=== PATIENT | male | born 1955 | race Caucasian/White ===

== ENCOUNTER 2020-08-17 15:25 | Emergency (ER) | payer MEDICARE, SELFPAY ==
[2020-08-17 15:34] VITALS: BP 149/98; PULSE 96; RESP 22; O2SAT 96; BMI 45.8
--- NOTE | 2020-08-17 15:35 | XR_ITS ---
WS: [id number] LEFT ELBOW: 2 VIEW(S) TECHNIQUE: AP and lateral. HISTORY: pain/fall COMPARISON: None available. Very limited evaluation of the elbow. On the oblique AP images there does appear to be a fracture thr ough the distal lateral epicondyle. Moderate-sized joint effusion. Seen on the lateral projection is a nondisplaced fracture through the radial head. Tiny avulsion fracture from the coronoid process. Joint effusion. XR/XR elbow LT 2V [id number] IMPRESSION: 1. Very limited evaluation of the elbow due to difficulty positioning. 2. Large joint effusion. 3. Avulsion fracture noted through the lateral epicondyle. Additional avulsion fracture from the coronoid process and radial head.
--- NOTE | 2020-08-17 15:42 | W.ED.EXTPRO ---
HPI - Extremity Problem General: Chief complaint: Extremity Injury, Upper Stated complaint: FALL/ ELBOW DEFORMITY Time Seen by Provider: 08/17/20 15:29 History of Present Illness: HPI Narrative: 65-year-old male presents to the emergency room with complaints of a fall. He was in a parking lot stumbled lost his balance. He denies any chest pain dizziness he did not strike his head he did not lose consciousness. He has a deformity of his left elbow and had his right index finger wrapped. Removed what appears to be a almost puncture-like wound with a skin flap prominent. He denies any other injuries. MD Complaint: extremity pain and extremity swelling Onset (ago): minute(s) Pain Consistency: constant Location: left, right (Index finger) and elbow Quality: sharp Radiation: none Relieving factors: nothing Exacerbating factors: range of motion Associated symptoms: Reports no associated symptoms; Deny chest pain, fever(s) or rash Review of Systems Const: Denies: fever(s), chills, body aches, change in appetite, fatigue or malaise ENMT: Denies: throat pain, ear or mastoid pain, nasal discharge or nasal congestion Card: Denies: chest pain, edema, dyspnea on exertion or orthopnea Resp: Denies: dyspnea, productive cough or non-productive cough GI: Denies: abdominal pain, nausea, vomiting, hematemesis, coffee ground emesis, diarrhea, constipation, bloating, hematochezia or melena : Denies: flank pain, dysuria, urinary frequency or urinary urgency Skin/Breast: Denies: rash or pruritus Physical Exam Const: COMMON NORMALS: no acute distress GENERAL APPEARANCE: cooperative and comfortable ORIENTATION/CONSCIOUSNESS: Yes awake, Yes oriented to person, Yes oriented to place and Yes oriented to time HENMT: COMMON NORMALS: normocephalic, atraumatic, hearing grossly normal bilaterally, external ears normal, EAC's normal, TM's normal bilaterally, Normal nasal mucous membranes and turbinates present, moist oral mucous membranes and oropharynx normal HEAD & SCALP: normocephalic and atraumatic NOSE: Normal nasal mucous membranes and turbinates present EXTERNAL EAR: Yes external ears normal EXTERNAL AUDITORY CANAL: EAC's normal TYMPANIC MEMBRANE: TM's normal bilaterally Neck/C-Spine: COMMON NORMALS: no JVD Resp: COMMON NORMALS: normal respiratory effort, No retractions, No use of accessory muscles and clear to auscultation bilaterally AUSCULTATION: clear to auscultation bilaterally Cardio: COMMON NORMALS: no JVD, regular rate, regular rhythm and No murmurs present (Cardio) RATE: regular rate RHYTHM: regular rhythm GI: COMMON NORMALS: Soft to palpation and No hepatosplenomegaly present AUSCULTATION: Yes normoactive bowel sounds PALPATION: Yes Soft to palpation, No Tenderness to palpation present (GI), No Guarding due to palpation present (GI) and Yes No hepatosplenomegaly present Extremity: COMMON NORMALS: normal to inspection, capillary refill normal, no clubbing, cyanosis or edema, no calf tenderness and no pedal edema Neuro: SENSORIUM/ORIENTATION: Yes oriented to person, Yes oriented to place and Yes oriented to time Skin: COMMON NORMALS: no rashes or lesions noted GENERAL SKIN EXAM: no rashes or lesions noted Course Vital Signs: Vital signs: Vital Signs Pulse Rate 96 08/17/20 15:34 Respiratory Rate 22 H 08/17/20 15:34 Blood Pressure 149/98 08/17/20 15:34 Pulse Oximetry 96 08/17/20 15:34 Coding Level of Care Code ED [employer] 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
--- NOTE | 2020-08-17 15:59 | XR_ITS ---
WS: [id number] RIGHT HAND: 3 VIEW(S) TECHNIQUE: PA, oblique and lateral. HISTORY: r index finger injury COMPARISON: None available. Diffuse osteopenia. Hardware in the distal radius. Interphalangeal joint spaces are narrowed. Mild distraction of the second PIP joint joint space and o n the lateral projection phalanx is posteriorly displaced by 4.7 mm. Posterior medial displacement of the middle phalanx. Adjacent soft tissue edema surrounding the proximal second finger. There is a ti ny osseous density at the second PIP joint which could be an avulsion fracture or osteophyte. Additional interphalangeal joint spaces are mildly narrowed from osteoarthritis. XR/XR hand RT min 3V* [id number] IMPRESSION: 1. Acute appearing distraction subluxation injury involving the second PIP portillo nt. Middle phalanx is posterior and medially displaced by up to 4.7 mm with res pect to the proximal phalanx. 2. Avulsion fracture versus osteophyte within the second PIP joint. 3. Osteopenia.
--- NOTE | 2020-08-17 16:24 | CTR_ITS ---
PROCEDURE INFORMATION: Exam: CT Left Upper Extremity Without Contrast, Elbow Exam date and time: 08/17/2020 5:29 PM Age: 65 years old Clinical indication: Injury or trauma; Fracture, traumatic injury; Displaced; Left; Patient HX: L elbow FX from fall TECHNIQUE: Imaging protocol: CT of the Left upper extremity without contrast was performed. Exam focused on the elbow. Radiation optimization: All CT scans at this facility use at least one of these dose optimization techniques: automated exposure control; mA and/or kV adjustment per patient size (includes targeted exams where dose is matched to clinical indication); or iterative reconstruction. COMPARISON: CR XR elbow LT 2V [id number] 08/17/2020 3:40 PM RADIATION DOSE METRICS: Total DLP (mGy-cm): 532.38 FINDINGS: Bones/joints: There is comminuted fracture of the medial condyle of the humerus. The major fracture line is a vertical fracture running from the medial cortex at the junction of the shaft and metaphysis extending downward in the sagittal plane through the articular surface of the trochlea. The lateral aspect of the trochlear surface is fragmented and displaced proximally with fragments displaced into both the coronoid fossa and the olecranon fossa. Capitellum and radial head are intact. Soft tissues: Soft tissue swelling is noted. CT/CT elbow LT wo con* [id number] IMPRESSION: Comminuted intra-articular fracture of the distal left humerus as described. Radiation Dose CTDIVOL = (mGy): DLP = 532.38 (mGy-cm)
--- NOTE | 2020-08-17 16:25 | PC.PHAR ---
PT STATES HIS TAKES CARE OF HIS MEDICATIONS-PTS STATES THE PT TAKES METFORMIN ER 500MG PO DAILY-EXT MED HISTORY SHOWS ER 500MG TAKE 1000MG PO DAILY FILLED ON 07/18/2020 30D/S-PTS STATES THE PT TAKES XANAX 0.25MG AT BEDTIME-EXT MED HISTORY SHOWS FILLED 0.25MG PO TID ON 05/26/2020 30D/S
[2020-08-17] MEDS: lidocaine 1% INJ 20 mL INJECTION (16:56)
[2020-08-17 16:57] LABS: Basophils % 0.4 %; Eosinophils # 0.1 10^3/uL (0.0-0.8); Eosinophils % 0.7 %; Hematocrit 44.5 % (42.0-52.0); Hemoglobin 14.4 g/dL (11.7-16.6); Lymphocytes # 1.6 10^3/uL (0.8-4.8); Lymphocytes % 14.9 %; Mean Corpuscular HGB Conc 32.4 g/dL (30.0-36.0); Mean Corpuscular Hemoglobin 33.7 pg (28.0-34.0); Mean Corpuscular Volume 104.2 fL (80-94); Mean Platelet Volume 8.8 fL (7.4-10.4); Monocytes # 0.8 10^3/uL (0.2-0.9); Monocytes % 7.6 %; Neutrophils # 8.02 10^3/uL (1.8-7.7); Neutrophils % 76.2 %; Nucleated Red Blood Cells % 0 %; Platelet Count 262 10^3/cmm (130-400); Red Blood Count 4.27 10^6/uL (4.1-5.3); Red Cell Distribution Width 12.2 % (12.1-15.1); White Blood Count 10.5 10^3/uL (4.0-10.0)
[2020-08-17 17:11] LABS: INR 1.03 (0.8-1.2)
[2020-08-17 17:12] LABS: Partial Thromboplastin Time 29.1 SECONDS (23.9-36.7)
[2020-08-17 17:17] VITALS: RESP 18; O2SAT 92
[2020-08-17] MEDS: morphine 4 mg/mL SDV 1 mL IM (17:17)
[2020-08-17 17:19] LABS: Alanine Aminotransferase 25 U/L (0-41); Albumin Level 3.7 g/dL (3.5-5.2); Alkaline Phosphatase 132 IU/L (40-130); Anion Gap 13.9 (5-19); Aspartate Amino Transferase 22 U/L (0-40); Blood Urea Nitrogen 6 mg/dL (8-23); Calcium 9.1 mg/dL (8.5-10.5); Carbon Dioxide 28 mmol/L (22-29); Chloride 100 mmol/L (98-107); Globulin 3.8 g/dL (1.3-4.6); Glomerular Filtration Rate 96.7 mL/min (90-130); Glucose 147 mg/dL (65-115); Osmolality Calculated 286 mOsm/kg (285-295); Potassium 3.9 mmol/L (3.5-5.1); Sodium 138 mmol/L (136-145); Total Bilirubin 0.4 mg/dL (0.15-1.2); Total Protein 7.5 g/dL (6.6-8.7)
--- NOTE | 2020-08-17 17:26 | XRR_ITS ---
PROCEDURE INFORMATION: Exam: XR Right Finger(s) Exam date and time: 08/17/2020 5:50 PM Age: 65 years old Clinical indication: Screening exam; Post reduction; Additional info: Index - post reduciton TECHNIQUE: Imaging protocol: XR Right fingers. Views: Minimum 2 views. COMPARISON: CR XR hand RT min 3V* [id number] 08/17/2020 3:55 PM FINDINGS: Bones/joints: Post reduction views show reduction of the previously seen dislocation involving the PIP joint of the right 2nd digit. Small adjacent bony densities could represent subtle avulsion injuries versus chronic osteophytes. XR/XR finger RT min 2V [id number] IMPRESSION: Post reduction views as discussed above.
--- NOTE | 2020-08-17 18:32 | PC.NURSE ---
splint applied to left elbow/arm. Posterior arm splint.
[2020-08-17 18:47] VITALS: BP 117/82; PULSE 106; O2SAT 93
--- NOTE | 2020-08-20 09:51 | DCPLANNER ---
water/wastewater project manager had message to schedule a follow up appointment for patient with ortho. water/wastewater project manager called the ortho clinic, spoke with Sheila, gave clinic patients information. water/wastewater project manager was told that patients information would be printed and reviewed. Clinic will call patient with appointment information.
--- NOTE | 2020-08-21 07:28 | DCPLANNER ---
Patient had a follow up appointment scheduled for 08.20.20 with ortho - patient did attend appointment.
== END 2020-08-17 18:50 | disposition home or self-care (01) ==
PROVIDERS: Emergency Provider Family Medicine; PCP Emergency Medicine
DX: S52.125A Nondisplaced fracture of head of left radius, initial encounter for closed fracture (principal); S42.432A Displaced fracture (avulsion) of lateral epicondyle of left humerus, initial encounter for closed fracture; S62.610A Displaced fracture of proximal phalanx of right index finger, initial encounter for closed fracture; S63.260A Dislocation of metacarpophalangeal joint of right index finger, initial encounter; W01.0XXA Fall on same level from slipping, tripping and stumbling without subsequent striking against object, initial encounter
CPT/HCPCS: 12345; 26700; 29125; 29240; 73070; 73130; 73140; 73200; 80053; 85025; 85610; 85730; 96372; 99282; 99284; 99291; J2270

== ENCOUNTER → 2020-08-20 13:19 | Outpatient (BNVA) | payer MEDICARE, SELFPAY | PROVIDERS: PCP Emergency Medicine; Visit Provider Specialist | DX: S42.402A Unspecified fracture of lower end of left humerus, initial encounter for closed fracture (principal); X58.XXXA Exposure to other specified factors, initial encounter | CPT/HCPCS: 73080; 73140; 97760; L3807 ==

== ENCOUNTER 2020-08-20 14:25 | Outpatient (CLI) | payer MEDICARE, SELFPAY ==
[2020-08-21 16:40] LABS: Coronavirus Test Green County Not Detected
== END 2020-08-20 14:26 | disposition home or self-care (01) ==
LOC: LAB 14:28
PROVIDERS: PCP Emergency Medicine; Visit Provider Family Medicine
DX: Z01.812 Encounter for preprocedural laboratory examination (principal)
CPT/HCPCS: 87635

== ENCOUNTER 2020-08-20 15:08 | Outpatient (CLI) | payer MEDICARE, SELFPAY | END 2020-08-20 15:09 | disposition home or self-care (01) | LOC: SPT 15:09 | PROVIDERS: PCP Emergency Medicine; Visit Provider Specialist | DX: Z46.89 Encounter for fitting and adjustment of other specified devices (principal); S62.610D Displaced fracture of proximal phalanx of right index finger, subsequent encounter for fracture with routine healing; X58.XXXD Exposure to other specified factors, subsequent encounter | CPT/HCPCS: 73080; 73140; 97760; L3807 ==

== ENCOUNTER → 2020-08-21 11:27 | Day surgery (SDC) | payer MEDICARE, SELFPAY ==
[2020-08-20 14:38] VITALS: BMI 44.2
[2020-08-21 12:15] VITALS: BP 122/82; PULSE 96; RESP 16; TEMP 36.6; O2SAT 95
[2020-08-21] MEDS: sodium chloride 0.9% 1,000 ML 30 ML IV (12:41)
[2020-08-21] MEDS: CELEcoxib 200 mg Capsule 400 MG PO (12:42)
[2020-08-21 12:59] LABS: Glucose Point of Care 171 mg/dL (70-110)
[2020-08-21 13:00] LABS: Basophils % 0.4 %; Eosinophils # 0.1 10^3/uL (0.0-0.8); Eosinophils % 1.1 %; Hematocrit 42.4 % (42.0-52.0); Hemoglobin 13.9 g/dL (11.7-16.6); Lymphocytes % 20.9 %; Mean Corpuscular HGB Conc 32.8 g/dL (30.0-36.0); Mean Corpuscular Hemoglobin 33.9 pg (28.0-34.0); Mean Corpuscular Volume 103.4 fL (80-94); Mean Platelet Volume 8.9 fL (7.4-10.4); Neutrophils # 6.44 10^3/uL (1.8-7.7); Neutrophils % 67.4 %; Nucleated Red Blood Cells % 0 %; Platelet Count 273 10^3/cmm (130-400); Red Cell Distribution Width 12.1 % (12.1-15.1); White Blood Count 9.6 10^3/uL (4.0-10.0)
[2020-08-21 13:25] LABS: Alanine Aminotransferase 18 U/L (0-41); Albumin Level 3.8 g/dL (3.5-5.2); Alkaline Phosphatase 128 IU/L (40-130); Blood Urea Nitrogen 7 mg/dL (8-23); Calcium 8.9 mg/dL (8.5-10.5); Carbon Dioxide 29 mmol/L (22-29); Chloride 96 mmol/L (98-107); Globulin 3.8 g/dL (1.3-4.6); Glomerular Filtration Rate 112.8 mL/min (90-130); Glucose 166 mg/dL (65-115); Osmolality Calculated 280 mOsm/kg (285-295); Sodium 134 mmol/L (136-145); Total Bilirubin 0.4 mg/dL (0.15-1.2); Total Protein 7.6 g/dL (6.6-8.7)
[2020-08-21 13:28] LABS: Anion Gap 13.3 (5-19); Aspartate Amino Transferase 21 U/L (0-40); Potassium 4.3 mmol/L (3.5-5.1)
[2020-08-21 13:32] LABS: Add Urine Microscopic? NO
[2020-08-21 13:39] LABS: Bilirubin Urine Neg (Negative); Blood Urine Neg (Negative); Glucose Urine UA 1+ (Normal); Ketones Urine Negative (Negative); Leukocyte Esterase Urine Negative (Negative); Nitrate Urine Negative (Negative); Protein Urine Neg (Negative); Urine Appearance Clear (CLEAR); Urine Color Yellow (Yellow); Urobilinogen Urine 1 mg/dL (Negative)
[2020-08-21] MEDS: midazolam 1 mg/mL INJ 2 mL 2 MG IVP (14:10)
--- NOTE | 2020-08-21 14:41 | P.ANESASSM_ITS ---
Pre-Anesthetic Assessment Pre-Anesthetic Assessment: Height/Weight: Height 1.68 m Weight 124.284 kg Temp Pulse Resp BP Pulse Ox 97.9 F 96 16 122/82 95 08/21/20 12:15 08/21/20 12:15 08/21/20 12:15 08/21/20 12:15 08/21/20 12:15 Preop Diagnosis: Fracture left elbow Proposed Procedure: Operation Date: 08/21/20 13:30 Proposed Procedures p ORIF left humerus fracture with examination of right index finger under anastesia 41506 [id number] S42.409A S62.608A(Left) - Amber Osborne MD Was Beta Chad taken within 24 hours: N/A Last intake: Intake Last Liquid Date 08/20/20 Last Liquid Time 23:00 Last Solid Date 08/20/20 Last Solid Time 23:00 Social: Social History: Tobacco and No alcohol Exam: Pre-Anes Outpt Exam: alert, oriented x 3 and regular rate & rhythm Additional Exam Findings (including area of procedure): BBS decreased Airway: Submandibular: WNL Cervical ROM: WNL MP: 2 Dentition: Chipped Additional comments: Very poor dentition Pulmonary: Pulmonary: COPD and ELLIS CV/HEM: CV/HEM: HTN : : None reported Hepatic: Hepatic: None reported GI: GI: None reported Metabolic: Metabolic: DM and Morbid obesity Musc/skel: Musc/skel: Lower Back Pain Neuropsych: Neuropsych: Anxiety Anesthetic Plan: ASA status: 3 Anesthesia: General Risk of > 500 ml blood loss (7ml/kg in children): No Meds/Allergies Current Medications: Current Medications Generic Name Dose Route Start Last Admin Trade Name Freq PRN Reason Stop Dose Admin Sodium Chloride 1,000 mls @ 30 ml s/hr 08/21/20 12:15 08/21/20 12:41 Sodium Chloride 0.9% IV 08/22/20 12:14 30 mls/hr .Q24H MARIANA Administration Midazolam HCl 2 mg 08/21/20 12:02 08/21/20 14:10 Midazolam 1 Mg/M l Inj 2 Ml IVP 2 mg Q5M PRN Administration Preop Anxiety Data Anesthesia CBC & Chem 7: 08/21/20 12:40 08/21/20 12:40 Other Labs: Laboratory Results - last 48 hr 01/07/3008/21/20 08/21/20 12:37 12:40 12:40 WBC 9.6 RBC 4.10 Hgb 13.9 Hct 42.4 MCV 103.4 H MCH 33.9 MCHC 32.8 RDW 12.1 Plt Count 273 MPV 8.9 Neut % (Auto) 67.4 Lymph % (Auto) 20.9 [place] % (Auto) 10.0 Eos % (Auto) 1.1 Baso % (Auto) 0.4 Neut # (Auto) 6.44 Lymph # (Auto) 2.0 [place] # (Auto) 1.0 H Eos # (Auto) 0.1 Baso # (Auto) 0.0 Nucleated RBC % (auto) 0 Nucleated RBCs # 0.0 Sodium 134 L Potassium 4.3 Chloride 96 L Carbon Dioxide 29 Anion Gap 13.3 BUN 7 L Creatinine 0.7 GFR Calculation 112.8 Glucose 166 H POC Glucose 171 H Calculated Osmolality 280 L Calcium 8.9 Total Bilirubin 0.4 AST 21 ALT 18 Alkaline Phosphatase 128 Total Protein 7.6 Albumin 3.8 Globulin 3.8 Urine Color Urine Appearance Urine pH Ur Specific [place] Urine Protein Urine Glucose (UA) Urine Ketones Urine Blood Urine Nitrate Urine Bilirubin Urine Urobilinogen Ur Leukocyte Esterase 08/21/20 13:07 WBC RBC Hgb Hct MCV MCH MCHC RDW Plt Count MPV Neut % (Auto) Lymph % (Auto) [place] % (Auto) Eos % (Auto) Baso % (Auto) Neut # (Auto) Lymph # (Auto) [place] # (Auto) Eos # (Auto) Baso # (Auto) Nucleated RBC % (auto) Nucleated RBCs # Sodium Potassium Chloride Carbon Dioxide Anion Gap BUN Creatinine GFR Calculation Glucose POC Glucose Calculated Osmolality Calcium Total Bilirubin AST ALT Alkaline Phosphatase Total Protein Albumin Globulin Urine Color Yellow Urine Appearance Clear Urine pH 5.0 Ur Specific [place] 1.020 Urine Protein Neg Urine Glucose (UA) 1+ Urine Ketones Negative Urine Blood Neg Urine Nitrate Negative Urine Bilirubin Neg Urine Urobilinogen 1 H Ur Leukocyte Esterase Negative Cardiac Studies: No Data to Display
--- NOTE | 2020-08-21 15:56 | P.MISC_ITS ---
Miscellaneous Note Purpose of Documentation: Postponement of OR documentation Note: Patient presented for open reduction internal fixation of an intra- articular distal humerus fracture on the left. He was also to undergo exam under anesthesia of the right index finger. Secondary to OR constraints, issues secondary to COVID and available resources, the patient surgery was delayed from today until August 23, at 1300.
--- NOTE | 2020-08-21 16:23 | SUR.PREOP ---
Dr. Osborne in to see patient. Surgery was postponed to . 08/23/20. IV discontinued intact. 2x2 dressing applied with coban.
== END | disposition home or self-care (01) ==
PROVIDERS: PCP Emergency Medicine; Visit Provider Specialist
PROC: (CPT 24515; principal; 2020-08-21 13:30)
DX: S42.402A Unspecified fracture of lower end of left humerus, initial encounter for closed fracture (principal); S62.609A Fracture of unspecified phalanx of unspecified finger, initial encounter for closed fracture; X58.XXXA Exposure to other specified factors, initial encounter; Z53.9 Procedure and treatment not carried out, unspecified reason; J44.9 Chronic obstructive pulmonary disease, unspecified; I10 Essential (primary) hypertension; E11.9 Type 2 diabetes mellitus without complications; E66.01 Morbid (severe) obesity due to excess calories; Z68.41 Body mass index [BMI] 40.0-44.9, adult; F41.9 Anxiety disorder, unspecified
CPT/HCPCS: 36416; 80053; 81003; 82962; 85025; J0131; J2250; J7030

== ENCOUNTER 2020-08-23 11:50 | Day surgery (SDC) | payer MEDICARE, SELFPAY ==
[2020-08-23] VITALS (15 sets, daily range): BP systolic 110–179; BP diastolic 75–94; PULSE 92–122; RESP 12–20; TEMP 36.1–36.2; O2SAT 93–100; BMI 44.2
--- NOTE | 2020-08-23 | XR_ITS ---
WS: [id number] 2 views of the right second finger, C-arm fluoroscopy, 08/23/2020 Clinical Data: EVAL OF 2ND DIGIT Comparison: Right second finger, 08/20/2020. Findings: No fractures or dislocations are seen. The soft tissues are normal. The calcifications at the PIP portillo nt are obscured by overlapping tissue. XR/XR finger RT min 2V [id number] Impression: Negative right second finger.
--- NOTE | 2020-08-23 | SCC_ITS ---
Procedure Done: Open reduction internal fixation left distal humerus fracture, supracondylar and intercondylar with intra-articular extension and comminution. 21.1 seconds of fluoroscopic guidance, for a cumulative dose of 0.83 mGy, was provided to Dr. Osborne by the radiology department. C-arm images of the RIGHT finger were saved for the patient's permanent record. [facility]
[2020-08-23 11:58] LABS: Glucose Point of Care 140 mg/dL (70-110)
--- NOTE | 2020-08-23 11:59 | P.ANESUD_ITS ---
Pre-Anesthetic Update Pre-Anesthetic Assessment: Date of Surgery/Procedure: 08/23/20 Preop Mel gnosis: Fracture left elbow Proposed Procedure: Operation Date: 08/23/20 13:00 Proposed Procedures p ORIF left humerus fracture with examination of right index finger under anatesia 40080 [id number] S42.409A S62.608A(Right) - Amber Osborne MD Any changes to Pre-Anesthetic Assessment?: No Labs Last 48hrs: Laboratory Results - last 48 hr 08/23/20 11:53 POC Glucose 140 H Vitals: Temperature 97.2 F L 08/23/20 11:43 Pulse Rate 92 08/23/20 11:43 Respiratory Rate 18 08/23/20 11:43 Blood Pressure 169/82 08/23/20 11:43 Blood Pressure [place] n 111 08/23/20 11:43 Pulse Oximetry 96 08/23/20 11:43 Exam: Pre-Anes Outpt Exam: alert, oriented x 3 and regular rate & rhythm Additional Exam Findings (including area of procedure): Rhonchi Cardiac Studies: No Data to Display
[2020-08-23] MEDS: CELEcoxib 200 mg Capsule 400 MG PO (12:15)
[2020-08-23] MEDS: vancomycin 1,000 MG in sodium chloride 0.9% 250 ML 250 MG IV (12:35)
--- NOTE | 2020-08-23 13:12 | W.PM.OPSUD ---
Surgery/Procedure H&P Update DATE OF PROCEDURE: August 23, 2020 DATE H&P PERFORMED: 08/20/20 H&P UPDATE INFORMATION: I have reviewed H&P completed within last 30 days, I have examined patient prior to procedure, No changes to prior documentation and H&P is in [facility] [place] on date indicated PREOP DIAGNOSIS: Fracture left elbow intra-articular and supracondylar PLANNED PROCEDURE: Operation Date: 08/23/20 13:00 Proposed Procedures p ORIF left humerus fracture with examination of right index finger under anesthesia [id number] S42.409A S62.608A(Right) - Amber Osborne MD Related Problem List Diagnoses (1) Supracondylar fracture of left humerus: Qualifiers: Encounter type: initial encounter Fracture type: closed Qualified Code(s): S42.412A - Displaced simple supracondylar fracture without intercondylar fracture of left humerus, initial encounter for closed fracture (2) Dislocation of proximal interphalangeal joint of right index finger: Qualifiers: Encounter type: initial encounter Qualified Code(s): S63.280A - Dislocation of proximal interphalangeal joint of right index finger, initial encounter
[2020-08-23] MEDS: sodium chloride 0.9% 1,000 ML 30 ML IV (14:00)
[2020-08-23] MEDS: ceFAZolin 1,000 mg SDV 1000 MG IRRIGATION (14:46)
[2020-08-23] MEDS: vancomycin 1,000 MG SDV 1000 MG XX (17:08)
[2020-08-23] MEDS: fentaNYL 50 mcg/mL INJ 2mL IVP (17:47)
--- NOTE | 2020-08-23 17:50 | XR_ITS ---
WS: [id number] Left elbow, 3 views, 08/23/2020 Clinical Data: Status post ORIF left distal humerus Comparison: Left elbow, 08/20/2020. Findings: There is an internal fixation of the distal left humeral fracture with a medial plate held with multi ple screws. There is a curved plate fixed to the olecranon with multiple orthopedic screws. There is a posterior splint. There are posterior lynn in the subcutaneous tissue. XR/XR elbow LT min 3V* [id number] Impression: Internal fixation of distal left humerus and olecranon of the left ulna.
--- NOTE | 2020-08-23 17:51 | P.PCN_ITS ---
PACU note PACU note: VSS, Good respiratory effort, report to SPECIAL LOAN OFFICER Post-Anesthesia Exam: awake
--- NOTE | 2020-08-23 17:51 | PM.PACU ---
PACU note PACU note: VSS, Good respiratory effort, report to UI ENGINEER Post-Anesthesia Exam: awake
--- NOTE | 2020-08-23 17:55 | PM.OP ---
Operative Report Date of procedure: August 23, 2020 Pre-op Diagnosis: Fracture left elbow intra-articular and supracondylar Pre-op Diagnosis: Right index finger PIP fracture dislocation Post-op diagnosis: same Post-op Findings: Comminution left supracondylar and intercondylar distal humerus fracture, intra-articular. Status post closed reduction PIP joint dislocation. Procedure Done: Open reduction internal fixation left distal humerus fracture, supracondylar and intercondylar with intra-articular extension and comminution. Exam under anesthesia right index finger with attention to PIP joint. Implants: The [place] 6 hole medial distal humeral plate and a 3 hole [place] olecranon plate. FIXOS headless screws 2.5 mm x 2 and 4.0 mm x 1 Specimens removed/disposition: None Pathology: none sent Surgeon: Amber Osborne Anodize Machine Operator: [facility] operating room technicians Anesthesia: General (Intubated, ASA 3) Estimated blood loss (mL): 100 Tourniquet time (min): 120 Tourniquet time: 250 mmHg IV fluids (mL): 1,300 Urine output (mL): 0 Urine output: No Bailey Complications: None Findings: Significant comminution left distal humerus fracture Condition: stable Disposition: PACU (Then home with family) Brief History: 65-year-old gentleman was in his usual state of health when he chased after a wheelchair in a parking lot. He fell suffering the above injuries. He had a dislocation of the PIP joint of his index finger which was reduced in the emergency department. Today, he will have an exam under anesthesia to assure that it is stable. Additionally, he had a comminuted medial condyle comminuted intra-articular, supracondylar distal humerus fracture which is displaced. Today, he comes for definitive care of this. Risks and complications were discussed with him preoperatively. Consents were signed as well. Procedure: Patient was seen in the preoperative holding area and his operative site was marked. Patient was brought to the operating theater and placed on the operating room table. After undergoing adequate general intubated, ASA 3 anesthesia, the patient's left upper extremity was prepped and draped in usual fashion utilizing DuraPrep. The arm was draped free. Fluoroscopy was used throughout the surgical procedure. We did have a tourniquet high on the left upper extremity. Prior to prepping and draping completely, the surgical pause was performed and the patient's right index finger underwent an exam under anesthesia. This was to determine stability and appropriate reduction of the finger. Fluoroscopy was utilized to evaluate this. There was no evidence of subluxation or dislocation with this manipulation. Therefore, jennifer taping was returned to the right index finger. It was taped to the middle finger. Attention was then directed to the plan for open reduction internal fixation of the distal left humerus. A sterile tourniquet was placed on the arm. This was elevated to 250 mmHg and total tourniquet time was 120 minutes. Tourniquet elevation followed exsanguination of the leg. A surgical pause was performed. At the time of the surgical pause we identified the site and side of surgery as well as the patient's identity and availability of equipment. We also confirmed appropriate administration of IV antibiotics. Following the above, an incision was made centering over the patient's distal humeral fracture. The incision was continued from the midportion of the humeral shaft across the olecranon and along the subcutaneous border of the ulna. Palpation of the area was difficult secondary to the patient's size and significant soft tissue in the area. The incision was continued through skin and soft tissue through subcutaneous tissue. Subcutaneous tissues were elevated off the triceps and off the area of the ulna. The ulnar nerve was identified proximally and was traced along the ulnar groove and released from the groove. It was tagged with a Maurisio drain. The ulnar nerve was evaluated and protected throughout the surgical procedure. Attention was directed to it repeatedly during the manipulation of the fracture. An olecranon osteotomy was then performed. This was a chevron style osteotomy. It was partially completed with a saw and the remainder was completed with an osteotome. We were able to elevate the olecranon proximal portion proximally to allow access to the joint. The fracture was noted to be very comminuted. Soft tissues were dissected to allow access to the distal humerus above the level of the fracture. There were multiple comminuted pieces and it did involve the joint surface. Evaluation of the area we were able to place the middle trochlear fracture back in position against the stable lateral capitellum. This was held in place with a FIXOS 2.5 headless screw which was buried. We were then able to further reduce the fracture manipulating it into place. Once again, we used a headless screw but this was a 4.0 headless screw to fix the lateral aspect of the trochlea to the previously constructed lateral stable column. There was one small portion of cartilage that was removed during this process this was replaced in position and again a 2.5 mm headless screw was used to place this in position. Once we the construct of the articular surface in this fashion, we reduced the medial column which extended along the medial aspect of the humerus. This essentially was reduced anatomically and held with a large clamp. We then placed a medial 6-hole olecranon plate along the medial aspect of the humerus and along the epicondyle of the humerus medially. This was attached with a combination of locking and nonlocking screws. Care was taken to protect the ulnar nerve throughout this process. Once the plate was attached with 2 screws, we evaluated position of the plate and length of screws and adjustments were made as appropriate. We used fluoroscopic guidance throughout this process. The elbow was placed through range of motion once the plate was attached. There was no crepitation. The fracture appeared stable. Once the plate was appropriately attached, we irrigated the wound. We then closed the wound with 0 Vicryl in the fascial tissues, 2-0 Monocryl in the subcutaneous tissues, and the skin was closed with skin lynn. Sterile dressing was placed consisting of Xeroform gauze, 4 x 4's, sterile soft roll, a posterior splint and an Rd wrap. The patient is to remain nonweightbearing on his left upper extremity. The procedure was well tolerated without complication. Tourniquet time was 120 minutes at 250 mmHg. The patient will be discharged home to follow-up in my office as scheduled. Associated Problem List Diagnoses (1) Fracture of medial condyle of left elbow: Qualifiers: Encounter type: initial encounter Fracture type: closed Fracture alignment: displaced Qualified Code(s): S42.462A - Displaced fracture of medial condyle of left humerus, initial encounter for closed fracture (2) Supracondylar fracture of left humerus: Qualifiers: Encounter type: initial encounter Fracture type: closed Qualified Code(s): S42.412A - Displaced simple supracondylar fracture without intercondylar fracture of left humerus, initial encounter for closed fracture (3) Dislocation of proximal interphalangeal joint of right index finger: Qualifiers: Encounter type: initial encounter Qualified Code(s): S63.280A - Dislocation of proximal interphalangeal joint of right index finger, initial encounter
--- NOTE | 2020-08-23 18:48 | ANE.PACU2 ---
Inpatient post-anesthesia follow up: Airway intact: Yes Vital signs: Temperature 97.0 F Pulse Rate 112 Respiratory Rate 12 Blood Pressure 156/84 Pulse Oximetry 93 Oxygen Delivery Me thod Nasal Cannula Oxygen Flow Rate 2 Fraction of Inspir ed Oxygen Hydration adequate: Yes Nausea and vomiting: No Pain level: 2 Mental status: Baseline
[2020-08-23] MEDS: oxyCODONE 5 mg IR Tab/Cap PO (19:06)
== END 2020-08-23 19:56 | disposition home or self-care (01) ==
PROVIDERS: PCP Emergency Medicine; Visit Provider Specialist
PROC: (CPT 24515; principal; 2020-08-23 13:00)
PROC: (CPT 24546; 2020-08-23 13:00)
DX: S42.412A Displaced simple supracondylar fracture without intercondylar fracture of left humerus, initial encounter for closed fracture (principal); S63.280A Dislocation of proximal interphalangeal joint of right index finger, initial encounter; S42.462A Displaced fracture of medial condyle of left humerus, initial encounter for closed fracture; W19.XXXA Unspecified fall, initial encounter; Y92.481 Parking lot as the place of occurrence of the external cause
CPT/HCPCS: 24546; 26775; 12345; 36416; 73080; 73140; 76000; 82962; C1713; J0131; J0330; J0690; J2405; J2704; J3010; J3370; J3490; J7030; J7050

== ENCOUNTER → 2020-09-06 14:13 | Outpatient (BNVA) | payer MEDICARE, SELFPAY | PROVIDERS: PCP General Practice; Visit Provider Specialist | DX: S62.640A Nondisplaced fracture of proximal phalanx of right index finger, initial encounter for closed fracture (principal); S42.462A Displaced fracture of medial condyle of left humerus, initial encounter for closed fracture; S42.412A Displaced simple supracondylar fracture without intercondylar fracture of left humerus, initial encounter for closed fracture; X58.XXXA Exposure to other specified factors, initial encounter; Z46.89 Encounter for fitting and adjustment of other specified devices; S42.462D Displaced fracture of medial condyle of left humerus, subsequent encounter for fracture with routine healing; X58.XXXD Exposure to other specified factors, subsequent encounter | CPT/HCPCS: 73080; 73140; 97760; L3761 ==

== ENCOUNTER 2020-09-06 15:38 | Outpatient (CLI) | payer MEDICARE, SELFPAY | END 2020-09-06 15:39 | disposition home or self-care (01) | LOC: SPT 15:39 | PROVIDERS: PCP General Practice; Visit Provider Specialist | DX: Z46.89 Encounter for fitting and adjustment of other specified devices (principal); S42.462D Displaced fracture of medial condyle of left humerus, subsequent encounter for fracture with routine healing; X58.XXXD Exposure to other specified factors, subsequent encounter | CPT/HCPCS: 97760; L3761 ==

== ENCOUNTER → 2020-09-17 10:52 | Outpatient (BNVA) | payer MEDICARE, SELFPAY | PROVIDERS: PCP General Practice; Visit Provider Specialist | DX: S63.280A Dislocation of proximal interphalangeal joint of right index finger, initial encounter (principal); S42.462A Displaced fracture of medial condyle of left humerus, initial encounter for closed fracture; S42.412A Displaced simple supracondylar fracture without intercondylar fracture of left humerus, initial encounter for closed fracture; W01.0XXA Fall on same level from slipping, tripping and stumbling without subsequent striking against object, initial encounter | CPT/HCPCS: 73080; 73140 ==

== ENCOUNTER → 2020-10-10 09:15 | Outpatient (BNVA) | payer MEDICARE, SELFPAY | PROVIDERS: PCP General Practice; Visit Provider Specialist | DX: S42.462A Displaced fracture of medial condyle of left humerus, initial encounter for closed fracture (principal); S42.412A Displaced simple supracondylar fracture without intercondylar fracture of left humerus, initial encounter for closed fracture; S63.280A Dislocation of proximal interphalangeal joint of right index finger, initial encounter; S62.300A Unspecified fracture of second metacarpal bone, right hand, initial encounter for closed fracture | CPT/HCPCS: 73080; 73140 ==

== ENCOUNTER → 2020-11-01 08:35 | Outpatient (BNVA) | payer MEDICARE, SELFPAY | PROVIDERS: PCP General Practice; Visit Provider Specialist | DX: Z98.890 Other specified postprocedural states (principal); S62.350 Nondisplaced fracture of shaft of second metacarpal bone, right hand; W01.0XXD Fall on same level from slipping, tripping and stumbling without subsequent striking against object, subsequent encounter; S63.280D Dislocation of proximal interphalangeal joint of right index finger, subsequent encounter; S42.412D Displaced simple supracondylar fracture without intercondylar fracture of left humerus, subsequent encounter for fracture with routine healing | CPT/HCPCS: 73080; 73140 ==

== ENCOUNTER 2022-01-01 14:12 | Inpatient (IN) | payer MEDICARE, SELFPAY ==
[2022-01-01] VITALS (23 sets, daily range): BP systolic 103–189; BP diastolic 56–87; PULSE 76–103; RESP 16–22; TEMP 36.6–36.9; O2SAT 95–100; BMI 37.9
[2022-01-01 14:53] LABS: ABG PCO2 89.9 mmHg (35-45); ABG PH Result 7.21 (7.35-7.45); Arterial Blood Gas Hematocrit 47.2 % (42-52); Base Excess ABG 4.3 mmol/L (-2.0-2.0); Blood Gas Allen Test Pos; Blood Gas Operator Identificat CAK; Blood Gas Sample Site Radial, right; Blood Gas Sample Type Arterial; Carboxyhemoglobin 1.2 %THgb (0.4-20.1); HCO3 ABG 35.9 mmol/L (22-26); HGB O2 Sat 96.6 % (95-100); Ionized Calcium Level - ABG 1.2 mmol/L (1.1-1.4); Methemoglobin 1.1 % (0.4-1.5); Oxygen Device NC; Oxygen Saturation ABG 98.9; Potassium Level - ABG 4.2 mmol/L (3.5-5.0); Total Hemoglobin 15.4 g/dL (14-18)
--- NOTE | 2022-01-01 14:54 | XR_ITS ---
WS: [id number] Exam: XR chest 1V portable [id number] Date/Time of Exam: 01/01/2022 2:59 PM Reason For Exam: shortness of breath Comparison 07/11/2018. Focal pulmonary density seen near the left costophrenic angle may represent a mass or consolidated pn eum[place] and/or atelectasis. Remaining lung [place] are clear. No pneumothorax. Heart size is normal fo r technique. An ET tube is in place ending at about the level of T3 in satisfactory position. The kory gs are adequately ventilated. An enteric tube is looped in the body the stomach but the tip is not vi sible. Bony structures are intact. Mediastinal contour is normal for technique. XR/XR chest 1V portable [id number] IMPRESSION: 1. Focal masslike pulmonary density at the left costophrenic angle which may re present consolidated pneumonia or pulmonary mass. 2. ET tube in satisfactory position. Enteric tube looped in the stomach.
[2022-01-01 14:57] LABS: Glucose Point of Care 196 mg/dL (70-110)
[2022-01-01] MEDS: succinylcholine 20 mg/mL SDV 10mL 100 MG IV (15:07)
[2022-01-01 15:13] LABS: Basophils % 0.2 %; Eosinophils % 0.1 %; Hemoglobin 15.2 g/dL (11.7-16.6); Lymphocytes % 10.2 %; Monocytes % 9.6 %; Neutrophils # 7.92 10^3/uL (1.8-7.7); Neutrophils % 78.5 %; Nucleated Red Blood Cells % 0 %; Platelet Count 224 10^3/cmm (130-400); Red Blood Count 4.22 10^6/uL (4.1-5.3); Red Cell Distribution Width 12.9 % (12.1-15.1); White Blood Count 10.1 10^3/uL (4.0-10.0)
--- NOTE | 2022-01-01 15:20 | ECG_ITS ---
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 Measurements Intervals [place] Rate: 108 P: 73 UT: 194 QRS: -79 QRSD: 96 T: 73 QT: 354 QTc: 475 Interpretive Statements SINUS TACHYCARDIA LEFT AXIS DEVIATION [QRS AXIS < -30] POSSIBLE ANTERIOR MYOCARDIAL INFARCTION , OF INDETERMINATE AGE [30 ms Q WAVE IN V3/V4, OR R < 0.2 mV IN V4] Compared to ECG 07/11/2018 16:59:53 Myocardial infarct finding now present Sinus rhythm no longer present Electronically Signed On 01-01-2022 21:22:54 CDT by Skylar Arvizu M.D. [email or web address]
[2022-01-01] MEDS: ipratropium-albuterol 3 mL Neb INHALATION ×2 (15:36→20:34)
[2022-01-01 15:38] LABS: Lactic Sepsis W/Reflex 1.7 mmol/L (0.5-2.2)
[2022-01-01 15:41] LABS: Acetaminophen 5.7 ug/mL (10-30); Alanine Aminotransferase 21 U/L (0-41); Albumin Level 4.2 g/dL (3.5-5.2); Alkaline Phosphatase 108 IU/L (40-130); Anion Gap 13.8 (5-19); Aspartate Amino Transferase 17 U/L (0-40); Blood Urea Nitrogen 7 mg/dL (8-23); C Reactive Protein 17.4 mg/L (0.0-4.9); Calcium 9.2 mg/dL (8.5-10.5); Carbon Dioxide 34 mmol/L (22-29); Chloride 94 mmol/L (98-107); Globulin 3.3 g/dL (1.3-4.6); Glomerular Filtration Rate 112.5 mL/min (90-130); Glucose 189 mg/dL (65-115); Magnesium 1.8 mg/dL (1.7-2.3); NT Pro B Type Natriuretic Pept 164 pg/mL (0-125); Osmolality Calculated 287 mOsm/kg (285-295); Potassium 4.8 mmol/L (3.5-5.1); Sodium 137 mmol/L (136-145); Total Bilirubin 0.2 mg/dL (0.15-1.2); Total Protein 7.5 g/dL (6.6-8.7)
[2022-01-01 15:42] LABS: Alcohol Level < 10 mg/dL (0-10); Salicylate < 0.3 mg/dL (3-10)
[2022-01-01] MEDS: fentaNYL 50 mcg/mL INJ 2mL IVP ×4 (15:44→17:48)
--- NOTE | 2022-01-01 15:57 | ED_ITS ---
HPI - Altered Mental Status General: Chief Complaint: Altered Mental Status Stated Complaint: respiratory distress Time Seen by Provider: 01/01/22 14:33 History of Present Illness: Patient is brought in by EMS with shortness of breath and mental status change. Per family the patient has been dealing with shortness of breath and a productive cough for the past couple of days. States that today he is not acting himself. Upon arrival here the patient is very somnolent and appears confused on exam. He is also requiring supplemental oxygen to maintain his oxygen saturations above 90%. He has a productive cough for yellowish sputum. A stat blood gas was obtained which showed a PCO2 of 89.9. Given the mental status change I do not think the patient is a good candidate for BiPAP. At this time after talking to the family the decision was made to intubate. Review of Systems General: Reports: Other (Review of systems is limited due to patient's mental status) Const: Denies: fever(s) or body aches Eyes: Denies: change in vision or blurry vision ENMT: Denies: throat pain or odynophagia Card: Denies: chest pain or palpitations Resp: Denies: dyspnea or productive cough GI: Denies: abdominal pain, nausea or vomiting : Denies: flank pain or dysuria Musc: Denies: neck pain or back pain Skin/Breast: Denies: rash or pruritus Neuro: Reports: numbness in extremities and weakness in extremities; Denies: headache(s) Psych: Denies: anxiety or change in appetite Endo: Denies: polyuria or excessive sweating Physical Exam Const: OTHER: Patient is confused, and ill-appearing HENMT: COMMON NORMALS: normocephalic and atraumatic HEAD & SCALP: normocephalic and atraumatic Eye: COMMON NORMALS: Equal, round and reactive pupils present and EOMs intact bilaterally PUPIL: Yes Equal, round and reactive pupils present Neck/C-Spine: COMMON NORMALS: full ROM and supple Resp: COMMON NORMALS: normal respiratory effort, No retractions and No use of accessory muscles Cardio: COMMON NORMALS: regular rhythm RHYTHM: regular rhythm OTHER: Tachycardia GI: COMMON NORMALS: Normal to inspection, nondistended, normoactive bowel sounds present, Soft to palpation and non-tender PALPATION: Yes Soft to palpation Back/Pelvis: COMMON NORMALS: thoracic and lumbar spine normal to inspection an d no thoracic nor lumbar tenderness Extremity: OTHER: Chronic venous stasis changes of bilateral lower extremities Psych: COMMON NORMALS: mental status grossly normal and cooperative Skin: COMMON NORMALS: no rashes or lesions noted and no wounds GENERAL SKIN EXAM: no rashes or lesions noted Course Vital Signs: Vital signs: Vital Signs Temperature 97.9 F 01/01/22 14:19 Pulse Rate 93 01/01/22 16:26 Respiratory Rate 18 01/01/22 16:31 Blood Pressure 104/66 01/01/22 16:26 Pulse Oximetry 97 01/01/22 16:26 MDM - Altered Mental Status Medical Decision Making Patient is brought in by EMS with shortness of breath and mental status change. Per family the patient has been dealing with shortness of breath and a productive cough for the past couple of days. States that today he is not acting himself. Upon arrival here the patient is very somnolent and appears confused on exam. He is also requiring supplemental oxygen to maintain his oxygen saturations above 90%. He has a productive cough for yellowish sputum. A stat blood gas was obtained which showed a PCO2 of 89.9. Given the mental status change I do not think the patient is a good candidate for BiPAP. At this time after talking to the family the decision was made to intubate. Will intubate the patient, check labs, x-ray, and reassess. On reassessment I discussed the case with the hospitalist. We will start the patient on antibiotics for pneumonia. Will admit to the ICU for further work-up and treatment. Lab Data : 01/01/22 14:55 01/01/22 14:55 Radiology Impressions Chest X-Ray 01/01/22 14:54 IMPRESSION: 1. Focal masslike pulmonary density at the left costophrenic angle which may represent consolidated pneumonia or pulmonary mass. 2. ET tube in satisfactory position. Enteric tube looped in the stomach. Laboratory Results WBC 10.1 10^3/uL (4.0-10.0) H 01/01/22 14:55 RBC 4.22 10^6/uL (4.1-5.3) 01/01/22 14:55 Hgb 15.2 g/dL (11.7-16.6) 01/01/22 14:55 Hct 46.0 % (42.0-52.0) 01/01/22 14:55 MCV 109.0 fl (80-94) H 01/01/22 14:55 MCH 36.0 pg (28.0-34.0) H 01/01/22 14:55 MCHC 33.0 g/dL (30.0-36.0) 01/01/22 14:55 RDW 12.9 % (12.1-15.1) 01/01/22 14:55 Plt Count 224 10^3/cmm (130-400) 01/01/22 14:55 MPV 9.0 fL (7.4-10.4) 01/01/22 14:55 Neut % (Auto) 78.5 % 01/01/22 14:55 Lymph % (Auto) 10.2 % 01/01/22 14:55 [place] % (Auto) 9.6 % 01/01/22 14:55 Eos % (Auto) 0.1 % 01/01/22 14:55 Baso % (Auto) 0.2 % 01/01/22 14:55 Neut # (Auto) 7.92 10^3/uL (1.8-7.7) H 01/01/22 14:55 Lymph # (Auto) 1.0 10^3/uL (0.8-4.8) 01/01/22 14:55 [place] # (Auto) 1.0 10^3/uL (0.2-0.9) H 01/01/22 14:55 Eos # (Auto) 0.0 10^3/uL (0.0-0.8) 01/01/22 14:55 Baso # (Auto) 0.0 10^3/uL (0.0-0.1) 01/01/22 14:55 Nucleated RBC % (auto) 0 % 01/01/22 14: Nucleated RBCs # 0.0 /100WBC 01/01/22 14:55 Specimen Type Arterial 01/01/22 16:02 Sample Site Radial, left 01/01/22 16:02 ABG pH 7.15 (7.35-7.45) L* 01/01/22 16:02 ABG pCO2 102.0 mmHg (35-45) H* 01/01/22 16:02 ABG pO2 200.0 mmHg (80.0-100.0) H 01/01/22 16:02 ABG HCO3 35.0 mmol/L (22-26) H 01/01/22 16:02 ABG O2 Saturation 99.3 01/01/22 16:02 ABG Base Excess 2.1 mmol/L (-2.0-2.0) H 01/01/22 16:02 Dileep Test Pos 01/01/22 16:02 A-a O2 Gradient 31.8 mmHg (5-10) H 01/01/22 16:02 Hematocrit 46.9 % (42-52) 01/01/22 16:02 Hgb O2 Saturation 97.0 % (95-100) 01/01/22 16:02 Carboxyhemoglobin 1.0 %THgb (0.4-20.1) 01/01/22 16:02 Methemoglobin 1.2 % (0.4-1.5) 01/01/22 16:02 Total Hemoglobin 15.3 g/dL (14-18) 01/01/22 16:02 Sodium 138.0 mmol/L (131-143) 01/01/22 16:02 Potassium 4.8 mmol/L (3.5-5.0) 01/01/22 16:02 Glucose 196.0 mg/dL (70-115) H 01/01/22 16:02 Ionized Calcium 1.2 mmol/L (1.1-1.4) 01/01/22 16:02 O2 Delivery Device Vent 01/01/22 16:02 O2 Liters/Min 5.0 % 01/01/22 14:42 FiO2 80.0 % 01/01/22 16:02 Tidal Volume 0.40 01/01/22 16:02 PEEP 8.0 cmH20 01/01/22 16:02 Occupational Therapy Asst ID Cak 01/01/22 16:02 Sodium 137 mmol/L (136-145) 01/01/22 14:55 Potassium 4.8 mmol/L (3.5-5.1) 01/01/22 14:55 Chloride 94 mmol/L (98-107) L 01/01/22 14:55 Carbon Dioxide 34 mmol/L (22-29) H 01/01/22 14:55 Anion Gap 13.8 (5-19) 01/01/22 14:55 BUN 7 mg/dL (8-23) L 01/01/22 14:55 Creatinine 0.7 mg/dL (0.7-1.2) 01/01/22 14:55 GFR Calculation 112.5 mL/min (90-130) 01/01/22 14:55 Glucose 189 mg/dL (65-115) H 01/01/22 14:55 POC Glucose 196 mg/dL (70-110) H 01/01/22 14:45 Calculated Osmolality 287 mOsm/kg (285-295) 01/01/22 14:55 Lactic Acid 1.7 mmol/L (0.5-2.2) 01/01/22 15:18 Calcium 9.2 mg/dL (8.5-10.5) 01/01/22 14:55 Magnesium 1.8 mg/dL (1.7-2.3) 01/01/22 14:55 Total Bilirubin 0.2 mg/dL (0.15-1.2) 01/01/22 14:55 AST 17 U/L (0-40) 01/01/22 14:55 ALT 21 U/L (0-41) 01/01/22 14:55 Alkaline Phosphatase 108 IU/L (40-130) 01/01/22 14:55 C-Reactive Protein 17.4 mg/L (0.0-4.9) H 01/01/22 14:55 NT-Pro-B Natriuret Pep 164 pg/mL (0-125) H 01/01/22 14:55 Total Protein 7.5 g/dL (6.6-8.7) 01/01/22 14:55 Albumin 4.2 g/dL (3.5-5.2) 01/01/22 14:55 Globulin 3.3 g/dL (1.3-4.6) 01/01/22 14:55 Salicylates < 0.3 mg/dL (3-10) L 01/01/22 14:55 Acetaminophen 5.7 ug/mL (10-30) L 01/01/22 14:55 Ethyl Alcohol < 10 mg/dL (0-10) 01/01/22 14:55 Critical Care Time Critical Care Time: Critical Care Time: Yes Total Critical Care Time: 75 Attestation: This case had a high probability of a clinically significant, sudden, or life threatening deterioration of this patient's condition which required my full and direct attention, intervention and personal management. Discharge Plan Discharge Patient Disposition: Admitted As Inpatient Clinical Impression: Respiratory failure Condition: Stable Coding Level of Care Code ED Tool/Die Maker for [place] Exam Comprehensive
[2022-01-01 16:14] LABS: ABG PH Result 7.15 (7.35-7.45); Alveolar-Arterial Oxygen Gradi 31.8 mmHg (5-10); Arterial Blood Gas Hematocrit 46.9 % (42-52); Base Excess ABG 2.1 mmol/L (-2.0-2.0); Blood Gas Allen Test Pos; Blood Gas Operator Identificat CAK; Blood Gas Sample Site Radial, left; Blood Gas Sample Type Arterial; Ionized Calcium Level - ABG 1.2 mmol/L (1.1-1.4); Methemoglobin 1.2 % (0.4-1.5); Oxygen Device VENT; Oxygen Saturation ABG 99.3; Potassium Level - ABG 4.8 mmol/L (3.5-5.0); Total Hemoglobin 15.3 g/dL (14-18)
[2022-01-01] MEDS: cefTRIAXone 1,000 MG in sodium chloride 0.9% (plus) 50 ML 100 MG IV (16:22)
[2022-01-01] MEDS: azithromycin 500 MG in sodium chloride 0.9% 250 ML 250 MG IV (16:24)
--- NOTE | 2022-01-01 17:27 | PM.HP ---
Providers/Chief Complaint Primary Care Provider: Harsha Ritchie MD Chief Complaint: respiratory distress History of Present Illness Jb Borges is a 66 year old male with past medical history of hypertension diabetes COPD,OHS, was brought in with chief complaint of shortness of breath as well as altered mental status. Since the patient has been intubated, history has been obtained from ER chart review. Per family members patient was complaining of worsening shortness of breath as well as productive cough going on for the past couple of days, today according to the family members he was not acting himself, he was extremely somnolent and confused. When he arrived in the ER he was worked up for above-mentioned complaint. Pertinent imaging studies: X-ray chest: Focal mass like pulmonary density at the left costophrenic angle which may represent consolidated pneumonia or pulmonary mass. ABG: pH:7.21, PCO2: 89 , PO2: 146 , FIO2:80% Pertinent labs: WBC 10.1, H&H:15/46 , PLT : 224 , serum sodium 137 serum potassium 4.8, BUN and serum creatinine 7 and 0.7,RBS:189 , COVID PCR negative. Review of Systems General: Reports: ROS unobtainable due to endotracheal tube Medications/Allergies Home Medications Medication Instructions Recorded Confirmed Last Taken Type acetaminophen 500 mg tablet 1,000 mg PO DAILY PRN 08/17/20 01/01/22 Unknown History (Tylenol Extra Strength) alprazolam 0.25 mg tablet 0.25 mg PO BEDTIME 08/17/20 01/01/22 12/31/21 History atorvastatin 40 mg tablet 40 mg PO DAILY@08/17/20 01/01/22 12/31/21 History lisinopril 5 mg tablet 5 mg PO DAILY@08/17/20 01/01/22 12/31/21 History metformin 500 mg tablet,extended See Rx Instructions .ROUTE .COMPLEX 08/17/20 01/01/22 12/31/21 History release 24 hr paroxetine HCl 20 mg tablet 20 mg PO BEDTIME 08/17/20 01/01/22 12/31/21 History hydrocodone 5 mg-acetaminophen 325 1 tab PO Q6H PRN 10 Days #40 tab 09/06/20 01/01/22 Unknown Rx mg tablet glipizide 5 mg tablet, extended 5 mg PO DAILY 01/01/22 01/01/22 12/31/21 History release 24 hr Allergies Allergy/AdvReac Type Severity Reaction Status Date / Time No Known Allergies Allergy Verified 01/01/22 15:22 Vitals/I&O/Wt Last Vital Signs Temp 97.9 F 01/01/22 14:19 Pulse 93 01/01/22 16:26 Resp 18 01/01/22 16:31 BP 104/66 01/01/22 16:26 Pulse Ox 97 01/01/22 16:26 Weight last 48 hrs Weight 106.594 kg Physical Exam Narrative: Intubated ,sedated on mechanical ventilation HENMT: COMMON NORMALS: normocephalic and atraumatic HEAD & SCALP: normocephalic and atraumatic Chest: CHEST: Yes Symmetrical chest wall rise Resp: EFFORT & INSPECTION: Yes symmetric chest movement AUSCULTATION: clear to auscultation bilaterally OTHER: Diminished air entry B/L, B/L Expiratory wheezing Cardio: COMMON NORMALS: regular rate, regular rhythm, S1 normal heart sound present, S2 normal heart sound present, No gallops present (Cardio), No murmurs present (Cardio), No rub (Cardio) and Peripheral pulses 2+ throughout RATE: regular rate RHYTHM: regular rhythm HEART SOUNDS: S1 normal heart sound present and S2 normal heart sound present PERIPHERAL PULSES: Peripheral pulses 2+ throughout GI: COMMON NORMALS: Normal to inspection, nondistended, normoactive bowel sounds present, Soft to palpation, non-tender, No hepatosplenomegaly present and no masses AUSCULTATION: Yes normoactive bowel sounds PALPATION: Yes Soft to palpation and Yes No hepatosplenomegaly present RECTAL EXAM: Yes deferred Urinary Catheter Management: Bailey: Cath Placed During This Visit: yes Urinary Catheter Date of Insertion: 01/01/22 Urinary Catheter Time of Insertion: 15:25 Data : 01/01/22 14:55 01/01/22 14:55 Micro: Microbiology 01/01/22 15:18 Blood Culture - Preliminary Blood SPECIMEN COLLECTED 01/01/22 14:55 Blood Culture - Preliminary Blood SPECIMEN COLLECTED A&P Assessment and plan (1) Respiratory failure with hypoxia and hypercapnia: Status: Acute (2) Diabetes: Status: Acute (3) Hypertension: Status: Acute (4) COPD (chronic obstructive pulmonary disease): Status: Acute (5) Obesity hypoventilation syndrome: Status: Acute (6) Altered mental status: Status: Acute Plan 66 year old male with past medical history of hypertension diabetes COPD,OHS, was brought in with chief complaint of shortness of breath as well as altered mental status. Assessment: Respiratory failure with hypoxia and hypercapnia likely secondary to COPD exacerbation secondary to pneumonia , obesity hypoventilation syndrome. X-ray chest: Focal mass like pulmonary density at the left costophrenic angle which may represent consolidated pneumonia or pulmonary mass. CT chest without contrast: For better evaluation of reported possible mass like pulmonary density. Monitor ABG Follow blood culture MRSA PCR COVID PCR negative Sputum gram stain and culture DuoNebs every 6H Solu-Medrol 60 IV every 8 Continue Zosyn for now. Continue mechanical ventilation for now.VC/AC: Tidal volume 450,R/R:20 , PIP:32 , PEEP of 8, FiO2 60%. Altered mental status secondary to hypercapnia: Plan as above Diabetes: LDDI Monitor fingerstick glucose HTN : Currently normotensive monitor blood pressure for now #CODE STATUS: Full code #DVT prophylaxis: On Lovenox Attestations Medical Necessity Statement*: Patient is to be in hospital for management of respiratory failure. Anticipated length of stay greater than 2 midnights. Time Spent in Patient Care: Greater than 35 minutes (>than 50% of time spent in counselling and/or direct pt care on unit). Critical Care Time: The high probability of a clinically significant, sudden or life threatening deterioration of the patient's [] system(s) required my full and direct attention, intervention and personal management. The critical care time is as shown. This time is in addition to time spent performing any reported procedures but includes the following: [x] Data and vital sign review and interpretation [x] Patient assessment, examination and intervention [x] Documentation [x] Medication orders and management Critical Care Time (min): 45 Coding Level of Care Code Acute Ending Machine Operator for g Fwd Diagnoses Respiratory failure with hypoxia and hypercapnia J96.91; J96.92 Diabetes E11.9 Hypertension I10 COPD (chronic obstructive pulmonary disease) J44.9 Obesity hypoventilation syndrome E66.2 Altered mental status R41.82
[2022-01-01 17:35] LABS: ABG PH Result 7.17 (7.35-7.45); Alveolar-Arterial Oxygen Gradi 20.7 mmHg (5-10); Arterial Blood Gas Hematocrit 46.3 % (42-52); Base Excess ABG 0.4 mmol/L (-2.0-2.0); Blood Gas Allen Test Pos; Blood Gas Operator Identificat CAK; Blood Gas Sample Site Radial, left; Blood Gas Sample Type Arterial; Blood Gas Tidal Volume 0.45; Carboxyhemoglobin 0.9 %THgb (0.4-20.1); HCO3 ABG 32.2 mmol/L (22-26); HGB O2 Sat 97.8 % (95-100); Ionized Calcium Level - ABG 1.2 mmol/L (1.1-1.4); Methemoglobin 1.1 % (0.4-1.5); Oxygen Device VENT; Oxygen Saturation ABG 99.9; Potassium Level - ABG 4.3 mmol/L (3.5-5.0); Total Hemoglobin 15.1 g/dL (14-18)
[2022-01-01 17:36] LABS: ABG PCO2 89.4 mmHg (35-45)
[2022-01-01] MEDS: midazolam 1 mg/mL INJ 2 mL 4 MG IVP (17:36)
[2022-01-01 17:50] LABS: Adenovirus Not Detected (NOT DETECT); Chlamydia Pneumoniae Not Detected (NOT DETECT); Coronavirus 229E,HKU1,NL63,OC4 Not Detected (NOT DETECT); Human Metapneumovirus Not Detected (NOT DETECT); Human Rhinovirus/Enterovirus Not Detected (NOT DETECT); Influenza A Not Detected (NOT DETECT); Influenza A H1 Not Detected (NOT DETECT); Influenza A H1-2009 Not Detected (NOT DETECT); Influenza A H3 Not Detected (NOT DETECT); Influenza B Not Detected (NOT DETECT); Mycoplasma Pneumoniae Not Detected (NOT DETECT); Parainfluenza Virus Type 1 Not Detected (NOT DETECT); Parainfluenza Virus Type 2 Not Detected (NOT DETECT); Parainfluenza Virus Type 3 Not Detected (NOT DETECT); Parainfluenza Virus Type 4 Not Detected (NOT DETECT); Respiratory Syncytial Virus A Not Detected (NOT DETECT); Respiratory Syncytial Virus B Not Detected (NOT DETECT); SARS-COV-2 Not Detected (NOT DETECT)
[2022-01-01] MEDS: midazolam 1 mg/mL INJ 2 mL 2 MG IVP (17:52)
--- NOTE | 2022-01-01 18:10 | XRR_ITS ---
PROCEDURE INFORMATION: Exam: XR Chest Exam date and time: 01/01/2022 6:23 PM Age: 66 years old Clinical indication: Shortness of breath; Additional info: Pneumonia TECHNIQUE: Imaging protocol: XR of the chest. Views: 1 view. COMPARISON: CR XR chest 1V portable [id number] 01/01/2022 3:30 PM FINDINGS: Tubes, catheters and devices: Stable positioning of endotracheal and enteric tubes. Lungs: Left basilar consolidation. Pleural spaces: No evident pleural effusion. No pneumothorax. Heart/Mediastinum: Unremarkable. No cardiomegaly. Bones/joints: Unremarkable. XR/XR chest 1V portable [id number] IMPRESSION: Similar appearance of left basilar consolidation.
--- NOTE | 2022-01-01 19:53 | PC.NURSE ---
1904 report received 1920 pt to icu
[2022-01-01] MEDS: enoxaparin 40 mg/0.4 mL Syringe SUBCUT (20:44)
[2022-01-01] MEDS: piperacillin-tazobactam 3.375 GM in sodium chloride 0.9% (plus) 50 ML IV (20:45)
[2022-01-01] MEDS: PARoxetine 20 mg Tablet PO (20:45)
[2022-01-01 20:49] LABS: Add Urine Microscopic? YES; Bilirubin Urine Neg (Negative); Blood Urine 2+ (Negative); Glucose Urine UA 1+ (Normal); Ketones Urine Negative (Negative); Leukocyte Esterase Urine 2+ (Negative); Nitrate Urine Positive (Negative); Protein Urine 2+ (Negative); Urine Appearance Cloudy (CLEAR); Urine Color Dark Yellow (Yellow); Urobilinogen Urine Norm (Negative); pH Urine 6.5 (5-7)
[2022-01-01 20:54] LABS: Mucus Urine 2+ /hpf
[2022-01-01 20:55] LABS: Add Urine Culture? Yes; Bacteria Urine 1+ /hpf; RBC Urine 50-80 /hpf (0-2); WBC Urine 40-55 /hpf (0-5)
[2022-01-01] MEDS: insulin lispro 100 unit/1 mL SUBCUT (21:04)
[2022-01-01 21:36] LABS: Amphetamines Screen Urine Negative (Negative); Barbiturates Screen Urine Negative (Negative); Benzodiazepines Screen Urine Positive (Negative); Cocaine Screen Urine Negative (Negative); Opiate Screen Urine Positive (Negative); PCP Screen Urine Negative (Negative); THC Screen Urine Negative (Negative)
[2022-01-02] VITALS (37 sets, daily range): BP systolic 97–137; BP diastolic 51–87; PULSE 72–125; RESP 16–23; TEMP 36.7–37; O2SAT 90–100
[2022-01-02] MEDS: propofol 1,000 MG/100 ML INJ 12.79 MG IV (03:23)
[2022-01-02] MEDS: ipratropium-albuterol 3 mL Neb INHALATION ×5 (04:23→19:58)
[2022-01-02] MEDS: piperacillin-tazobactam 3.375 GM in sodium chloride 0.9% (plus) 50 ML IV ×3 (04:40→20:27)
[2022-01-02 05:16] LABS: ABG PCO2 57.6 mmHg (35-45); ABG PH Result 7.35 (7.35-7.45); Arterial Blood Gas Hematocrit 50.2 % (42-52); Blood Gas Allen Test Pos; Blood Gas Sample Type Arterial; Carboxyhemoglobin 0.7 %THgb (0.4-20.1); HCO3 ABG 31.6 mmol/L (22-26); HGB O2 Sat 96.3 % (95-100); Ionized Calcium Level - ABG 1.2 mmol/L (1.1-1.4); Methemoglobin 0.9 % (0.4-1.5); Oxygen Saturation ABG 97.9; PO2 ABG 94.3 mmHg (80.0-100.0); Potassium Level - ABG 4.3 mmol/L (3.5-5.0); Total Hemoglobin 16.4 g/dL (14-18)
[2022-01-02 05:24] LABS: Alveolar-Arterial Oxygen Gradi 15.3 mmHg (5-10); Blood Gas Operator Identificat JB; Blood Gas Sample Site Brachial, right; Blood Gas Tidal Volume 0.45; Oxygen Device VENT
[2022-01-02 08:02] LABS: Glucose Point of Care 377 mg/dL (70-110)
[2022-01-02] MEDS: insulin lispro 100 unit/1 mL SUBCUT ×4 (08:05→20:23)
--- NOTE | 2022-01-02 09:20 | PC.NURSE ---
PT remains sedated and on vent. Thick, singh secretions are noted. Dr. Ro gave verbal order to extubate.
[2022-01-02] MEDS: propofol 1,000 MG/100 ML INJ 15.99 MG IV (09:48)
[2022-01-02 10:18] LABS: Basophils % 0.1 %; Hematocrit 42.3 % (42.0-52.0); Hemoglobin 13.7 g/dL (11.7-16.6); Lymphocytes # 1.1 10^3/uL (0.8-4.8); Lymphocytes % 8.8 %; Mean Corpuscular HGB Conc 32.4 g/dL (30.0-36.0); Mean Corpuscular Hemoglobin 35.7 pg (28.0-34.0); Mean Corpuscular Volume 110.2 fl (80-94); Monocytes # 0.5 10^3/uL (0.2-0.9); Neutrophils # 11.08 10^3/uL (1.8-7.7); Neutrophils % 86.7 %; Nucleated Red Blood Cells % 0 %; Platelet Count 217 10^3/cmm (130-400); Red Blood Count 3.84 10^6/uL (4.1-5.3); White Blood Count 12.8 10^3/uL (4.0-10.0)
[2022-01-02 10:34] LABS: INR 1.04 (0.8-1.2)
[2022-01-02 10:35] LABS: Partial Thromboplastin Time 27.6 SECONDS (23.9-36.7)
--- NOTE | 2022-01-02 10:45 | PM.PN ---
Subjective Subjective: Patient was seen and examined this morning, a.m. ABG: pH 7.35, PCO2:57, PO2 94.3, Current ventilator settings are: VC-AC: Tv: 450 cc , r/r :20 , PIP; 28 , Ti: 0.85 , PEEP:8 ,FIO2: 30%. Patient has remained afebrile overnight. No other acute events. Medications: Medication Review Details: Generic Name Dose Route Start Last Admin Trade Name Freq PRN Reason Stop Dose Admin Albuterol/Ipratrop ium 3 ml 01/01/22 21:00 01/02/22 08:02 Ipratropium-Albu terol 3 Ml Neb INHALATION 3 ml Q6H.RESPIRATORY S CH Administration Enoxaparin Sodium 40 mg 01/01/22 18:45 01/01/22 20:44 Enoxaparin 40 Mg /0.4 Ml Syringe SUBCUT 40 mg Q24H MARIANA Administration Fentanyl 50 mcg 01/01/22 15:39 01/01/22 17:48 Fentanyl 50 Mcg/ Ml Inj 2ml IVP 50 mcg Q5MIN PRN Administration SEDATION Piperacillin Sod/T azobactam 50 mls @ 12.5 mls /hr 01/01/22 18:00 01/02/22 04:40 Sod 3.375 gm/ So dium Chloride IV 12.5 mls/hr Q8H MARIANA Administration Protocol Propofol 1,000 mg in 100 m ls @ 0 mls/hr 01/01/22 18:15 01/02/22 09:48 Diprivan IV 25 mcg/kg/min .Q0M MARIANA 15.99 mls/hr Administration Protocol Per Protocol Insulin Human Lisp ro 0 unit 01/01/22 18:00 01/02/22 08:05 Insulin Lispro 1 00 Unit/1 Ml SUBCUT 12 unit WM&BEDTIME MARIANA Administration Protocol Methylprednisolone Sodium Succinate 60 mg 01/01/22 18:00 01/02/22 09:48 Methylprednisolo ne Sod Succ 125 Mg /2 Ml Inj IVP 60 mg Q8H MARIANA Administration Midazolam HCl 4 mg 01/01/22 16:07 01/01/22 17:36 Midazolam 1 Mg/M l Inj 2 Ml IVP 4 mg Q5MIN PRN Administration SEDATION Midazolam HCl 2 mg 01/01/22 16:30 01/01/22 17:52 Midazolam 1 Mg/M l Inj 2 Ml IVP 2 mg Q5MIN PRN Administration SEDATION Paroxetine HCl 20 mg 01/01/22 21:00 01/01/22 20:45 Paroxetine 20 Mg Tablet PO 20 mg BEDTIME MARIANA Administration Vitals/I&O/Wt Last Vital Signs Temp 98.6 F 01/02/22 04:00 Pulse 100 01/02/22 09:00 Resp 23 H 01/02/22 09:30 BP 136/76 01/02/22 09:00 Pulse Ox 92 01/02/22 09:30 01/01/22 01/02/22 01/02/22 22:59 06:59 14:59 Intake Total 360 / 360 64.282 / 424.282 99.747 / 99.747 Output Total 250 / 250 Balance 360 / 360 -185.718 / 174.282 99.747 / 99.747 Weight last 48 hrs Weight 126.734 kg Weight 106.594 kg Physical Exam Narrative: Intubated ,sedated on mechanical ventilation HENMT: COMMON NORMALS: normocephalic and atraumatic HEAD & SCALP: normocephalic and atraumatic Chest: CHEST: Yes Symmetrical chest wall rise Resp: COMMON NORMALS: clear to auscultation bilaterally EFFORT & INSPECTION: Yes symmetric chest movement AUSCULTATION: clear to auscultation bilaterally OTHER: Diminished air entry B/L, B/L Expiratory wheezing Cardio: COMMON NORMALS: regular rate, regular rhythm, S1 normal heart sound present, S2 normal heart sound present, No gallops present (Cardio), No murmurs present (Cardio), No rub (Cardio) and Peripheral pulses 2+ throughout RATE: regular rate RHYTHM: regular rhythm HEART SOUNDS: S1 normal heart sound present and S2 normal heart sound present PERIPHERAL PULSES: Peripheral pulses 2+ throughout GI: COMMON NORMALS: Normal to inspection, nondistended, normoactive bowel sounds present, Soft to palpation, non-tender, No hepatosplenomegaly present and no masses AUSCULTATION: Yes normoactive bowel sounds PALPATION: Yes Soft to palpation and Yes No hepatosplenomegaly present RECTAL EXAM: Yes deferred Urinary Catheter Management: Bailey: Cath Placed During This Visit: yes Reason for Continuing Indwelling Catheter: Accurate Measurement of Urinary Output in Critically Ill Patients Urinary Catheter Date of Insertion: 01/01/22 Urinary Catheter Time of Insertion: 15:25 Data : 01/02/22 09:30 01/01/22 14:55 Micro: Microbiology 01/01/22 15:18 Blood Culture - Preliminary Blood SPECIMEN COLLECTED 01/01/22 14:55 Blood Culture - Preliminary Blood SPECIMEN COLLECTED A&P Assessment and plan (1) Respiratory failure with hypoxia and hypercapnia: Status: Acute (2) Diabetes: Status: Acute (3) Hypertension: Status: Acute (4) COPD (chronic obstructive pulmonary disease): Status: Acute (5) Obesity hypoventilation syndrome: Status: Acute (6) Altered mental status: Status: Acute Plan 66 year old male with past medical history of hypertension diabetes COPD,OHS, was brought in with chief complaint of shortness of breath as well as altered mental status. Assessment: Respiratory failure with hypoxia and hypercapnia likely secondary to COPD exacerbation secondary to pneumonia , obesity hypoventilation syndrome. X-ray chest: Focal mass like pulmonary density at the left costophrenic angle which may represent consolidated pneumonia or pulmonary mass. CT chest without contrast: For better evaluation of reported possible mass like pulmonary density. Monitor ABG Follow blood culture MRSA PCR COVID PCR negative Sputum gram stain and culture DuoNebs every 6H Solu-Medrol 60 IV every 8 Continue Zosyn for now. Continue mechanical ventilation for now.VC/AC: Tidal volume 450,R/R:20 , PIP:32 , PEEP of 8, FiO2 60%. Altered mental status secondary to hypercapnia: Plan as above Diabetes: LDDI Monitor fingerstick glucose HTN : Currently normotensive monitor blood pressure for now #CODE STATUS: Full code #DVT prophylaxis: On Lovenox Attestations Medical Necessity Statement*: Patient is to be in hospital for management of respiratory failure. Time Spent in Patient Care: Greater than 35 minutes (>than 50% of time spent in counselling and/or direct pt care on unit). Critical Care Time: The high probability of a clinically significant, sudden or life threatening deterioration of the patient's [] system(s) required my full and direct attention, intervention and personal management. The critical care time is as shown. This time is in addition to time spent performing any reported procedures but includes the following: [x] Data and vital sign review and interpretation [x] Patient assessment, examination and intervention [x] Documentation [x] Medication orders and management Critical Care Time (min): 40 Coding Level of Care Code Acute Automotive Finance Manager for g Fwd Diagnoses Respiratory failure with hypoxia and hypercapnia J96.91; J96.92 Diabetes E11.9 Hypertension I10 COPD (chronic obstructive pulmonary disease) J44.9 Obesity hypoventilation syndrome E66.2 Altered mental status R41.82
[2022-01-02 10:48] LABS: NT Pro B Type Natriuretic Pept 170 pg/mL (0-125); Procalcitonin 0.14 ng/mL (0-0.5)
[2022-01-02 10:59] LABS: Anion Gap 18.2 (5-19); Blood Urea Nitrogen 17 mg/dL (8-23); Carbon Dioxide 28 mmol/L (22-29); Chloride 93 mmol/L (98-107); Glomerular Filtration Rate 60.4 mL/min (90-130); Glucose 203 mg/dL (65-115); Osmolality Calculated 287 mOsm/kg (285-295); Potassium 4.2 mmol/L (3.5-5.1); Sodium 135 mmol/L (136-145)
[2022-01-02 11:36] LABS: Glucose Point of Care 202 mg/dL (70-110)
--- NOTE | 2022-01-02 12:36 | PC.NURSE ---
All sedation has been turned off. Pt is able to follow commands.
[2022-01-02] MEDS: dexmedeTOMIDine 0.9 % NaCL 400 MCG/100 ML PREMIX IV (12:41)
--- NOTE | 2022-01-02 14:15 | PC.NURSE ---
Pt was extubated at 1400 to 2L NC. Tolerated well
[2022-01-02] MEDS: acetylcysteine 200 mg/mL SDV 4 mL INHALATION ×2 (15:08→19:57)
[2022-01-02 17:27] LABS: Glucose Point of Care 154 mg/dL (70-110)
[2022-01-02] MEDS: nicotine 14 mg Patch 1 PATCH TRANSDERMA (17:39)
[2022-01-02] MEDS: azithromycin 500 MG in sodium chloride 0.9% 250 ML 250 MG IV (17:40)
[2022-01-02] MEDS: enoxaparin 40 mg/0.4 mL Syringe SUBCUT (17:40)
--- NOTE | 2022-01-02 17:56 | PC.NURSE ---
125 Ml of fentanyl was wated with angela CARTER but was unable to waste in OCT due to bag never being scanned.
[2022-01-02 20:15] LABS: Glucose Point of Care 178 mg/dL (70-110)
[2022-01-02] MEDS: PARoxetine 20 mg Tablet PO (20:22)
[2022-01-02] MEDS: guaiFENesin 600 mg Tablet 1200 MG PO (20:22)
[2022-01-03] VITALS (31 sets, daily range): BP systolic 118–166; BP diastolic 62–97; PULSE 74–115; RESP 14–30; TEMP 36.8; O2SAT 93–100
[2022-01-03] MEDS: ipratropium-albuterol 3 mL Neb INHALATION ×6 (00:13→19:55)
[2022-01-03] MEDS: acetylcysteine 200 mg/mL SDV 4 mL INHALATION ×6 (00:13→19:55)
[2022-01-03 02:32] LABS: Basophils % 0.1 %; Eosinophils % 0.1 %; Hematocrit 41.9 % (42.0-52.0); Hemoglobin 13.8 g/dL (11.7-16.6); Lymphocytes % 5.8 %; Mean Corpuscular HGB Conc 32.9 g/dL (30.0-36.0); Mean Corpuscular Hemoglobin 36.1 pg (28.0-34.0); Mean Corpuscular Volume 109.7 fl (80-94); Mean Platelet Volume 8.8 fL (7.4-10.4); Monocytes # 0.8 10^3/uL (0.2-0.9); Monocytes % 4.8 %; Neutrophils # 15.15 10^3/uL (1.8-7.7); Neutrophils % 88.7 %; Nucleated Red Blood Cells % 0 %; Platelet Count 186 10^3/cmm (130-400); Red Blood Count 3.82 10^6/uL (4.1-5.3); Red Cell Distribution Width 13.1 % (12.1-15.1); White Blood Count 17.1 10^3/uL (4.0-10.0)
[2022-01-03 02:50] LABS: Blood Urea Nitrogen 19 mg/dL (8-23); Calcium 8.6 mg/dL (8.5-10.5); Carbon Dioxide 31 mmol/L (22-29); Chloride 95 mmol/L (98-107); Glomerular Filtration Rate 96.4 mL/min (90-130); Glucose 190 mg/dL (65-115); Osmolality Calculated 287 mOsm/kg (285-295); Sodium 135 mmol/L (136-145)
[2022-01-03 02:52] LABS: Anion Gap 13.8 (5-19); Potassium 4.8 mmol/L (3.5-5.1)
[2022-01-03] MEDS: piperacillin-tazobactam 3.375 GM in sodium chloride 0.9% (plus) 50 ML IV ×3 (04:22→21:47)
--- NOTE | 2022-01-03 07:39 | CT_ITS ---
WS: [id number] CT CHEST WITH INTRAVENOUS CONTRAST HISTORY: Focal masslike pulmonary density at the left C/P Angle TECHNIQUE: Contiguous 5 mm axial imaging performed on the thorax. Coronal and sagittal reformats are submitted. All CT scans at [facility] use at least one of these dose optimization techniques: automated exposure control; mA and/or kV adjustment per patient size (includes targeted exams where dose is matched to clinical indication); or iterative reconstruction. CONTRAST: Omnipaque 300; 50 mL IV. DLP: 1048.43 mGy.cm COMPARISON: Chest radiograph 01/01/2022. Lungs and central airway: Very small amount of pleural thickening and subsegmental atelectasis at the LEFT lung base. The opacification noted on the recent chest radiograph is a benign pericardial fat p ad. Pleura: Normal. No pleural effusion. Heart and pericardium: Very minimal pericardial thickening. Normal size heart. Mediastinum and makenzie: No mediastinum or hilar adenopathy. Vessels: Normal size aortic and pulmonary artery. No coronary artery calcifications. Chest wall and lower neck: No soft tissue masses. Upper abdomen: Negative. Osseous structures: No destructive process. CT/CT chest w con* [id number] IMPRESSION: 1. No pulmonary mass. 2. Opacification at the LEFT costophrenic angle is a normal, benign pericardia l fat pad. 3. No pneumonia.
[2022-01-03] MEDS: guaiFENesin 600 mg Tablet 1200 MG PO ×2 (08:31→21:46)
[2022-01-03] MEDS: nicotine 14 mg Patch 1 PATCH TRANSDERMA (08:31)
[2022-01-03] MEDS: insulin lispro 100 unit/1 mL SUBCUT ×4 (08:31→22:08)
[2022-01-03 09:37] LABS: Glucose Point of Care 173 mg/dL (70-110)
--- NOTE | 2022-01-03 10:05 | PC.CHAP ---
Pastoral Care Encounter/Spiritual Assessment Type of Contact [] Declined grab hooker visit [] Patient/Family/Request visit [] Outpatient visit [] Follow-up visit [] Physician referral [] Code/Alert [x] Routine visit [] Staff referral [] Actively dying [] Patient sleeping [] Family support [] [] Out of room [] Palliative care [] [] Receiving care in room [] Pre-surgical visit [] Trauma [] Long length of stay [x] ICU visit [] Other: Relational/Emotional Strength [] Patient feels connected with others/family/visitors/staff [] Distress [] Loneliness/isolation [] Abandonment Spirituality of Patient [] Person of Ana María [] Attends Alevism of their Ana María [] Believes in Prayer [] Reads Bible or Evangelical materials [] There are Spiritual issues to be addressed Cooler Worker Interventions [x] Prayer [x] Active listening [x] Non-anxious presence [x] Spiritual/emotional support [] Crisis/trauma care [] Spiritual counseling [] Bereavement support [] Provided bereavement packet [] Provided Bible/devotional materials [] Provided toy/stuffed animal, coloring book to patient or family member [] Provided Communion [] Anointing/[place] [] Salvation [x] Completed spiritual assessment [] Other: Impact on Illness or Injury [] Angry [] Fearful [] Anxious [] Often cries [] Exhaustion [] Unable to work [] Unable to attend hoahaoism [] Unable to walk/stand [] Unable to read [] Unable to drive [] Unable to eat/drink [] Unable to sleep [] Unable to be with family [] Patient intubated [] Other: Summary patient setting in chair... believes in God and Lenny,,, not so much prayer... BUT we prayed Time spent with patient 5 min
--- NOTE | 2022-01-03 10:27 | PM.PN ---
Subjective Subjective: Patient was seen and examined this morning, status post extubation, currently doing well on 3 Ls supplemental oxygen. Medications: Medication Review Details: Generic Name Dose Route Start Last Admin Trade Name Freq PRN Reason Stop Dose Admin Albuterol/Ipratrop ium 3 ml 01/01/22 21:00 01/02/22 08:02 Ipratropium-Albu terol 3 Ml Neb INHALATION 3 ml Q6H.RESPIRATORY S CH Administration Enoxaparin Sodium 40 mg 01/01/22 18:45 01/01/22 20:44 Enoxaparin 40 Mg /0.4 Ml Syringe SUBCUT 40 mg Q24H MARIANA Administration Fentanyl 50 mcg 01/01/22 15:39 01/01/22 17:48 Fentanyl 50 Mcg/ Ml Inj 2ml IVP 50 mcg Q5MIN PRN Administration SEDATION Piperacillin Sod/T azobactam 50 mls @ 12.5 mls /hr 01/01/22 18:00 01/02/22 04:40 Sod 3.375 gm/ So dium Chloride IV 12.5 mls/hr Q8H MARIANA Administration Protocol Propofol 1,000 mg in 100 m ls @ 0 mls/hr 01/01/22 18:15 01/02/22 09:48 Diprivan IV 25 mcg/kg/min .Q0M MARIANA 15.99 mls/hr Administration Protocol Per Protocol Insulin Human Lisp ro 0 unit 01/01/22 18:00 01/02/22 08:05 Insulin Lispro 1 00 Unit/1 Ml SUBCUT 12 unit WM&BEDTIME MARIANA Administration Protocol Methylprednisolone Sodium Succinate 60 mg 01/01/22 18:00 01/02/22 09:48 Methylprednisolo ne Sod Succ 125 Mg /2 Ml Inj IVP 60 mg Q8H MARIANA Administration Midazolam HCl 4 mg 01/01/22 16:07 01/01/22 17:36 Midazolam 1 Mg/M l Inj 2 Ml IVP 4 mg Q5MIN PRN Administration SEDATION Midazolam HCl 2 mg 01/01/22 16:30 01/01/22 17:52 Midazolam 1 Mg/M l Inj 2 Ml IVP 2 mg Q5MIN PRN Administration SEDATION Paroxetine HCl 20 mg 01/01/22 21:00 01/01/22 20:45 Paroxetine 20 Mg Tablet PO 20 mg BEDTIME MARIANA Administration Vitals/I&O/Wt Last Vital Signs Temp 98.2 F 01/03/22 04:00 Pulse 100 01/03/22 08:00 Resp 20 H 01/03/22 08:00 BP 142/73 01/03/22 04:00 Pulse Ox 96 01/03/22 08:00 01/02/22 01/03/22 01/03/22 22:59 06:59 14:59 Intake Total 429.768 / 642.676 50 / 692.676 Output Total 800 / 800 500 / 1300 Balance -370.232 / -157.324 -450 / -607.324 Weight last 48 hrs Weight 127.5 kg Weight 126.734 kg Weight 106.594 kg Physical Exam HENMT: COMMON NORMALS: normocephalic and atraumatic HEAD & SCALP: normocephalic and atraumatic Chest: CHEST: Yes Symmetrical chest wall rise Resp: COMMON NORMALS: clear to auscultation bilaterally EFFORT & INSPECTION: Yes symmetric chest movement AUSCULTATION: clear to auscultation bilaterally OTHER: Diminished air entry B/L, B/L Expiratory wheezing Cardio: COMMON NORMALS: regular rate, regular rhythm, S1 normal heart sound present, S2 normal heart sound present, No gallops present (Cardio), No murmurs present (Cardio), No rub (Cardio) and Peripheral pulses 2+ throughout RATE: regular rate RHYTHM: regular rhythm HEART SOUNDS: S1 normal heart sound present and S2 normal heart sound present PERIPHERAL PULSES: Peripheral pulses 2+ throughout GI: COMMON NORMALS: Normal to inspection, nondistended, normoactive bowel sounds present, Soft to palpation, non-tender, No hepatosplenomegaly present and no masses AUSCULTATION: Yes normoactive bowel sounds PALPATION: Yes Soft to palpation and Yes No hepatosplenomegaly present RECTAL EXAM: Yes deferred Urinary Catheter Management: Bailey: Cath Placed During This Visit: yes Reason for Continuing Indwelling Catheter: Accurate Measurement of Urinary Output in Critically Ill Patients Urinary Catheter Date of Insertion: 01/01/22 Urinary Catheter Time of Insertion: 15:25 Data : 01/03/22 02:18 01/03/22 02:18 Micro: Microbiology 01/01/22 20:30 Urine Culture - Final Urine,Clean Catch 01/01/22 21:10 MRSA Culture - Final Nose 01/01/22 15:18 Blood Culture - Preliminary Blood NEGATIVE TO DATE 01/01/22 14:55 Blood Culture - Preliminary Blood NEGATIVE TO DATE 01/01/22 15:17 Gram Stain - Final Sputum - Endotracheal Tube Aspirate Sputum Culture - Preliminary A&P Assessment and plan (1) Respiratory failure with hypoxia and hypercapnia: Status: Acute (2) Diabetes: Status: Acute (3) Hypertension: Status: Acute (4) COPD (chronic obstructive pulmonary disease): Status: Acute (5) Obesity hypoventilation syndrome: Status: Acute (6) Altered mental status: Status: Acute Plan 66 year old male with past medical history of hypertension diabetes COPD,OHS, was brought in with chief complaint of shortness of breath as well as altered mental status. Assessment: Respiratory failure with hypoxia and hypercapnia likely secondary to COPD exacerbation secondary to pneumonia , obesity hypoventilation syndrome. X-ray chest: Focal mass like pulmonary density at the left costophrenic angle which may represent consolidated pneumonia or pulmonary mass. CT chest with contrast: Monitor ABG Blood culture: NTD MRSA PCR: Negative COVID PCR negative Sputum gram stain and culture: Moderate tiny gram-negative rods DuoNebs every 6H Solu-Medrol 60 IV every 8 Continue Zosyn and azithromycin for now. Initially on mechanical ventilation VC/AC: Tidal volume 450,R/R:20 , PIP:32 , PEEP of 8, FiO2 60%. S/p extubation: Currently doing well on minimal supplemental oxygen. Altered mental status secondary to hypercapnia:: Resolved Plan as above Diabetes: LDDI Monitor fingerstick glucose HTN : Currently normotensive monitor blood pressure for now #CODE STATUS: Full code #DVT prophylaxis: On Lovenox Attestations Medical Necessity Statement*: Patient is to be hospital for management of pneumonia. Time Spent in Patient Care: Greater than 35 minutes (>than 50% of time spent in counselling and/or direct pt care on unit). Coding Level of Care Code Acute Software Development Intern for g Fwd Diagnoses Respiratory failure with hypoxia and hypercapnia J96.91; J96.92 Diabetes E11.9 Hypertension I10 COPD (chronic obstructive pulmonary disease) J44.9 Obesity hypoventilation syndrome E66.2 Altered mental status R41.82
[2022-01-03] MEDS: iodixanol 320 mg/mL 100mL Btl IV (10:45)
[2022-01-03] MEDS: LORazepam 2 mg/mL INJ 1 mL 1 MG IVP (11:29)
[2022-01-03 11:34] LABS: Glucose Point of Care 341 mg/dL (70-110)
[2022-01-03 16:52] LABS: Glucose Point of Care 272 mg/dL (70-110)
[2022-01-03] MEDS: azithromycin 500 MG in sodium chloride 0.9% 250 ML 250 MG IV (18:23)
[2022-01-03] MEDS: enoxaparin 40 mg/0.4 mL Syringe SUBCUT (18:24)
[2022-01-03] MEDS: PARoxetine 20 mg Tablet PO (21:47)
[2022-01-03 21:59] LABS: Glucose Point of Care 191 mg/dL (70-110)
[2022-01-04] VITALS (12 sets, daily range): BP systolic 130–158; BP diastolic 73–88; PULSE 81–120; RESP 15–27; TEMP 36.6; O2SAT 87–99
[2022-01-04] MEDS: ipratropium-albuterol 3 mL Neb INHALATION (00:51)
[2022-01-04] MEDS: acetylcysteine 200 mg/mL SDV 4 mL INHALATION (00:52)
[2022-01-04 03:37] LABS: Basophils % 0.1 %; Lymphocytes # 1.1 10^3/uL (0.8-4.8); Mean Corpuscular HGB Conc 32.6 g/dL (30.0-36.0); Mean Corpuscular Hemoglobin 35.7 pg (28.0-34.0); Mean Corpuscular Volume 109.7 fl (80-94); Mean Platelet Volume 8.8 fL (7.4-10.4); Monocytes # 1.2 10^3/uL (0.2-0.9); Monocytes % 7.9 %; Neutrophils # 12.82 10^3/uL (1.8-7.7); Neutrophils % 84.2 %; Nucleated Red Blood Cells % 0 %; Platelet Count 219 10^3/cmm (130-400); Red Blood Count 3.92 10^6/uL (4.1-5.3); Red Cell Distribution Width 13.2 % (12.1-15.1); White Blood Count 15.2 10^3/uL (4.0-10.0)
[2022-01-04 03:57] LABS: Blood Urea Nitrogen 25 mg/dL (8-23); Calcium 8.9 mg/dL (8.5-10.5); Carbon Dioxide 36 mmol/L (22-29); Chloride 96 mmol/L (98-107); Glomerular Filtration Rate 96.4 mL/min (90-130); Glucose 197 mg/dL (65-115); Osmolality Calculated 290 mOsm/kg (285-295); Sodium 135 mmol/L (136-145)
[2022-01-04 04:00] LABS: Anion Gap 7.7 (5-19); Potassium 4.7 mmol/L (3.5-5.1)
[2022-01-04] MEDS: piperacillin-tazobactam 3.375 GM in sodium chloride 0.9% (plus) 50 ML IV (06:00)
[2022-01-04 06:52] LABS: Glucose Point of Care 202 mg/dL (70-110)
[2022-01-04] MEDS: guaiFENesin 600 mg Tablet 1200 MG PO (08:05)
[2022-01-04] MEDS: nicotine 14 mg Patch 1 PATCH TRANSDERMA (08:05)
[2022-01-04] MEDS: insulin lispro 100 unit/1 mL SUBCUT (08:06)
--- NOTE | 2022-01-04 09:30 | PM.DCS ---
Discharge Providers Date of Admission: 01/01/22 17:17 Date of Discharge: January 04, 2022 Attending Provider at Admission: Curtis Ro MD Attending Provider at Discharge: Curtis Ro MD Primary Care Provider: Harsha Ritchie MD Diagnoses at Discharge Discharge Diagnosis (1) Respiratory failure with hypoxia and hypercapnia: Status: Acute (2) Diabetes: Status: Acute (3) Hypertension: Status: Acute (4) COPD (chronic obstructive pulmonary disease): Status: Acute (5) Obesity hypoventilation syndrome: Status: Acute (6) Altered mental status: Status: Acute Reason for Visit Reason for Visit: respiratory distress Hospital Course Hospital Course Jb Borges is a 66 year old male with past medical history of hypertension diabetes COPD,OHS, was brought in with chief complaint of shortness of breath as well as altered mental status. Since the patient has been intubated, history has been obtained from ER chart review. Per family members patient was complaining of worsening shortness of breath as well as productive cough going on for the past couple of days, today according to the family members he was not acting himself, he was extremely somnolent and confused. When he arrived in the ER he was worked up for above-mentioned complaint. Pertinent imaging studies: X-ray chest:?Focal mass like pulmonary density at the left costophrenic angle which may represent consolidated pneumonia or pulmonary mass. ABG: pH:7.21, PCO2: 89 , PO2: 146 , FIO2:80% Pertinent labs: WBC 10.1, H&H:15/46 , PLT : 224 , serum sodium 137 serum potassium 4.8, BUN and serum creatinine 7 and 0.7,RBS:189 , COVID PCR negative. Hospital course: Patient was admitted for the management of : Respiratory failure with hypoxia and hypercapnia?likely secondary to COPD exacerbation secondary to pneumonia , obesity hypoventilation syndrome. Patient was kept on mechanical ventilation overnight: Along with broad-spectrum antibiotics steroids DuoNebs, ABG was monitored. Given significant improvement in his respiratory status as well as ABG, patient was extubated next morning, post extubation patient did well on 3 L supplemental oxygen through nasal cannula, he was continued on IV antibiotics, nebs steroids, incentive spirometer. Repeat CT chest with contrast was done as: As the admission x-ray chest was commenting on possible focal masslike pulm density at the left CP angle.CT chest with contrast showed no pulmonary mass. Blood culture was negative , MRSA PCR was negative, urine culture was negative Sputum gram stain and culture: Haemophilus influenza.Patient overall responded well to above medical management at the time of discharge he had qualified for 3 L home oxygen. Patient was also complaining of neuropathic pain in bilateral lower extremity, he has been discharged on gabapentin. Patient was also discharged on Advair inhaler along with albuterol inhaler, he has been continued on antibiotics on discharge, along with prednisone. Patient has been asked to follow-up with the primary care physician in 1 week. Patient is being discharged in stable condition to home. Physical Exam HENMT: COMMON NORMALS: normocephalic and atraumatic HEAD & SCALP: normocephalic and atraumatic Chest: CHEST: Yes Symmetrical chest wall rise Resp: COMMON NORMALS: clear to auscultation bilaterally EFFORT & INSPECTION: Yes symmetric chest movement AUSCULTATION: clear to auscultation bilaterally OTHER: Diminished air entry B/L Cardio: COMMON NORMALS: regular rate, regular rhythm, S1 normal heart sound present, S2 normal heart sound present, No gallops present (Cardio), No murmurs present (Cardio), No rub (Cardio) and Peripheral pulses 2+ throughout RATE: regular rate RHYTHM: regular rhythm HEART SOUNDS: S1 normal heart sound present and S2 normal heart sound present PERIPHERAL PULSES: Peripheral pulses 2+ throughout GI: COMMON NORMALS: Normal to inspection, nondistended, normoactive bowel sounds present, Soft to palpation, non-tender, No hepatosplenomegaly present and no masses AUSCULTATION: Yes normoactive bowel sounds PALPATION: Yes Soft to palpation and Yes No hepatosplenomegaly present RECTAL EXAM: Yes deferred Urinary Catheter Management: Bailey: Cath Placed During This Visit: yes Reason for Continuing Indwelling Catheter: Accurate Measurement of Urinary Output in Critically Ill Patients Urinary Catheter Date of Insertion: 01/01/22 Urinary Catheter Time of Insertion: 15:25 Discharge Data Studies Completed and Pending Completed Studies During Hospitalization Category Date Time Status CT chest w con* [id number] Routine Cat Scan 01/03/22 07:39 Completed XR chest 1V portable [id number] Routine Exams 01/01/22 18:10 Completed XR chest 1V portable [id number] Urgent Exams 01/01/22 14:54 Completed Pending at discharge Category Date Time Status Blood Culture Stat Lab 01/01/22 15:18 Results Radiology Impressions Chest X-Ray 01/01/22 18:10 IMPRESSION: Similar appearance of left basilar consolidation. Chest CT 01/03/22 07:39 IMPRESSION: 1. No pulmonary mass. 2. Opacification at the LEFT costophrenic angle is a normal, benign pericardial fat pad. 3. No pneumonia. Laboratory Results WBC 15.2 10^3/uL (4.0-10.0) H 01/04/22 02:55 RBC 3.92 10^6/uL (4.1-5.3) L 01/04/22 02:55 Hgb 14.0 g/dL (11.7-16.6) 01/04/22 02:55 Hct 43.0 % (42.0-52.0) 01/04/22 02:55 MCV 109.7 fl (80-94) H 01/04/22 02:55 MCH 35.7 pg (28.0-34.0) H 01/04/22 02:55 MCHC 32.6 g/dL (30.0-36.0) 01/04/22 02:55 RDW 13.2 % (12.1-15.1) 01/04/22 02:55 Plt Count 219 10^3/cmm (130-400) 01/04/22 02:55 MPV 8.8 fL (7.4-10.4) 01/04/22 02:55 Neut % (Auto) 84.2 % 01/04/22 02:55 Lymph % (Auto) 7.0 % 01/04/22 02:55 [place] % (Auto) 7.9 % 01/04/22 02:55 Eos % (Auto) 0.0 % 01/04/22 02:55 Baso % (Auto) 0.1 % 01/04/22 02:55 Neut # (Auto) 12.82 10^3/uL (1.8-7.7) H 01/04/22 02:55 Lymph # (Auto) 1.1 10^3/uL (0.8-4.8) 01/04/22 02:55 [place] # (Auto) 1.2 10^3/uL (0.2-0.9) H 01/04/22 02:55 Eos # (Auto) 0.0 10^3/uL (0.0-0.8) 01/04/22 02:55 Baso # (Auto) 0.0 10^3/uL (0.0-0.1) 01/04/22 02:55 Nucleated RBC % (auto) 0 % 01/04/22 02:55 Nucleated RBCs # 0.0 /100WBC 01/04/22 02:55 PT 13.90 SECONDS (12.1-14.9) 01/02/22 09:30 INR 1.04 (0.8-1.2) 01/02/22 09:30 APTT 27.6 SECONDS (23.9-36.7) 01/02/22 09:30 Specimen Type Arterial 01/02/22 05:03 Sample Site Brachial, right 01/02/22 05:03 ABG pH 7.35 (7.35-7.45) 01/02/22 05:03 ABG pCO2 57.6 mmHg (35-45) H 01/02/22 05:03 ABG pO2 94.3 mmHg (80.0-100.0) 01/02/22 05:03 ABG HCO3 31.6 mmol/L (22-26) H 01/02/22 05:03 ABG O2 Saturation 97.9 01/02/22 05:03 ABG Base Excess 4.0 mmol/L (-2.0-2.0) H 01/02/22 05:03 Dileep Test Pos 01/02/22 05:03 A-a O2 Gradient 15.3 mmHg (5-10) H 01/02/22 05:03 Hematocrit 50.2 % (42-52) 01/02/22 05:03 Hgb O2 Saturation 96.3 % (95-100) 01/02/22 05:03 Carboxyhemoglobin 0.7 %THgb (0.4-20.1) 01/02/22 05:03 Methemoglobin 0.9 % (0.4-1.5) 01/02/22 05:03 Total Hemoglobin 16.4 g/dL (14-18) 01/02/22 05:03 Sodium 136.0 mmol/L (131-143) 01/02/22 05:03 Potassium 4.3 mmol/L (3.5-5.0) 01/02/22 05:03 Glucose 213.0 mg/dL (70-115) H 01/02/22 05:03 Ionized Calcium 1.2 mmol/L (1.1-1.4) 01/02/22 05:03 O2 Delivery Device Vent 01/02/22 05:03 O2 Liters/Min 5.0 % 01/01/22 14:42 FiO2 40.0 % 01/02/22 05:03 Tidal Volume 0.45 01/02/22 05:03 PEEP 8.0 cmH20 01/02/22 05:03 Structural Fitter ID Jeffery 01/02/22 05:03 Sodium 135 mmol/L (136-145) L 01/04/22 02:55 Potassium 4.7 mmol/L (3.5-5.1) 01/04/22 02:55 Chloride 96 mmol/L (98-107) L 01/04/22 02:55 Carbon Dioxide 36 mmol/L (22-29) H 01/04/22 02:55 Anion Gap 7.7 (5-19) 01/04/22 02:55 BUN 25 mg/dL (8-23) H 01/04/22 02:55 Creatinine 0.8 mg/dL (0.7-1.2) 01/04/22 02:55 GFR Calculation 96.4 mL/min (90-130) 01/04/22 02:55 Glucose 197 mg/dL (65-115) H 01/04/22 02:55 POC Glucose 202 mg/dL (70-110) H 01/04/22 06:48 Calculated Osmolality 290 mOsm/kg (285-295) 01/04/22 02:55 Lactic Acid 1.7 mmol/L (0.5-2.2) 01/01/22 15:18 Calcium 8.9 mg/dL (8.5-10.5) 01/04/22 02:55 Magnesium 1.8 mg/dL (1.7-2.3) 01/01/22 14:55 Total Bilirubin 0.2 mg/dL (0.15-1.2) 01/01/22 14:55 AST 17 U/L (0-40) 01/01/22 14:55 ALT 21 U/L (0-41) 01/01/22 14:55 Alkaline Phosphatase 108 IU/L (40-130) 01/01/22 14:55 C-Reactive Protein 17.4 mg/L (0.0-4.9) H 01/01/22 14:55 NT-Pro-B Natriuret Pep 170 pg/mL (0-125) H 01/02/22 09:30 Total Protein 7.5 g/dL (6.6-8.7) 01/01/22 14:55 Albumin 4.2 g/dL (3.5-5.2) 01/01/22 14:55 Globulin 3.3 g/dL (1.3-4.6) 01/01/22 14:55 Procalcitonin 0.14 ng/mL (0-0.5) 01/02/22 09:30 Urine Color Dark yellow (Yellow) 01/01/22 20: Urine Appearance Cloudy (CLEAR) 01/01/22 20: Urine pH 6.5 (5-7) 01/01/22 20:30 Ur Specific [place] 1.030 (1.005-1.030) 01/01/22 20: Urine Protein 2+ (Negative) H 01/01/22 20: Urine Glucose (UA) 1+ (Normal) H 01/01/22 20: Urine Ketones Negative (Negative) 01/01/22 20: Urine Blood 2+ (Negative) H 01/01/22 20: Urine Nitrate Positive (Negative) H 01/01/22 20:30 Urine Bilirubin Neg (Negative) 01/01/22 20: Urine Urobilinogen Norm mg/dL (Negative) 01/01/22 20: Ur Leukocyte Esterase 2+ (Negative) H 01/01/22 20:30 Urine RBC 50-80 /hpf (0-2) H 01/01/22 20:30 Urine WBC 40-55 /hpf (0-5) H 01/01/22 20:30 Ur Squamous Epith Cells 5-10 /hpf (0-5) H 01/01/22 20: Amorphous Sediment Not Reportable 01/01/22 20: Urine Bacteria 1+ /hpf (NONE) H 01/01/22 20:30 Fine Granular Casts 5-10 /lpf H 01/01/22 20:30 Urine Mucus 2+ /hpf 01/01/22 20:30 Salicylates < 0.3 mg/dL (3-10) L 01/01/22 14:55 Urine Opiates Screen Positive ng/mL (Negative) H 01/01/22 20:30 Acetaminophen 5.7 ug/mL (10-30) L 01/01/22 14:55 Ur Barbiturates Screen Negative ng/mL (Negative) 01/01/22 20:30 Ur Phencyclidine Scrn Negative ng/mL (Negative) 01/01/22 20:30 Ur Amphetamines Screen Negative ng/mL (Negative) 01/01/22 20:30 U Benzodiazepines Scrn Positive ng/mL (Negative) H 01/01/22 20:30 Urine Cocaine Screen Negative ng/mL (Negative) 01/01/22 20:30 U Marijuana (THC) Screen Negative ng/mL (Negative) 01/01/22 20:30 Ethyl Alcohol < 10 mg/dL (0-10) 01/01/22 14:55 Coronavirus 229E (PCR) Not detected (NOT DETECT) 01/01/22 16:00 SARS-CoV-2 (PCR) Not detected (NOT DETECT) 01/01/22 16:00 Vitals Last Vital Signs Temp 97.8 F 01/04/22 07:00 Pulse 89 01/04/22 08:00 Resp 21 H 01/04/22 08:00 BP 150/88 01/04/22 08:00 Pulse Ox 87 L 01/04/22 08:38 Discharge Plan Discharge Patient Disposition: Home Condition: Stable Prescriptions: New ProAir HFA 90 mcg/actuation HFA aerosol inhaler 1 inh inhalation Q6H PRN (Reason: shortness of breath or wheezing) Qty: 8.5 3RF Advair Diskus 250-50 mcg/dose blister with device 1 inh inhalation BID Qty: 60 3RF Mucinex 600 mg Tablet Extended Release 12hr 1,200 mg PO BID@0900,2100 7 Days Qty: 14 0RF prednisone 20 mg tablet 40 mg PO DAILY 7 Days Qty: 28 0RF levofloxacin 750 mg tablet 750 mg PO DAILY 7 Days Qty: 7 0RF gabapentin 100 mg capsule 100 mg PO BID Qty: 60 0RF Continued hydrocodone-acetaminophen 5-325 mg tablet 1 tab PO Q6H PRN (Reason: pain) 10 Days Qty: 40 0RF atorvastatin 40 mg tablet 40 mg PO DAILY@07 0RF acetaminophen [Tylenol Extra Strength] 500 mg Tablet 1,000 mg PO DAILY PRN (Reason: Pain) 0RF alprazolam 0.25 mg tablet 0.25 mg PO BEDTIME 0RF paroxetine HCl 20 mg tablet 20 mg PO BEDTIME 0RF lisinopril 5 mg tablet 5 mg PO DAILY@07 0RF metformin 500 mg tablet extended release 24 hr See Rx Instructions .ROUTE .COMPLEX 0RF Rx Instructions: 1000 mg orally in the morning / 500 mg orally in the evening glipizide 5 mg tablet extended release 24 hr 5 mg PO DAILY 0RF Discharge Orders: Discharge Order (Routine); Ordered 01/04/22 Ordered By: Curtis Ro Other Ambulatory Orders: DME: Oxygen (Order) Location: None Selected Ordered By: Curtis Ro Referrals: [facility] [place] [Outside] Harsha Ritchie MD [Primary Care Provider] - 1 week Discharge Diet: Diabetic Discharge Activity: Resume usual activity Patient Instructions: Decongestant/Expectorant (By mouth), Albuterol (By breathing) (ProAir, AccuNeb, Proventil, Proventil..., Prednisone (By mouth), Gabapentin (By mouth), Levofloxacin (By mouth), Fluticasone/Salmeterol (By breathing) (Advair Diskus 100/50, Advair..., COPD (Chronic Obstructive Pulmonary Disease) (DC), Opioid Safety Discharge Attestations Time Spent in Discharge Care*: less than 30 min Status at Discharge: Cognitive status at discharge: cognitively intact, Behavioral status at discharge: cooperative, Functional status at discharge: independent ambulation, Overall status at discharge: patient is progressing back to baseline Quality Metrics Clinical Quality Measures [ No reported AMI, CVA or VTE this stay] Coding Level of Care Code Acute Chg FW DC note Exam Detailed Diagnoses Respiratory failure with hypoxia and hypercapnia J96.91; J96.92 Diabetes E11.9 Hypertension I10 COPD (chronic obstructive pulmonary disease) J44.9 Obesity hypoventilation syndrome E66.2 Altered mental status R41.82
--- NOTE | 2022-01-04 09:44 | PC.SOCIAL ---
Pg 2 IMM Explained to pt Pg 2 IMM. No questions voiced. Provided pt a copy. Initialed, dated, & timed a copy & placed in chart.
== END 2022-01-04 10:53 | disposition home or self-care (01) | DRG 208 ==
LOC: ER 17:04 → ICU 17:57
PROVIDERS: Admitting Provider Internal Medicine; Emergency Provider Emergency Medicine; PCP General Practice; Visit Provider Internal Medicine
DX: J96.02 Acute respiratory failure with hypercapnia (principal); J18.9 Pneumonia, unspecified organism; J44.0 Chronic obstructive pulmonary disease with (acute) lower respiratory infection; J44.1 Chronic obstructive pulmonary disease with (acute) exacerbation; E66.2 Morbid (severe) obesity with alveolar hypoventilation; J96.01 Acute respiratory failure with hypoxia; I10 Essential (primary) hypertension; E11.9 Type 2 diabetes mellitus without complications; Z79.891 Long term (current) use of opiate analgesic; Z79.84 Long term (current) use of oral hypoglycemic drugs
CPT/HCPCS: 31500; 36415; 36416; 36600; 51702; 71045; 71260; 80048; 80051; 80053; 80306; 80307; 81001; 82330; 82805; 82962; 83605; 83735; 83880; 84145; 85025; 85610; 85730; 86140; 87040; 87070; 87086; 87205; 87635; 87641; 93005; 94002; 94003; 94640; 94799; 96365; 96367; 96372; 96375; 99291; 99292; J0330; J0456; J0696; J1650; J1815; J2060; J2250; J2543; J2704; J2930; J3010; J3490; J7050; J7608; Q9967

== ENCOUNTER 2022-01-06 23:35 | Emergency (ER) | payer MEDICARE, SELFPAY ==
--- NOTE | 2022-01-06 23:46 | ED_ITS ---
HPI - General Adult General: Chief complaint: Neuro Symptoms/Deficit Stated complaint: Face numb/new meds Time Seen by Provider: 01/06/22 23:43 History of Present Illness: 66-year-old male patient comes in today with complaints of facial numbness. Patient reports numbness to the whole face. Patient appears well. NIH stroke scale 1 due to some chronic weakness in the left lower extremity. Patient was started on some gabapentin 2 days ago for some diabetic neuropathy. Patient was recently released from the hospital due to respiratory failure but reports doing better today. Patient is also on Levaquin and prednisone for pneumonia. Patient is alert and oriented and responding appropriate questions. Associated symptoms: Deny chest pain or dyspnea Review of Systems General: Reports: 10 or more systems reviewed and unremarkable except in HPI and below Card: Denies: chest pain Resp: Denies: dyspnea Neuro: Reports: sensory changes [facility] ED PFSH: Medical History (Updated 01/07/22 @ 00:44 by ARELIS Abdul) Altered mental status COPD (chronic obstructive pulmonary disease) Diabetes Hypertension Obesity hypoventilation syndrome Respiratory failure Respiratory failure with hypoxia and hypercapnia Physical Exam Const: COMMON NORMALS: alert HENMT: COMMON NORMALS: normocephalic, atraumatic and Normal external nose present HEAD & SCALP: normocephalic and atraumatic NOSE: Normal external nose present MOUTH: Normal oral and palatal mucosa present Neck/C-Spine: COMMON NORMALS: full ROM Resp: COMMON NORMALS: normal respiratory effort Cardio: COMMON NORMALS: regular rate RATE: regular rate Extremity: NARRATIVE EXTREMITY EXAM: Bilateral lower chronic edema, may be secondary to lymphedema Neuro: SENSORIUM/ORIENTATION: Yes alert Skin: NARRATIVE SKIN EXAM: Chronic changes to the skin of the lower extremities due to edema and PVD Course Vital Signs: Vital signs: Vital Signs Temperature 97.7 F 01/06/22 23:49 Pulse Rate 81 01/06/22 23:49 Respiratory Rate 20 H 01/06/22 23:49 Blood Pressure 183/65 01/06/22 23:49 Pulse Oximetry 99 01/06/22 23:49 [facility] - General Adult Medical Decision Making 66-year-old male patient comes in today with complaints of bilateral facial numbness. Patient denies any headache, chest pain, or weakness to the extremities that is not usual. On exam patient moves all extremities well except his left lower leg. Patient reports that he has weakness in his leg due to his diabetes neuropathy and swelling in bilateral lower extremities. He reports that this has been chronic with this leg. Patient does have some significant swelling to bilateral lower extremities suggestive of lymphedema versus peripheral edema due to PVD. Vital signs are normal except for some mild elevation of blood pressure with a systolic of 180. Also oxygen is 99% on 3 L per nasal cannula. Patient does use oxygen routinely. Differential diagnosis includes intracranial bleeding, CVA, adverse drug effect, and electrolyte balance. CBC showed a sodium 135, potassium of 4.2, and calcium of 9.1. CT of the head did note an posterior arachnoid cyst but no signs of acute abnormalities. Reviewed exam with patient no signs of CVA is noted at this time. I believe the numbness may be secondary to the gabapentin he was started on or may be due to the stress from his recent hospitalization and the arachnoid cyst. Recommended that patient follow-up with primary care to discuss further treatment and recommendations for evaluation of the arachnoid cyst. Reassured patient most often these are benign and there is no treatment needed. Patient reported understanding of care plan and need for follow-up or return to the ER. Lab Data : 01/06/22 23:[address] 01/06/22 23:59 IMPRESSION: There are no acute intracranial findings. Laboratory Results Sodium 135 mmol/L (136-145) L 01/06/22 23:57 Potassium 4.2 mmol/L (3.5-5.1) 01/06/22 23:57 Chloride 96 mmol/L (98-107) L 01/06/22 23:57 Carbon Dioxide 33 mmol/L (22-29) H 01/06/22 23:57 Anion Gap 10.2 (5-19) 01/06/22 23:57 BUN 18 mg/dL (8-23) 01/06/22 23:57 Creatinine 0.8 mg/dL (0.7-1.2) 01/06/22 23:57 GFR Calculation 96.4 mL/min (90-130) 01/06/22 23:57 Glucose 116 mg/dL (65-115) H 01/06/22 23:57 Calculated Osmolality 283 mOsm/kg (285-295) L 01/06/22 23:57 Calcium 9.1 mg/dL (8.5-10.5) 01/06/22 23:57 Total Bilirubin 0.4 mg/dL (0.15-1.2) 01/06/22 23:57 AST 20 U/L (0-40) 01/06/22 23:57 ALT 30 U/L (0-41) 01/06/22 23:57 Alkaline Phosphatase 88 IU/L (40-130) 01/06/22 23:57 Total Protein 6.9 g/dL (6.6-8.7) 01/06/22 23:57 Albumin 4.0 g/dL (3.5-5.2) 01/06/22 23:57 Globulin 2.9 g/dL (1.3-4.6) 01/06/22 23:57 Discharge Plan Discharge Patient Disposition: Home Clinical Impression: Numbness of face, Arachnoid cyst Adverse drug effect Qualifiers: Encounter type: initial encounter Qualified Code(s): T50.905A - Adverse effect of unspecified drugs, medicaments and biological substances, initial encounter Condition: Stable Prescriptions: No Action hydrocodone-acetaminophen 5-325 mg tablet 1 tab PO Q6H PRN (Reason: pain) 10 Days Qty: 40 0RF atorvastatin 40 mg tablet 40 mg PO DAILY@07 0RF acetaminophen [Tylenol Extra Strength] 500 mg Tablet 1,000 mg PO DAILY PRN (Reason: Pain) 0RF alprazolam 0.25 mg tablet 0.25 mg PO BEDTIME 0RF paroxetine HCl 20 mg tablet 20 mg PO BEDTIME 0RF lisinopril 5 mg tablet 5 mg PO DAILY@07 0RF metformin 500 mg tablet extended release 24 hr See Rx Instructions .ROUTE .COMPLEX 0RF Rx Instructions: 1000 mg orally in the morning / 500 mg orally in the evening glipizide 5 mg tablet extended release 24 hr 5 mg PO DAILY 0RF ProAir HFA 90 mcg/actuation HFA aerosol inhaler 1 inh inhalation Q6H PRN (Reason: shortness of breath or wheezing) Qty: 8.5 3RF Advair Diskus 250-50 mcg/dose blister with device 1 inh inhalation BID Qty: 60 3RF Mucinex 600 mg Tablet Extended Release 12hr 1,200 mg PO BID@0900,2100 7 Days Qty: 14 0RF prednisone 20 mg tablet 40 mg PO DAILY 7 Days Qty: 28 0RF levofloxacin 750 mg tablet 750 mg PO DAILY 7 Days Qty: 7 0RF gabapentin 100 mg capsule 100 mg PO BID Qty: 60 0RF Discharge Orders: Discharge ED (Routine); Ordered 01/07/22 Ordered By: Steve Tracy Referrals: Harsha Ritchie MD [Primary Care Provider] - Discharge Diet: Usual diet Discharge Activity: Increase activity as tolerated Patient Instructions: Adverse Drug Reaction (ED) Activity Restrictions/Additional Instructions: Continue routine care with antibiotics and steroid. Drink plenty of water with medication. Hold the gabapentin for your diabetic neuropathy until follow-up with primary care. Healthy diet and activity. Return to ER for new concerns. Coding Level of Care Code ED Advanced Manufacturing Engineer for [employer] Fwd Exam Detailed
[2022-01-06 23:49] VITALS: BP 183/65; PULSE 81; RESP 20; TEMP 36.5; O2SAT 99; BMI 45.1
--- NOTE | 2022-01-06 23:59 | CTR_ITS ---
PROCEDURE INFORMATION: Exam: CT Head Without Contrast Exam date and time: 01/07/2022 12:24 AM Age: 66 years old Clinical indication: Numbness / parasthesia; Bilateral; Additional info: Facial numbness TECHNIQUE: Imaging protocol: Computed tomography of the head without contrast. Radiation optimization: All CT scans at this facility use at least one of these dose optimization techniques: automated exposure control; mA and/or kV adjustment per patient size (includes targeted exams where dose is matched to clinical indication); or iterative reconstruction. COMPARISON: No relevant prior studies available. RADIATION DOSE METRICS: Total DLP (mGy-cm): 922.51 FINDINGS: Brain: There is mild diffuse cerebral atrophy. Patchy areas of hypoattenuation are seen in the deep white matter of the cerebral hemispheres bilaterally compatible with mild deep white matter microvascular disease. Is CSF mass seen in the posterior cranial fossa on the left likely representing a small arachnoid cyst. This causes mild mass effect on the adjacent left cerebellar hemisphere. Cerebral ventricles: No ventriculomegaly. Paranasal sinuses: Visualized sinuses are unremarkable. No fluid levels. Mastoid air cells: Visualized mastoid air cells are well aerated. Bones/joints: Unremarkable. No acute fracture. Soft tissues: Unremarkable. CT/CT head wo con* [id number] IMPRESSION: There are no acute intracranial findings.
[2022-01-07 00:26] LABS: Alanine Aminotransferase 30 U/L (0-41); Alkaline Phosphatase 88 IU/L (40-130); Blood Urea Nitrogen 18 mg/dL (8-23); Calcium 9.1 mg/dL (8.5-10.5); Carbon Dioxide 33 mmol/L (22-29); Chloride 96 mmol/L (98-107); Creatinine Clr Calc Pharmacy 112.8996; Globulin 2.9 g/dL (1.3-4.6); Glomerular Filtration Rate 96.4 mL/min (90-130); Glucose 116 mg/dL (65-115); Osmolality Calculated 283 mOsm/kg (285-295); Sodium 135 mmol/L (136-145); Total Bilirubin 0.4 mg/dL (0.15-1.2); Total Protein 6.9 g/dL (6.6-8.7)
[2022-01-07 00:28] LABS: Anion Gap 10.2 (5-19); Aspartate Amino Transferase 20 U/L (0-40); Potassium 4.2 mmol/L (3.5-5.1)
== END 2022-01-07 01:01 | disposition home or self-care (01) ==
PROVIDERS: Emergency Provider Nurse Practitioner Family; PCP General Practice
DX: R20.0 Anesthesia of skin (principal); T42.6X5A Adverse effect of other antiepileptic and sedative-hypnotic drugs, initial encounter; G93.0 Cerebral cysts; E11.40 Type 2 diabetes mellitus with diabetic neuropathy, unspecified; I73.9 Peripheral vascular disease, unspecified; I10 Essential (primary) hypertension; E66.2 Morbid (severe) obesity with alveolar hypoventilation; Z68.42 Body mass index [BMI] 45.0-49.9, adult; Z79.84 Long term (current) use of oral hypoglycemic drugs
CPT/HCPCS: 70450; 80053; 85025; 99283

== ENCOUNTER 2023-07-30 08:07 | Inpatient (IN) | payer MEDICARE, SELFPAY ==
[2023-07-30] VITALS (67 sets, daily range): BP systolic 115–184; BP diastolic 63–138; PULSE 67–220; RESP 10–35; TEMP 36.7; O2SAT 80–100; BMI 46.3
--- NOTE | 2023-07-30 08:07 | XRR_ITS ---
PROCEDURE INFORMATION: Exam: XR Chest Exam date and time: 07/30/2023 8:30 AM Age: 68 years old Clinical indication: Cough and dyspnea; Additional info: Dyspnea/cough TECHNIQUE: Imaging protocol: Radiologic exam of the chest. Views: 1 view. COMPARISON: CT chest w con* [id number] 01/03/2022 10:42 AM FINDINGS: Lungs: Unremarkable. No consolidation. Pleural spaces: Unremarkable. No pleural effusion. No pneumothorax. Heart/Mediastinum: Unremarkable. No cardiomegaly. Bones/joints: Unremarkable. XR/XR chest 1V portable [id number] IMPRESSION: No acute findings.
--- NOTE | 2023-07-30 08:08 | ECG_ITS ---
[facility] Test Date: 2023-07-30 Pat Name: Jb Borges Department: Room: Gender: Male Gospel Singer: : 1955 Requested By: Jay Briones Order Number: [id number] Flower MD: Sue Banerjee M.D. Measurements Intervals [place] Rate: 82 P: 121 MD: 191 QRS: -37 QRSD: 91 T: 71 QT: 337 QTc: 395 Interpretive Statements ECTOPIC ATRIAL RHYTHM LEFT AXIS DEVIATION [QRS AXIS < -30] LOW QRS VOLTAGE IN PRECORDIAL LEADS [QRS DEFLECTION < 1.0 mV IN CHEST LEADS] Compared to ECG 01/01/2022 15:21:54 Ectopic atrial rhythm now present Low QRS voltage now present Sinus tachycardia no longer present Myocardial infarct finding no longer present Heavy baseline artifact; need to repeat Electronically Signed On 07-31-2023 19:15:59 FIELD MARKETER by Sue Banerjee M.D. [id number]
--- NOTE | 2023-07-30 08:16 | ED_ITS ---
HPI - SOB/Dyspnea 2 General: Chief Complaint: Shortness of Breath/Dyspnea Stated Complaint: respiratory distress x 3 days Source: patient Mode of arrival: ambulatory History of Present Illness: HPI Narrative: 68-year-old male presents emergency room via EMS with complaints of severe shortness of breath and chest discomfort. He states been progressively worsening over the last 3 days. He is normally on oxygen at 3 L had increased it he is having a obvious expiratory wheezing is also having a moderately productive cough. Patient does still smoke 1 pack/day MD elicited complaint: shortness of breath and cough Pertinent past history: COPD Onset (ago): day(s) (3) Severity: mild Exacerbating factors: nothing Relieving factors: nothing Known history of: COPD Associated symptoms: Reports chest congestion and chest pain; Deny abdominal pain, cough, diaphoresis, dizziness, extremity pain, fever(s), hemoptysis, lightheadedness, myalgias, nausea, orthopnea, palpitations, paresthesias, polydipsia, polyuria, rash, sense of impending doom, syncope or vomiting Related Data: Home oxygen amount: 3 liters Review of Systems 2 Const: Reports: fatigue; Denies: fever(s), chills or diaphoresis Card: Reports: chest pain; Denies: palpitations, lightheadedness, syncope or orthopnea Resp: Reports: dyspnea, productive cough, wheezing and chest congestion; Denies: hemoptysis GI: Denies: abdominal pain, nausea or vomiting : Denies: dysuria, urinary frequency or urinary urgency Musc: Denies: neck pain, back pain or extremity pain Skin/Breast: Denies: rash Neuro: Denies: dizziness Endo: Denies: polyuria or polydipsia PFSH ED 2 PFSH: Medical History (Updated 07/30/23 @ 14:19 by Jay Chavez DO) Diabetic neuropathy Depression with anxiety Hyperlipidemia Altered mental status Obesity hypoventilation syndrome COPD (chronic obstructive pulmonary disease) Hypertension Diabetes Respiratory failure with hypoxia and hypercapnia Respiratory failure Surgical History (Updated 07/30/23 @ 10:58 by Raimundo Schmidt MD) History of back surgery History of surgery on arm Family History Other Cancer Social History (Updated 07/30/23 @ 10:59 by Raimundo Schmidt MD) Smoking and tobacco/nicotine status: current every day tobacco/nicotine user Alcohol intake: never Physical Exam 2 Const: GENERAL APPEARANCE: cooperative and comfortable O RIENTATION/CONSCIOUSNESS: Yes awake, Yes oriented to person, Yes oriented to place and Yes oriented to time HENMT: COMMON NORMALS: normocephalic, atraumatic and hearing grossly normal bilaterally HEAD & SCALP: normocephalic and atraumatic Resp: EFFORT & INSPECTION: Yes tachypneic, Yes respiratory distress, Yes pursed lip breathing and Yes labored AUSCULTATION: rhonchi, wheezes and diminished lung sounds Cardio: COMMON NORMALS: regular rate, regular rhythm and No murmurs present (Cardio) RATE: regular rate RHYTHM: regular rhythm GI: COMMON NORMALS: Soft to palpation and No hepatosplenomegaly present A USCULTATION: Yes normoactive bowel sounds PALPATION: Yes Soft to palpation, No Tenderness to palpation present (GI), No Guarding due to palpation present (GI) and Yes No hepatosplenomegaly present Extremity: COMMON NORMALS: normal to inspection, capillary refill normal, no clubbing, cyanosis or edema, no calf tenderness and no pedal edema Neuro: SENSORIUM/ORIENTATION: Yes oriented to person, Yes oriented to place and Yes oriented to time Skin: COMMON NORMALS: no rashes or lesions noted GENERAL SKIN EXAM: no rashes or lesions noted Course 2 Vital Signs: Vital signs: Vital Signs Temperature 98.0 F 07/30/23 08:13 Pulse Rate 75 07/30/23 13:17 Respiratory Rate 19 H 07/30/23 13:16 Blood Pressure 145/63 07/30/23 12:15 Pulse Oximetry 98 07/30/23 13:17 Oxygen Delivery Me thod BiPAP 07/30/23 13:16 Oxygen Flow Rate 3 07/30/23 08:34 Fraction of Inspir ed Oxygen 40 07/30/23 13:17 MDM - SOB/Dyspnea Medical Decision Making Acute hypercapnic respiratory failure. Patient is not tolerating BiPAP initially. 1 hour repeat shows only minimal improvement will admit to the ICU. Patient was adamant about not being intubated. Discussed with hospitalist orders written Differential Diagnosis Likely acute exacerbation of chronic obstructive airways disease and community acquired pneumonia Medical Records I reviewed the patient's medical records. Lab Data I reviewed the patient's lab results. 07/30/23 08:25 07/30/23 08:25 Labs/Radiology: Radiology Impressions Chest X-Ray 07/30/23 08:07 IMPRESSION: No acute findings. Laboratory Results WBC 7.90 10^3/uL (3.29-11.43) 07/30/23 08:25 RBC 3.32 10^6/uL (3.85-5.65) L 07/30/23 08:25 Hgb 12.10 g/dL (11.27-16.99) 07/30/23 08:25 Hct 38.4 % (37-53) 07/30/23 08:25 MCV 115.7 fl (82-101) H 07/30/23 08:25 MCH 36.4 pg (27-33) H 07/30/23 08:25 MCHC 31.5 g/dL (30-55) 07/30/23 08:25 RDW 11.8 % (12.1-15.1) L 07/30/23 08:25 Plt Count 200 10^3/cmm (157-399) 07/30/23 08:25 MPV 8.8 fL (7.4-10.4) 07/30/23 08:25 Neut % (Auto) 72.1 % 07/30/23 08:25 Lymph % (Auto) 15.6 % 07/30/23 08:25 Frederick % (Auto) 10.5 % 07/30/23 08:25 Eos % (Auto) 0.8 % 07/30/23 08:25 Baso % (Auto) 0.4 % 07/30/23 08:25 Neut # (Auto) 5.70 10^3/uL (1.8-7.7) 07/30/23 08:25 Lymph # (Auto) 1.2 10^3/uL (0.8-4.8) 07/30/23 08:25 Frederick # (Auto) 0.8 10^3/uL (0.2-0.9) 07/30/23 08:25 Eos # (Auto) 0.1 10^3/uL (0.0-0.8) 07/30/23 08:25 Baso # (Auto) 0.0 10^3/uL (0.0-0.1) 07/30/23 08:25 Nucleated RBC % (auto) 0 % 07/30/23 08:25 Nucleated RBCs # 0.0 /100WBC 07/30/23 08:25 Specimen Type Arterial 07/30/23 08:33 Sample Site Radial, right 07/30/23 08:33 ABG pH 7.25 (7.35-7.45) L 07/30/23 08:33 ABG pCO2 95.7 mmHg (35-45) H* 07/30/23 08:33 ABG pO2 137.0 mmHg (80.0-100.0) H 07/30/23 08:33 ABG PO2/FiO2 Ratio 0 07/30/23 08:33 ABG HCO3 41.9 mmol/L (22-26) H 07/30/23 08:33 ABG O2 Saturation 98.9 07/30/23 08:33 ABG Base Excess 10.8 mmol/L (-2.0-2.0) H 07/30/23 08:33 Dileep Test Pos 07/30/23 08:33 A-a O2 Gradient Not Reportable 07/30/23 08:33 Hematocrit 39.8 % (42-52) L 07/30/23 08:33 Hgb O2 Saturation 96.9 % (95-100) 07/30/23 08:33 Carboxyhemoglobin 1.5 %THgb (0.4-20.1) 07/30/23 08:33 Methemoglobin 0.6 % (0.4-1.5) 07/30/23 08:33 Total Hemoglobin 13.0 g/dL (14-18) L 07/30/23 08:33 Sodium 144.0 mmol/L (131-143) H 07/30/23 08:33 Potassium 4.1 mmol/L (3.5-5.0) 07/30/23 08:33 Glucose 122.0 mg/dL (70-115) H 07/30/23 08:33 Ionized Calcium 1.2 mmol/L (1.1-1.4) 07/30/23 08:33 O2 Delivery Device Nc 07/30/23 08:33 O2 Liters/Min 3.0 % 07/30/23 08:33 FiO2 32.0 % 07/30/23 08:33 Nurse Practitioner Physicians Assistant ID [place] 07/30/23 08:33 Sodium 144 mmol/L (136-145) 07/30/23 08:25 Potassium 4.2 mmol/L (3.5-5.1) 07/30/23 08:25 Chloride 100 mmol/L (98-107) 07/30/23 08:25 Carbon Dioxide 39 mmol/L (22-29) H 07/30/23 08:25 Anion Gap 9.2 (5-19) 07/30/23 08:25 BUN 7 mg/dL (8-23) L 07/30/23 08:25 Creatinine 0.6 mg/dL (0.7-1.2) L 07/30/23 08:25 GFR Calculation 133.6 mL/min (90-130) H 07/30/23 08:25 Glucose 120 mg/dL (65-115) H 07/30/23 08:25 Calculated Osmolality 297 mOsm/kg (285-295) H 07/30/23 08:25 Calcium 8.6 mg/dL (8.5-10.5) 07/30/23 08:25 Total Bilirubin 0.3 mg/dL (0.15-1.2) 07/30/23 08:25 AST 9 U/L (0-40) 07/30/23 08:25 ALT 8 U/L (0-41) 07/30/23 08:25 Alkaline Phosphatase 92 U/L (40-130) 07/30/23 08:25 Troponin T Baseline < 6 ng/L (0-15) 07/30/23 08:25 NT-Pro-B Natriuret Pep 52 pg/mL (0-125) 07/30/23 08:25 Total Protein 6.2 g/dL (6.6-8.7) L 07/30/23 08:25 Albumin 3.8 g/dL (3.5-5.2) 07/30/23 08:25 Globulin 2.4 g/dL (1.3-4.6) 07/30/23 08:25 Vitamin B12 174 pg/mL (232-1245) L 07/30/23 08:25 Folate 5.5 ng/mL (4.5-32.2) 07/30/23 08:25 TSH 0.59 uIU/mL (0.27-4.20) 07/30/23 08:25 All radiology interpretation(s) finalized by discharge Discharge Plan Discharge Patient Disposition: Admitted As Inpatient Admit Provider: Raimundo Schmidt Clinical Impression: Acute respiratory failure with hypoxia and hypercarbia, Obesity hypoventilation syndrome, Diabetes Condition: Stable Coding Level of Care Code ED Accounting Assistant for [place]
[2023-07-30] MEDS: ipratropium-albuterol 3 mL Neb INHALATION ×5 (08:33→20:24)
[2023-07-30 08:38] LABS: Basophils % 0.4 %; Eosinophils # 0.1 10^3/uL (0.0-0.8); Eosinophils % 0.8 %; Hematocrit 38.4 % (37-53); Lymphocytes # 1.2 10^3/uL (0.8-4.8); Lymphocytes % 15.6 %; Mean Corpuscular HGB Conc 31.5 g/dL (30-55); Mean Corpuscular Hemoglobin 36.4 pg (27-33); Mean Corpuscular Volume 115.7 fl (82-101); Mean Platelet Volume 8.8 fL (7.4-10.4); Monocytes # 0.8 10^3/uL (0.2-0.9); Monocytes % 10.5 %; Neutrophils % 72.1 %; Nucleated Red Blood Cells % 0 %; Platelet Count 200 10^3/cmm (157-399); Red Blood Count 3.32 10^6/uL (3.85-5.65); Red Cell Distribution Width 11.8 % (12.1-15.1)
[2023-07-30 08:46] LABS: ABG PCO2 95.7 mmHg (35-45); ABG PH Result 7.25 (7.35-7.45); Arterial Blood Gas Hematocrit 39.8 % (42-52); Base Excess ABG 10.8 mmol/L (-2.0-2.0); Blood Gas Allen Test Pos; Blood Gas Operator Identificat MONRO; Blood Gas Sample Site Radial, right; Blood Gas Sample Type Arterial; Carboxyhemoglobin 1.5 %THgb (0.4-20.1); HCO3 ABG 41.9 mmol/L (22-26); HGB O2 Sat 96.9 % (95-100); Ionized Calcium Level - ABG 1.2 mmol/L (1.1-1.4); Methemoglobin 0.6 % (0.4-1.5); Oxygen Device NC; Oxygen Saturation ABG 98.9; PO2 FiO2 Ratio Arterial Blood 0; Potassium Level - ABG 4.1 mmol/L (3.5-5.0)
[2023-07-30 08:55] LABS: Alanine Aminotransferase 8 U/L (0-41); Albumin Level 3.8 g/dL (3.5-5.2); Alkaline Phosphatase 92 U/L (40-130); Anion Gap 9.2 (5-19); Aspartate Amino Transferase 9 U/L (0-40); Blood Urea Nitrogen 7 mg/dL (8-23); Calcium 8.6 mg/dL (8.5-10.5); Carbon Dioxide 39 mmol/L (22-29); Chloride 100 mmol/L (98-107); Globulin 2.4 g/dL (1.3-4.6); Glomerular Filtration Rate 133.6 mL/min (90-130); Glucose 120 mg/dL (65-115); Osmolality Calculated 297 mOsm/kg (285-295); Potassium 4.2 mmol/L (3.5-5.1); Sodium 144 mmol/L (136-145); Total Bilirubin 0.3 mg/dL (0.15-1.2); Total Protein 6.2 g/dL (6.6-8.7)
[2023-07-30 08:57] LABS: Troponin(5th) Baseline < 6 ng/L (0-15)
[2023-07-30 10:02] LABS: Influenza A by IFA Negative (Negative); Influenza B by IFA Negative (Negative)
[2023-07-30 10:18] LABS: Thyroid Stimulating Hormone 0.59 uIU/mL (0.27-4.20)
[2023-07-30 10:21] LABS: ABG PH Result 7.28 (7.35-7.45); Alveolar-Arterial Oxygen Gradi 13.9 mmHg (5-10); Arterial Blood Gas Hematocrit 37.6 % (42-52); Base Excess ABG 11.2 mmol/L (-2.0-2.0); Blood Gas Allen Test Pos; Blood Gas Operator Identificat MONRO; Blood Gas Sample Site Radial, right; Blood Gas Sample Type Arterial; Blood Gas Tidal Volume 0.45; Carboxyhemoglobin 1.5 %THgb (0.4-20.1); HCO3 ABG 41.4 mmol/L (22-26); HGB O2 Sat 93.6 % (95-100); Ionized Calcium Level - ABG 1.2 mmol/L (1.1-1.4); Methemoglobin 0.6 % (0.4-1.5); Oxygen Device BIPAP; Oxygen Saturation ABG 95.7; PO2 FiO2 Ratio Arterial Blood 0; Potassium Level - ABG 4.2 mmol/L (3.5-5.0); Total Hemoglobin 12.3 g/dL (14-18)
[2023-07-30 10:23] LABS: ABG PCO2 87.9 mmHg (35-45)
[2023-07-30] MEDS: dexamethasone 10 mg/mL INJ IM (10:32)
--- NOTE | 2023-07-30 10:39 | ECG_ITS ---
[facility] Test Date: 2023-07-30 Pat Name: Jb Borges Department: Room: ICU02 Gender: Male Environmental Health Physician: : 1955 Requested By: Jay Briones Order Number: [id number] Flower MD: Sue Banerjee M.D. Measurements Intervals [place] Rate: 73 P: 84 [place]: 168 QRS: -46 QRSD: 85 T: 74 QT: 396 QTc: 437 Interpretive Statements SINUS RHYTHM LEFT AXIS DEVIATION [QRS AXIS < -30] LOW QRS VOLTAGE IN PRECORDIAL LEADS [QRS DEFLECTION < 1.0 mV IN CHEST LEADS] Compared to ECG 07/30/2023 08:15:04 Ectopic atrial rhythm no longer present Electronically Signed On 07-31-2023 19:31:03 WIND TECHNICIAN by Sue Banerjee M.D. [id number]
--- NOTE | 2023-07-30 10:56 | P.HP_ITS ---
Providers/Chief Complaint 2 Admitting Physician: Raimundo Schmidt MD Primary Care Provider: Harsha Ritchie MD Chief Complaint: respiratory distress x 3 days History of Present Illness Jb Borges is a 68 year old male that has been short of breath for last 3 to 4 days a week. He has been coughing up colored sputum. He has not had any hemoptysis. There has been no fevers. He is being treated for sleep apnea, and it sounds like he may have been resistant to using a mask in the past. He continues to smoke. He has not had any vomiting, or diarrhea. He has not been on any antibiotics lately. History is difficult from the patient as he is on BiPAP, and somewhat sleepy. His serves as an adjunct for history. Review of Systems 2 General: Reports: 10 or more systems reviewed and unremarkable except in HPI and below Card: Denies: chest pain Resp: Reports: dyspnea GI: Denies: abdominal pain Medications/Allergies Home Medications Medication Instructions Recorded Confirmed Last Taken Type acetaminophen 500 mg tablet 1,000 mg PO DAILY PRN Pain 08/17/20 07/30/23 Unknown History (Tylenol Extra Strength) atorvastatin 40 mg tablet 40 mg PO DAILY@08/17/20 07/30/23 07/29/23 History lisinopril 5 mg tablet 5 mg PO DAILY@08/17/20 07/30/23 07/29/23 History metformin 500 mg tablet,extended See Rx Instructions .Route .COMPLEX 08/17/20 07/30/23 07/29/23 History release 24 hr glipizide 5 mg tablet, extended 5 mg PO DAILY 01/01/22 07/30/23 07/29/23 History release 24 hr albuterol sulfate 90 mcg/actuation 1 inh inhalation Q6H PRN shortness 01/04/22 07/30/23 Unknown Rx aerosol inhaler (ProAir HFA) of breath or wheezing #8.5 grams ergocalciferol (vitamin D2) 1,250 1 unit PO Q7D 07/30/23 07/30/23 07/28/23 History mcg (50,000 unit) capsule gabapentin 300 mg capsule 300 mg PO TID PRN Muscle Pain 07/30/23 07/30/23 07/29/23 History lorazepam 0.5 mg tablet 0.25 - 0.5 mg PO QPM 07/30/23 07/30/23 07/29/23 History paroxetine HCl 30 mg tablet 30 mg PO QAM 07/30/23 07/30/23 07/29/23 History Allergies Allergy/AdvReac Type Severity Reaction Status Date / Time No Known Allergies Allergy Verified 01/01/22 15:22 PFSH Acute 2 PFSH: Medical History (Updated 07/30/23 @ 11:09 by Raimundo Schmidt MD) Diabetic neuropathy Depression with anxiety Hyperlipidemia Altered mental status Obesity hypoventilation syndrome COPD (chronic obstructive pulmonary disease) Hypertension Diabetes Respiratory failure with hypoxia and hypercapnia Respiratory failure Surgical History (Updated 07/30/23 @ 10:58 by Raimundo Schmidt MD) History of back surgery History of surgery on arm Family History Other Cancer Social History (Updated 07/30/23 @ 10:59 by Raimundo Schmidt MD) Smoking and tobacco/nicotine status: current every day tobacco/nicotine user Alcohol intake: never Vitals/I&O/Wt Last Vital Signs Temp 98.0 F 07/30/23 08:13 Pulse 68 07/30/23 10:05 Resp 18 07/30/23 10:05 BP 130/70 07/30/23 09:55 Pulse Ox 96 07/30/23 10:05 O2 Del Method BiPAP 07/30/23 10:05 O2 Flow Rate 3 07/30/23 08:34 FiO2 36 07/30/23 10:05 Weight last 48 hrs Weight 130.181 kg Physical Exam 2 Narrative: General exam is a white male, on AVAPS, who can open his eyes and answer a few limited questions HEENT: Atraumatic and normocephalic. Oropharynx clear. Neck is supple no lymphadenopathy thyromegaly Cardiovascular regular rate and rhythm, no murmur Lungs diminished breath sounds bilaterally but no wheezes or crackles Abdomen is soft, obese. No obvious tenderness. exam was deferred Extremities show significant lymphedema, 3+ edema. Skin lymphedema changes in the ankles Neuro no focal deficits Data 07/30/23 08:25 07/30/23 08:25 Other Labs: Chest x-ray by my read no infiltrate EKG left axis deviation, nonspecific ST-T wave changes, sinus rhythm MCV elevated at 115 Repeat ABG demonstrates pH 7.28, pCO2 88, pO2 78 on AVAPS. This is slightly improved LFTs normal TSH which I ordered is normal B12 and folate which I ordered are pending Calcium and albumin are normal Urinalysis pending COVID PCR pending, influenza negative Troponin less than 6 BMP ordered A&P Assessment and plan (1) Acute respiratory failure with hypoxia and hypercarbia: Patient presents with acute hypercarbic and hypoxemic respiratory failure. This appears secondary to COPD exacerbation Continue AVAPS Oxygen wean as tolerated See notations below (2) COPD with acute exacerbation: Dexamethasone given in the emergency department Continue Solu-Medrol 60 mg IV every 12 hours Doxycycline 100 mg twice daily DuoNeb every 4 hours Budesonide twice daily (3) Acute diastolic heart failure: Concern for acute diastolic heart failure Lasix 40 mg IV every 12 hours Acetazolamide 250 mg daily, secondary to significant CO2 retention BMP daily, along with CBC (4) Obesity hypoventilation syndrome: Would possibly be a candidate for Trilogy Will discuss with patient when he is able (5) Diabetes: Consistent carb diet Sliding scale insulin (6) Lymphedema: Significant lymphedema lower extremities. Check venous duplex Plan Macrocytosis. Check B12, folate, TSH. Denies alcohol use. Liver test normal. Multiple other medical problems as outlined in past medical history Full code currently SCDs and anticoagulation for DVT prophylaxis Attestations 2 Medical Necessity Statement*: Will need greater than 2 midnight stay for treatment of acute respiratory failure, OPD exacerbation, requiring AVAPS Diagnoses Acute respiratory failure with hypoxia and hypercarbia J96.01; J96.02 COPD with acute exacerbation J44.1 Acute diastolic heart failure I50.31 Obesity hypoventilation syndrome E66.2 Diabetes E11.9 Lymphedema I89.0 Time Spent (min) 48
[2023-07-30 11:21] LABS: Adenovirus Not Detected (NOT DETECT); Chlamydia Pneumoniae Not Detected (NOT DETECT); Coronavirus 229E,HKU1,NL63,OC4 Not Detected (NOT DETECT); Human Metapneumovirus Not Detected (NOT DETECT); Human Rhinovirus/Enterovirus Not Detected (NOT DETECT); Influenza A Not Detected (NOT DETECT); Influenza A H1 Not Detected (NOT DETECT); Influenza A H1-2009 Not Detected (NOT DETECT); Influenza A H3 Not Detected (NOT DETECT); Influenza B Not Detected (NOT DETECT); Mycoplasma Pneumoniae Not Detected (NOT DETECT); Parainfluenza Virus Type 1 Not Detected (NOT DETECT); Parainfluenza Virus Type 2 Not Detected (NOT DETECT); Parainfluenza Virus Type 3 Not Detected (NOT DETECT); Parainfluenza Virus Type 4 Not Detected (NOT DETECT); Respiratory Syncytial Virus A Not Detected (NOT DETECT); Respiratory Syncytial Virus B Not Detected (NOT DETECT); SARS-COV-2 Not Detected (NOT DETECT)
[2023-07-30 11:24] LABS: NT Pro B Type Natriuretic Pept 52 pg/mL (0-125)
[2023-07-30 11:27] LABS: Troponin 5 2HR 6.69 ng/L (0-15); Troponin 5 2HR Delta 0.69001 ABS# (0-10)
--- NOTE | 2023-07-30 11:42 | USCV_ITS ---
Jb Borges Age: 68 Gender: M : 1955 Exam Date: 07/30/2023 12:42 Ordering Phys: Raimundo Schmidt MD Technologist: Dawson Maciel Exam Location: [facility] [place]_ Indication: bilat edema PROCEDURES: The venous duplex Doppler examination of both lower extremities was performed in the standard fashion. The following venous structures were evaluated: common femoral vein, profunda vein, proximal portion of the greater saphenous vein, superficial femoral vein, and the popliteal vein. In addition, the posterior tibial and peroneal trunk were evaluated. FINDINGS: Normal 2-D Doppler and augmentation and compressibility throughout the lower extremity venous structures. Additional imaging through the proximal calf veins also reveals no thrombus. Limited evaluation of the greater saphenous vein is patent with no thrombus. CONCLUSIONS No evidence of right lower extremity DVT. No evidence of left lower extremity DVT. Duane Thompson MD (Electronically Signed) Final Date: 30 July 2023 13:40 S
[2023-07-30] MEDS: acetaZOLAMIDE 250 mg Tablet PO (11:56)
[2023-07-30] MEDS: FUROsemide 10 mg/mL SDV 4mL 40 MG IVP (11:56)
[2023-07-30] MEDS: piperacillin-tazobactam 3.375 GM in sodium chloride 0.9% (plus) 50 ML IV (11:56)
[2023-07-30 12:50] LABS: Glucose Point of Care 111 mg/dL (70-110)
[2023-07-30 13:32] LABS: Vitamin B12 174 pg/mL (232-1245)
[2023-07-30 13:33] LABS: Folate Level 5.5 ng/mL (4.5-32.2)
[2023-07-30 16:49] LABS: Glucose Point of Care 228 mg/dL (70-110)
[2023-07-30] MEDS: methylPREDNISolone sod succ 125 mg/2 mL INJ 60 MG IVP (17:09)
[2023-07-30] MEDS: doxycycline 100 mg Tablet PO (17:09)
[2023-07-30] MEDS: insulin lispro 100 unit/1 mL SUBCUT ×2 (17:10→20:34)
[2023-07-30] MEDS: budesonide 0.5 mg/2 mL Neb INHALATION (20:24)
[2023-07-30 20:32] LABS: Glucose Point of Care 230 mg/dL (70-110)
--- NOTE | 2023-07-30 23:40 | PC.NURSE ---
patient refused lasix at this time states no i dont take that stuff its killing me when i have to pee then get back to my chair and have to pee again i wont take it at home i wont take it here patient educated on his current condition and how the lasix will help patient continues to refuse administration
[2023-07-31] VITALS (11 sets, daily range): BP systolic 120–151; BP diastolic 58–69; PULSE 80–95; RESP 17–24; TEMP 36.5–36.9; O2SAT 91–97
[2023-07-31 05:09] LABS: Basophils % 0.1 %; Hematocrit 39.7 % (37-53); Mean Corpuscular HGB Conc 31.7 g/dL (30-55); Mean Corpuscular Hemoglobin 36.1 pg (27-33); Mean Corpuscular Volume 113.8 fl (82-101); Mean Platelet Volume 9.2 fL (7.4-10.4); Monocytes # 0.6 10^3/uL (0.2-0.9); Monocytes % 5.1 %; Neutrophils # 10.53 10^3/uL (1.8-7.7); Neutrophils % 86.5 %; Nucleated Red Blood Cells % 0 %; Platelet Count 238 10^3/cmm (157-399); Red Blood Count 3.49 10^6/uL (3.85-5.65); Red Cell Distribution Width 11.6 % (12.1-15.1); White Blood Count 12.17 10^3/uL (3.29-11.43)
[2023-07-31 05:30] LABS: Alanine Aminotransferase 8 U/L (0-41); Albumin Level 3.9 g/dL (3.5-5.2); Alkaline Phosphatase 95 U/L (40-130); Anion Gap 9.6 (5-19); Aspartate Amino Transferase 9 U/L (0-40); Blood Urea Nitrogen 15 mg/dL (8-23); Calcium 9.5 mg/dL (8.5-10.5); Carbon Dioxide 39 mmol/L (22-29); Chloride 97 mmol/L (98-107); Globulin 3.2 g/dL (1.3-4.6); Glomerular Filtration Rate 95.8 mL/min (90-130); Glucose 167 mg/dL (65-115); Magnesium 1.9 mg/dL (1.7-2.3); Osmolality Calculated 297 mOsm/kg (285-295); Potassium 4.6 mmol/L (3.5-5.1); Sodium 141 mmol/L (136-145); Total Bilirubin 0.2 mg/dL (0.15-1.2); Total Protein 7.1 g/dL (6.6-8.7)
[2023-07-31] MEDS: methylPREDNISolone sod succ 125 mg/2 mL INJ 60 MG IVP (06:24)
[2023-07-31] MEDS: lisinopril 5 mg Tablet PO (06:25)
[2023-07-31] MEDS: PARoxetine 20 mg Tablet 30 MG PO (06:25)
[2023-07-31] MEDS: atorvastatin 40 mg Tablet PO (06:25)
[2023-07-31 07:40] LABS: Glucose Point of Care 149 mg/dL (70-110)
[2023-07-31] MEDS: insulin lispro 100 unit/1 mL SUBCUT ×4 (08:38→21:37)
[2023-07-31] MEDS: pantoprazole DR 40 mg Tablet PO (08:39)
[2023-07-31] MEDS: doxycycline 100 mg Tablet PO ×2 (08:40→17:51)
[2023-07-31] MEDS: predniSONE 20 mg Tablet 40 MG PO (08:40)
[2023-07-31] MEDS: cyanocobalamin 1,000 mcg/mL SDV 1000 MCG IM (08:41)
--- NOTE | 2023-07-31 09:00 | PC.NURSE ---
Pt refused AcetaZolamide this am. He stated the problem with water pills is he is up and down too much. Dr Schmidt notified
--- NOTE | 2023-07-31 09:07 | PC.NURSE ---
Called [facility] to given report. In the middle of Heart to heart at this time. Will not take report now, Nurse will call after Heart to heart done about 0939.
--- NOTE | 2023-07-31 09:57 | P.PN_ITS ---
Documented by User: lluvia Alejandre 07/31/23 10:09 Subjective 2 Subjective: Patient was evaluated this morning while lying in bed on 3L/NC. Patient reports since admission yesterday afternoon, patient feels better. States his work of breathing and shortness of breath/wheezes are better. Did state that he utilized BiPAP last night though nursing states that he refused. Nursing also states that patient refused Lasix. Denies any complaints at this time but states that he would like a nicotine patch. Medications: Reviewed: Yes Vitals/I&O/Wt Last Vital Signs Temp 98.2 F 07/31/23 08:30 Pulse 84 07/31/23 08:30 Resp 24 H 07/31/23 08:30 BP 151/64 07/31/23 08:30 Pulse Ox 92 07/31/23 08:30 O2 Del Method Nasal Cannula 07/31/23 08:30 O2 Flow Rate 3 07/31/23 08:30 FiO2 40 07/30/23 13:17 07/30/23 07/31/23 07/31/23 22:59 06:59 14:59 Intake Total 250 / 350 50 / 400 125 / 125 Output Total 600 / 600 725 / 1325 Balance -350 / -250 -675 / -925 125 / 125 Weight last 48 hrs Weight 123.462 kg Weight 130.181 kg Weight 130.181 kg Physical Exam 2 Narrative: General exam is a white male, 3L/NC, alert, able to answer questions appropriately with full sentences. No distress at this time. HEENT: Atraumatic and normocephalic. Oropharynx clear. Neck is supple no lymphadenopathy thyromegaly Cardiovascular regular rate and rhythm, no murmur Lungs diminished breath sounds bilaterally but no wheezes or crackles Abdomen is soft, obese. No obvious tenderness. exam was deferred Extremities show significant lymphedema, 3+ edema. Skin lymphedema changes in the ankles Neuro no focal deficits, alert and oriented x 4 Data 07/31/23 04:31 07/31/23 04:31 Other Labs: WBC 12.17, RBC 3.49, MCV 113.8, carbon dioxide 39, Micro: Microbiology 07/30/23 09:33 Gram Stain - Final Sputum - Expectorated Sputum US Vascular: Radiologist's impression: No evidence of right lower extremity DVT. No evidence of left lower extremity DVT. A&P Assessment and plan (1) Acute respiratory failure with hypoxia and hypercarbia: Appears to be secondary to COPD exacerbation. Patient reports that he did wear BiPAP machine last night although nursing states that he did not and refused. Oxygen wean as tolerated, patient currently on 3L/NC As per #2 (2) COPD with acute exacerbation: Will transition patient from IV Solu-Medrol to prednisone today. Continue DuoNeb every 4 hours Budesonide twice daily. (3) Acute diastolic heart failure: Concern for acute diastolic heart failure Lasix 40 mg IV every 12 hours Acetazolamide 250 mg daily, secondary to significant CO2 retention BMP daily, along with CBC (4) Obesity hypoventilation syndrome: Would possibly be a candidate for Trilogy Will discuss with patient when he is able (5) Diabetes: Consistent carb diet Sliding scale insulin Accu-Cheks ACHS (6) Lymphedema: Significant lymphedema lower extremities. Venous duplex bilateral lower extremity was performed and revealed no DVT to right and left lower extremity (7) Macrocytosis: B12 revealed level of 174. We will administer IM cyanocobalamin today. TSH and folate within normal limits. Plan Plan as stated above. Patient is stable for transfer out of the ICU to [facility] [place]. Home medications resumed today as patient has improved. continue BiPAP at at bedtime and oxygen therapy protocol to wean. Transition patient from IV steroid to prednisone daily. Nicotine patch. Smoking cessation discussed. DVT prophylaxis: SCDs CODE STATUS: Full code PPI prophylaxis: Pantoprazole Coding Level of Care Code 43415 Diagnoses Acute respiratory failure with hypoxia and hypercarbia J96.01; J96.02 COPD with acute exacerbation J44.1 Acute diastolic heart failure I50.31 Obesity hypoventilation syndrome E66.2 Diabetes E11.9 Lymphedema I89.0 Macrocytosis D75.89 Time Spent (min) 25 Documented by User: Raimundo Schmidt MD 07/31/23 11:52 Data 07/31/23 04:31 07/31/23 04:31 A&P Assessment and plan (1) Acute respiratory failure with hypoxia and hypercarbia: (2) COPD with acute exacerbation: Will transition patient from IV Solu-Medrol to prednisone today. Continue DuoNeb every 4 hours Budesonide twice daily. Continue doxycycline p.o. (3) Acute diastolic heart failure: Concern for acute diastolic heart failure Lasix 40 mg IV every 12 hours. He has been refusing intermittently Acetazolamide 250 mg daily, secondary to significant CO2 retention. He has been refusing intermittently BMP daily, along with CBC (4) Obesity hypoventilation syndrome: Would possibly be a candidate for Trilogy it does not appear at this time that he is compliant enough to warrant this He will need pulmonary referral at follow-up, hopefully they can make some headway and to allow a more effective treatment for his medical problems. (5) Diabetes: (6) Lymphedema: Significant lymphedema lower extremities. Venous duplex bilateral lower extremity was performed and revealed no DVT to right and left lower extremity outpatient therapy consultation for lymphedema wraps. Hopefully he will be compliant with this. (7) Macrocytosis: B12 revealed level of 174. We will administer IM cyanocobalamin daily in hospital starting today TSH and folate within normal limits. Plan Plan as stated above. Patient is stable for transfer out of the ICU to [facility] [place]. Home medications resumed today as patient has improved. continue BiPAP at at bedtime and oxygen therapy protocol to wean. Transition patient from IV steroid to prednisone daily. Nicotine patch. Smoking cessation discussed. Possible discharge tomorrow if continues to improve. At risk for repeated hospitalizations secondary to noncompliance. DVT prophylaxis: SCDs CODE STATUS: Full code PPI prophylaxis: Pantoprazole Attestations 2 Medical Necessity Statement*: Needs continued hospitalization, for frequent nebs, diuresis secondary to acute respiratory failure and acute diastolic heart failure. Diagnoses Acute respiratory failure with hypoxia and hypercarbia J96.01; J96.02 COPD with acute exacerbation J44.1 Acute diastolic heart failure I50.31 Obesity hypoventilation syndrome E66.2 Diabetes E11.9 Lymphedema I89.0 Macrocytosis D75.89 Time Spent (min) 25
--- NOTE | 2023-07-31 10:29 | PC.NURSE ---
Report called to [facility]. Report given to RAUL Awad. No questions.
--- NOTE | 2023-07-31 10:35 | PC.NURSE ---
Pt transferred to [facility] [place] room 269 with all of is belongings.
[2023-07-31 11:58] LABS: Glucose Point of Care 176 mg/dL (70-110)
--- NOTE | 2023-07-31 12:15 | PC.SOCIAL ---
IMM Update pg 2 of IMM updated and reviewed w/ patient. Copy provided and Copy dated, initialed and placed in chart.
[2023-07-31] MEDS: FUROsemide 10 mg/mL SDV 4mL 40 MG IVP (12:39)
[2023-07-31] MEDS: nicotine 21 mg Patch 1 PATCH TRANSDERMA (12:39)
[2023-07-31] MEDS: ipratropium-albuterol 3 mL Neb INHALATION ×2 (14:31→20:24)
[2023-07-31 16:44] LABS: Glucose Point of Care 177 mg/dL (70-110)
[2023-07-31] MEDS: budesonide 0.5 mg/2 mL Neb INHALATION (20:24)
[2023-07-31 21:05] LABS: Glucose Point of Care 222 mg/dL (70-110)
[2023-07-31] MEDS: zolpidem 5 mg Tablet PO (23:15)
[2023-08-01] VITALS (7 sets, daily range): BP systolic 119–166; BP diastolic 66–78; PULSE 73–89; RESP 17–18; TEMP 36.7–36.9; O2SAT 90–100
[2023-08-01 05:45] LABS: Basophils % 0.1 %; Eosinophils % 0.1 %; Hematocrit 38.6 % (37-53); Mean Corpuscular HGB Conc 32.6 g/dL (30-55); Mean Corpuscular Hemoglobin 36.8 pg (27-33); Mean Corpuscular Volume 112.9 fl (82-101); Mean Platelet Volume 8.8 fL (7.4-10.4); Monocytes # 1.3 10^3/uL (0.2-0.9); Monocytes % 9.7 %; Neutrophils # 10.08 10^3/uL (1.8-7.7); Neutrophils % 74.7 %; Nucleated Red Blood Cells % 0 %; Platelet Count 241 10^3/cmm (157-399); Red Blood Count 3.42 10^6/uL (3.85-5.65); Red Cell Distribution Width 11.9 % (12.1-15.1); White Blood Count 13.49 10^3/uL (3.29-11.43)
[2023-08-01 05:57] LABS: Anion Gap 10.7 (5-19); Blood Urea Nitrogen 21 mg/dL (8-23); Calcium 8.9 mg/dL (8.5-10.5); Carbon Dioxide 36 mmol/L (22-29); Chloride 96 mmol/L (98-107); Glomerular Filtration Rate 74.1 mL/min (90-130); Glucose 119 mg/dL (65-115); Osmolality Calculated 292 mOsm/kg (285-295); Potassium 3.7 mmol/L (3.5-5.1); Sodium 139 mmol/L (136-145)
[2023-08-01 06:38] LABS: Glucose Point of Care 102 mg/dL (70-110)
[2023-08-01] MEDS: PARoxetine 20 mg Tablet 30 MG PO (06:49)
[2023-08-01] MEDS: lisinopril 5 mg Tablet PO (06:49)
[2023-08-01] MEDS: atorvastatin 40 mg Tablet PO (06:50)
[2023-08-01] MEDS: budesonide 0.5 mg/2 mL Neb INHALATION (08:03)
[2023-08-01] MEDS: ipratropium-albuterol 3 mL Neb INHALATION ×2 (08:03→13:13)
[2023-08-01] MEDS: pantoprazole DR 40 mg Tablet PO (09:20)
[2023-08-01] MEDS: cyanocobalamin 1,000 mcg/mL SDV 1000 MCG IM (09:21)
[2023-08-01] MEDS: acetaZOLAMIDE 250 mg Tablet PO (09:21)
[2023-08-01] MEDS: doxycycline 100 mg Tablet PO (09:21)
[2023-08-01] MEDS: predniSONE 20 mg Tablet 40 MG PO (09:21)
[2023-08-01] MEDS: nicotine 21 mg Patch 1 PATCH TRANSDERMA (09:21)
[2023-08-01 11:15] LABS: Glucose Point of Care 139 mg/dL (70-110)
--- NOTE | 2023-08-01 13:24 | P.DS_ITS ---
Discharge Providers Date of Admission: 07/30/23 09:21 Date of Discharge: August 01, 2023 Attending Provider at Admission: Raimundo Schmidt MD Attending Provider at Discharge: Nathan Swartz Primary Care Provider: Harsha Ritchie MD Diagnoses at Discharge Discharge Diagnosis (1) Acute respiratory failure with hypoxia and hypercarbia: Status: Acute (2) COPD with acute exacerbation: Status: Acute (3) Acute diastolic heart failure: Status: Acute (4) Obesity hypoventilation syndrome: Status: Acute (5) Diabetes: Status: Acute (6) Lymphedema: Status: Acute (7) Macrocytosis: Status: Acute Reason for Visit Reason for Visit: respiratory distress x 3 days Hospital Course Hospital Course Pleasant 68-year-old gentleman with history of COPD, obesity hypoventilation syndrome, diabetes, hyperlipidemia, other medical problems presented with shortness of breath over the preceding 3 to 4 days, coughing up purulent sputum, on presentation lethargic. Found to be in respiratory failure with hypoxia and hypercapnia, COPD exacerbation acute diastolic congestive heart failure with underlying obesity hypoventilation syndrome. Started on BiPAP support, treated with steroid, doxycycline, IV diuretics, oxygen and BiPAP support. Respiratory function improved. Mental status improved. Weaned off oxygen down to room air. Would benefit from BiPAP, discussed with him at risk of CO2 retention. He is willing to follow-up for a sleep study. Please discussed with him options for weight loss. Please encourage smoking cessation. He is discharging with course of antibiotic and prednisone for COPD exacerbation. Please follow-up for recovery. Lasix are changed to as needed. Most of his edema is secondary to lymphedema in lower extremities for which he is referred for follow-up with physical therapy for compression wraps. Please follow-up with him regarding incidentally noted B12 deficiency. Physical Exam Const: COMMON NORMALS: patient oriented x3 and alert GENERAL APPEARANCE: cooperative NUTRITIONAL APPEARANCE: obese ORIENTATION/CONSCIOUSNESS: Yes awake HENMT: COMMON NORMALS: oropharynx normal Neck/C-Spine: COMMON NORMALS: no JVD Resp: COMMON NORMALS: normal respiratory effort AUSCULTATION: rhonchi (few) Cardio: COMMON NORMALS: no JVD, regular rhythm, S1 normal heart sound present, S2 normal heart sound present and No murmurs present (Cardio) RHYTHM: regular rhythm HEART SOUNDS: S1 normal heart sound present and S2 normal heart sound present GI: COMMON NORMALS: Normal to inspection, nondistended, normoactive bowel sounds present, Soft to palpation and non-tender PALPATION: Yes Soft to pal pation Extremity: COMMON NORMALS: no joint enlargement GENERAL: Yes edema (lymphedema) Neuro: COMMON NORMALS: patient oriented x3 and moves all extremities SENSORIUM/ORIENTATION: Yes alert Skin: OTHER: Chronic stasis changes bilateral lower extremities Discharge Data Studies Completed and Pending Completed Studies During Hospitalization Category Date Time Status XR chest 1V portable [id number] Stat Exams 07/30/23 08:07 [place] [id number] Routine Ultrasound 07/30/23 11:42 Completed Pending at discharge Category Date Time Status Blood Cultures ([facility]) Routine Lab 07/30/23 12:09 Received Sputum Culture and Gram Stain Stat Lab 07/30/23 09:33 Results Radiology Impressions Chest X-Ray 07/30/23 08:07 IMPRESSION: No acute findings. Laboratory Results WBC 13.49 10^3/uL (3.29-11.43) H 08/01/23 05:23 RBC 3.42 10^6/uL (3.85-5.65) L 08/01/23 05:23 Hgb 12.60 g/dL (11.27-16.99) 08/01/23 05:23 Hct 38.6 % (37-53) 08/01/23 05:23 MCV 112.9 fl (82-101) H 08/01/23 05:23 MCH 36.8 pg (27-33) H 08/01/23 05:23 MCHC 32.6 g/dL (30-55) 08/01/23 05:23 RDW 11.9 % (12.1-15.1) L 08/01/23 05:23 Plt Count 241 10^3/cmm (157-399) 08/01/23 05:23 MPV 8.8 fL (7.4-10.4) 08/01/23 05:23 Neut % (Auto) 74.7 % 08/01/23 05:23 Lymph % (Auto) 15.0 % 08/01/23 05:23 [place] % (Auto) 9.7 % 08/01/23 05:23 Eos % (Auto) 0.1 % 08/01/23 05:23 Baso % (Auto) 0.1 % 08/01/23 05: Neut # (Auto) 10.08 10^3/uL (1.8-7.7) H 08/01/23 05:23 Lymph # (Auto) 2.0 10^3/uL (0.8-4.8) 08/01/23 05:23 [place] # (Auto) 1.3 10^3/uL (0.2-0.9) H 08/01/23 05:23 Eos # (Auto) 0.0 10^3/uL (0.0-0.8) 08/01/23 05: Baso # (Auto) 0.0 10^3/uL (0.0-0.1) 08/01/23 05: Nucleated RBC % (auto) 0 % 08/01/23 05: Nucleated RBCs # 0.0 /100WBC 08/01/23 05:23 Specimen Type Arterial 07/30/23 10:08 Sample Site Radial, right 07/30/23 10:08 ABG pH 7.28 (7.35-7.45) L 07/30/23 10:08 ABG pCO2 87.9 mmHg (35-45) H* 07/30/23 10:08 ABG pO2 78.0 mmHg (80.0-100.0) L 07/30/23 10:08 ABG PO2/FiO2 Ratio 0 07/30/23 10:08 ABG HCO3 41.4 mmol/L (22-26) H 07/30/23 10:08 ABG O2 Saturation 95.7 07/30/23 10:08 ABG Base Excess 11.2 mmol/L (-2.0-2.0) H 07/30/23 10:08 Dileep Test Pos 07/30/23 10:08 A-a O2 Gradient 13.9 mmHg (5-10) H 07/30/23 10:08 Hematocrit 37.6 % (42-52) L 07/30/23 10:08 Hgb O2 Saturation 93.6 % (95-100) L 07/30/23 10:08 Carboxyhemoglobin 1.5 %THgb (0.4-20.1) 07/30/23 10:08 Methemoglobin 0.6 % (0.4-1.5) 07/30/23 10:08 Total Hemoglobin 12.3 g/dL (14-18) L 07/30/23 10:08 Sodium 142.0 mmol/L (131-143) 07/30/23 10:08 Potassium 4.2 mmol/L (3.5-5.0) 07/30/23 10:08 Glucose 122.0 mg/dL (70-115) H 07/30/23 10:08 Ionized Calcium 1.2 mmol/L (1.1-1.4) 07/30/23 10:08 O2 Delivery Device Bipap 07/30/23 10:08 O2 Liters/Min 3.0 % 07/30/23 08:33 FiO2 40.0 % 07/30/23 10:08 Tidal Volume 0.45 07/30/23 10:08 PEEP 8.0 cmH20 07/30/23 10:08 [employer] [place] 07/30/23 10:08 Sodium 139 mmol/L (136-145) 08/01/23 05:23 Potassium 3.7 mmol/L (3.5-5.1) 08/01/23 05:23 Chloride 96 mmol/L (98-107) L 08/01/23 05:23 Carbon Dioxide 36 mmol/L (22-29) H 08/01/23 05:23 Anion Gap 10.7 (5-19) 08/01/23 05:23 BUN 21 mg/dL (8-23) 08/01/23 05:23 Creatinine 1.0 mg/dL (0.7-1.2) 08/01/23 05:23 GFR Calculation 74.1 mL/min (90-130) L 08/01/23 05:23 Glucose 119 mg/dL (65-115) H 08/01/23 05:23 POC Glucose 139 mg/dL (70-110) H 08/01/23 11:06 Calculated Osmolality 292 mOsm/kg (285-295) 08/01/23 05:23 Calcium 8.9 mg/dL (8.5-10.5) 08/01/23 05:23 Magnesium 1.9 mg/dL (1.7-2.3) 07/31/23 04:31 Total Bilirubin 0.2 mg/dL (0.15-1.2) 07/31/23 04:31 AST 9 U/L (0-40) 07/31/23 04:31 ALT 8 U/L (0-41) 07/31/23 04:31 Alkaline Phosphatase 95 U/L (40-130) 07/31/23 04:31 Troponin T Baseline < 6 ng/L (0-15) 07/30/23 08:25 Troponin T 120 Minute 6.69 ng/L (0-15) 07/30/23 10:27 Delta Troponin T 0.20058 ABS# (0-10) 07/30/23 10:27 NT-Pro-B Natriuret Pep 52 pg/mL (0-125) 07/30/23 08:25 Total Protein 7.1 g/dL (6.6-8.7) 07/31/23 04:31 Albumin 3.9 g/dL (3.5-5.2) 07/31/23 04:31 Globulin 3.2 g/dL (1.3-4.6) 07/31/23 04:31 Vitamin B12 174 pg/mL (232-1245) L 07/30/23 08:25 Folate 5.5 ng/mL (4.5-32.2) 07/30/23 08:25 TSH 0.59 uIU/mL (0.27-4.20) 07/30/23 08:25 Coronavirus 229E (PCR) Not detected (NOT DETECT) 07/30/23 09:30 Influenza Type A Ag Negative (Negative) 07/30/23 09:30 Influenza Type B Ag Negative (Negative) 07/30/23 09:30 SARS-CoV-2 (PCR) Not detected (NOT DETECT) 07/30/23 09:30 Vitals Last Vital Signs Temp 98.2 F 08/01/23 08:00 Pulse 89 08/01/23 13:15 Resp 17 08/01/23 13:15 BP 145/78 08/01/23 08:00 Pulse Ox 98 08/01/23 13:15 O2 Del Method Nasal Cannula 08/01/23 13:15 O2 Flow Rate 3 08/01/23 13:15 FiO2 40 07/30/23 13:17 Discharge Plan Discharge Patient Disposition: Home Condition: Stable Prescriptions: New doxycycline monohydrate 100 mg Tablet 100 mg PO BID Qty: 10 0RF prednisone 20 mg Tablet 40 mg PO DAILY 3 Days Qty: 6 0RF furosemide [Lasix] 40 mg tablet 40 mg PO DAILY PRN (Reason: Dyspnea, shortness of breath while lying down) Qty: 20 0RF Rx Instructions: For dyspnea with lying down, rapid water weight gain more than 3 lbs in 2 days. nicotine 21 mg/24 hr Patch 24 Hour 1 patch transdermal DAILY Qty: 90 3RF Continued atorvastatin 40 mg tablet 40 mg PO DAILY@07 acetaminophen [Tylenol Extra Strength] 500 mg Tablet 1,000 mg PO DAILY PRN (Reason: Pain) lisinopril 5 mg tablet 5 mg PO DAILY@07 metformin 500 mg tablet extended release 24 hr See Rx Instructions .ROUTE .COMPLEX Rx Instructions: 1000 mg orally in the morning / 500 mg orally in the evening glipizide 5 mg tablet extended release 24 hr 5 mg PO DAILY albuterol sulfate [ProAir HFA] 90 mcg/actuation HFA aerosol inhaler 1 inh inhalation Q6H PRN (Reason: shortness of breath or wheezing) Qty: 8.5 3RF lorazepam 0.5 mg tablet 0.25 - 0.5 mg PO QPM paroxetine HCl 30 mg tablet 30 mg PO QAM gabapentin 300 mg capsule 300 mg PO TID PRN (Reason: Muscle Pain) ergocalciferol (vitamin D2) 1,250 mcg (50,000 unit) capsule 1 unit PO Q7D Rx Instructions: on Discharge Orders: Discharge Order (Routine); Ordered 08/01/23 Ordered By: Nathan Swartz Other Ambulatory Orders: Physical Therapy Eval and Treat Outpatient (Order) Timeframe: 3 Days Facility: [facility] - Location: Physical Therapy [place] Ordered By: Raimundo Schmidt Sleep Study/Titration (Routine) Timeframe: 1 Week Facility: [facility] - Location: [facility] Ordered By: Nathan Swartz Referrals: Harsha Ritchie MD [Primary Care Provider] - 4-7 days (Please call Thursday to schedule your hospital follow up appointmen.) Discharge Diet: Diabetic Patient Instructions: Furosemide (By mouth), Doxycycline (By mouth), Prednisone (By mouth), Nicotine (Absorbed through the skin), Heart Failure (GEN), How to Stop Smoking (GEN), Cigarette Smoking and Your Health (GEN), COPD (Chronic Obstructive Pulmonary Disease) (GEN), Lymphedema (GEN), Vitamin B12 Deficiency (GEN), CHF Stoplight Activity Restrictions/Additional Instructions: Follow-up with your primary care provider for reassessment after COPD exacerbation. Follow-up with sleep study to further assess for sleep apnea, titrate BiPAP. Follow-up with your primary doctor for suspected obesity hypoventilation syndrome. You are at risk of retaining carbon dioxide if these conditions are not addressed. Follow-up with your primary doctor for weight loss options. In case of worsening shortness of breath lying on your back, rapid weight gain of water weight of more than 3 pounds in 2 days, take diuretic (furosemide). Avoid fluid overload. He had mild diastolic congestive heart failure exacerbation which is now compensated. Your lower extremity edema has not for the most part due to the congestive heart failure. Follow-up regarding lymphedema with your primary provider, follow-up with physical therapy for compression wraps. Follow-up with your primary doctor for B12 deficiency treatment and microcytosis. Please stop smoking, continue smoking will lead to further deterioration of your lung function, heart disease, including heart attack, stroke, multiple cancers, and other conditions Discharge Attestations Time Spent in Discharge Care*: greater than 30 min Status at Discharge: Cognitive status at discharge: cognitively intact , Behavioral status at discharge: cooperative , Quality Metrics Clinical Quality Measures [ No reported AMI, CVA or VTE this stay] Coding Level of Care Code 27986 Total time (in minutes) for Discharge: 50 Diagnoses Acute respiratory failure with hypoxia and hypercarbia J96.01; J96.02 COPD with acute exacerbation J44.1 Acute diastolic heart failure I50.31 Obesity hypoventilation syndrome E66.2 Diabetes E11.9 Lymphedema I89.0 Macrocytosis D75.89
== END 2023-08-01 14:05 | disposition home or self-care (01) | DRG 189 ==
LOC: ER 08:19 → ICU 09:39 → MEDSURG 07-31 11:20
PROVIDERS: Admitting Provider Internal Medicine; Emergency Provider Family Medicine; PCP General Practice; Visit Provider Internal Medicine
DX: J96.02 Acute respiratory failure with hypercapnia (principal); I50.31 Acute diastolic (congestive) heart failure; J44.1 Chronic obstructive pulmonary disease with (acute) exacerbation; E66.2 Morbid (severe) obesity with alveolar hypoventilation; Z68.41 Body mass index [BMI] 40.0-44.9, adult; J96.01 Acute respiratory failure with hypoxia; F17.210 Nicotine dependence, cigarettes, uncomplicated; Z99.81 Dependence on supplemental oxygen; E11.40 Type 2 diabetes mellitus with diabetic neuropathy, unspecified; Z79.84 Long term (current) use of oral hypoglycemic drugs; F41.8 Other specified anxiety disorders; I89.0 Lymphedema, not elsewhere classified; E78.5 Hyperlipidemia, unspecified; D75.89 Other specified diseases of blood and blood-forming organs; E53.8 Deficiency of other specified B group vitamins; I11.0 Hypertensive heart disease with heart failure
CPT/HCPCS: 36415; 36416; 36600; 71045; 80048; 80051; 80053; 82330; 82607; 82746; 82805; 82962; 83735; 83880; 84443; 84484; 85025; 87040; 87070; 87077; 87205; 87635; 87804; 93005; 93970; 94640; 94660; 96372; 99291; J1100; J1815; J1940; J2543; J2930; J3420; J7512; J7626

== ENCOUNTER 2024-03-24 16:18 | Inpatient (IN) | payer MEDICARE, SELFPAY ==
[2024-03-24] VITALS (49 sets, daily range): BP systolic 90–195; BP diastolic 49–121; PULSE 56–109; RESP 14–27; TEMP 36.7–37.2; O2SAT 92–100; BMI 45.1
--- NOTE | 2024-03-24 16:25 | ECG_ITS ---
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 Measurements Intervals [place] Rate: 92 P: 75 MA: 197 QRS: -31 QRSD: 91 T: 73 QT: 334 QTc: 415 Interpretive Statements SINUS RHYTHM LEFT AXIS DEVIATION [QRS AXIS < -30] Compared to ECG 07/30/2023 10:39:21 No significant changes Electronically Signed On 03-24-2024 16:53:21 CDT by Ludin Hernandez M.D. [email or web address]
[2024-03-24] MEDS: naloxone 0.4 mg/ml SDV IVP (16:36)
[2024-03-24 16:38] LABS: ABG PH Result 7.16 (7.35-7.45); Base Excess ABG 6.7 mmol/L (-2.0-2.0); Blood Gas Allen Test Pos; Blood Gas Operator Identificat WALCI; Blood Gas Sample Site Radial, left; Blood Gas Sample Type Arterial; Carboxyhemoglobin 1.3 %THgb (0.4-20.1); HCO3 ABG 39.3 mmol/L (22-26); HGB O2 Sat 96.3 % (95-100); Ionized Calcium Level - ABG 1.3 mmol/L (1.1-1.4); Methemoglobin 1.4 % (0.4-1.5); Oxygen Device NC; Potassium Level - ABG 4.3 mmol/L (3.5-5.0); Total Hemoglobin 13.1 g/dL (14-18)
[2024-03-24] MEDS: etomidate 2 mg/mL INJ SDV 10 mL 40 MG IVP (16:48)
[2024-03-24] MEDS: rocuronium 10 mg/mL INJ 5mL IVP (16:49)
[2024-03-24] MEDS: lactated ringers 1,000 ML 999 ML IV (17:00)
--- NOTE | 2024-03-24 17:03 | XR_ITS ---
WS: [id number] Examination: XR chest 1V portable [id number] Reason for Exam: INTUBATION Date: March 24, 2024 Comparison: July 30, 2023 Findings: An ET tube is identified in good position. The NG tube tube is seen with the tip below the diaphragm. The heart is mildly prominent in size. The mediastinum is not widened Diffusely the lung markings are increased particularly in the bases. Bilateral pleural effusions are present. XR/XR chest 1V portable [id number] Impression: The ET tube is well-positioned. Diffusely the lung markings are prominent more so in the bases with pleural eff usion.
[2024-03-24] MEDS: propofol 1,000 MG/100 ML INJ 3.81 MG IV (17:04)
--- NOTE | 2024-03-24 17:05 | ED_ITS ---
HPI - Altered Mental Status 2 General: Chief Complaint: Altered Mental Status Stated Complaint: sob/unresponsive Time Seen by Provider: 03/24/24 16:24 Source: EMS Mode of arrival: EMS Limitations: altered mental status History of Present Illness: This patient was transported from his home by EMS. History is obtained from EMS due to the patient's altered mental status. EMS reports that they were called by family to come to the residence because of shortness of breath. They state that upon arrival to the residence they found the patient sitting on his porch waiting for their arrival. They states they assessed him and found his CO2 to be elevated but not hypoxic however they began DuoNeb as well as oxygen therapy and transported him. They state that en route he became less responsive and they state that during this period of less responsiveness his end-tidal CO2 was noted to be 50. No concomitant history of trauma, no history of drug use or overdose or suicidality. Does have a history of COPD. MD complaint: decreased responsiveness Related Data Home Medications Medication Instructions Recorded Confirmed acetaminophen 500 mg tablet 1,000 mg PO DAILY PRN Pain 08/17/20 07/30/23 (Tylenol Extra Strength) atorvastatin 40 mg tablet 40 mg PO DAILY@08/17/20 07/30/23 lisinopril 5 mg tablet 5 mg PO DAILY@08/17/20 07/30/23 metformin 500 mg tablet,extended See Rx Instructions .Route .COMPLEX 08/17/20 07/30/23 release 24 hr glipizide 5 mg tablet, extended 5 mg PO DAILY 01/01/22 07/30/23 release 24 hr ergocalciferol (vitamin D2) 1,250 1 unit PO Q7D 07/30/23 07/30/23 mcg (50,000 unit) capsule gabapentin 300 mg capsule 300 mg PO TID PRN Muscle Pain 07/30/23 07/30/23 lorazepam 0.5 mg tablet 0.25 - 0.5 mg PO QPM 07/30/23 07/30/23 paroxetine HCl 30 mg tablet 30 mg PO QAM 07/30/23 07/30/23 Previous Rx's Medication Instructions Recorded albuterol sulfate 90 mcg/actuation 1 inh inhalation Q6H PRN shortness 01/04/22 aerosol inhaler (ProAir HFA) of breath or wheezing #8.5 grams doxycycline monohydrate 100 mg 100 mg PO BID #10 tabs 08/01/23 tablet furosemide 40 mg tablet (Lasix) 40 mg PO DAILY PRN Dyspnea, 08/01/23 shortness of breath while lying down #20 tabs nicotine 21 mg/24 hr daily 1 patch transdermal DAILY #90 ea 08/01/23 transdermal patch Allergies Allergy/AdvReac Type Severity Reaction Status Date / Time No Known Allergies Allergy Verified 01/01/22 15:22 Review of Systems 2 General: Reports: ROS unobtainable due to medical condition and ROS unobtainable due to mental status PFSH ED 2 PFSH: Medical History Diabetic neuropathy Depression with anxiety Hyperlipidemia Altered mental status Obesity hypoventilation syndrome COPD (chronic obstructive pulmonary disease) Hypertension Diabetes Respiratory failure with hypoxia and hypercapnia Respiratory failure Surgical History History of back surgery History of surgery on arm Family History Other Cancer Social History Smoking and tobacco/nicotine status: current every day tobacco/nicotine user Alcohol intake: never Physical Exam 2 Narrative: Upon arrival to the emergency department I met the EMS at the examination room. Took report from EMS. Noticed the patient was nonresponsive to stimuli. His heart rate was in the 100-1 10 range and his oximetry was noted to be approximately 95% on 4 L nasal cannula. Patient is not verbally responsive to questions. Const: NUTRITIONAL APPEARANCE: obese ORIENTATION/CONSCIOUSNESS: Yes patient obtunded HENMT: COMMON NORMALS: atraumatic, Normal nasal mucous membranes and turbinates present, moist oral mucous membranes and oropharynx normal HEAD & SCALP: atraumatic FACE & SINUS: normal facial exam NOSE: Normal nasal mucous membranes and turbinates present Eye: COMMON NORMALS: Equal, round and reactive pupils present PUPIL: Yes Equal, round and reactive pupils present Neck/C-Spine: COMMON NORMALS: no lymphadenopathy and no JVD Chest: COMMONS NORMALS: normal inspection of the chest Resp: EFFORT & INSPECTION: Yes abnormal respiratory pattern, Yes tachypneic and Yes labored AUSCULTATION: crackles, rhonchi, wheezes and diminished lung sounds Cardio: COMMON NORMALS: no JVD, regular rhythm and No murmurs present (Cardio) RATE: tachycardic RHYTHM: regular rhythm GI: COMMON NORMALS: Soft to palpation INSPECTION: Yes central obesity P ALPATION: Yes Soft to palpation Back/Pelvis: COMMON NORMALS: thoracic and lumbar spine normal to inspection Extremity: NARRATIVE EXTREMITY EXAM: Bilateral lower extremity pedal edema. No deformity. Neuro: YULY COMA SCALE: document GCS findings Yuly coma scale eye opening: To pressure Weiner coma scale verbal response: Sounds Yuly coma scale motor response: Normal flexion Weiner coma scale total score: 8 Skin: COMMON NORMALS: no jaundice and no petechiae Procedures ABG Interpretation ABG Interpretation 1: Interpretation: respiratory acidosis Intubation Time out performed: Yes sedative: Etomidate Mg Given: 40 paralytic: Rocuronium Mg Given: 130 Laryngoscope: fiber optic video scope Assist Device Used: fiber optic device ET Tube Size: 8 ET Tube Uncuffed: No Tube Secured Depth (cm): 21 Tube Secured Location: lips Tube Placement Confirmation: visualized tube passing through cords, equal breath sounds bilaterally, no breath sounds over epigastrium and confirmation by capnometry Patient Tolerated Procedure: well Intubation Complications: none Additional Comments: Chest x-ray reviewed revealed the ET tube to be below the marcus. NG tube was noted to be in the stomach. No evidence of pneumothorax. Course 2 Reevaluation(s): Reevaluation #1: The patient was noted to be somnolent with a markedly elevated CO2 and unable to protect airway and was very labored respirations therefore RSI was performed as noted in the procedure note. The patient was placed on mechanical ventilation and therapy continued. Bedside ultrasound visualized hyperdynamic heart with any without any evidence of effusion or gross wall motion abnormalities postintubation Time: 17:13 Reevaluation #2: Patient's family is now present I spent some time reviewing and discussing his course over the last few days. reports that he is had some nasal congestion and coughing and feeling more short of air over the past couple of days. She is not aware of him having fevers. She states that he was talking to her and feeling okay but short of air prior to EMSs arrival. He is still a tobacco user and she also relates that he was intubated in similar fashion approximately 2 years ago. I informed that he likely has a super postinfection open his COPD which may have tipped him over the edge but his x-ray is not revealing for any evidence of infiltrate. His workup is ongoing and he will be admitted to the intensive care unit once additional data is collected. Time: 18:14 Consultations: Consultation #1: Discussed with Dr. Saucedo who agreed to put the patient in the intensive care unit for further care Time: 20:19 Vital Signs: Vital signs: Vital Signs Temperature 98.1 F 03/24/24 16:20 Pulse Rate 81 03/24/24 19:55 Respiratory Rate 16 03/24/24 19:55 Blood Pressure 114/66 03/24/24 19:55 Pulse Oximetry 95 03/24/24 19:55 Oxygen Delivery Me thod Mechanical Ventil ation 03/24/24 19:55 Oxygen Flow Rate 4 03/24/24 16:20 Fraction of Inspir ed Oxygen 100 03/24/24 18:13 MDM - Altered Mental Status Medical Decision Making This patient presented as per the HPI. History of COPD with worsening subjective symptoms over the last 48 hours. Initially was alert for EMS at start of transport by the end of transport arrived at the emergency department somnolent with decreased responsiveness. Vigorous resuscitation was being ensued to include arterial blood gases with interpretation showing hypercarbic respiratory failure followed by RSI, further workup to evaluate for potential sources of infection possible central nervous system related issues, electrolyte perturbations etc. The patient received loading dose of antibiotics given his presentation. The patient showed clinical and respiratory improvement on mechanical ventilation with decreasing CO2 numbers. Patient is being admitted to the intensive care unit for additional respiratory care, mechanical ventilation and other indicated care. Medical Records I reviewed the patient's medical records. Prior episode of respiratory failure that required mechanical ventilation in 2021 Lab Data I reviewed the patient's lab results. 03/24/24 18:37 03/24/24 18:41 Radiology Impressions Chest X-Ray 03/24/24 17:03 Impression: The ET tube is well-positioned. Diffusely the lung markings are prominent more so in the bases with pleural effusion. Head CT 03/24/24 17:51 IMPRESSION: No acute intracranial findings. Laboratory Results WBC Cancelled 03/24/24 18:41 Corrected WBC Cancelled 03/24/24 18:41 RBC Cancelled 03/24/24 18:41 Hgb Cancelled 03/24/24 18:41 Hct Cancelled 03/24/24 18:41 MCV Cancelled 03/24/24 18:41 MCH Cancelled 03/24/24 18:41 MCHC Cancelled 03/24/24 18:41 RDW Cancelled 03/24/24 18:41 Plt Count Cancelled 03/24/24 18:41 MPV Cancelled 03/24/24 18:41 Gran % Cancelled 03/24/24 18:41 Neut % (Auto) Cancelled 03/24/24 18:41 Lymph % (Auto) Cancelled 03/24/24 18:41 [place] % (Auto) Cancelled 03/24/24 18:41 Eos % (Auto) Cancelled 03/24/24 18:41 Baso % (Auto) Cancelled 03/24/24 18:41 Neut # (Auto) Cancelled 03/24/24 18:41 Lymph # (Auto) Cancelled 03/24/24 18:41 [place] # (Auto) Cancelled 03/24/24 18:41 Eos # (Auto) Cancelled 03/24/24 18:41 Baso # (Auto) Cancelled 03/24/24 18:41 Absolute Gran (auto) Cancelled 03/24/24 18:41 Nucleated RBC % (auto) Cancelled 03/24/24 18:41 Nucleated RBCs # Cancelled 03/24/24 18:41 Specimen Type Arterial 03/24/24 17:58 Sample Site Radial, left 03/24/24 17:58 ABG pH 7.35 (7.35-7.45) 03/24/24 17:58 ABG pCO2 66.7 mmHg (35-45) H* 03/24/24 17:58 ABG pO2 431.0 mmHg (80.0-100.0) H 03/24/24 17:58 ABG PO2/FiO2 Ratio 431 03/24/24 17:58 ABG HCO3 36.4 mmol/L (22-26) H 03/24/24 17:58 ABG O2 Saturation > 100.0 03/24/24 17:58 ABG Base Excess 8.4 mmol/L (-2.0-2.0) H 03/24/24 17:58 Dileep Test Pos 03/24/24 17:58 A-a O2 Gradient 24.9 mmHg (5-10) H 03/24/24 17:58 Hematocrit 38.8 % (42-52) L 03/24/24 17:58 Hgb O2 Saturation 98.0 % (95-100) 03/24/24 17:58 Carboxyhemoglobin 0.8 %THgb (0.4-20.1) 03/24/24 17:58 Methemoglobin 1.3 % (0.4-1.5) 03/24/24 17:58 Total Hemoglobin 12.7 g/dL (14-18) L 03/24/24 17:58 Sodium 140.0 mmol/L (131-143) 03/24/24 17:58 Potassium 4.3 mmol/L (3.5-5.0) 03/24/24 17:58 Glucose 179.0 mg/dL (70-115) H 03/24/24 17:58 Ionized Calcium 1.2 mmol/L (1.1-1.4) 03/24/24 17:58 O2 Delivery Device Vent 03/24/24 17:58 O2 Liters/Min 4.0 % 03/24/24 16:27 FiO2 100.0 % 03/24/24 17:58 Tidal Volume 0.50 03/24/24 17:58 PEEP 5.0 cmH20 03/24/24 17:58 Money Laundering Investigator ID [email or web address] 03/24/24 17:58 Sodium 137 mmol/L (136-145) 03/24/24 18:41 Potassium 4.8 mmol/L (3.5-5.1) 03/24/24 18:41 Chloride 97 mmol/L (98-107) L 03/24/24 18:41 Carbon Dioxide 27 mmol/L (22-29) 03/24/24 18:41 Anion Gap 17.8 (5-19) 03/24/24 18:41 BUN 8 mg/dL (8-23) 03/24/24 18:41 Creatinine 0.7 mg/dL (0.7-1.2) 03/24/24 18:41 GFR Calculation 111.5 mL/min (90-130) 03/24/24 18:41 Glucose 176 mg/dL (65-115) H 03/24/24 18:41 Calculated Osmolality 287 mOsm/kg (285-295) 03/24/24 18:41 Lactic Acid 2.0 mmol/L (0.5-2.2) 03/24/24 18:41 Calcium 8.9 mg/dL (8.5-10.5) 03/24/24 18:41 Total Bilirubin 0.5 mg/dL (0.15-1.2) 03/24/24 18:41 AST 11 U/L (0-40) 03/24/24 18:41 ALT 9 U/L (0-41) 03/24/24 18:41 Alkaline Phosphatase 87 U/L (40-130) 03/24/24 18:41 Troponin T Baseline < 6 ng/L (0-15) 03/24/24 18:41 NT-Pro-B Natriuret Pep 81 pg/mL (0-125) 03/24/24 18:41 Total Protein 6.7 g/dL (6.6-8.7) 03/24/24 18:41 Albumin 3.0 g/dL (3.5-5.2) L 03/24/24 18:41 Globulin 3.7 g/dL (1.3-4.6) 03/24/24 18:41 Influenza Type A Ag negative (Negative) 03/24/24 19:40 Influenza Type B Ag negative (Negative) 03/24/24 19:40 SARS-CoV-2 Ag (Rapid) negative (Negative) 03/24/24 19:40 All radiology interpretation(s) finalized by discharge Critical Care Time 2 Critical Care Time: Critical Care Time: Yes Total Critical Care Time: 35 Attestation: Critical care included obtaining additional history from family, monitoring respiratory status and vent settings, interpreting and acting upon other clinical data including laboratories, imaging etc. Also included talking to consultants. 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
[2024-03-24] MEDS: ipratropium-albuterol 3 mL Neb INHALATION ×2 (17:18→22:41)
[2024-03-24] MEDS: fentaNYL 1,000 MCG/100 ML BAG 5 MCG IV (17:39)
--- NOTE | 2024-03-24 17:51 | CTR_ITS ---
PROCEDURE INFORMATION: Exam: CT Head Without Contrast Exam date and time: 03/24/2024 7:28 PM Age: 69 years old Clinical indication: Altered mental status/memory loss; Patient HX: Intubated; Additional info: AMS TECHNIQUE: Imaging protocol: Computed tomography of the head without contrast. Radiation optimization: All CT scans at this facility use at least one of these dose optimization techniques: automated exposure control; mA and/or kV adjustment per patient size (includes targeted exams where dose is matched to clinical indication); or iterative reconstruction. COMPARISON: CT head wo con* [id number] 01/07/2022 12:24 AM RADIATION DOSE METRICS: Total DLP (mGy-cm): 1136 FINDINGS: Brain: No acute intracranial hemorrhage or territorial infarction. No mass effect or midline shift. Mild microangiopathy. Unchanged size of a small CSF attenuating lesion within the left posterior fossa likely representing a small arachnoid cyst. Cerebral ventricles: No ventriculomegaly. Paranasal sinuses: Mucosal thickening of the paranasal sinuses. Mastoid air cells: Visualized mastoid air cells are well aerated. Bones: Unremarkable. No acute fracture. Soft tissues: Unremarkable. CT/CT head wo con* [id number] IMPRESSION: No acute intracranial findings.
[2024-03-24 18:09] LABS: ABG PCO2 66.7 mmHg (35-45); ABG PH Result 7.35 (7.35-7.45); Alveolar-Arterial Oxygen Gradi 24.9 mmHg (5-10); Arterial Blood Gas Hematocrit 38.8 % (42-52); Base Excess ABG 8.4 mmol/L (-2.0-2.0); Blood Gas Allen Test Pos; Blood Gas Operator Identificat WAPCI; Blood Gas Sample Site Radial, left; Blood Gas Sample Type Arterial; Carboxyhemoglobin 0.8 %THgb (0.4-20.1); HCO3 ABG 36.4 mmol/L (22-26); Ionized Calcium Level - ABG 1.2 mmol/L (1.1-1.4); Methemoglobin 1.3 % (0.4-1.5); Oxygen Device VENT; Oxygen Saturation ABG > 100.0; PO2 FiO2 Ratio Arterial Blood 431; Potassium Level - ABG 4.3 mmol/L (3.5-5.0); Total Hemoglobin 12.7 g/dL (14-18)
--- NOTE | 2024-03-24 19:13 | ECG_ITS ---
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 Measurements Intervals [place] Rate: 86 P: 75 [place]: 182 QRS: -47 QRSD: 97 T: 56 QT: 366 QTc: 439 Interpretive Statements SINUS RHYTHM LEFT AXIS DEVIATION [QRS AXIS < -30] LOW QRS VOLTAGE IN PRECORDIAL LEADS [QRS DEFLECTION < 1.0 mV IN CHEST LEADS] POSSIBLE ANTERIOR MYOCARDIAL INFARCTION , OF INDETERMINATE AGE [30 ms Q WAVE IN V3/V4, OR R < 0.2 mV IN V4] Compared to ECG 03/24/2024 16:25:51 Low QRS voltage now present Myocardial infarct finding now present Electronically Signed On 03-25-2024 7:53:08 CDT by Ludin Hernandez M.D. [id number]
[2024-03-24 19:18] LABS: Troponin(5th) Baseline < 6 ng/L (0-15)
[2024-03-24] MEDS: methylPREDNISolone sod succ 125 mg/2 mL INJ IV (19:44)
[2024-03-24] MEDS: vancomycin 1,500 MG/300 ML PIGGYBACK 200 MG IV (19:44)
[2024-03-24] MEDS: piperacillin-tazobactam 3.375 GM in sodium chloride 0.9% (plus) 50 ML IV (19:45)
[2024-03-24 19:50] LABS: Basophils % 0.3 %; Eosinophils % 0.3 %; Hematocrit 40.2 % (37-53); Lymphocytes # 1.3 10^3/uL (0.8-4.8); Lymphocytes % 11.4 %; Mean Corpuscular HGB Conc 31.8 g/dL (30-55); Mean Corpuscular Hemoglobin 35.1 pg (27-33); Mean Corpuscular Volume 110.1 fl (82-101); Mean Platelet Volume 9.2 fL (7.4-10.4); Monocytes # 1.3 10^3/uL (0.2-0.9); Monocytes % 11.4 %; Neutrophils # 8.63 10^3/uL (1.8-7.7); Neutrophils % 76.2 %; Nucleated Red Blood Cells % 0 %; Platelet Count 211 10^3/cmm (157-399); Red Blood Count 3.65 10^6/uL (3.85-5.65); Red Cell Distribution Width 12.5 % (12.1-15.1); White Blood Count 11.31 10^3/uL (3.29-11.43)
[2024-03-24 19:53] LABS: Influenza A by IFA negative (Negative); Influenza B by IFA negative (Negative); SARS Covid-2 Antigen negative (Negative)
[2024-03-24 20:03] LABS: Alanine Aminotransferase 9 U/L (0-41); Alkaline Phosphatase 87 U/L (40-130); Blood Urea Nitrogen 8 mg/dL (8-23); Calcium 8.9 mg/dL (8.5-10.5); Carbon Dioxide 27 mmol/L (22-29); Chloride 97 mmol/L (98-107); Creatinine Clr Calc Pharmacy 108.2599; Globulin 3.7 g/dL (1.3-4.6); Glomerular Filtration Rate 111.5 mL/min (90-130); Glucose 176 mg/dL (65-115); NT Pro B Type Natriuretic Pept 81 pg/mL (0-125); Osmolality Calculated 287 mOsm/kg (285-295); Sodium 137 mmol/L (136-145); Total Bilirubin 0.5 mg/dL (0.15-1.2); Total Protein 6.7 g/dL (6.6-8.7)
[2024-03-24 20:10] LABS: Anion Gap 17.8 (5-19); Potassium 4.8 mmol/L (3.5-5.1)
[2024-03-24 20:11] LABS: Aspartate Amino Transferase 11 U/L (0-40)
--- NOTE | 2024-03-24 20:16 | P.HP_ITS ---
Providers/Chief Complaint 2 Primary Care Provider: Harsha Ritchie MD Chief Complaint: sob/unresponsive History of Present Illness Jb Borges is a 69 year old male with a past medical history significant for COPD, obesity hypoventilation syndrome, hyperlipidemia, type 2 diabetes mellitus who presents with respiratory failure. Upon assessment, patient is intubated and sedated which limits history from the patient. Collateral information was obtained from family who is bedside. Family reports patient was in his usual state of health until a couple of days ago when he developed nasal congestion and URI-like symptoms. He developed worsening shortness of breath for which EMS was called today. When EMS arrived, patient was sitting on his patio waiting for them. He was reportedly alert and oriented at that time. He walked to the ambulance. And route which is approximately 1 hour away from the hospital, patient reportedly became altered and lethargic. Upon presentation the emergency department blood gas was obtained revealing hypercarbic respiratory failure producing his CO2 narcosis. Patient was intubated. Family reports at baseline he wears an Inogen. He does have a history of prior intubation for which family states that he was extubated within 24 hours previously. Review of Systems 2 Narrative: Attempted to obtain a complete review of systems, but unable to due to patient being intubated and sedated. Medications/Allergies Home Medications Medication Instructions Recorded Confirmed Last Taken Type acetaminophen 500 mg tablet 1,000 mg PO DAILY PRN Pain 08/17/20 07/30/23 Unknown History (Tylenol Extra Strength) atorvastatin 40 mg tablet 40 mg PO DAILY@08/17/20 07/30/23 07/29/23 History lisinopril 5 mg tablet 5 mg PO DAILY@08/17/20 07/30/23 07/29/23 History metformin 500 mg tablet,extended See Rx Instructions .Route .COMPLEX 08/17/20 07/30/23 07/29/23 History release 24 hr glipizide 5 mg tablet, extended 5 mg PO DAILY 01/01/22 07/30/23 07/29/23 History release 24 hr albuterol sulfate 90 mcg/actuation 1 inh inhalation Q6H PRN shortness 01/04/22 07/30/23 Unknown Rx aerosol inhaler (ProAir HFA) of breath or wheezing #8.5 grams ergocalciferol (vitamin D2) 1,250 1 unit PO Q7D 07/30/23 07/30/23 07/28/23 History mcg (50,000 unit) capsule gabapentin 300 mg capsule 300 mg PO TID PRN Muscle Pain 07/30/23 07/30/23 07/29/23 History lorazepam 0.5 mg tablet 0.25 - 0.5 mg PO QPM 07/30/23 07/30/23 07/29/23 History paroxetine HCl 30 mg tablet 30 mg PO QAM 07/30/23 07/30/23 07/29/23 History doxycycline monohydrate 100 mg 100 mg PO BID #10 tabs 08/01/23 Unknown Rx tablet furosemide 40 mg tablet (Lasix) 40 mg PO DAILY PRN Dyspnea, 08/01/23 Unknown Rx shortness of breath while lying down #20 tabs nicotine 21 mg/24 hr daily 1 patch transdermal DAILY #90 ea 08/01/23 Unknown Rx transdermal patch Allergies Allergy/AdvReac Type Severity Reaction Status Date / Time No Known Allergies Allergy Verified 01/01/22 15:22 PFSH Acute 2 PFSH: Medical History (Updated 03/24/24 @ 20:47 by Harsha Saucedo MD) Acute hypercapnic respiratory failure Macrocytosis Acute diastolic heart failure Fracture of second metacarpal bone of right hand Fracture of medial condyle of left elbow Supracondylar fracture of left humerus Dislocation of proximal interphalangeal joint of right index finger Diabetic neuropathy Depression with anxiety Hyperlipidemia Altered mental status Obesity hypoventilation syndrome COPD (chronic obstructive pulmonary disease) Hypertension Diabetes Respiratory failure with hypoxia and hypercapnia Respiratory failure Surgical History History of back surgery History of surgery on arm Family History Other Cancer Social History Smoking and tobacco/nicotine status: current every day tobacco/nicotine user Alcohol intake: never Vitals/I&O/Wt Last Vital Signs Temp 98.1 F 03/24/24 16:20 Pulse 81 03/24/24 19:55 Resp 16 03/24/24 19:55 BP 114/66 03/24/24 19:55 Pulse Ox 95 03/24/24 19:55 O2 Del Method Mechanical Ventilation 03/24/24 19:55 O2 Flow Rate 4 03/24/24 16:20 FiO2 100 03/24/24 18:13 03/24/24 03/24/24 03/24/24 06:59 14:59 22:59 Intake Total 1029.097 / 1029.097 Balance 1029.097 / 1029.097 Weight last 48 hrs Weight 127.006 kg Physical Exam 2 Narrative: General: Patient is intubated and sedated. Head: Normocephalic. Atraumatic. EOM intact. Neck: No JVD. Cardiovascular: RRR. No gallops. No murmurs. Blood pressure soft but still within normal range. Bilateral lymphedema in lower extremities. Lungs: Moderate air movement. Very faint end expiratory wheezing. Intubated on mechanical ventilation. No crackles. Skin: No jaundice. No rashes. Chronic lymphedema changes in lower extremities. Abdomen: Normal bowel sounds, abdomen soft and nontender. Genito Urinary: Genital exam not performed since complaints not related. Rectal: Rectal exam not performed since no symptoms indicated blood loss. Extremities: No cyanosis or clubbing. Musculoskeletal: No erythematous joints. Neurological: No myoclonus. Sedated. Urinary Catheter Management: Bailey: Cath Placed During This Visit: yes Reason for Continuing Indwelling Catheter: Accurate Measurement of Urinary Output in Critically Ill Patients Urinary Catheter Date of Insertion: 03/24/24 Data 03/24/24 18:37 03/24/24 18:41 A&P Assessment and plan (1) Acute respiratory failure with hypoxia and hypercarbia: Acute on chronic respiratory failure with hypoxia and hypercapnia secondary to COPD exacerbation Patient intubated by ED provider on 03/24 Serial ABGs Vent management Treat underlying COPD Fentanyl for analgesia Propofol for sedation Repeat chest x-ray in a.m. Sedation holiday in a.m. (2) COPD with acute exacerbation: Acute COPD exacerbation Start IV Solu-Medrol Serial breathing treatments Chest x-ray negative for infiltrate, status post vancomycin and Zosyn in ED Obtain procalcitonin (3) Diabetes: Hold oral medications Sliding-scale insulin correction (4) Lymphedema: Chronic lymphedema (5) Hyperlipidemia: Continue home statin Plan DVT prophylaxis: Lovenox CODE STATUS: Full code Attestations 2 Medical Necessity Statement*: Patient presents with CO2 narcosis, found to have severe hypercapnia requiring intubation mechanical ventilation with expected hospitalization to cross 2 midnights for treatment of severe lung disease, respiratory failure, and COPD exacerbation with IV steroids, breathing treatments, mechanical ventilation, and supportive care. Critical Care Time: The high probability of a clinically significant, sudden or life threatening deterioration of the patient's pulmonary system(s) required my full and direct attention, intervention and personal management. The critical care time is as shown. This time is in addition to time spent performing any reported procedures but includes the following: [x] Data and vital sign review and interpretation [x] Patient assessment, examination and intervention [x] Documentation [x] Medication orders and management Critical Care Time (min): 45 Coding Level of Care Code Acute Code for Chg Fwd Diagnoses Acute respiratory failure with hypoxia and hypercarbia J96.01; J96.02 COPD with acute exacerbation J44.1 Diabetes E11.9 Lymphedema I89.0 Hyperlipidemia E78.5
[2024-03-24 21:26] LABS: Troponin 5 2HR Delta 0.00001 ABS# (0-10)
[2024-03-24 22:51] LABS: Glucose Point of Care 146 mg/dL (70-110)
[2024-03-24] MEDS: enoxaparin 40 mg/0.4 mL Syringe SUBCUT (22:54)
[2024-03-24] MEDS: methylPREDNISolone sod succ 40 mg/mL INJ IVP (22:54)
[2024-03-24] MEDS: insulin lispro 100 unit/1 mL SUBCUT (22:54)
[2024-03-24] MEDS: propofol 1,000 MG/100 ML INJ 19.05 MG IV (22:55)
[2024-03-24 23:01] LABS: Procalcitonin 0.15 ng/mL (0-0.5)
--- NOTE | 2024-03-24 23:03 | ECG_ITS ---
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 Measurements Intervals [place] Rate: 58 P: 72 IN: 188 QRS: -11 QRSD: 94 T: 41 QT: 408 QTc: 403 Interpretive Statements SINUS BRADYCARDIA Compared to ECG 03/24/2024 19:13:09 Sinus rhythm no longer present Left-axis deviation no longer present Myocardial infarct finding no longer present Electronically Signed On 03-25-2024 7:53:01 CDT by Ludin Hernandez M.D. [id number]
[2024-03-25] VITALS (75 sets, daily range): BP systolic 97–138; BP diastolic 45–61; PULSE 56–119; RESP 14–23; TEMP 37.1; O2SAT 78–99
[2024-03-25] MEDS: fentaNYL 1,000 MCG/100 ML BAG 12.5 MCG IV ×3 (01:33→13:51)
[2024-03-25 01:47] LABS: Troponin 5 6HR Delta 0.00001 ng/L (0-12)
[2024-03-25] MEDS: ipratropium-albuterol 3 mL Neb INHALATION ×5 (02:55→19:47)
[2024-03-25 03:10] LABS: ABG PH Result 7.43 (7.35-7.45); Alveolar-Arterial Oxygen Gradi 17.9 mmHg (5-10); Arterial Blood Gas Hematocrit 35.5 % (42-52); Base Excess ABG 9.6 mmol/L (-2.0-2.0); Blood Gas Allen Test Pos; Blood Gas Operator Identificat BD; Blood Gas Sample Site Brachial, right; Blood Gas Sample Type Arterial; HCO3 ABG 35.6 mmol/L (22-26); HGB O2 Sat 97.9 % (95-100); Ionized Calcium Level - ABG 1.2 mmol/L (1.1-1.4); Methemoglobin < 0.0 % (0.4-1.5); Oxygen Saturation ABG 97.7; PO2 ABG 81.4 mmHg (80.0-100.0); PO2 FiO2 Ratio Arterial Blood 203; Total Hemoglobin 11.6 g/dL (14-18)
--- NOTE | 2024-03-25 04:00 | XRR_ITS ---
PROCEDURE INFORMATION: Exam: XR Chest Exam date and time: 03/25/2024 5:27 AM Age: 69 years old Clinical indication: Cough; Additional info: Respiratory failure TECHNIQUE: Imaging protocol: Radiologic exam of the chest. Views: 1 view. COMPARISON: CR XR chest 1V portable [id number] 03/24/2024 4:57 PM FINDINGS: Tubes, catheters and devices: Patient is intubated, endotracheal tube projects 4.6 cm from the marcus. Enteric tube traverses midline, catheter tip and side port not within field of view. Lungs: Again demonstrated is left lower lobe infiltration with increasing opacification of the retrocardiac region with possible triangular morphology. Mild improvement in aeration of the right lower lobe with residual patchy/nodular infiltrates. Pleural spaces: Blunting of the left costophrenic angle. Blunting of the right costophrenic angle. Heart/Mediastinum: Unremarkable. No cardiomegaly. Bones/joints: Diffuse degenerative change of the visualized osseous structures. XR/XR chest 1V portable [id number] IMPRESSION: 1. Medical devices as above. 2. Interval opacification of the retrocardiac region and left lower lobe suggesting possible underlying complete or near-complete atelectasis of the left lower lobe. Superimposed infection is not excluded. 3. Redemonstrated left pleural effusion. 4. Mild interval improvement in aeration of the right lower lung field with residual airspace infiltration and right pleural effusion.
[2024-03-25] MEDS: propofol 1,000 MG/100 ML INJ 19.05 MG IV ×3 (04:24→18:46)
[2024-03-25] MEDS: methylPREDNISolone sod succ 40 mg/mL INJ IVP ×4 (04:24→22:26)
[2024-03-25] MEDS: insulin lispro 100 unit/1 mL SUBCUT ×4 (04:24→22:25)
[2024-03-25 05:05] LABS: Glucose Point of Care 233 mg/dL (70-110)
[2024-03-25 05:15] LABS: Hematocrit 36.6 % (37-53); Lymphocytes # 0.6 10^3/uL (0.8-4.8); Lymphocytes % 6.5 %; Mean Corpuscular Hemoglobin 34.3 pg (27-33); Mean Corpuscular Volume 107.3 fl (82-101); Mean Platelet Volume 9.1 fL (7.4-10.4); Monocytes # 0.4 10^3/uL (0.2-0.9); Monocytes % 4.1 %; Neutrophils # 8.17 10^3/uL (1.8-7.7); Neutrophils % 89.1 %; Nucleated Red Blood Cells % 0 %; Platelet Count 224 10^3/cmm (157-399); Red Blood Count 3.41 10^6/uL (3.85-5.65); Red Cell Distribution Width 12.5 % (12.1-15.1); White Blood Count 9.18 10^3/uL (3.29-11.43)
[2024-03-25 05:39] LABS: Alanine Aminotransferase 8 U/L (0-41); Albumin Level 3.1 g/dL (3.5-5.2); Alkaline Phosphatase 77 U/L (40-130); Anion Gap 17.1 (5-19); Aspartate Amino Transferase 8 U/L (0-40); Blood Urea Nitrogen 11 mg/dL (8-23); Calcium 8.7 mg/dL (8.5-10.5); Carbon Dioxide 30 mmol/L (22-29); Chloride 96 mmol/L (98-107); Creatinine Clr Calc Pharmacy 94.7022; Globulin 3.2 g/dL (1.3-4.6); Glomerular Filtration Rate 83.4 mL/min (90-130); Glucose 233 mg/dL (65-115); Magnesium 1.7 mg/dL (1.7-2.3); Osmolality Calculated 295 mOsm/kg (285-295); Phosphorus 1.8 mg/dL (2.5-4.5); Potassium 4.1 mmol/L (3.5-5.1); Sodium 139 mmol/L (136-145); Total Bilirubin 0.3 mg/dL (0.15-1.2); Total Protein 6.3 g/dL (6.6-8.7)
[2024-03-25 07:18] LABS: Glucose Point of Care 220 mg/dL (70-110)
[2024-03-25 08:34] LABS: C Reactive Protein 114.1 mg/L (0.0-4.9)
[2024-03-25] MEDS: cefTRIAXone 1,000 mg SDV 1000 MG IVP (08:43)
[2024-03-25] MEDS: azithromycin 500 MG in sodium chloride 0.9% 250 ML 250 MG IV (08:43)
[2024-03-25] MEDS: FUROsemide 10 mg/mL SDV 4mL 40 MG IVP (08:44)
[2024-03-25 08:52] LABS: Oxygen Device VENT
[2024-03-25] MEDS: propofol 1,000 MG/100 ML INJ 15.24 MG IV ×2 (09:51→23:33)
--- NOTE | 2024-03-25 11:00 | P.PN_ITS ---
Subjective 2 Subjective: Patient was seen this morning, currently intubated, sedated, mechanical ventilation, currently normotensive, afebrile, 40% FiO2, Vitals/I&O/Wt Last Vital Signs Temp 98.7 F 03/25/24 07:30 Pulse 63 03/25/24 10:00 Resp 14 03/25/24 09:32 BP 109/56 03/25/24 10:00 Pulse Ox 97 03/25/24 10:00 O2 Del Method Mechanical Ventilation 03/25/24 07:47 O2 Flow Rate 4 03/24/24 16:20 FiO2 35 03/25/24 09:32 03/24/24 03/25/24 03/25/24 22:59 06:59 14:59 Intake Total 1374.280 / 1374.280 185.933 / 1560.213 172.185 / 172.185 Output Total 100 / 100 150 / 250 Balance 1274.280 / 1274.280 35.933 / 1310.213 172.185 / 172.185 Weight last 48 hrs Weight 123.559 kg Weight 123.468 kg Weight 127.006 kg Physical Exam 2 Const: COMMON NORMALS: no acute distress OTHER: Intubated, sedated on mechanical ventilation Resp: COMMON NORMALS: normal respiratory effort, No retractions, No use of accessory muscles and clear to auscultation bilaterally AUSCULTATION: clear to auscultation bilaterally Cardio: COMMON NORMALS: regular rate, regular rhythm, S1 normal heart sound present and S2 normal heart sound present RATE: regular rate RHYTHM: r egular rhythm HEART SOUNDS: S1 normal heart sound present and S2 normal heart sound present GI: COMMON NORMALS: Normal to inspection, nondistended, normoactive bowel sounds present and non-tender OTHER: Morbidly obese abdomen Extremity: NARRATIVE EXTREMITY EXAM: 3+ pitting edema bilateral extremities, overall skin changes, scaling of skin bilateral shins Skin: NARRATIVE SKIN EXAM: Anasarca Urinary Catheter Management: Bailey: Cath Placed During This Visit: yes Reason for Continuing Indwelling Catheter: Accurate Measurement of Urinary Output in Critically Ill Patients Urinary Catheter Date of Insertion: 03/24/24 Data 03/25/24 04:59 03/25/24 04:59 Micro: Microbiology 03/24/24 19:40 Gram Stain - Final Sputum - Endotracheal Tube Aspirate A&P Assessment and plan (1) Acute respiratory failure with hypoxia and hypercarbia: (2) COPD with acute exacerbation: (3) Diabetes: (4) Lymphedema: Chronic lymphedema (5) Hyperlipidemia: Continue home statin (6) CHF exacerbation: (7) Pneumonia: Plan Acute hypoxic respiratory failure ? Multifactorial ? Secondary to COPD exacerbation ? Obesity hypoventilation syndrome ? CHF exacerbation ? Pneumonia ? Plan ? Continue DuoNeb ? Continue budesonide ? Blood cultures ? Sputum cultures ? Respiratory viral panel ? Continue Solu-Medrol 40 mg IV push every 8 hours ? Continue Rocephin ? Continue azithromycin ? Lasix 40 mg IV push ? Monitor urine output ? Monitor creatinine monitor potassium ? Currently intubated, sedated on mechanical ventilation ? Minimize tidal volume, FiO2 ? Daily spontaneous breathing trials ? Fentanyl for sedation ? Propofol for sedation ? Type 2 diabetes mellitus, low-dose sliding scale -Full code -Lovenox for DVT prophylaxis Attestations 2 Medical Necessity Statement*: Patient requires hospitalization, inpatient, greater than 2 midnights, for acute hypoxic respiratory failure secondary to COPD exacerbation pneumonia, CHF, obesity hypoventilation syndrome Coding Level of Care Code Critical Care >/= 30 minutes Critical care time (in minutes): 45 The high probability of a clinically significant, sudden or life threatening deterioration, as referenced in this documentation, required my full and direct attention, intervention and personal management. The critical care time shown is in addition to time spent performing any reported separately billable procedures and includes the following: [x] Data and vital sign review and interpretation [x ] Patient assessment, examination and intervention [x] Medication orders and management [x] Patient/Family updates as able [x] Care Coordination and Documentation. Diagnoses Acute respiratory failure with hypoxia and hypercarbia J96.01; J96.02 COPD with acute exacerbation J44.1 Diabetes E11.9 Lymphedema I89.0 Hyperlipidemia E78.5 CHF exacerbation I50.9 Pneumonia J18.9
--- NOTE | 2024-03-25 12:02 | PC.PHAR ---
PT IS INTUBATED. VERIFIED MED LIST WITH [email or web address] VIEW WITH LAST FILL DATES, DOSAGE CHANGES, AND DAYS SUPPLY.
--- NOTE | 2024-03-25 12:14 | PC.SOCIAL ---
IMM UPATED IMM dated and initialed and placed in chart and copy given to patient
[2024-03-25 12:25] LABS: Adenovirus Not Detected (NOT DETECT); Chlamydia Pneumoniae Not Detected (NOT DETECT); Coronavirus 229E,HKU1,NL63,OC4 Not Detected (NOT DETECT); Human Metapneumovirus Not Detected (NOT DETECT); Human Rhinovirus/Enterovirus Not Detected (NOT DETECT); Influenza A Not Detected (NOT DETECT); Influenza A H1 Not Detected (NOT DETECT); Influenza A H1-2009 Not Detected (NOT DETECT); Influenza A H3 Not Detected (NOT DETECT); Influenza B Not Detected (NOT DETECT); Mycoplasma Pneumoniae Not Detected (NOT DETECT); Parainfluenza Virus Type 1 Not Detected (NOT DETECT); Parainfluenza Virus Type 2 Not Detected (NOT DETECT); Parainfluenza Virus Type 3 Not Detected (NOT DETECT); Parainfluenza Virus Type 4 Not Detected (NOT DETECT); Respiratory Syncytial Virus A Not Detected (NOT DETECT); Respiratory Syncytial Virus B Not Detected (NOT DETECT); SARS-COV-2 Not Detected (NOT DETECT)
--- NOTE | 2024-03-25 13:25 | XR_ITS ---
WS: [id number] Examination: XR chest 1V portable [id number] Reason for Exam: post PICC insertion Date: March 25, 2024 Comparison: March 25, 2024, 5:29 a.m. Findings: In the interval a left PICC has been placed. The tip lies in the distal superior vena cava. ET tube is in good position above the marcus. An NG tube is seen the tip below the diaphragm There is cardiomegaly. The central markings appear prominent Both hemidiaphragms are obscured with basilar opacities thought to be at least in part pleural effusi on. Associated compressive atelectasis may also be present XR/XR chest 1V portable [id number] Impression: The right PICC is well-positioned. The ET tube is in good position Findings suggest pulmonary venous hypertension with bilateral basilar opacities which may at least be in part pleural effusion.
--- NOTE | 2024-03-25 14:36 | PICC.NOTE ---
Triple lumen PICC placed to right brachial vein. Referred to vascular access nurse for PICC placement due to poor access. Risks and benefits discussed and informed consent obtained from patient spouse via phone. Right arm assessed with right brachial vein measuring 3.6 mm, straight, and apparent best choice for placement. Using sterile technique and MST, right brachial vein accessed x 1 stick. Mid-arm circumference measured 10 cm from right AC 45 cm. Trimmed cath 47 cm with 0 cm external length noted. CXR shows tip in distal SVC, in good position for use per radiologist. Line secured with stat-lock. Insertion site covered with Biopatch and TSM. Report given to bedside nurseEsha.
[2024-03-25 15:56] LABS: Glucose Point of Care 204 mg/dL (70-110)
[2024-03-25] MEDS: budesonide 0.5 mg/2 mL Neb INHALATION (19:47)
[2024-03-25] MEDS: LORazepam 2 mg/mL INJ 1 mL IVP (20:06)
[2024-03-25] MEDS: fentaNYL 2,500 MCG/250 ML BAG 12.5 MCG IV (20:23)
[2024-03-25 20:34] LABS: Glucose Point of Care 217 mg/dL (70-110)
--- NOTE | 2024-03-25 20:48 | PC.NURSE ---
Seizure: At 2001 patient began having tonic-clonic movements and clenching down on the et tube. This nurse called for help and Nina CARTER came to bedside. Dr. Saucedo notified and ordered 2mg IVP ativan once. Ativan administered at 2005 and seizure movements slowed down and then stopped at 2006. During seizure patient's eyes deviated upward without stigmas. Patients vital signs afterward was bp 150/57, hr 118, rr 14, temp 98.7 and o2 was in the 80's so o2 was temporarily turned up to 100% and patient came back up to 98%. Blood sugar 217. Patient's was updated of this event.
[2024-03-25 22:22] LABS: Glucose Point of Care 260 mg/dL (70-110)
[2024-03-25] MEDS: enoxaparin 40 mg/0.4 mL Syringe SUBCUT (22:25)
[2024-03-26] VITALS (75 sets, daily range): BP systolic 109–189; BP diastolic 48–114; PULSE 64–105; RESP 12–21; TEMP 36.8–37.9; O2SAT 90–99
[2024-03-26] MEDS: ipratropium-albuterol 3 mL Neb INHALATION ×7 (00:18→23:35)
[2024-03-26 04:00] LABS: Basophils % 0.1 %; Hematocrit 32.6 % (37-53); Lymphocytes # 0.7 10^3/uL (0.8-4.8); Lymphocytes % 4.2 %; Mean Corpuscular HGB Conc 32.8 g/dL (30-55); Mean Corpuscular Volume 106.5 fl (82-101); Mean Platelet Volume 9.2 fL (7.4-10.4); Monocytes # 1.1 10^3/uL (0.2-0.9); Neutrophils # 14.21 10^3/uL (1.8-7.7); Neutrophils % 87.8 %; Nucleated Red Blood Cells % 0 %; Platelet Count 226 10^3/cmm (157-399); Red Blood Count 3.06 10^6/uL (3.85-5.65); Red Cell Distribution Width 12.7 % (12.1-15.1); White Blood Count 16.19 10^3/uL (3.29-11.43)
[2024-03-26 04:25] LABS: Glucose Point of Care 221 mg/dL (70-110)
[2024-03-26 04:26] LABS: ABG PH Result 7.44 (7.35-7.45); Arterial Blood Gas Hematocrit 35.4 % (42-52); Base Excess ABG 12.3 mmol/L (-2.0-2.0); Blood Gas Allen Test Pos; Blood Gas Operator Identificat ED; Blood Gas Sample Site Radial, right; Blood Gas Sample Type Arterial; HCO3 ABG 38.5 mmol/L (22-26); Oxygen Device VENT; PO2 ABG 71.4 mmHg (80.0-100.0); PO2 FiO2 Ratio Arterial Blood 204
[2024-03-26 04:26] LABS: NT Pro B Type Natriuretic Pept 570 pg/mL (0-125); Procalcitonin 0.16 ng/mL (0-0.5)
[2024-03-26] MEDS: methylPREDNISolone sod succ 40 mg/mL INJ IVP ×4 (04:32→22:28)
[2024-03-26] MEDS: insulin lispro 100 unit/1 mL SUBCUT ×4 (04:32→22:28)
[2024-03-26 04:36] LABS: Blood Urea Nitrogen 16 mg/dL (8-23); Calcium 8.2 mg/dL (8.5-10.5); Carbon Dioxide 31 mmol/L (22-29); Chloride 96 mmol/L (98-107); Creatinine Clr Calc Pharmacy 106.5842; Glomerular Filtration Rate 95.6 mL/min (90-130); Glucose 197 mg/dL (65-115); Osmolality Calculated 297 mOsm/kg (285-295); Sodium 140 mmol/L (136-145)
[2024-03-26 04:37] LABS: C Reactive Protein 75.6 mg/L (0.0-4.9); Magnesium 1.8 mg/dL (1.7-2.3)
[2024-03-26] MEDS: propofol 1,000 MG/100 ML INJ 19.05 MG IV ×3 (06:02→23:20)
--- NOTE | 2024-03-26 07:00 | XRR_ITS ---
PROCEDURE INFORMATION: Exam: XR Chest Exam date and time: 03/26/2024 7:11 AM Age: 69 years old Clinical indication: Shortness of breath; Patient HX: Limited HX due to PT condition; On ventillator; Additional info: SOB TECHNIQUE: Imaging protocol: Radiologic exam of the chest. Views: 1 view. COMPARISON: CR XR chest 1V portable [id number] 03/25/2024 2:08 PM FINDINGS: Tubes, catheters and devices: Endotracheal tube is present with its tip 5 cm above the marcus. PICC line is seen on the right with its tip overlying the SVC. Nasogastric tube is present with its tip below the level of the film. Lungs: There may be minimal central vascular congestion. No focal consolidation is appreciated. Pleural spaces: There are small pleural effusions. Heart/Mediastinum: The heart is slightly enlarged. Bones/joints: Unremarkable. XR/XR chest 1V portable [id number] IMPRESSION: 1. Cardiomegaly with minimal central vascular congestion and small pleural effusions.
[2024-03-26] MEDS: azithromycin 500 MG in sodium chloride 0.9% 250 ML 250 MG IV (07:24)
[2024-03-26] MEDS: cefTRIAXone 1,000 mg SDV 1000 MG IVP (07:25)
[2024-03-26] MEDS: water for injection-sterile 10 ML 1000 ML (07:27)
[2024-03-26] MEDS: budesonide 0.5 mg/2 mL Neb INHALATION ×2 (07:37→19:38)
[2024-03-26] MEDS: FUROsemide 10 mg/mL SDV 4mL 40 MG IVP (08:26)
[2024-03-26] MEDS: lidocaine 1% 5 ML in potassium chloride premix 100 ML 52.5 ML IV (08:26)
[2024-03-26] MEDS: metOLazone 5 MG Tablet PO (08:27)
--- NOTE | 2024-03-26 09:51 | P.PN_ITS ---
Subjective 2 Subjective: Patient was seen this morning, on minimal sedation he does open his eyes, he is on propofol and fentanyl for sedation, 35% FiO2, normotensive, good urine output, has copious secretions from endotracheal tube Vitals/I&O/Wt Last Vital Signs Temp 99.1 F 03/26/24 08:00 Pulse 88 03/26/24 09:00 Resp 14 03/26/24 09:01 BP 133/62 03/26/24 09:00 Pulse Ox 93 03/26/24 09:01 O2 Del Method Mechanical Ventilation 03/26/24 07:35 O2 Flow Rate 4 03/24/24 16:20 FiO2 35 03/26/24 09:01 03/25/24 03/26/24 03/26/24 22:59 06:59 14:59 Intake Total 544.614 / 778.882 118.288 / 897.170 290 / 290 Output Total 650 / 650 475 / 1125 Balance -105.386 / 128.882 -356.712 / -227.830 290 / 290 Weight last 48 hrs Weight 122.47 kg Weight 123.559 kg Weight 123.468 kg Weight 127.006 kg Physical Exam 2 Const: COMMON NORMALS: no acute distress Eye: OTHER: Post equal round reactive to light Resp: COMMON NORMALS: normal respiratory effort, No retractions and No use of accessory muscles AUSCULTATION: crackles and wheezes Cardio: COMMON NORMALS: regular rate, regular rhythm, S1 normal heart sound present and S2 normal heart sound present RATE: regular rate RHYTHM: r egular rhythm HEART SOUNDS: S1 normal heart sound present and S2 normal heart sound present GI: COMMON NORMALS: Normal to inspection, nondistended, normoactive bowel sounds present and non-tender OTHER: Obese abdomen, anasarca Extremity: NARRATIVE EXTREMITY EXAM: 2+ pitting edema, lymphedema, Urinary Catheter Management: Bailey: Cath Placed During This Visit: yes Reason for Continuing Indwelling Catheter: Accurate Measurement of Urinary Output in Critically Ill Patients Urinary Catheter Date of Insertion: 03/24/24 Data 03/26/24 03:27 03/26/24 03:27 Micro: Microbiology 03/24/24 19:40 Gram Stain - Final Sputum - Endotracheal Tube Aspirate A&P Assessment and plan (1) Acute respiratory failure with hypoxia and hypercarbia: (2) COPD with acute exacerbation: (3) Diabetes: (4) Lymphedema: Chronic lymphedema (5) Hyperlipidemia: Continue home statin (6) CHF exacerbation: (7) Pneumonia: Plan Acute hypoxic respiratory failure ? Multifactorial ? Secondary to COPD exacerbation ? Obesity hypoventilation syndrome ? CHF exacerbation ? Pneumonia ? Plan ? Continue DuoNeb ? Continue budesonide ? Blood cultures ? Sputum cultures ? Respiratory viral panel within normal limits ? Continue Solu-Medrol 40 mg IV push every 8 hours ? Continue Rocephin ? Continue azithromycin ? Lasix 40 mg IV push, with metolazone ? Monitor urine output ? Monitor creatinine monitor potassium ? Currently intubated, sedated on mechanical ventilation ? Minimize tidal volume, FiO2 ? Daily spontaneous breathing trials ? Fentanyl for sedation ? Propofol for sedation ? Type 2 diabetes mellitus, low-dose sliding scale -Full code -Lovenox for DVT prophylaxis ? PICC line placed Protonix for GI prophylaxis Plan for today continue IV antibiotics, spontaneous breathing trial, wean off sedation, continue steroids continue diuresis, with Lasix therapy, monitor for fevers monitor hemodynamics Attestations 2 Medical Necessity Statement*: Patient requires hospitalization for acute hypoxic respiratory failure secondary COPD, pneumonia, CHF, fluid overload, Coding Level of Care Code Critical Care >/= 30 minutes Critical care time (in minutes): 45 The high probability of a clinically significant, sudden or life threatening deterioration, as referenced in this documentation, required my full and direct attention, intervention and personal management. The critical care time shown is in addition to time spent performing any reported separately billable procedures and includes the following: [x] Data and vital sign review and interpretation [x ] Patient assessment, examination and intervention [x] Medication orders and management [x] Patient/Family updates as able [x] Care Coordination and Documentation. Diagnoses Acute respiratory failure with hypoxia and hypercarbia J96.01; J96.02 COPD with acute exacerbation J44.1 Diabetes E11.9 Lymphedema I89.0 Hyperlipidemia E78.5 CHF exacerbation I50.9 Pneumonia J18.9
[2024-03-26 10:19] LABS: Glucose Point of Care 239 mg/dL (70-110)
[2024-03-26] MEDS: pantoprazole 40 mg SDV IVP ×2 (10:24→22:28)
--- NOTE | 2024-03-26 11:47 | PC.NURSE ---
sedation slowly decreased when more awake becomes restlless with some agitation, noted very exaggerated cough on vent involing movement of arms and legs sx large amts of secretions
[2024-03-26] MEDS: dexmedeTOMIDine 0.9 % NaCL 400 MCG/100 ML PREMIX 6.12 MCG IV (12:30)
--- NOTE | 2024-03-26 12:54 | PC.NURSE ---
sedation down pt awake very restless and banging rails. precedex added and placed on cpap for about 15 min . pco2 elevated had 1500cc urine out doctor aware to repeat lasix and increase sedation
[2024-03-26] MEDS: fentaNYL 2,500 MCG/250 ML BAG IV (15:21)
[2024-03-26 16:29] LABS: Glucose Point of Care 230 mg/dL (70-110)
[2024-03-26] MEDS: propofol 1,000 MG/100 ML INJ 7.62 MG IV (18:22)
[2024-03-26] MEDS: hyDRALAzine 20 mg/mL INJ 1 mL 10 MG IVP (20:16)
[2024-03-26] MEDS: dexmedeTOMIDine 0.9 % NaCL 400 MCG/100 ML PREMIX 12.25 MCG IV (21:26)
[2024-03-26 22:22] LABS: Glucose Point of Care 219 mg/dL (70-110)
[2024-03-26] MEDS: enoxaparin 40 mg/0.4 mL Syringe SUBCUT (22:28)
[2024-03-27] VITALS (63 sets, daily range): BP systolic 132–210; BP diastolic 64–152; PULSE 53–93; RESP 13–27; TEMP 36.1–37.1; O2SAT 88–98
[2024-03-27 04:04] LABS: Basophils % 0.2 %; Hematocrit 37.3 % (37-53); Lymphocytes # 0.8 10^3/uL (0.8-4.8); Lymphocytes % 5.7 %; Mean Corpuscular Hemoglobin 34.6 pg (27-33); Mean Corpuscular Volume 104.8 fl (82-101); Mean Platelet Volume 8.9 fL (7.4-10.4); Monocytes # 0.6 10^3/uL (0.2-0.9); Monocytes % 4.3 %; Neutrophils # 11.96 10^3/uL (1.8-7.7); Neutrophils % 88.1 %; Nucleated Red Blood Cells % 0 %; Platelet Count 260 10^3/cmm (157-399); Red Blood Count 3.56 10^6/uL (3.85-5.65); Red Cell Distribution Width 12.6 % (12.1-15.1); White Blood Count 13.58 10^3/uL (3.29-11.43)
[2024-03-27] MEDS: dexmedeTOMIDine 0.9 % NaCL 400 MCG/100 ML PREMIX 12.25 MCG IV (04:17)
[2024-03-27] MEDS: ipratropium-albuterol 3 mL Neb INHALATION ×6 (04:20→23:10)
[2024-03-27 04:32] LABS: ABG PCO2 54.8 mmHg (35-45); ABG PH Result 7.48 (7.35-7.45); Arterial Blood Gas Hematocrit 39.1 % (42-52); Base Excess ABG 14.7 mmol/L (-2.0-2.0); Blood Gas Allen Test Pos; Blood Gas Sample Site Brachial, left; Blood Gas Sample Type Arterial; HCO3 ABG 40.6 mmol/L (22-26); Oxygen Device VENT; PO2 ABG 75.3 mmHg (80.0-100.0); PO2 FiO2 Ratio Arterial Blood 215
[2024-03-27 04:36] LABS: Glucose Point of Care 237 mg/dL (70-110)
[2024-03-27] MEDS: insulin lispro 100 unit/1 mL SUBCUT ×4 (04:41→21:44)
[2024-03-27] MEDS: methylPREDNISolone sod succ 40 mg/mL INJ IVP ×4 (04:41→22:54)
[2024-03-27 04:42] LABS: NT Pro B Type Natriuretic Pept 1729 pg/mL (0-125)
[2024-03-27 04:52] LABS: Blood Urea Nitrogen 23 mg/dL (8-23); C Reactive Protein 42.8 mg/L (0.0-4.9); Calcium 8.7 mg/dL (8.5-10.5); Carbon Dioxide 36 mmol/L (22-29); Chloride 90 mmol/L (98-107); Glomerular Filtration Rate 83.4 mL/min (90-130); Glucose 223 mg/dL (65-115); Magnesium 1.9 mg/dL (1.7-2.3); Osmolality Calculated 293 mOsm/kg (285-295); Sodium 136 mmol/L (136-145)
[2024-03-27] MEDS: FUROsemide 10 mg/mL SDV 4mL 40 MG IVP (05:31)
[2024-03-27] MEDS: propofol 1,000 MG/100 ML INJ 15.24 MG IV (05:47)
[2024-03-27] MEDS: cefTRIAXone 1,000 mg SDV 1000 MG IVP (07:36)
[2024-03-27] MEDS: water for injection-sterile 10 ML 1000 ML ×2 (07:37→07:38)
[2024-03-27] MEDS: azithromycin 500 MG in sodium chloride 0.9% 250 ML 250 MG IV (07:38)
--- NOTE | 2024-03-27 07:55 | PC.NURSE ---
weaning sedation and increased precedex at this time . when pt awakens starts hitting bed rails and becomes very agitated and restless
[2024-03-27] MEDS: budesonide 0.5 mg/2 mL Neb INHALATION ×2 (08:00→19:36)
[2024-03-27] MEDS: pantoprazole 40 mg SDV IVP ×2 (09:28→21:44)
[2024-03-27 09:29] LABS: Glucose Point of Care 236 mg/dL (70-110)
[2024-03-27] MEDS: dexmedeTOMIDine 0.9 % NaCL 400 MCG/100 ML PREMIX 21.43 MCG IV ×2 (09:47→14:29)
[2024-03-27] MEDS: LORazepam 2 mg/mL INJ 1 mL 1 MG IVP ×3 (09:48→23:58)
--- NOTE | 2024-03-27 10:33 | P.PN_ITS ---
Subjective 2 Subjective: Patient was seen this morning, family members at bedside, he had a low-grade temperature overnight, normotensive, is on minimal sedation, 35% on the vent, currently on spontaneous breathing trial, he is alert to person, he can follow commands able to squeeze my fingers bilaterally able to move his feet, able to nod for yes or no questions does easily become agitated, will thrashes head from [id number], thrashes arms, is redirectable, but easily becomes agitated, had a detailed discussion with patient's at bedside, patient I am told will not tolerate BiPAP, he has a history of claustrophobia I was upfront and honest with family that he has a high risk of morbidity and mortality if he comes off the ventilator without using BiPAP appropriately, high risk of reintubation, high risk of complications, and morbidity mortality associated. He has acute on chronic hypercarbic respiratory failure, he will need BiPAP after being extubated and will need BiPAP in the long-term so he is going to have to get to know how to use a BiPAP, to be compliant with it, as he has a high risk of complications without it. We discussed spontaneous breathing trial trying to extubate him today, the big issue is his agitation, and his compliance of BiPAP after being extubated. Which will carry significant morbidity and or mortality. Shared decision making, he voiced understanding, all questions answered, agreed to proceed. Patient was also able to nod his head during my discussion to voice that he understands this. Vitals/I&O/Wt Last Vital Signs Temp 97 F L 03/27/24 08:00 Pulse 78 03/27/24 08:20 Resp 27 H 03/27/24 09:14 BP 154/73 03/27/24 08:00 Pulse Ox 91 03/27/24 09:14 O2 Del Method Mechanical Ventilation 03/27/24 08:00 O2 Flow Rate 4 03/24/24 16:20 FiO2 35 03/27/24 09:14 03/26/24 03/27/24 03/27/24 22:59 06:59 14:59 Intake Total 226.289 / 916.852 470.283 / 1387.135 384.883 / 384.883 Output Total 1450 / 3050 Balance 226.289 / -683.148 -979.717 / -1662.865 384.883 / 384.883 Weight last 48 hrs Weight 121.155 kg Weight 122.47 kg Physical Exam 2 Const: COMMON NORMALS: no acute distress ORIENTATION/CONSCIOUSNESS: Yes awake, Yes oriented to person and Yes oriented to place OTHER: Intubated, on minimal sedation, can follow commands Resp: COMMON NORMALS: normal respiratory effort, No retractions, No use of accessory muscles and clear to auscultation bilaterally AUSCULTATION: clear to auscultation bilaterally Cardio: COMMON NORMALS: regular rate, regular rhythm, S1 normal heart sound present and S2 normal heart sound present RATE: regular rate RHYTHM: r egular rhythm HEART SOUNDS: S1 normal heart sound present and S2 normal heart sound present GI: COMMON NORMALS: Normal to inspection, nondistended, normoactive bowel sounds present and non-tender Extremity: NARRATIVE EXTREMITY EXAM: 1+ edema Neuro: SENSORIUM/ORIENTATION: Yes oriented to person and Yes oriented to place Psych: COMMON NORMALS: mental status grossly normal Urinary Catheter Management: Bailey: Cath Placed During This Visit: yes Reason for Continuing Indwelling Catheter: Accurate Measurement of Urinary Output in Critically Ill Patients Urinary Catheter Date of Insertion: 03/24/24 Data 03/27/24 03:20 03/27/24 03:20 Micro: Microbiology 03/24/24 19:40 Gram Stain - Final Sputum - Endotracheal Tube Aspirate Sputum Culture - Preliminary A&P Assessment and plan (1) Acute respiratory failure with hypoxia and hypercarbia: (2) COPD with acute exacerbation: (3) Diabetes: (4) Lymphedema: Chronic lymphedema (5) Hyperlipidemia: Continue home statin (6) CHF exacerbation: (7) Pneumonia: Plan Acute hypoxic respiratory failure ? Multifactorial ? Secondary to COPD exacerbation ? Obesity hypoventilation syndrome ? CHF exacerbation ? Pneumonia ? Plan ? Continue DuoNeb ? Continue budesonide ? Blood cultures ? Sputum cultures ? Respiratory viral panel within normal limits ? Continue Solu-Medrol 40 mg IV push every 8 hours ? Continue Rocephin ? Continue azithromycin ? Lasix 40 mg IV push, this morning ? Monitor urine output ? Monitor creatinine monitor potassium ? Currently intubated, sedated on mechanical ventilation ? Minimize tidal volume, FiO2 ? Daily spontaneous breathing trials ? Fentanyl for sedation ? Propofol for sedation -Concern for seizure 03/26/2024, I have not witnessed any seizures, no seizure episodes since then, will continue to monitor ? Type 2 diabetes mellitus, low-dose sliding scale -Full code -Lovenox for DVT prophylaxis ? PICC line placed Protonix for GI prophylaxis Plan for today continue IV antibiotics, spontaneous breathing trial, wean off sedation, continue steroids continue diuresis, with Lasix therapy, monitor for fevers monitor hemodynamics, plan on extubation today with extubation onto BiPAP, will try to continue Precedex for agitation, Attestations 2 Medical Necessity Statement*: Patient requires hospitalization for acute hypoxic respiratory failure second to hypercarbia, pneumonia, CHF Coding Level of Care Code Critical Care >/= 30 minutes Critical care time (in minutes): 45 The high probability of a clinically significant, sudden or life threatening deterioration, as referenced in this documentation, required my full and direct attention, intervention and personal management. The critical care time shown is in addition to time spent performing any reported separately billable procedures and includes the following: [x] Data and vital sign review and interpretation [x ] Patient assessment, examination and intervention [x] Medication orders and management [x] Patient/Family updates as able [x] Care Coordination and Documentation. Diagnoses Acute respiratory failure with hypoxia and hypercarbia J96.01; J96.02 COPD with acute exacerbation J44.1 Diabetes E11.9 Lymphedema I89.0 Hyperlipidemia E78.5 CHF exacerbation I50.9 Pneumonia J18.9
--- NOTE | 2024-03-27 12:55 | PC.NURSE ---
doctor here extubated to bipap at this time periods of agitation and restless family at bedside
[2024-03-27] MEDS: haloperidol inj 5 mg/mL INJ 1 mL 1 MG IM (15:30)
--- NOTE | 2024-03-27 15:34 | PC.NURSE ---
very agitated and angry pulled bipap off and apart , yelling and hitting bed rails demanding to get out of here . refusing to wear bipap and explained my need to be reintubated refuses becoming combative placed call
--- NOTE | 2024-03-27 16:09 | PC.NURSE ---
very agitated and restless , using foul language and lashing out , family at bedside at this time doctor called and repeat ativan iv now
[2024-03-27 17:21] LABS: Glucose Point of Care 214 mg/dL (70-110)
[2024-03-27] MEDS: OLANZapine 10 mg VIAL 5 MG IM ×2 (18:41→18:56)
[2024-03-27] MEDS: dexmedeTOMIDine 0.9 % NaCL 400 MCG/100 ML PREMIX 15.31 MCG IV (19:31)
--- NOTE | 2024-03-27 20:31 | PC.NURSE ---
1950- Dr. Saucedo consulted for HTN. Dr. Saucedo ordered Hydralazine 10mg IVP, Q6H to maintain SBP >180.
[2024-03-27] MEDS: hyDRALAzine 20 mg/mL INJ 1 mL 10 MG IVP (21:44)
[2024-03-27 21:45] LABS: Glucose Point of Care 255 mg/dL (70-110)
[2024-03-27] MEDS: enoxaparin 40 mg/0.4 mL Syringe SUBCUT (22:54)
--- NOTE | 2024-03-27 23:00 | PC.NURSE ---
Addendum entered by Laurence Fuentes RN 03/27/24 23:02: Witnessed waste of Fentanyl and Propofol. Original Note: wasted 22.45 mL of fentanyl drip and 67.107 mL of propofol drip. Witnessed by RAUL Dang.
[2024-03-28] VITALS (62 sets, daily range): BP systolic 102–204; BP diastolic 54–98; PULSE 57–121; RESP 11–32; TEMP 35.7–36.5; O2SAT 88–98; BMI 42.8
[2024-03-28] MEDS: dexmedeTOMIDine 0.9 % NaCL 400 MCG/100 ML PREMIX 21.43 MCG IV (01:36)
[2024-03-28] MEDS: OLANZapine 10 mg VIAL 5 MG IM (02:24)
[2024-03-28] MEDS: ipratropium-albuterol 3 mL Neb INHALATION ×6 (03:44→23:12)
[2024-03-28] MEDS: hyDRALAzine 20 mg/mL INJ 1 mL 10 MG IVP (03:50)
[2024-03-28 04:26] LABS: Basophils % 0.2 %; Hematocrit 40.8 % (37-53); Lymphocytes # 0.7 10^3/uL (0.8-4.8); Lymphocytes % 6.3 %; Mean Corpuscular HGB Conc 33.3 g/dL (30-55); Mean Corpuscular Hemoglobin 33.9 pg (27-33); Mean Corpuscular Volume 101.7 fl (82-101); Mean Platelet Volume 8.9 fL (7.4-10.4); Monocytes # 0.5 10^3/uL (0.2-0.9); Monocytes % 4.7 %; Neutrophils # 9.38 10^3/uL (1.8-7.7); Neutrophils % 85.8 %; Nucleated Red Blood Cells % 0 %; Platelet Count 249 10^3/cmm (157-399); Red Blood Count 4.01 10^6/uL (3.85-5.65); Red Cell Distribution Width 12.2 % (12.1-15.1); White Blood Count 10.93 10^3/uL (3.29-11.43)
[2024-03-28] MEDS: methylPREDNISolone sod succ 40 mg/mL INJ IVP (04:41)
[2024-03-28 04:47] LABS: Glucose Point of Care 185 mg/dL (70-110)
[2024-03-28 04:56] LABS: NT Pro B Type Natriuretic Pept 2320 pg/mL (0-125); Procalcitonin 0.12 ng/mL (0-0.5)
[2024-03-28 05:07] LABS: Blood Urea Nitrogen 25 mg/dL (8-23); Calcium 8.7 mg/dL (8.5-10.5); Carbon Dioxide 32 mmol/L (22-29); Chloride 88 mmol/L (98-107); Creatinine Clr Calc Pharmacy 105.4156; Glomerular Filtration Rate 133.2 mL/min (90-130); Glucose 210 mg/dL (65-115); Osmolality Calculated 293 mOsm/kg (285-295); Sodium 136 mmol/L (136-145)
[2024-03-28] MEDS: insulin lispro 100 unit/1 mL SUBCUT ×2 (05:08→11:55)
[2024-03-28 05:09] LABS: Anion Gap 19.7 (5-19); Potassium 3.7 mmol/L (3.5-5.1)
[2024-03-28 05:21] LABS: C Reactive Protein 16.8 mg/L (0.0-4.9); Magnesium 1.9 mg/dL (1.7-2.3)
[2024-03-28] MEDS: LORazepam 2 mg/mL INJ 1 mL 1 MG IVP ×2 (06:02→18:56)
[2024-03-28] MEDS: dexmedeTOMIDine 0.9 % NaCL 400 MCG/100 ML PREMIX IV (07:00)
[2024-03-28] MEDS: cefTRIAXone 1,000 mg SDV 1000 MG IVP (07:44)
[2024-03-28] MEDS: azithromycin 500 MG in sodium chloride 0.9% 250 ML 250 MG IV (07:46)
[2024-03-28] MEDS: budesonide 0.5 mg/2 mL Neb INHALATION ×2 (08:07→19:54)
[2024-03-28] MEDS: pantoprazole 40 mg SDV IVP ×2 (09:05→21:50)
[2024-03-28] MEDS: FUROsemide 10 mg/mL SDV 4mL 40 MG IVP (09:05)
[2024-03-28] MEDS: lidocaine 1% 5 ML in potassium chloride premix 100 ML 52.5 ML IV (09:06)
[2024-03-28 10:21] LABS: ABG PH Result 7.47 (7.35-7.45); Arterial Blood Gas Hematocrit 45.1 % (42-52); Base Excess ABG 16.3 mmol/L (-2.0-2.0); Blood Gas Allen Test Pos; Blood Gas Operator Identificat CAK; Blood Gas Sample Site Radial, left; Blood Gas Sample Type Arterial; HCO3 ABG 43.3 mmol/L (22-26); Oxygen Device BIPAP; PO2 ABG 78.2 mmHg (80.0-100.0); PO2 FiO2 Ratio Arterial Blood 223
--- NOTE | 2024-03-28 10:49 | PC.SOCIAL ---
IMM Updated Updated IMM. Provided pt a copy. Initialed, dated, & timed copy in chart.
--- NOTE | 2024-03-28 14:31 | P.PN_ITS ---
Subjective 2 Subjective: Yesterday afternoon patient had episodes of agitation, he was swinging at nursing staff, required doses of Haldol, Zyprexa, Ativan, Precedex, ? Patient was placed on BiPAP throughout the night Patient was examined this morning, currently on BiPAP, he does awaken, but easily falls back asleep, remains on Precedex, discussed with nursing staff to wean him off Precedex ? Patient was reexamined, currently on 3 L with family members are at bedside, he easily becomes agitated, he tells me he wants to get up out of bed and walk, but cannot lift both legs off the bed, he becomes very easily agitated, is trying to to lift himself up, but does not have the strength ? I had a discussion with Jb and his family, that he cannot be hitting nursing staff, he apologizes, -But at times easily becomes agitated, t wero to get up out of bed, but cannot move his legs, he does have good upper extremity strength, as he grabs onto both side rails and tries to lift himself up, but falls back into bed, heart rates up to the 140s he becomes tachypneic, he rips off his oxygen, becomes easily agitated, tells me he wants to get up out of bed -Requires frequent reorientation -With the help of nursing staff, we laid him back in bed, he was yelling and screaming at us, we were able to pull him up into bed, and then lift up his bed so he could sit up, he is now much more comfortable heart rates down into the low 100s, tachycardic, tachypneic has gotten better, we were able to put his oxygen back up, he is alert to person, to place and not to time -I had a detailed discussion with Jb that he cannot be swinging at nursing staff, and hitting nursing staff -I had a detailed discussion with him th at if he were not to be compliant with the BiPAP, that is at bedside he has a high risk of morbidity and mortality, high risk of -I discussed with him that he was quite upset to being on the ventilator had episodes of agitation agitation, I discussed with him that if his respiratory status worsens does he want to be intubated -He tells me that he does not like the v entilator, but if it was a choice between dying and being put on the ventilator, he still wants to be intubated, he does not want to -Discussed with him and his family at be ide, I am going to put him on low-dose Zyprexa twice daily for agitation, continues to be on Precedex for agitation -He tells me he wants to get up out of b ed, we discussed with him that currently he remains bedbound, requires 2 person assist to lift him up in bed, he is significantly deconditioned, -The cost morbidity and mortality associ ate with his condition, he voiced understanding, all questions answered Vitals/I&O/Wt Last Vital Signs Temp 96.3 F L 03/28/24 08:00 Pulse 67 03/28/24 13:00 Resp 18 03/28/24 13:00 BP 135/68 03/28/24 13:00 Pulse Ox 95 03/28/24 13:00 O2 Del Method Nasal Cannula 03/28/24 13:00 O2 Flow Rate 3 03/28/24 13:00 FiO2 35 03/28/24 12:30 03/27/24 03/28/24 03/28/24 22:59 06:59 14:59 Intake Total 100 / 584.883 125.716 / 710.599 360.595 / 360.595 Output Total 2900 / 2900 1200 / 4100 1999 / 1999 Balance -2800 / -2315.117 -1074.284 / -3389.401 -1639.405 / -1639.405 Weight last 48 hrs Weight 120.519 kg Weight 121.155 kg Physical Exam 2 Const: COMMON NORMALS: no acute distress and patient oriented x3 Resp: COMMON NORMALS: normal respiratory effort, No retractions, No use of accessory muscles and clear to auscultation bilaterally AUSCULTATION: clear to auscultation bilaterally Cardio: COMMON NORMALS: regular rate, regular rhythm, S1 normal heart sound present and S2 normal heart sound present RATE: regular rate RHYTHM: r egular rhythm HEART SOUNDS: S1 normal heart sound present and S2 normal heart sound present GI: COMMON NORMALS: Normal to inspection, nondistended, normoactive bowel sounds present and non-tender Extremity: COMMON NORMALS: no pedal edema Neuro: COMMON NORMALS: patient oriented x3 Psych: COMMON NORMALS: mental status grossly normal Urinary Catheter Management: Bailey: Cath Placed During This Visit: yes Reason for Continuing Indwelling Catheter: Accurate Measurement of Urinary Output in Critically Ill Patients Urinary Catheter Date of Insertion: 03/24/24 Data 03/28/24 03:47 03/28/24 03:47 Micro: Microbiology 03/24/24 19:40 Gram Stain - Final Sputum - Endotracheal Tube Aspirate Sputum Culture - Final Haemophilus Influenzae A&P Assessment and plan (1) Acute respiratory failure with hypoxia and hypercarbia: (2) COPD with acute exacerbation: (3) Diabetes: (4) Lymphedema: Chronic lymphedema (5) Hyperlipidemia: Continue home statin (6) CHF exacerbation: (7) Pneumonia: Plan Acute hypoxic respiratory failure ? Multifactorial ? Secondary to COPD exacerbation ? Obesity hypoventilation syndrome ? CHF exacerbation ? Pneumonia ? S/p extubation 03/27/2024 ? Currently on 3 L ? Sputum cultures positive for haemophilus influenza ? Plan ? Continue DuoNeb ? Continue budesonide ? Blood cultures ? Sputum cultures ? Respiratory viral panel within normal limits ? Continue Solu-Medrol 40 mg IV push every 8 hours ? Continue Rocephin ? Continue azithromycin ? Lasix 40 mg IV push, this morning ? Monitor urine output ? Monitor creatinine monitor potassium ? Nasal cannula during the day, BiPAP as needed during the day for shortness of breath BiPAP scheduled during the night ? Minimize tidal volume, FiO2 ? Daily spontaneous breathing trials ? Will place him on scheduled Zyprexa 5 mg twice daily for agitation ? Precedex as needed for agitation -Concern for seizure 03/26/2024, I have not witnessed any seizures, no seizure episodes since then, will continue to monitor ? Type 2 diabetes mellitus, low-dose sliding scale -Full code -Lovenox for DVT prophylaxis ? PICC line placed Protonix for GI prophylaxis Plan for today 1 dose IV Lasix this morning, electrolyte replacement, IV antibiotics IV steroids, Zyprexa scheduled for agitation, BiPAP scheduled during the night as needed during the day, monitor agitation spoke to patient spoke to patient's family's with nursing staff at bedside Attestations 2 Medical Necessity Statement*: acute hypoxic respiratory failure, secondary pneumonia, haemophilus influenza, fluid overload Diagnoses Acute respiratory failure with hypoxia and hypercarbia J96.01; J96.02 COPD with acute exacerbation J44.1 Diabetes E11.9 Lymphedema I89.0 Hyperlipidemia E78.5 CHF exacerbation I50.9 Pneumonia J18.9
[2024-03-28] MEDS: OLANZapine 5 mg ODT PO (15:13)
[2024-03-28] MEDS: nicotine 21 mg Patch 1 PATCH TRANSDERMA (16:28)
[2024-03-28] MEDS: dexmedeTOMIDine 0.9 % NaCL 400 MCG/100 ML PREMIX 9.19 MCG IV (19:44)
--- NOTE | 2024-03-28 23:10 | PC.NURSE ---
Patient's (Alejandra Borges) called around 2300 and said she would not be visiting tomorrow, 03/29, so she can rest, he can rest, and do somethings. She requested to be called after doctor rounds' and major updates. [phone]
[2024-03-29] VITALS (57 sets, daily range): BP systolic 98–158; BP diastolic 53–96; PULSE 66–113; RESP 12–32; TEMP 35.7–36.4; O2SAT 64–98; BMI 42.0
[2024-03-29] MEDS: enoxaparin 40 mg/0.4 mL Syringe SUBCUT ×2 (00:35→22:40)
[2024-03-29] MEDS: OLANZapine 5 mg ODT PO ×2 (02:59→14:04)
[2024-03-29] MEDS: ipratropium-albuterol 3 mL Neb INHALATION ×5 (03:37→20:25)
[2024-03-29 04:05] LABS: Basophils % 0.2 %; Eosinophils % 0.2 %; Hematocrit 39.8 % (37-53); Lymphocytes # 2.3 10^3/uL (0.8-4.8); Lymphocytes % 17.5 %; Mean Corpuscular HGB Conc 32.9 g/dL (30-55); Mean Corpuscular Hemoglobin 34.4 pg (27-33); Mean Corpuscular Volume 104.5 fl (82-101); Mean Platelet Volume 8.7 fL (7.4-10.4); Monocytes % 7.4 %; Neutrophils # 9.37 10^3/uL (1.8-7.7); Neutrophils % 72.9 %; Nucleated Red Blood Cells % 0.2 %; Platelet Count 247 10^3/cmm (157-399); Red Blood Count 3.81 10^6/uL (3.85-5.65); Red Cell Distribution Width 13.1 % (12.1-15.1); White Blood Count 12.84 10^3/uL (3.29-11.43)
[2024-03-29] MEDS: insulin lispro 100 unit/1 mL SUBCUT ×4 (04:17→21:47)
[2024-03-29 04:33] LABS: Blood Urea Nitrogen 27 mg/dL (8-23); Calcium 8.7 mg/dL (8.5-10.5); Carbon Dioxide 37 mmol/L (22-29); Chloride 89 mmol/L (98-107); Creatinine Clr Calc Pharmacy 105.1065; Glomerular Filtration Rate 95.6 mL/min (90-130); Glucose 166 mg/dL (65-115); NT Pro B Type Natriuretic Pept 1166 pg/mL (0-125); Osmolality Calculated 295 mOsm/kg (285-295); Sodium 138 mmol/L (136-145)
[2024-03-29 04:35] LABS: Anion Gap 15.3 (5-19); Potassium 3.3 mmol/L (3.5-5.1)
[2024-03-29] MEDS: budesonide 0.5 mg/2 mL Neb INHALATION ×2 (07:36→20:25)
[2024-03-29] MEDS: cefTRIAXone 1,000 mg SDV 1000 MG IVP (07:49)
[2024-03-29] MEDS: lidocaine 1% 5 ML in potassium chloride premix 100 ML 26.25 ML IV (08:02)
[2024-03-29] MEDS: FUROsemide 10 mg/mL SDV 4mL 40 MG IVP (08:11)
[2024-03-29] MEDS: azithromycin 250 mg Tablet PO (08:31)
[2024-03-29] MEDS: predniSONE 20 mg Tablet 40 MG PO (08:32)
[2024-03-29] MEDS: nicotine 21 mg Patch 1 PATCH TRANSDERMA (08:32)
--- NOTE | 2024-03-29 09:38 | PC.NURSE ---
0830 Taken off bipap for breakfast and po meds. Placed on 4l n/c. 0900 Tolerating fair, I encourage patient to take in deep breaths and blow out mouth fairly often to keep O2 Sat in 90's, Patient likes to argue saying he is.. Son at bedside trying to encourage patient to stay at the hospital.
[2024-03-29] MEDS: pantoprazole 40 mg SDV IVP ×2 (10:22→21:08)
[2024-03-29] MEDS: dexmedeTOMIDine 0.9 % NaCL 400 MCG/100 ML PREMIX 6.12 MCG IV (11:30)
--- NOTE | 2024-03-29 11:53 | P.PN_ITS ---
Subjective 2 Subjective: Patient was seen this morning, he is much more calm, he used the BiPAP throughout the night, he is in the sounds of that he is feeling better, he really wants to try to get up out of bed, afebrile overnight, normotensive, we discussed diuresing him, left speech therapy work with him, PT OT, potentially get up to the side of the bed Vitals/I&O/Wt Last Vital Signs Temp 97.5 F L 03/29/24 08:00 Pulse 91 03/29/24 11:15 Resp 22 H 03/29/24 11:15 BP 133/65 03/29/24 10:30 Pulse Ox 94 03/29/24 11:15 O2 Del Method Nasal Cannula 03/29/24 11:15 O2 Flow Rate 3.5 03/29/24 11:15 FiO2 35 03/29/24 07:38 03/28/24 03/29/24 03/29/24 22:59 06:59 14:59 Intake Total 23.575 / 384.170 8.262 / 392.432 185.178 / 185.178 Output Total 950 / 2950 300 / 3250 Balance -926.425 / -2565.830 -291.738 / -2857.568 185.178 / 185.178 Weight last 48 hrs Weight 118 kg Weight 120.519 kg Physical Exam 2 Const: COMMON NORMALS: no acute distress and patient oriented x3 Resp: COMMON NORMALS: normal respiratory effort, No retractions and No use of accessory muscles AUSCULTATION: crackles Cardio: COMMON NORMALS: regular rate, regular rhythm, S1 normal heart sound present and S2 normal heart sound present RATE: regular rate RHYTHM: r egular rhythm HEART SOUNDS: S1 normal heart sound present and S2 normal heart sound present GI: COMMON NORMALS: Normal to inspection, nondistended, normoactive bowel sounds present and non-tender Extremity: NARRATIVE EXTREMITY EXAM: 1+ pitting edema Neuro: COMMON NORMALS: patient oriented x3 Psych: COMMON NORMALS: mental status grossly normal Urinary Catheter Management: Bailey: Cath Placed During This Visit: yes Reason for Continuing Indwelling Catheter: Accurate Measurement of Urinary Output in Critically Ill Patients Urinary Catheter Date of Insertion: 03/24/24 Data 03/29/24 03:31 03/29/24 03:31 Micro: Microbiology 03/24/24 19:40 Gram Stain - Final Sputum - Endotracheal Tube Aspirate Sputum Culture - Final Haemophilus Influenzae A&P Assessment and plan (1) Acute respiratory failure with hypoxia and hypercarbia: (2) COPD with acute exacerbation: (3) Diabetes: (4) Lymphedema: Chronic lymphedema (5) Hyperlipidemia: Continue home statin (6) CHF exacerbation: (7) Pneumonia: (8) Haemophilus influenzae pneumonia: Plan Acute hypoxic respiratory failure ? Multifactorial ? Secondary to COPD exacerbation ? Obesity hypoventilation syndrome ? CHF exacerbation ? Pneumonia, haemophilus influenza pneumonia ? S/p extubation 03/27/2024 ? Currently on 3 L ? Sputum cultures positive for haemophilus influenza ? Plan ? Continue DuoNeb ? Continue budesonide ? Blood cultures ? Sputum cultures ? Respiratory viral panel within normal limits ? Prednisone 40 mg daily ? Continue Rocephin ? Continue azithromycin ? Lasix 40 mg IV push, this morning, with potassium replacement ? Monitor urine output ? Monitor creatinine monitor potassium ? Nasal cannula during the day, BiPAP as needed during the day for shortness of breath BiPAP scheduled during the night ? Minimize tidal volume, FiO2 ? Daily spontaneous breathing trials ? Will place him on scheduled Zyprexa 5 mg twice daily for agitation ? Precedex as needed for agitation -Concern for seizure 03/26/2024, I have not witnessed any seizures, no seizure episodes since then, will continue to monitor ? Type 2 diabetes mellitus, low-dose sliding scale -Full code -Lovenox for DVT prophylaxis ? PICC line placed Protonix for GI prophylaxis Plan for today PT OT, speech therapy eval, 1 dose IV Lasix continue IV antibiotics, BiPAP as needed during the day Precedex for agitation Attestations 2 Medical Necessity Statement*: Patient requires hospitalization for acute hypoxic respiratory failure secondary to Haemophilus influenzae pneumonia, CHF Diagnoses Acute respiratory failure with hypoxia and hypercarbia J96.01; J96.02 COPD with acute exacerbation J44.1 Diabetes E11.9 Lymphedema I89.0 Hyperlipidemia E78.5 CHF exacerbation I50.9 Pneumonia J18.9 Haemophilus influenzae pneumonia J14
[2024-03-29 18:23] LABS: Glucose Point of Care 173 mg/dL (70-110)
[2024-03-29 21:08] LABS: Glucose Point of Care 170 mg/dL (70-110)
[2024-03-30] VITALS (58 sets, daily range): BP systolic 105–173; BP diastolic 53–102; PULSE 92–124; RESP 16–34; TEMP 36.2–37.7; O2SAT 87–96; BMI 41.1
[2024-03-30] MEDS: ipratropium-albuterol 3 mL Neb INHALATION ×7 (00:44→23:55)
[2024-03-30] MEDS: OLANZapine 5 mg ODT PO ×2 (02:38→14:31)
[2024-03-30 04:12] LABS: Glucose Point of Care 110 mg/dL (70-110)
[2024-03-30 04:23] LABS: Basophils % 0.1 %; Eosinophils % 0.3 %; Hematocrit 41.1 % (37-53); Lymphocytes % 14.4 %; Mean Corpuscular HGB Conc 33.1 g/dL (30-55); Mean Corpuscular Hemoglobin 34.2 pg (27-33); Mean Corpuscular Volume 103.3 fl (82-101); Mean Platelet Volume 8.6 fL (7.4-10.4); Monocytes % 7.4 %; Neutrophils # 10.42 10^3/uL (1.8-7.7); Neutrophils % 76.3 %; Nucleated Red Blood Cells % 0 %; Platelet Count 245 10^3/cmm (157-399); Red Blood Count 3.98 10^6/uL (3.85-5.65); Red Cell Distribution Width 12.8 % (12.1-15.1); White Blood Count 13.67 10^3/uL (3.29-11.43)
[2024-03-30 04:50] LABS: Anion Gap 15.2 (5-19); Blood Urea Nitrogen 23 mg/dL (8-23); Calcium 8.9 mg/dL (8.5-10.5); Carbon Dioxide 36 mmol/L (22-29); Chloride 91 mmol/L (98-107); Creatinine Clr Calc Pharmacy 103.8819; Glomerular Filtration Rate 95.6 mL/min (90-130); Glucose 140 mg/dL (65-115); NT Pro B Type Natriuretic Pept 385 pg/mL (0-125); Osmolality Calculated 294 mOsm/kg (285-295); Potassium 3.2 mmol/L (3.5-5.1); Sodium 139 mmol/L (136-145)
[2024-03-30] MEDS: cefTRIAXone 1,000 mg SDV 1000 MG IVP (07:36)
[2024-03-30] MEDS: budesonide 0.5 mg/2 mL Neb INHALATION ×2 (08:19→20:22)
[2024-03-30] MEDS: FUROsemide 10 mg/mL SDV 4mL 40 MG IVP (08:43)
[2024-03-30] MEDS: azithromycin 250 mg Tablet PO (08:43)
[2024-03-30] MEDS: nicotine 21 mg Patch 1 PATCH TRANSDERMA (08:43)
[2024-03-30] MEDS: acetaminophen 325 mg Tablet 650 MG PO ×2 (08:43→14:30)
[2024-03-30] MEDS: predniSONE 20 mg Tablet 40 MG PO (08:43)
[2024-03-30] MEDS: lidocaine 1% 5 ML in potassium chloride premix 100 ML 26.25 ML IV (08:44)
--- NOTE | 2024-03-30 08:52 | PC.SOCIAL ---
IMM Updated Updated pt on IMM. No questions voiced. Provided pt a copy. Initialed, dated, & timed copy in chart.
[2024-03-30] MEDS: insulin lispro 100 unit/1 mL SUBCUT ×3 (10:18→22:08)
[2024-03-30] MEDS: pantoprazole 40 mg SDV IVP ×2 (10:18→22:08)
[2024-03-30 10:26] LABS: Glucose Point of Care 192 mg/dL (70-110)
[2024-03-30] MEDS: gabapentin 300 mg Capsule 600 MG PO ×2 (14:31→20:19)
--- NOTE | 2024-03-30 15:04 | P.PN_ITS ---
Subjective 2 Subjective: Patient was seen this morning, sitting up in a chair, gait belt around the abdomen, he tells me that he wants to go home, however he cannot stand up, he tells me that his family will assist in his care, we discussed his hypercarbic respiratory failure, morbidity and mortality associated with noncompliance with BiPAP, he tells me that he will use a BiPAP, we talked about further diuresing him today, helping with the fluid overload, having PT OT work with him, and give him another day, after extensive discussion with him he is agreeable to staying here in the hospital for another day, but I was honest with him that he is significantly deconditioned, he requires two-person assist, for getting up from a seated position, I would recommend nursing home facility or rehab however he declines, discussed morbidity and mortality associate with further deconditioning, he voiced understanding, all questions answered, however would like to be discharged home Vitals/I&O/Wt Last Vital Signs Temp 97.6 F 03/30/24 08:30 Pulse 116 H 03/30/24 14:00 Resp 30 H 03/30/24 14:00 BP 140/75 03/30/24 14:00 Pulse Ox 92 03/30/24 14:00 O2 Del Method Nasal Cannula 03/30/24 14:00 O2 Flow Rate 3 03/30/24 14:00 FiO2 35 03/30/24 13:10 03/30/24 03/30/24 03/30/24 06:59 14:59 22:59 Intake Total 507.285 / 507.285 Output Total 225 / 2325 1000 / 1000 Balance -225 / -1850.052 -492.715 / -492.715 Weight last 48 hrs Weight 115.711 kg Weight 118 kg Physical Exam 2 Const: COMMON NORMALS: no acute distress and patient oriented x3 Resp: COMMON NORMALS: normal respiratory effort, No retractions, No use of accessory muscles and clear to auscultation bilaterally AUSCULTATION: clear to auscultation bilaterally Cardio: COMMON NORMALS: regular rate, regular rhythm, S1 normal heart sound present and S2 normal heart sound present RATE: regular rate RHYTHM: r egular rhythm HEART SOUNDS: S1 normal heart sound present and S2 normal heart sound present GI: COMMON NORMALS: Normal to inspection, nondistended, normoactive bowel sounds present and non-tender Extremity: NARRATIVE EXTREMITY EXAM: 1+ pitting edema, lymphedema Neuro: COMMON NORMALS: patient oriented x3 Psych: COMMON NORMALS: mental status grossly normal Urinary Catheter Management: Bailey: Cath Placed During This Visit: yes Reason for Continuing Indwelling Catheter: Accurate Measurement of Urinary Output in Critically Ill Patients Urinary Catheter Date of Insertion: 03/24/24 Data 03/30/24 04:06 03/30/24 04:06 A&P Assessment and plan (1) Acute respiratory failure with hypoxia and hypercarbia: (2) COPD with acute exacerbation: (3) Diabetes: (4) Lymphedema: Chronic lymphedema (5) Hyperlipidemia: Continue home statin (6) CHF exacerbation: (7) Pneumonia: (8) Haemophilus influenzae pneumonia: Plan Acute hypoxic respiratory failure ? Multifactorial ? Secondary to COPD exacerbation ? Obesity hypoventilation syndrome ? CHF exacerbation ? Pneumonia, haemophilus influenza pneumonia ? S/p extubation 03/27/2024 ? Currently on 3 L ? Sputum cultures positive for haemophilus influenza ? Plan ? Continue DuoNeb ? Continue budesonide ? Blood cultures ? Sputum cultures ? Respiratory viral panel within normal limits ? Prednisone 40 mg daily ? Continue Rocephin ? Continue azithromycin ? Lasix 40 mg IV push, this morning, with potassium replacement ? Monitor urine output ? Monitor creatinine monitor potassium ? Nasal cannula during the day, BiPAP as needed during the day for shortness of breath BiPAP scheduled during the night ? Minimize tidal volume, FiO2 ? Daily spontaneous breathing trials ? Will place him on scheduled Zyprexa 5 mg twice daily for agitation ? Precedex as needed for agitation -Concern for seizure 03/26/2024, I have not witnessed any seizures, no seizure episodes since then, will continue to monitor ? Type 2 diabetes mellitus, low-dose sliding scale -Full code -Lovenox for DVT prophylaxis ? PICC line placed Protonix for GI prophylaxis Plan for today PT OT, speech therapy eval, 1 dose IV Lasix continue IV antibiotics, BiPAP as needed during the day Precedex for agitation Attestations 2 Medical Necessity Statement*: Patient requires hospitalization for acute hypoxic respiratory failure secondary COPD, CHF, pneumonia Diagnoses Acute respiratory failure with hypoxia and hypercarbia J96.01; J96.02 COPD with acute exacerbation J44.1 Diabetes E11.9 Lymphedema I89.0 Hyperlipidemia E78.5 CHF exacerbation I50.9 Pneumonia J18.9 Haemophilus influenzae pneumonia J14
[2024-03-30 16:19] LABS: Glucose Point of Care 227 mg/dL (70-110)
[2024-03-30 22:06] LABS: Glucose Point of Care 200 mg/dL (70-110)
[2024-03-30] MEDS: enoxaparin 40 mg/0.4 mL Syringe SUBCUT (22:08)
[2024-03-31] VITALS (39 sets, daily range): BP systolic 105–171; BP diastolic 65–95; PULSE 89–116; RESP 16–34; TEMP 36.5–37.6; O2SAT 86–98; BMI 41.1
[2024-03-31] MEDS: OLANZapine 5 mg ODT PO ×2 (01:50→21:55)
[2024-03-31 03:52] LABS: Glucose Point of Care 125 mg/dL (70-110)
[2024-03-31 04:02] LABS: Basophils % 0.2 %; Eosinophils % 0.2 %; Lymphocytes # 2.1 10^3/uL (0.8-4.8); Lymphocytes % 12.6 %; Mean Corpuscular HGB Conc 32.5 g/dL (30-55); Mean Corpuscular Hemoglobin 34.5 pg (27-33); Mean Corpuscular Volume 106.1 fl (82-101); Mean Platelet Volume 8.8 fL (7.4-10.4); Monocytes # 1.2 10^3/uL (0.2-0.9); Monocytes % 7.2 %; Neutrophils # 12.86 10^3/uL (1.8-7.7); Nucleated Red Blood Cells % 0 %; Platelet Count 235 10^3/cmm (157-399); Red Blood Count 3.77 10^6/uL (3.85-5.65); White Blood Count 16.49 10^3/uL (3.29-11.43)
[2024-03-31] MEDS: ipratropium-albuterol 3 mL Neb INHALATION ×6 (04:05→23:19)
[2024-03-31 04:36] LABS: Anion Gap 15.4 (5-19); Blood Urea Nitrogen 26 mg/dL (8-23); Calcium 8.8 mg/dL (8.5-10.5); Carbon Dioxide 34 mmol/L (22-29); Chloride 92 mmol/L (98-107); Creatinine Clr Calc Pharmacy 82.2154; Glomerular Filtration Rate 73.9 mL/min (90-130); Glucose 137 mg/dL (65-115); NT Pro B Type Natriuretic Pept 527 pg/mL (0-125); Osmolality Calculated 293 mOsm/kg (285-295); Potassium 3.4 mmol/L (3.5-5.1); Sodium 138 mmol/L (136-145)
[2024-03-31] MEDS: cefTRIAXone 1,000 mg SDV 1000 MG IVP (08:05)
[2024-03-31] MEDS: azithromycin 250 mg Tablet PO (08:09)
[2024-03-31] MEDS: gabapentin 300 mg Capsule 600 MG PO ×3 (08:10→21:55)
[2024-03-31] MEDS: predniSONE 20 mg Tablet 40 MG PO (08:10)
[2024-03-31] MEDS: nicotine 21 mg Patch 1 PATCH TRANSDERMA (08:11)
[2024-03-31] MEDS: budesonide 0.5 mg/2 mL Neb INHALATION ×2 (08:32→19:49)
--- NOTE | 2024-03-31 11:29 | P.PN_ITS ---
Subjective 2 Subjective: Patient was seen this morning, he is alert oriented x 3, following all commands, tells me that his breathing has significantly improved, no fevers, no chills, does have a cough, he tells me that he is enthusiastic about going to residential facility for rehab, he did use a BiPAP throughout the night Vitals/I&O/Wt Last Vital Signs Temp 99.4 F 03/31/24 04:00 Pulse 105 H 03/31/24 08:32 Resp 22 H 03/31/24 08:32 BP 158/71 03/31/24 06:30 Pulse Ox 96 03/31/24 08:32 O2 Del Method Nasal Cannula 03/31/24 08:32 O2 Flow Rate 3.5 03/31/24 08:32 FiO2 35 03/31/24 04:05 03/30/24 03/31/24 03/31/24 22:59 06:59 14:59 Intake Total 345 / 852.285 Output Total 200 / 1200 Balance 145 / -347.715 Weight last 48 hrs Weight 115.711 kg Weight 115.711 kg Physical Exam 2 Const: COMMON NORMALS: no acute distress and patient oriented x3 Resp: COMMON NORMALS: normal respiratory effort, No retractions, No use of accessory muscles and clear to auscultation bilaterally AUSCULTATION: clear to auscultation bilaterally Cardio: COMMON NORMALS: regular rate, regular rhythm, S1 normal heart sound present and S2 normal heart sound present RATE: regular rate RHYTHM: r egular rhythm HEART SOUNDS: S1 normal heart sound present and S2 normal heart sound present GI: COMMON NORMALS: Normal to inspection, nondistended, normoactive bowel sounds present and non-tender Extremity: NARRATIVE EXTREMITY EXAM: 1+ pitting edema Neuro: COMMON NORMALS: patient oriented x3 Psych: COMMON NORMALS: mental status grossly normal Urinary Catheter Management: Bailey: Cath Placed During This Visit: yes, but has since been removed by the nurse Reason for Continuing Indwelling Catheter: Decision to DC Catheter Urinary Catheter Date of Insertion: 03/24/24 Date Urinary Catheter Removed: 03/30/24 Time Urinary Catheter Discontinued: 15:30 Data 03/31/24 03:35 03/31/24 03:35 A&P Assessment and plan (1) Acute respiratory failure with hypoxia and hypercarbia: (2) COPD with acute exacerbation: (3) Diabetes: (4) Lymphedema: Chronic lymphedema (5) Hyperlipidemia: Continue home statin (6) CHF exacerbation: (7) Pneumonia: (8) Haemophilus influenzae pneumonia: Plan Acute hypoxic respiratory failure ? Multifactorial ? Secondary to COPD exacerbation ? Obesity hypoventilation syndrome ? CHF exacerbation ? Pneumonia, haemophilus influenza pneumonia ? S/p extubation 03/27/2024 ? Currently on 3 L ? Sputum cultures positive for haemophilus influenza ? Plan ? Continue DuoNeb ? Continue budesonide ? Blood cultures ? Sputum cultures ? Respiratory viral panel within normal limits ? Prednisone 40 mg daily ? Continue Rocephin ? Continue azithromycin ? Lasix 40 mg IV push, this morning, with potassium replacement ? Monitor urine output ? Monitor creatinine monitor potassium ? Nasal cannula during the day, BiPAP as needed during the day for shortness of breath BiPAP scheduled during the night ? Minimize tidal volume, FiO2 ? Daily spontaneous breathing trials ? Will place him on scheduled Zyprexa 5 mg twice daily for agitation ? Precedex as needed for agitation -Concern for seizure 03/26/2024, I have not witnessed any seizures, no seizure episodes since then, will continue to monitor ? Type 2 diabetes mellitus, low-dose sliding scale -Full code -Lovenox for DVT prophylaxis ? PICC line placed Protonix for GI prophylaxis Plan for today Plan for today moved to medical floors, continue 1 dose of IV Lasix, PT OT, speech therapy eval, advance diet as tolerated continue BiPAP. During the day for shortness of breath, scheduled during the night, white blood cell count 16.49, will monitor Attestations 2 Medical Necessity Statement*: Patient requires hospitalization for acute hypoxic respiratory failure secondary COPD, pneumonia Diagnoses Acute respiratory failure with hypoxia and hypercarbia J96.01; J96.02 COPD with acute exacerbation J44.1 Diabetes E11.9 Lymphedema I89.0 Hyperlipidemia E78.5 CHF exacerbation I50.9 Pneumonia J18.9 Haemophilus influenzae pneumonia J14
[2024-03-31] MEDS: FUROsemide 10 mg/mL SDV 4mL 40 MG IVP (12:05)
[2024-03-31] MEDS: pantoprazole 40 mg SDV IVP ×2 (12:05→21:55)
[2024-03-31] MEDS: insulin lispro 100 unit/1 mL SUBCUT ×3 (12:10→21:55)
[2024-03-31 12:19] LABS: Glucose Point of Care 276 mg/dL (70-110)
[2024-03-31] MEDS: potassium chloride ER 20 mEq Tablet 40 MEQ PO (12:29)
--- NOTE | 2024-03-31 13:14 | PC.NURSE ---
Patient has been unable to urinate this morning has tried multiple times. NUrse bladder scanned and it shows 600mL retained. NUrse alerted Dr leigh and received order for Bailey catheter. Catheter placed. 550mL drained.
--- NOTE | 2024-03-31 14:18 | PC.NURSE ---
pt arrived on ms floor to rm 267 at approx 1415
--- NOTE | 2024-03-31 14:28 | PC.NURSE ---
Transferred patient to room 267. REport given to bhupinder CARTER. Belongings sent with patient include cell phone, set up and charger, tablet, and hat.
[2024-03-31] MEDS: polyethylene glycol 3350 Pkt 17 gm PO (15:08)
[2024-03-31 15:24] LABS: Glucose Point of Care 344 mg/dL (70-110)
[2024-03-31 21:26] LABS: Glucose Point of Care 225 mg/dL (70-110)
[2024-03-31] MEDS: enoxaparin 40 mg/0.4 mL Syringe SUBCUT (22:13)
[2024-04-01] VITALS (20 sets, daily range): BP systolic 118–147; BP diastolic 70–79; PULSE 78–109; RESP 15–18; TEMP 36.6–37; O2SAT 90–97
[2024-04-01] MEDS: ipratropium-albuterol 3 mL Neb INHALATION ×5 (03:19→19:58)
[2024-04-01 04:10] LABS: Glucose Point of Care 115 mg/dL (70-110)
[2024-04-01 05:24] LABS: Basophils % 0.1 %; Eosinophils # 0.1 10^3/uL (0.0-0.8); Eosinophils % 0.9 %; Hematocrit 38.6 % (37-53); Lymphocytes # 2.3 10^3/uL (0.8-4.8); Lymphocytes % 14.5 %; Mean Corpuscular HGB Conc 32.4 g/dL (30-55); Mean Corpuscular Hemoglobin 34.2 pg (27-33); Mean Corpuscular Volume 105.5 fl (82-101); Mean Platelet Volume 8.7 fL (7.4-10.4); Monocytes # 1.4 10^3/uL (0.2-0.9); Monocytes % 8.5 %; Neutrophils # 11.95 10^3/uL (1.8-7.7); Neutrophils % 74.7 %; Nucleated Red Blood Cells % 0 %; Platelet Count 222 10^3/cmm (157-399); Red Blood Count 3.66 10^6/uL (3.85-5.65); Red Cell Distribution Width 13.1 % (12.1-15.1); White Blood Count 15.97 10^3/uL (3.29-11.43)
[2024-04-01 05:49] LABS: Anion Gap 15.8 (5-19); Blood Urea Nitrogen 22 mg/dL (8-23); Calcium 8.7 mg/dL (8.5-10.5); Carbon Dioxide 34 mmol/L (22-29); Chloride 96 mmol/L (98-107); Creatinine Clr Calc Pharmacy 81.5255; Glomerular Filtration Rate 73.9 mL/min (90-130); Glucose 131 mg/dL (65-115); NT Pro B Type Natriuretic Pept 260 pg/mL (0-125); Osmolality Calculated 299 mOsm/kg (285-295); Potassium 3.8 mmol/L (3.5-5.1); Sodium 142 mmol/L (136-145)
[2024-04-01] MEDS: budesonide 0.5 mg/2 mL Neb INHALATION ×2 (07:59→19:58)
[2024-04-01] MEDS: FUROsemide 40 mg Tablet PO (08:51)
[2024-04-01] MEDS: cefTRIAXone 1,000 mg SDV 1000 MG IVP (08:51)
[2024-04-01] MEDS: gabapentin 300 mg Capsule 600 MG PO ×3 (08:52→20:41)
[2024-04-01] MEDS: azithromycin 250 mg Tablet PO (08:52)
[2024-04-01] MEDS: predniSONE 20 mg Tablet 40 MG PO (08:52)
[2024-04-01] MEDS: PARoxetine 20 mg Tablet 40 MG PO (08:52)
[2024-04-01] MEDS: nicotine 21 mg Patch 1 PATCH TRANSDERMA (08:52)
[2024-04-01] MEDS: potassium chloride ER 20 mEq Tablet PO (08:52)
--- NOTE | 2024-04-01 08:57 | ECG_ITS ---
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 Measurements Intervals [place] Rate: 102 P: 57 VA: 165 QRS: -50 QRSD: 85 T: 93 QT: 290 QTc: 378 Interpretive Statements SINUS TACHYCARDIA PATTERN CONSISTENT WITH PULMONARY DISEASE LEFT ANTERIOR FASCICULAR BLOCK [QRS AXIS <= -45, QR IN I, RS IN II] NONSPECIFIC ST & T-WAVE ABNORMALITY Compared to ECG 03/24/2024 22:34:28 Left anterior fascicular block now present T-wave abnormality now present Sinus bradycardia no longer present Electronically Signed On 04-01-2024 11:28:32 CDT by Ludin Hernandez M.D. [email or web address]
--- NOTE | 2024-04-01 10:13 | PC.SOCIAL ---
IMM Update pg 2 of IMM updated and reviewed w/ patient. Copy provided and copy dated, initialed and placed in chart.
[2024-04-01 10:19] LABS: Glucose Point of Care 204 mg/dL (70-110)
[2024-04-01] MEDS: pantoprazole 40 mg SDV IVP ×2 (11:13→22:56)
[2024-04-01] MEDS: insulin lispro 100 unit/1 mL SUBCUT ×3 (11:13→23:03)
[2024-04-01] MEDS: docusate sodium 100 mg Capsule PO (13:13)
[2024-04-01] MEDS: polyethylene glycol 3350 Pkt 17 gm PO (13:13)
--- NOTE | 2024-04-01 16:00 | P.PN_ITS ---
Subjective 2 Subjective: Patient was seen this morning, sitting up in a chair, he tells that he is breathing significantly better, denies any fevers, no chills, no cough we discussed his poor sleep, he wants to try a sleep aid, we discussed risks and benefits of a sleep aid associated with his hypercarbic respiratory failure, he is adamant that he needs to get some sleep, I advised him that I am going to start him on low-dose Ambien only if he were to be compliant with the BiPAP. We discussed that if he is not compliant with a get BiPAP, the Ambien can increase the risk of hypercarbic respiratory failure, and morbidity mortality associated. After discussing risk and benefits, shared decision making, he was responding to markers answered, agreed to proceed with Ambien only if he is compliant with BiPAP throughout the night. Will continue to monitor him as inpatient, continue diuresis today, BiPAP as needed during the day, BiPAP scheduled on the night continue antibiotics, he will voices understanding, he also tells me that he has not had a bowel movement, will start him on Colace and MiraLAX Vitals/I&O/Wt Last Vital Signs Temp 97.9 F 04/01/24 11:06 Pulse 96 04/01/24 11:34 Resp 18 04/01/24 11:22 BP 147/75 04/01/24 11:06 Pulse Ox 90 04/01/24 11:22 O2 Del Method Nasal Cannula 04/01/24 11:22 O2 Flow Rate 3 04/01/24 11:22 FiO2 35 03/31/24 04:05 04/01/24 04/01/24 04/01/24 06:59 14:59 22:59 Intake Total 680 / 680 Output Total 550 / 1950 Balance -550 / -1430 680 / 680 Weight last 48 hrs Weight 113.937 kg Weight 115.711 kg Physical Exam 2 Const: COMMON NORMALS: no acute distress and patient oriented x3 Resp: COMMON NORMALS: normal respiratory effort, No retractions, No use of accessory muscles and clear to auscultation bilaterally AUSCULTATION: clear to auscultation bilaterally Cardio: COMMON NORMALS: regular rate, regular rhythm, S1 normal heart sound present and S2 normal heart sound present RATE: regular rate RHYTHM: r egular rhythm HEART SOUNDS: S1 normal heart sound present and S2 normal heart sound present GI: COMMON NORMALS: Normal to inspection, nondistended, normoactive bowel sounds present and non-tender Extremity: COMMON NORMALS: no pedal edema Neuro: COMMON NORMALS: patient oriented x3 Psych: COMMON NORMALS: mental status grossly normal Urinary Catheter Management: Bailey: Cath Placed During This Visit: yes, but has since been removed by the nurse Reason for Continuing Indwelling Catheter: Other Urinary Catheter Date of Insertion: 03/31/24 Urinary Catheter Time of Insertion: 12:00 Date Urinary Catheter Removed: 03/30/24 Time Urinary Catheter Discontinued: 15:30 Data 04/01/24 05:15 04/01/24 05:15 A&P Assessment and plan (1) Acute respiratory failure with hypoxia and hypercarbia: (2) COPD with acute exacerbation: (3) Diabetes: (4) Lymphedema: Chronic lymphedema (5) Hyperlipidemia: Continue home statin (6) CHF exacerbation: (7) Pneumonia: (8) Haemophilus influenzae pneumonia: Plan Acute hypoxic respiratory failure ? Multifactorial ? Secondary to COPD exacerbation ? Obesity hypoventilation syndrome ? CHF exacerbation ? Pneumonia, haemophilus influenza pneumonia ? S/p extubation 03/27/2024 ? Currently on 3 L ? Sputum cultures positive for haemophilus influenza ? Plan ? Continue DuoNeb ? Continue budesonide ? Blood cultures ? Sputum cultures ? Respiratory viral panel within normal limits ? Prednisone 40 mg daily ? Continue Rocephin ? Continue azithromycin ? Lasix 40 mg IV push, this morning, with potassium replacement ? Monitor urine output ? Monitor creatinine monitor potassium ? Nasal cannula during the day, BiPAP as needed during the day for shortness of breath BiPAP scheduled during the night ? Minimize tidal volume, FiO2 ? Daily spontaneous breathing trials ? Will place him on scheduled Zyprexa 5 mg twice daily for agitation ? Precedex as needed for agitation -Concern for seizure 03/26/2024, I have not witnessed any seizures, no seizure episodes since then, will continue to monitor ? Type 2 diabetes mellitus, low-dose sliding scale -Full code -Lovenox for DVT prophylaxis ? PICC line placed Protonix for GI prophylaxis Patient was seen this morning, sitting up in a chair, he tells that he is breathing significantly better, denies any fevers, no chills, no cough we discussed his poor sleep, he wants to try a sleep aid, we discussed risks and benefits of a sleep aid associated with his hypercarbic respiratory failure, he is adamant that he needs to get some sleep, I advised him that I am going to start him on low-dose Ambien only if he were to be compliant with the BiPAP. We discussed that if he is not compliant with a get BiPAP, the Ambien can increase the risk of hypercarbic respiratory failure, and morbidity mortality associated. After discussing risk and benefits, shared decision making, he was responding to markers answered, agreed to proceed with Ambien only if he is compliant with BiPAP throughout the night. Will continue to monitor him as inpatient, continue diuresis today, BiPAP as needed during the day, BiPAP scheduled on the night continue antibiotics, he will voices understanding, he also tells me that he has not had a bowel movement, will start him on Colace and MiraLAX Attestations 2 Medical Necessity Statement*: Patient requires hospitalization for acute respiratory failure, acute hypercarbic respiratory failure, CHF, COPD Diagnoses Acute respiratory failure with hypoxia and hypercarbia J96.01; J96.02 COPD with acute exacerbation J44.1 Diabetes E11.9 Lymphedema I89.0 Hyperlipidemia E78.5 CHF exacerbation I50.9 Pneumonia J18.9 Haemophilus influenzae pneumonia J14
[2024-04-01 18:09] LABS: Glucose Point of Care 375 mg/dL (70-110)
[2024-04-01 19:38] LABS: SARS Covid-2 Antigen Negative (Negative)
[2024-04-01 22:29] LABS: Glucose Point of Care 332 mg/dL (70-110)
[2024-04-01] MEDS: enoxaparin 40 mg/0.4 mL Syringe SUBCUT (22:56)
[2024-04-02] VITALS (8 sets, daily range): BP systolic 125–165; BP diastolic 70–90; PULSE 71–100; RESP 13–20; TEMP 36.4–37; O2SAT 92–97
[2024-04-02] MEDS: ipratropium-albuterol 3 mL Neb INHALATION ×3 (00:57→08:07)
[2024-04-02] MEDS: docusate sodium 100 mg Capsule PO (01:08)
[2024-04-02 02:48] LABS: Basophils % 0.1 %; Eosinophils % 0.2 %; Hematocrit 37.1 % (37-53); Lymphocytes # 1.4 10^3/uL (0.8-4.8); Lymphocytes % 8.6 %; Mean Corpuscular HGB Conc 31.8 g/dL (30-55); Mean Corpuscular Hemoglobin 34.3 pg (27-33); Mean Corpuscular Volume 107.8 fl (82-101); Mean Platelet Volume 9.1 fL (7.4-10.4); Monocytes # 1.3 10^3/uL (0.2-0.9); Monocytes % 7.6 %; Neutrophils # 13.54 10^3/uL (1.8-7.7); Neutrophils % 82.3 %; Nucleated Red Blood Cells % 0 %; Platelet Count 200 10^3/cmm (157-399); Red Blood Count 3.44 10^6/uL (3.85-5.65); Red Cell Distribution Width 12.7 % (12.1-15.1); White Blood Count 16.45 10^3/uL (3.29-11.43)
[2024-04-02 03:26] LABS: Blood Urea Nitrogen 21 mg/dL (8-23); Calcium 8.4 mg/dL (8.5-10.5); Carbon Dioxide 33 mmol/L (22-29); Chloride 96 mmol/L (98-107); Creatinine Clr Calc Pharmacy 81.5255; Glomerular Filtration Rate 73.9 mL/min (90-130); Glucose 246 mg/dL (65-115); NT Pro B Type Natriuretic Pept 361 pg/mL (0-125); Osmolality Calculated 299 mOsm/kg (285-295); Sodium 139 mmol/L (136-145)
[2024-04-02 03:30] LABS: Anion Gap 14.2 (5-19); Potassium 4.2 mmol/L (3.5-5.1)
[2024-04-02 04:32] LABS: Glucose Point of Care 227 mg/dL (70-110)
[2024-04-02] MEDS: insulin lispro 100 unit/1 mL SUBCUT (04:34)
[2024-04-02] MEDS: budesonide 0.5 mg/2 mL Neb INHALATION (08:07)
[2024-04-02] MEDS: nicotine 21 mg Patch 1 PATCH TRANSDERMA (08:32)
[2024-04-02] MEDS: predniSONE 20 mg Tablet 40 MG PO (08:34)
[2024-04-02] MEDS: FUROsemide 40 mg Tablet PO (08:34)
[2024-04-02] MEDS: azithromycin 250 mg Tablet PO (08:34)
[2024-04-02] MEDS: potassium chloride ER 20 mEq Tablet PO (08:34)
[2024-04-02] MEDS: PARoxetine 20 mg Tablet 40 MG PO (08:34)
[2024-04-02] MEDS: gabapentin 300 mg Capsule 600 MG PO (08:34)
[2024-04-02] MEDS: cefTRIAXone 1,000 mg SDV 1000 MG IVP (08:36)
[2024-04-02 10:14] LABS: Glucose Point of Care 172 mg/dL (70-110)
--- NOTE | 2024-04-02 10:18 | P.DS_ITS ---
Discharge Providers Date of Admission: 03/24/24 20:39 Date of Discharge: April 02, 2024 Attending Provider at Admission: Harsha Saucedo MD Attending Provider at Discharge: Qasim Watt MD Primary Care Provider: Harsha Ritchie MD Diagnoses at Discharge Discharge Diagnosis (1) Acute respiratory failure with hypoxia and hypercarbia: Status: Acute (2) COPD with acute exacerbation: Status: Acute (3) Diabetes: Status: Acute (4) Lymphedema: Status: Acute (5) Hyperlipidemia: Status: Acute (6) CHF exacerbation: Status: Acute (7) Pneumonia: Status: Acute (8) Haemophilus influenzae pneumonia: Status: Acute Reason for Visit Reason for Visit: sob/unresponsive Hospital Course Hospital Course Jb Borges is a 69 year old male with a past medical history significant for COPD, obesity hypoventilation syndrome, hyperlipidemia, type 2 diabetes mellitus who presents with respiratory failure. Upon assessment, patient is intubated and sedated which limits history from the patient. Collateral information was obtained from family who is bedside. Family reports patient was in his usual state of health until a couple of days ago when he developed nasal congestion and URI-like symptoms. He developed worsening shortness of breath for which EMS was called today. When EMS arrived, patient was sitting on his patio waiting for them. He was reportedly alert and oriented at that time. He walked to the ambulance. And route which is approximately 1 hour away from the hospital, patient reportedly became altered and lethargic. Upon presentation the emergency department blood gas was obtained revealing hypercarbic respiratory failure producing his CO2 narcosis. Patient was intubated. Family reports at baseline he wears an Inogen. He does have a history of prior intubation for which family states that he was extubated within 24 hours previously. Patient was admitted to [facility] for acute hypoxic hypercarbic respiratory failure secondary COPD exacerbation, haemophilus influenza pneumonia, CHF exacerbation, initially intubated on mechanical ventilation, managed with broad-spectrum antibiotic therapy, IV diuresis, steroid therapy and overall clinically monitored. Patient's clinical status improved, extubated to BiPAP, monitored in the ICU for a few days requiring IV diuresis, titration of antibiotic therapy, steroid therapy, as needed BiPAP during the day, scheduled during the night. Overall patient's clinical condition improved, to the moved to medical floors. For patient's acute on chronic hypoxic hypercarbic respiratory failures secondary to COPD, discharged with BiPAP scheduled during the night, as needed during the day, with a close follow-up with pulmonary as outpatient. Discharged on a prednisone burst For his Haemophilus influenzae pneumonia, discharged with p.o. antibiotics as outpatient For his CHF exacerbation, diastolic, he was diuresed over 10 L negative, overall clinically improved, discharged on p.o. Lasix For his bilateral lower extremity lymphedema, may resume lymphedema wraps bilateral lower extremities Patient was discharged to group home facility for rehab For urinary retention, discharged with Bailey catheter in place, follow-up with urology in 2 weeks for removal of Bailey catheter Physical Exam Const: COMMON NORMALS: no acute distress and patient oriented x3 Resp: COMMON NORMALS: normal respiratory effort, No retractions, No use of accessory muscles and clear to auscultation bilaterally AUSCULTATION: clear to auscultation bilaterally Cardio: COMMON NORMALS: regular rate, regular rhythm, S1 normal heart sound present and S2 normal heart sound present RATE: regular rate RHYTHM: regular rhythm HEART SOUNDS: S1 normal heart sound present and S2 normal heart sound present GI: COMMON NORMALS: Normal to inspection, nondistended, normoactive bowel sounds present and non-tender Extremity: COMMON NORMALS: capillary refill normal and no pedal edema Neuro: COMMON NORMALS: patient oriented x3 Psych: COMMON NORMALS: mental status grossly normal Urinary Catheter Management: Bailey: Cath Placed During This Visit: yes, but has since been removed by the nurse Reason for Continuing Indwelling Catheter: Acute Urinary Retention or Obstruction Urinary Catheter Date of Insertion: 03/31/24 Urinary Catheter Time of Insertion: 12:00 Date Urinary Catheter Removed: 03/30/24 Time Urinary Catheter Discontinued: 15:30 Discharge Data Studies Completed and Pending Completed Studies During Hospitalization Category Date Time Status CT head wo con* [id number] Stat Cat Scan 03/24/24 17:51 Completed CXRP [XR chest 1V portable [id number]] Routine Exams 03/25/24 13:25 Completed XR chest 1V portable [id number] Routine Exams 03/25/24 04:00 Completed XR chest 1V portable [id number] Routine Exams 03/26/24 07:00 Completed XR chest 1V portable [id number] Stat Exams 03/24/24 17:03 Completed Pending at discharge Category Date Time Status Basic Metabolic Panel AM LABS Lab 04/03/24 04:00 Ordered Complete Blood Count w/Auto AM LABS Lab 04/03/24 04:00 Ordered NT Pro B Type Natriuretic Pept QAM Lab 04/03/24 06:00 Ordered Radiology Impressions Head CT 03/24/24 17:51 IMPRESSION: No acute intracranial findings. Chest X-Ray 03/26/24 07:00 IMPRESSION: 1. Cardiomegaly with minimal central vascular congestion and small pleural effusions. Laboratory Results WBC 16.45 10^3/uL (3.29-11.43) H 04/02/24 02:23 Corrected WBC Cancelled 03/24/24 18:41 RBC 3.44 10^6/uL (3.85-5.65) L 04/02/24 02:23 Hgb 11.80 g/dL (11.27-16.99) 04/02/24 02:23 Hct 37.1 % (37-53) 04/02/24 02:23 MCV 107.8 fl (82-101) H 04/02/24 02:23 MCH 34.3 pg (27-33) H 04/02/24 02:23 MCHC 31.8 g/dL (30-55) 04/02/24 02:23 RDW 12.7 % (12.1-15.1) 04/02/24 02:23 Plt Count 200 10^3/cmm (157-399) 04/02/24 02:23 MPV 9.1 fL (7.4-10.4) 04/02/24 02:23 Gran % Cancelled 03/24/24 18:41 Neut % (Auto) 82.3 % 04/02/24 02:23 Lymph % (Auto) 8.6 % 04/02/24 02:23 Foster % (Auto) 7.6 % 04/02/24 02:23 Eos % (Auto) 0.2 % 04/02/24 02:23 Baso % (Auto) 0.1 % 04/02/24 02:23 Neut # (Auto) 13.54 10^3/uL (1.8-7.7) H 04/02/24 02:23 Lymph # (Auto) 1.4 10^3/uL (0.8-4.8) 04/02/24 02:23 Foster # (Auto) 1.3 10^3/uL (0.2-0.9) H 04/02/24 02:23 Eos # (Auto) 0.0 10^3/uL (0.0-0.8) 04/02/24 02:23 Baso # (Auto) 0.0 10^3/uL (0.0-0.1) 04/02/24 02:23 Absolute Gran (auto) Cancelled 03/24/24 18:41 Nucleated RBC % (auto) 0 % 04/02/24 02:23 Nucleated RBCs # 0.0 /100WBC 04/02/24 02:23 Specimen Type Arterial 03/28/24 10:10 Sample Site Radial, left 03/28/24 10:10 ABG pH 7.47 (7.35-7.45) H 03/28/24 10:10 ABG pCO2 59.0 mmHg (35-45) H 03/28/24 10:10 ABG pO2 78.2 mmHg (80.0-100.0) L 03/28/24 10:10 ABG PO2/FiO2 Ratio 223 03/28/24 10:10 ABG HCO3 43.3 mmol/L (22-26) H 03/28/24 10:10 ABG O2 Saturation 97.7 03/25/24 03:00 ABG Base Excess 16.3 mmol/L (-2.0-2.0) H 03/28/24 10:10 Dileep Test Pos 03/28/24 10:10 A-a O2 Gradient 17.9 mmHg (5-10) H 03/25/24 03:00 Hematocrit 45.1 % (42-52) 03/28/24 10:10 Hgb O2 Saturation 97.9 % (95-100) 03/25/24 03:00 Carboxyhemoglobin 1.0 %THgb (0.4-20.1) 03/25/24 03:00 Methemoglobin < 0.0 % (0.4-1.5) L 03/25/24 03:00 Total Hemoglobin 11.6 g/dL (14-18) L 03/25/24 03:00 Sodium 138.0 mmol/L (131-143) 03/25/24 03:00 Potassium 4.0 mmol/L (3.5-5.0) 03/25/24 03:00 Glucose 210.0 mg/dL (70-115) H 03/25/24 03:00 Ionized Calcium 1.2 mmol/L (1.1-1.4) 03/25/24 03:00 O2 Delivery Device Bipap 03/28/24 10:10 O2 Liters/Min 4.0 % 03/24/24 16:27 FiO2 35.0 % 03/28/24 10:10 Tidal Volume 0.50 03/27/24 04:25 PEEP 10.0 cmH20 03/27/24 04:25 Production Control Pegboard Clerk ID Cak 03/28/24 10:10 Sodium 139 mmol/L (136-145) 04/02/24 02:23 Potassium 4.2 mmol/L (3.5-5.1) 04/02/24 02:23 Chloride 96 mmol/L (98-107) L 04/02/24 02:23 Carbon Dioxide 33 mmol/L (22-29) H 04/02/24 02:23 Anion Gap 14.2 (5-19) 04/02/24 02:23 BUN 21 mg/dL (8-23) 04/02/24 02:23 Creatinine 1.0 mg/dL (0.7-1.2) 04/02/24 02:23 GFR Calculation 73.9 mL/min (90-130) L 04/02/24 02:23 Glucose 246 mg/dL (65-115) H 04/02/24 02:23 POC Glucose 172 mg/dL (70-110) H 04/02/24 10:10 Calculated Osmolality 299 mOsm/kg (285-295) H 04/02/24 02:23 Lactic Acid 2.0 mmol/L (0.5-2.2) 03/24/24 18:41 Calcium 8.4 mg/dL (8.5-10.5) L 04/02/24 02:23 Phosphorus 1.8 mg/dL (2.5-4.5) L 03/25/24 04:59 Magnesium 1.9 mg/dL (1.7-2.3) 03/28/24 03:47 Total Bilirubin 0.3 mg/dL (0.15-1.2) 03/25/24 04:59 AST 8 U/L (0-40) 03/25/24 04:59 ALT 8 U/L (0-41) 03/25/24 04:59 Alkaline Phosphatase 77 U/L (40-130) 03/25/24 04:59 Troponin T Baseline < 6 ng/L (0-15) 03/24/24 18:41 Troponin T 120 Minute 6.00 ng/L (0-15) 03/24/24 20:50 Delta Troponin T 0.54179 ABS# (0-10) 03/24/24 20:50 Troponin T Hi Sens 6Hr 6.00 ng/L (0-15) 03/25/24 01:10 Troponin T Hi Sens 6Hr Delta 0.60912 ng/L (0-12) 03/25/24 01:10 C-Reactive Protein 16.8 mg/L (0.0-4.9) H 03/28/24 03:47 NT-Pro-B Natriuret Pep 361 pg/mL (0-125) H 04/02/24 02:23 Total Protein 6.3 g/dL (6.6-8.7) L 03/25/24 04:59 Albumin 3.1 g/dL (3.5-5.2) L 03/25/24 04:59 Globulin 3.2 g/dL (1.3-4.6) 03/25/24 04:59 Procalcitonin 0.12 ng/mL (0-0.5) 03/28/24 03:47 Adenovirus (PCR) Not detected (NOT DETECT) 03/25/24 10:15 C. pneumoniae DNA (PCR) Not detected (NOT DETECT) 03/25/24 10:15 Coronavirus 229E (PCR) Not detected (NOT DETECT) 03/25/24 10:15 Human Metapneumovir PCR Not detected (NOT DETECT) 03/25/24 10:15 Influenza A (H1) PCR Not detected (NOT DETECT) 03/25/24 10:15 Influ A (H1/09) PCR Not detected (NOT DETECT) 03/25/24 10:15 Influenza A (H3) PCR Not detected (NOT DETECT) 03/25/24 10:15 Influenza Type A Ag negative (Negative) 03/24/24 19:40 Influenza Type A (PCR) Not detected (NOT DETECT) 03/25/24 10:15 Influenza Type B Ag negative (Negative) 03/24/24 19:40 Influenza Type B (PCR) Not detected (NOT DETECT) 03/25/24 10:15 M. pneumoniae (PCR) Not detected (NOT DETECT) 03/25/24 10:15 Parainfluenza 1 (PCR) Not detected (NOT DETECT) 03/25/24 10:15 Parainfluenza 2 (PCR) Not detected (NOT DETECT) 03/25/24 10:15 Parainfluenza 3 (PCR) Not detected (NOT DETECT) 03/25/24 10:15 Parainfluenza 4 (PCR) Not detected (NOT DETECT) 03/25/24 10:15 RSV Type A (PCR) Not detected (NOT DETECT) 03/25/24 10:15 RSV Type B (PCR) Not detected (NOT DETECT) 03/25/24 10:15 Entero/Rhino (PCR) Not detected (NOT DETECT) 03/25/24 10:15 SARS-CoV-2 (PCR) Not detected (NOT DETECT) 03/25/24 10:15 SARS-CoV-2 Ag (Rapid) Negative (Negative) 04/01/24 18:36 Vitals Last Vital Signs Temp 97.6 F 04/02/24 08:13 Pulse 87 04/02/24 08:13 Resp 18 04/02/24 08:13 BP 165/90 04/02/24 08:13 Pulse Ox 92 04/02/24 08:13 O2 Del Method Nasal Cannula 04/02/24 08:13 O2 Flow Rate 3 04/02/24 08:08 FiO2 35 04/01/24 20:31 Discharge Plan Discharge Patient Disposition: Xfer SNF Condition: Stable Prescriptions: New furosemide 40 mg Tablet 40 mg PO DAILY 30 Days Qty: 30 0RF nicotine 21 mg/24 hr Patch 24 Hour 1 patch transdermal DAILY 30 Days Qty: 28 0RF docusate sodium 100 mg Capsule 100 mg PO Q12H 30 Days Qty: 60 0RF polyethylene glycol 3350 17 gram Powder In Packet 17 g PO Q24H 30 Days Qty: 30 0RF prednisone 20 mg Tablet 40 mg PO DAILY 5 Days Qty: 10 0RF Klor-Con M20 20 mEq Tablet,Er Particles/Crystals 20 meq PO DAILY 30 Days Qty: 30 0RF Novolog FlexPen U-100 Insulin 100 unit/mL (3 mL) insulin pen See Rx Instructions .ROUTE .COMPLEX Qty: 15 0RF Rx Instructions: Inject, 3 times daily, after meals, based on sliding scale provided cefdinir 300 mg capsule 300 mg PO BID 5 Days Qty: 10 0RF Flomax 0.4 mg capsule 0.4 mg PO DAILY 30 Days Qty: 30 0RF Continued atorvastatin 40 mg tablet 40 mg PO DAILY@07 acetaminophen [Tylenol Extra Strength] 500 mg Tablet 1,000 mg PO DAILY PRN (Reason: Pain) metformin 500 mg tablet extended release 24 hr See Rx Instructions .ROUTE .COMPLEX Rx Instructions: TAKE 1000 mg orally in the morning AND 500 mg orally in the evening. albuterol sulfate 90 mcg/actuation HFA aerosol inhaler 2 puff INHALATION Q4H PRN (Reason: Shortness Of Breath) paroxetine HCl 40 mg tablet 40 mg PO DAILY Vitamin D3 25 mcg (1,000 unit) Tablet 25 mcg PO DAILY lorazepam 0.5 mg tablet 0.25 - 0.5 mg PO QPM nicotine 21 mg/24 hr Patch 24 Hour 1 patch transdermal DAILY Qty: 90 3RF Changed gabapentin 600 mg tablet 600 mg PO TID 30 Days Qty: 0 0RF Discontinued lisinopril 5 mg tablet 5 mg PO DAILY@07 glipizide 5 mg tablet extended release 24 hr 5 mg PO DAILY furosemide [Lasix] 40 mg tablet 40 mg PO DAILY PRN (Reason: Dyspnea, shortness of breath while lying down) Qty: 20 0RF Rx Instructions: For dyspnea with lying down, rapid water weight gain more than 3 lbs in 2 days. Discharge Orders: Discharge Order (Routine); Ordered 04/02/24 Ordered By: Qasim Watt Other Ambulatory Orders: DME: BIPAP (Order) Location: None Selected Ordered By: Qasim Watt DME: [facility] (Order) Location: None Selected Ordered By: Qasim Watt Referrals: [facility] [Outside] [facility] [Outside] Juan Jose Rodriguez MD [Referring] - 1 week (We have notified your physician's clinic of the need for a follow-up appointment to be scheduled. If you have not heard from them within the next 2 business days, please call them directly. ) Harsha Ritchie MD [Primary Care Provider] - Ivonne Mccurdy MD [Physician] - 1 week Alejandro Galindo MD [Physician] - 1-3 days Discharge Diet: Cardiac Discharge Activity: Resume usual activity Patient Instructions: Altered Mental Status (ED), Opioid Safety Activity Restrictions/Additional Instructions: - Please adhere to BiPAP therapy nightly, follow-up with pulmonary -Discharged with Bailey catheter in place, to be removed in 2 weeks, with follow- up with urology -Please follow-up with cardiology, continue Lasix therapy recheck kidney function in 1 week -Discharged on insulin sliding scale -Please monitor your blood sugars closely -Monitor your blood sugars 3 times daily as after meals -Please record your blood sugars, and a blood sugar log -For your NovoLog -Please inject blood sugar after meals based on sliding scale provided -Do not inject insulin if you do not eat as hypoglycemia kills -This is a NovoLog sliding scale -Insulin sliding ?fingerstick? Insulin ?141-180?0 units/sq 181-220?2 units/sq ?221-260?4 units/sq ?261-300 6 units/sq ?301-350?8 units/sq ?351-400 10 units/sq ?401-450?12 units/sq >450? 14units/sq -If your blood sugar is greater than 500 go to the emergency room -If your blood sugar is less than 60 or at anytime you feel lightheaded or dizzy or diaphoretic or have chest palpitations check your blood sugar, and eat a hard candy or drink orange juice and go immediately to the emergency room -Remember hypoglycemia kills, so if his blood sugar is less than 60 we have to increase it by taking in a sugary meal such as a hard candy or orange juice and go to the emergency room -If you have any questions please call us where here to help Discharge Attestations Time Spent in Discharge Care*: greater than 30 min Status at Discharge: Cognitive status at discharge: cognitively intact , Behavioral status at discharge: cooperative , Quality Metrics Clinical Quality Measures [ No reported AMI, CVA or VTE this stay] Coding Level of Care Code 05544 Total time (in minutes) for Discharge: 45 Diagnoses Acute respiratory failure with hypoxia and hypercarbia J96.01; J96.02 COPD with acute exacerbation J44.1 Diabetes E11.9 Lymphedema I89.0 Hyperlipidemia E78.5 CHF exacerbation I50.9 Pneumonia J18.9 Haemophilus influenzae pneumonia J14
[2024-04-02] MEDS: magnesium hydroxide 30 mL UDC PO (10:42)
== END 2024-04-02 11:45 | disposition skilled nursing facility (03) | DRG 208 ==
LOC: ER 18:15 → ICU 20:40 → MEDSURG 03-31 14:18
PROVIDERS: Admitting Provider Internal Medicine; Emergency Provider Emergency Medicine; PCP General Practice; Visit Provider Family Medicine
DX: J96.22 Acute and chronic respiratory failure with hypercapnia (principal); I50.33 Acute on chronic diastolic (congestive) heart failure; J15.8 Pneumonia due to other specified bacteria; J44.1 Chronic obstructive pulmonary disease with (acute) exacerbation; E66.2 Morbid (severe) obesity with alveolar hypoventilation; Z68.41 Body mass index [BMI] 40.0-44.9, adult; J96.21 Acute and chronic respiratory failure with hypoxia; F17.200 Nicotine dependence, unspecified, uncomplicated; E11.40 Type 2 diabetes mellitus with diabetic neuropathy, unspecified; Z79.84 Long term (current) use of oral hypoglycemic drugs; R33.9 Retention of urine, unspecified; E78.5 Hyperlipidemia, unspecified; I11.0 Hypertensive heart disease with heart failure; F41.8 Other specified anxiety disorders; R45.1 Restlessness and agitation
CPT/HCPCS: 31500; 36415; 36416; 36573; 36592; 36600; 51702; 51798; 70450; 71045; 80048; 80051; 80053; 82330; 82803; 82805; 82962; 83605; 83735; 83880; 84100; 84145; 84484; 85025; 86140; 87070; 87077; 87205; 87426; 87486; 87581; 87633; 87804; 92507; 92523; 92526; 92610; 93005; 94002; 94003; 94640; 94660; 94664; 94799; 96365; 96366; 96367; 96372; 96374; 96375; 96376; 97110; 97116; 97163; 97167; 97530; 97535; 99291; 99292; A4570; C1751; J0360; J0456; J0696; J1630; J1650; J1815; J1940; J2060; J2310; J2470; J2543; J2704; J2919; J3010; J3370; J3480; J3490; J7050; J7120; J7512; J7626; Q0144

== ENCOUNTER 2024-06-18 05:12 | Inpatient (IN) | payer MEDICARE, SELFPAY ==
[2024-06-18] VITALS (18 sets, daily range): BP systolic 93–154; BP diastolic 42–99; PULSE 87–117; RESP 18–25; TEMP 36.4–38.2; O2SAT 90–95; BMI 36.8
--- NOTE | 2024-06-18 05:19 | XRR_ITS ---
PROCEDURE INFORMATION: Exam: XR Chest Exam date and time: 06/18/2024 5:29 AM Age: 69 years old Clinical indication: Shortness of breath; Patient HX: SOB with hypoxia TECHNIQUE: Imaging protocol: Radiologic exam of the chest. Views: 1 view. COMPARISON: CR XR chest 1V portable [id number] 03/26/2024 7:11 AM FINDINGS: Lungs: There is opacity at the left lung base. This may reflect layering pleural fluid, atelectasis, pneumonia or a combination. Minimal patchy infiltrate or atelectasis is noted at the right lung base. Pleural spaces: Suspect component of pleural fluid at the left lung base. No pneumothorax is identified. Heart/Mediastinum: The heart is enlarged. Bones/joints: Unremarkable. XR/XR chest 1V portable [id number] IMPRESSION: 1. Left basilar opacity. 2. Minimal patchy infiltrate or atelectasis right lung base. 3. Cardiomegaly.
--- NOTE | 2024-06-18 05:19 | W.ED.SOB ---
Documented by User: Willie Avendaño DO 06/18/24 05:25 HPI - SOB/Dyspnea General: Chief Complaint: Shortness of Breath/Dyspnea Stated Complaint: SOB Time Seen by Provider: 06/18/24 05:14 History of Present Illness: HPI Narrative: Patient is brought in by EMS with complaints of shortness of breath x 2 days. He said he was diagnosed with pneumonia 2 days ago at a clinic and started on albuterol nebulizer but there is no mention of any antibiotics. Patient does not know his home medicines. Patient is normally on 3 L of oxygen at home at all times. EMS said they had a SpO2 of 80% upon their arrival. They switched him over to their oxygen gave him 1 breathing treatment and he improved up to the 90s. Back in March 2024 the patient was in this ER and had to be intubated for acute hypercapnic respiratory failure and altered mental status. Related Data Home Medications Medication Instructions Recorded Confirmed acetaminophen 500 mg tablet 1,000 mg PO DAILY PRN Pain 08/17/20 03/25/24 (Tylenol Extra Strength) atorvastatin 40 mg tablet 40 mg PO DAILY@07 08/17/20 03/25/24 metformin 500 mg tablet,extended See Rx Instructions .Route .COMPLEX 08/17/20 03/25/24 release 24 hr lorazepam 0.5 mg tablet 0.25 - 0.5 mg PO QPM 07/30/23 03/25/24 albuterol sulfate 90 mcg/actuation 2 puff inhalation Q4H PRN 03/25/24 03/25/24 aerosol inhaler Shortness Of Breath cholecalciferol (vitamin D3) 25 25 mcg PO DAILY 03/25/24 03/25/24 mcg (1,000 unit) tablet (Vitamin D3) paroxetine HCl 40 mg tablet 40 mg PO DAILY 03/25/24 03/25/24 Previous Rx's Medication Instructions Recorded nicotine 21 mg/24 hr daily 1 patch transdermal DAILY #90 ea 08/01/23 transdermal patch gabapentin 600 mg tablet 600 mg PO TID NERVE PAIN 30 days 04/01/24 #0 tabs insulin aspart U-100 100 unit/mL See Rx Instructions .Route 04/01/24 (3 mL) subcutaneous pen (Novolog .COMPLEX #15 mL FlexPen U-100 Insulin aspart) Allergies Allergy/AdvReac Type Severity Reaction Status Date / Time No Known Allergies Allergy Verified 01/01/22 15:22 Review of Systems General: Reports: 10 or more systems reviewed and unremarkable except in HPI and below PFSH ED PFSH: Medical History Acute hypercapnic respiratory failure Macrocytosis Acute diastolic heart failure Fracture of second metacarpal bone of right hand Fracture of medial condyle of left elbow Supracondylar fracture of left humerus Dislocation of proximal interphalangeal joint of right index finger Diabetic neuropathy Depression with anxiety Hyperlipidemia Altered mental status Obesity hypoventilation syndrome COPD (chronic obstructive pulmonary disease) Hypertension Diabetes Respiratory failure with hypoxia and hypercapnia Respiratory failure Surgical History History of back surgery History of surgery on arm Family History Other Cancer Social History Smoking and tobacco/nicotine status: current every day tobacco/nicotine user Alcohol intake: never Physical Exam Const: COMMON NORMALS: no acute distress, average body habitus, patient oriented x3, no limitations, healthy appearing, alert and well nourished HENMT: COMMON NORMALS: normocephalic, atraumatic, hearing grossly normal bilaterally, external ears normal, Normal external nose present and moist oral mucous membranes HEAD & SCALP: normocephalic and atraumatic NOSE: Normal external nose present EXTERNAL EAR: Yes external ears normal Neck/C-Spine: COMMON NORMALS: full ROM, no lymphadenopathy, supple, no meningeal signs, no JVD and Thyroid normal THYROID: Thyroid normal Chest: COMMONS NORMALS: normal inspection of the chest and normal palpation of entire chest wall Resp: COMMON NORMALS: normal respiratory effort, No retractions and No use of accessory muscles; negative for clear to auscultation bilaterally (Left lung clear to auscultate right lung diffuse rhonchi) AUSCULTATION: not clear to auscultation bilaterally (Left lung clear to auscultate right lung diffuse rhonchi) Cardio: COMMON NORMALS: no JVD, regular rate, regular rhythm, S1 normal heart sound present, S2 normal heart sound present, No gallops present (Cardio), No clicks present (Cardio), No murmurs present (Cardio) and No rub (Cardio) RATE: regular rate RHYTHM: regular rhythm HEART SOUNDS: S1 normal heart sound present and S2 normal heart sound present GI: COMMON NORMALS: Normal to inspection, nondistended, normoactive bowel sounds present, Soft to palpation, non-tender, No hepatosplenomegaly present and no masses PALPATION: Yes Soft to palpation and Yes No hepatosplenomegaly present Neuro: COMMON NORMALS: patient oriented x3 SENSORIUM/ORIENTATION: Yes alert MENINGEAL SIGNS: Yes no meningeal signs Course Vital Signs: Vital signs: Vital Signs Temperature 100.7 F H 06/18/24 05:13 Pulse Rate 105 H 06/18/24 08:08 Respiratory Rate 25 H 06/18/24 08:08 Blood Pressure 109/99 06/18/24 08:08 Pulse Oximetry 94 06/18/24 08:08 Oxygen Delivery Me thod Nasal Cannula 06/18/24 08:08 Oxygen Flow Rate 3 06/18/24 08:08 MDM - SOB/Dyspnea Medical Records I reviewed the patient's medical records. Lab Data I reviewed the patient's lab results. 06/18/24 05:28 06/18/24 05:50 Labs/Radiology: Radiology Impressions Chest X-Ray 06/18/24 05:19 IMPRESSION: 1. Left basilar opacity. 2. Minimal patchy infiltrate or atelectasis right lung base. 3. Cardiomegaly. Laboratory Results WBC 17.93 10^3/uL (3.29-11.43) H 06/18/24 05:28 RBC 3.21 10^6/uL (3.85-5.65) L 06/18/24 05:28 Hgb 10.90 g/dL (11.27-16.99) L 06/18/24 05:28 Hct 33.7 % (37-53) L 06/18/24 05:28 MCV 105.0 fl (82-101) H 06/18/24 05:28 MCH 34.0 pg (27-33) H 06/18/24 05:28 MCHC 32.3 g/dL (30-55) 06/18/24 05:28 RDW 12.6 % (12.1-15.1) 06/18/24 05:28 Plt Count 224 10^3/cmm (157-399) 06/18/24 05:28 MPV 9.3 fL (7.4-10.4) 06/18/24 05:28 Neut % (Auto) 84.5 % 06/18/24 05:28 Lymph % (Auto) 3.9 % 06/18/24 05:28 [place] % (Auto) 10.5 % 06/18/24 05:28 Eos % (Auto) 0.3 % 06/18/24 05:28 Baso % (Auto) 0.2 % 06/18/24 05:28 Neut # (Auto) 15.15 10^3/uL (1.8-7.7) H 06/18/24 05:28 Lymph # (Auto) 0.7 10^3/uL (0.8-4.8) L 06/18/24 05:28 [place] # (Auto) 1.9 10^3/uL (0.2-0.9) H 06/18/24 05:28 Eos # (Auto) 0.1 10^3/uL (0.0-0.8) 06/18/24 05:28 Baso # (Auto) 0.0 10^3/uL (0.0-0.1) 06/18/24 05:28 Nucleated RBC % (auto) 0 % 06/18/24 05:28 Nucleated RBCs # 0.0 /100WBC 06/18/24 05:28 Specimen Type Arterial 06/18/24 05:26 Sample Site Radial, left 06/18/24 05:26 ABG pH 7.38 (7.35-7.45) 06/18/24 05:26 ABG pCO2 55.3 mmHg (35-45) H 06/18/24 05:26 ABG pO2 68.6 mmHg (80.0-100.0) L 06/18/24 05:26 ABG PO2/FiO2 Ratio 214 06/18/24 05:26 ABG HCO3 32.4 mmol/L (22-26) H 06/18/24 05:26 ABG O2 Saturation 94.8 06/18/24 05:26 ABG Base Excess 5.9 mmol/L (-2.0-2.0) H 06/18/24 05:26 Dileep Test Pos 06/18/24 05:26 A-a O2 Gradient 12.1 mmHg (5-10) H 06/18/24 05:26 Hematocrit 34.1 % (42-52) L 06/18/24 05:26 Hgb O2 Saturation 91.3 % (95-100) L 06/18/24 05:26 Carboxyhemoglobin 2.2 %THgb (0.4-20.1) 06/18/24 05:26 Methemoglobin 1.5 % (0.4-1.5) 06/18/24 05:26 Total Hemoglobin 11.1 g/dL (14-18) L 06/18/24 05:26 Sodium 135.0 mmol/L (131-143) 06/18/24 05:26 Potassium 4.0 mmol/L (3.5-5.0) 06/18/24 05:26 Glucose 209.0 mg/dL (70-115) H 06/18/24 05:26 Ionized Calcium 1.2 mmol/L (1.1-1.4) 06/18/24 05:26 O2 Delivery Device Nc 06/18/24 05:26 O2 Liters/Min 3.0 % 06/18/24 05:26 FiO2 32.0 % 06/18/24 05:26 Shaper Hand ID Ed 06/18/24 05:26 Sodium 132 mmol/L (136-145) L 06/18/24 05:50 Potassium 4.2 mmol/L (3.5-5.1) 06/18/24 05:50 Chloride 93 mmol/L (98-107) L 06/18/24 05:50 Carbon Dioxide 28 mmol/L (22-29) 06/18/24 05:50 Anion Gap 15.2 (5-19) 06/18/24 05:50 BUN 14 mg/dL (8-23) 06/18/24 05:50 Creatinine 1.0 mg/dL (0.7-1.2) 06/18/24 05:50 GFR Calculation 73.9 mL/min (90-130) L 06/18/24 05:50 Glucose 215 mg/dL (65-115) H 06/18/24 05:50 Calculated Osmolality 281 mOsm/kg (285-295) L 06/18/24 05:50 Lactic Acid 1.4 mmol/L (0.5-2.2) 06/18/24 05:28 Calcium 8.0 mg/dL (8.5-10.5) L 06/18/24 05:50 Total Bilirubin 0.5 mg/dL (0.15-1.2) 06/18/24 05:50 AST 12 U/L (0-40) 06/18/24 05:50 ALT 11 U/L (0-41) 06/18/24 05:50 Alkaline Phosphatase 88 U/L (40-130) 06/18/24 05:50 Troponin T Baseline 13 ng/L (0-15) 06/18/24 05:50 Troponin T 120 Minute 12.54 ng/L (0-15) 06/18/24 07:43 Delta Troponin T -0.46 ABS# (0-10) L 06/18/24 07:43 NT-Pro-B Natriuret Pep 90 pg/mL (0-125) 06/18/24 05:50 Total Protein 5.6 g/dL (6.6-8.7) L 06/18/24 05:50 Albumin 3.4 g/dL (3.5-5.2) L 06/18/24 05:50 Globulin 2.2 g/dL (1.3-4.6) 06/18/24 05:50 Procalcitonin 0.50 ng/mL (0-0.5) 06/18/24 05:50 Coronavirus (PCR) Negative (Negative) 06/18/24 05:32 Influenza A (PCR) Negative (Negative) 06/18/24 05:32 Influenza Type B (PCR) Negative (Negative) 06/18/24 05:32 RSV (PCR) Negative (Negative) 06/18/24 05:32 All radiology interpretation(s) finalized by discharge Discharge Plan Discharge Patient Disposition: Admitted As Inpatient Clinical Impression: Community acquired pneumonia, Acute exacerbation of chronic obstructive airways disease Condition: Stable Prescriptions: No Action atorvastatin 40 mg tablet 40 mg PO DAILY@07 acetaminophen [Tylenol Extra Strength] 500 mg Tablet 1,000 mg PO DAILY PRN (Reason: Pain) metformin 500 mg tablet extended release 24 hr See Rx Instructions .ROUTE .COMPLEX Rx Instructions: TAKE 1000 mg orally in the morning AND 500 mg orally in the evening. albuterol sulfate 90 mcg/actuation HFA aerosol inhaler 2 puff INHALATION Q4H PRN (Reason: Shortness Of Breath) paroxetine HCl 40 mg tablet 40 mg PO DAILY Vitamin D3 25 mcg (1,000 unit) Tablet 25 mcg PO DAILY gabapentin 600 mg tablet 600 mg PO TID 30 Days Qty: 0 0RF Novolog FlexPen U-100 Insulin 100 unit/mL (3 mL) insulin pen See Rx Instructions .ROUTE .COMPLEX Qty: 15 0RF Rx Instructions: Inject, 3 times daily, after meals, based on sliding scale provided lorazepam 0.5 mg tablet 0.25 - 0.5 mg PO QPM nicotine 21 mg/24 hr Patch 24 Hour 1 patch transdermal DAILY Qty: 90 3RF Referrals: Harsha Ritchie MD [Physician] - Sign Out Sign Out Data: Patient Sign Out occurred on 06/18/24 at 06:00. Patient's care was discussed, and care was transferred from Willie Avendaño DO to Jay Chavez DO. Coding Level of Care Code ED Guest Room Inspector for [facility] Documented by User: Jay Chavez DO 06/18/24 08:53 HPI - SOB/Dyspnea General: Chief Complaint: Shortness of Breath/Dyspnea Stated Complaint: SOB Time Seen by Provider: 06/18/24 05:14 Related Data Home Medications Medication Instructions Recorded Confirmed acetaminophen 500 mg tablet 1,000 mg PO DAILY PRN Pain 08/17/20 03/25/24 (Tylenol Extra Strength) atorvastatin 40 mg tablet 40 mg PO DAILY@07 08/17/20 03/25/24 metformin 500 mg tablet,extended See Rx Instructions .Route .COMPLEX 08/17/20 03/25/24 release 24 hr lorazepam 0.5 mg tablet 0.25 - 0.5 mg PO QPM 07/30/23 03/25/24 albuterol sulfate 90 mcg/actuation 2 puff inhalation Q4H PRN 03/25/24 03/25/24 aerosol inhaler Shortness Of Breath cholecalciferol (vitamin D3) 25 25 mcg PO DAILY 03/25/24 03/25/24 mcg (1,000 unit) tablet (Vitamin D3) paroxetine HCl 40 mg tablet 40 mg PO DAILY 03/25/24 03/25/24 Previous Rx's Medication Instructions Recorded nicotine 21 mg/24 hr daily 1 patch transdermal DAILY #90 ea 08/01/23 transdermal patch gabapentin 600 mg tablet 600 mg PO TID NERVE PAIN 30 days 04/01/24 #0 tabs insulin aspart U-100 100 unit/mL See Rx Instructions .Route 04/01/24 (3 mL) subcutaneous pen (Novolog .COMPLEX #15 mL FlexPen U-100 Insulin aspart) Allergies Allergy/AdvReac Type Severity Reaction Status Date / Time No Known Allergies Allergy Verified 01/01/22 15:22 [facility] ED PFS: Medical History Acute hypercapnic respiratory failure Macrocytosis Acute diastolic heart failure Fracture of second metacarpal bone of right hand Fracture of medial condyle of left elbow Supracondylar fracture of left humerus Dislocation of proximal interphalangeal joint of right index finger Diabetic neuropathy Depression with anxiety Hyperlipidemia Altered mental status Obesity hypoventilation syndrome COPD (chronic obstructive pulmonary disease) Hypertension Diabetes Respiratory failure with hypoxia and hypercapnia Respiratory failure Surgical History History of back surgery History of surgery on arm Family History Other Cancer Social History Smoking and tobacco/nicotine status: current every day tobacco/nicotine user Alcohol intake: never Course Vital Signs: Vital signs: Vital Signs Temperature 100.7 F H 06/18/24 05:13 Pulse Rate 105 H 06/18/24 08:08 Respiratory Rate 25 H 06/18/24 08:08 Blood Pressure 109/99 06/18/24 08:08 Pulse Oximetry 94 06/18/24 08:08 Oxygen Delivery Me thod Nasal Cannula 06/18/24 08:08 Oxygen Flow Rate 3 06/18/24 08:08 MDM - SOB/Dyspnea Medical Decision Making Care assumed at change of shift the patient has left lower lobe pneumonia exacerbation of COPD is tachycardic with a fever flu COVID and RSV are negative will admit started on IV antibiotics she has been patient has been given steroids recommend will continue with aggressive use of pulmonary toilet with nebulizers discussed Dr. jamil moved from the hospitalist service he will accept the patient to the medical surgical floor. Lab Data 06/18/24 05:28 06/18/24 05:50 Labs/Radiology: Radiology Impressions Chest X-Ray 06/18/24 05:19 IMPRESSION: 1. Left basilar opacity. 2. Minimal patchy infiltrate or atelectasis right lung base. 3. Cardiomegaly. Laboratory Results WBC 17.93 10^3/uL (3.29-11.43) H 06/18/24 05:28 RBC 3.21 10^6/uL (3.85-5.65) L 06/18/24 05:28 Hgb 10.90 g/dL (11.27-16.99) L 06/18/24 05:28 Hct 33.7 % (37-53) L 06/18/24 05:28 MCV 105.0 fl (82-101) H 06/18/24 05:28 MCH 34.0 pg (27-33) H 06/18/24 05:28 MCHC 32.3 g/dL (30-55) 06/18/24 05:28 RDW 12.6 % (12.1-15.1) 06/18/24 05:28 Plt Count 224 10^3/cmm (157-399) 06/18/24 05:28 MPV 9.3 fL (7.4-10.4) 06/18/24 05:28 Neut % (Auto) 84.5 % 06/18/24 05:28 Lymph % (Auto) 3.9 % 06/18/24 05:28 [place] % (Auto) 10.5 % 06/18/24 05:28 Eos % (Auto) 0.3 % 06/18/24 05:28 Baso % (Auto) 0.2 % 06/18/24 05:28 Neut # (Auto) 15.15 10^3/uL (1.8-7.7) H 06/18/24 05:28 Lymph # (Auto) 0.7 10^3/uL (0.8-4.8) L 06/18/24 05:28 [place] # (Auto) 1.9 10^3/uL (0.2-0.9) H 06/18/24 05:28 Eos # (Auto) 0.1 10^3/uL (0.0-0.8) 06/18/24 05:28 Baso # (Auto) 0.0 10^3/uL (0.0-0.1) 06/18/24 05:28 Nucleated RBC % (auto) 0 % 06/18/24 05:28 Nucleated RBCs # 0.0 /100WBC 06/18/24 05:28 Specimen Type Arterial 06/18/24 05:26 Sample Site Radial, left 06/18/24 05:26 ABG pH 7.38 (7.35-7.45) 06/18/24 05:26 ABG pCO2 55.3 mmHg (35-45) H 06/18/24 05:26 ABG pO2 68.6 mmHg (80.0-100.0) L 06/18/24 05:26 ABG PO2/FiO2 Ratio 214 06/18/24 05:26 ABG HCO3 32.4 mmol/L (22-26) H 06/18/24 05:26 ABG O2 Saturation 94.8 06/18/24 05:26 ABG Base Excess 5.9 mmol/L (-2.0-2.0) H 06/18/24 05:26 Dileep Test Pos 06/18/24 05:26 A-a O2 Gradient 12.1 mmHg (5-10) H 06/18/24 05:26 Hematocrit 34.1 % (42-52) L 06/18/24 05:26 Hgb O2 Saturation 91.3 % (95-100) L 06/18/24 05:26 Carboxyhemoglobin 2.2 %THgb (0.4-20.1) 06/18/24 05:26 Methemoglobin 1.5 % (0.4-1.5) 06/18/24 05:26 Total Hemoglobin 11.1 g/dL (14-18) L 06/18/24 05:26 Sodium 135.0 mmol/L (131-143) 06/18/24 05:26 Potassium 4.0 mmol/L (3.5-5.0) 06/18/24 05:26 Glucose 209.0 mg/dL (70-115) H 06/18/24 05:26 Ionized Calcium 1.2 mmol/L (1.1-1.4) 06/18/24 05:26 O2 Delivery Device Nc 06/18/24 05:26 O2 Liters/Min 3.0 % 06/18/24 05:26 FiO2 32.0 % 06/18/24 05:26 Shaper Hand ID Ed 06/18/24 05:26 Sodium 132 mmol/L (136-145) L 06/18/24 05:50 Potassium 4.2 mmol/L (3.5-5.1) 06/18/24 05:50 Chloride 93 mmol/L (98-107) L 06/18/24 05:50 Carbon Dioxide 28 mmol/L (22-29) 06/18/24 05:50 Anion Gap 15.2 (5-19) 06/18/24 05:50 BUN 14 mg/dL (8-23) 06/18/24 05:50 Creatinine 1.0 mg/dL (0.7-1.2) 06/18/24 05:50 GFR Calculation 73.9 mL/min (90-130) L 06/18/24 05:50 Glucose 215 mg/dL (65-115) H 06/18/24 05:50 Calculated Osmolality 281 mOsm/kg (285-295) L 06/18/24 05:50 Lactic Acid 1.4 mmol/L (0.5-2.2) 06/18/24 05:28 Calcium 8.0 mg/dL (8.5-10.5) L 06/18/24 05:50 Total Bilirubin 0.5 mg/dL (0.15-1.2) 06/18/24 05:50 AST 12 U/L (0-40) 06/18/24 05:50 ALT 11 U/L (0-41) 06/18/24 05:50 Alkaline Phosphatase 88 U/L (40-130) 06/18/24 05:50 Troponin T Baseline 13 ng/L (0-15) 06/18/24 05:50 Troponin T 120 Minute 12.54 ng/L (0-15) 06/18/24 07:43 Delta Troponin T -0.46 ABS# (0-10) L 06/18/24 07:43 NT-Pro-B Natriuret Pep 90 pg/mL (0-125) 06/18/24 05:50 Total Protein 5.6 g/dL (6.6-8.7) L 06/18/24 05:50 Albumin 3.4 g/dL (3.5-5.2) L 06/18/24 05:50 Globulin 2.2 g/dL (1.3-4.6) 06/18/24 05:50 Procalcitonin 0.50 ng/mL (0-0.5) 06/18/24 05:50 Coronavirus (PCR) Negative (Negative) 06/18/24 05:32 Influenza A (PCR) Negative (Negative) 06/18/24 05:32 Influenza Type B (PCR) Negative (Negative) 06/18/24 05:32 RSV (PCR) Negative (Negative) 06/18/24 05:32 Discharge Plan Discharge Patient Disposition: Admitted As Inpatient Clinical Impression: Community acquired pneumonia, Acute exacerbation of chronic obstructive airways disease Condition: Stable Prescriptions: No Action atorvastatin 40 mg tablet 40 mg PO DAILY@07 acetaminophen [Tylenol Extra Strength] 500 mg Tablet 1,000 mg PO DAILY PRN (Reason: Pain) metformin 500 mg tablet extended release 24 hr See Rx Instructions .ROUTE .COMPLEX Rx Instructions: TAKE 1000 mg orally in the morning AND 500 mg orally in the evening. albuterol sulfate 90 mcg/actuation HFA aerosol inhaler 2 puff INHALATION Q4H PRN (Reason: Shortness Of Breath) paroxetine HCl 40 mg tablet 40 mg PO DAILY Vitamin D3 25 mcg (1,000 unit) Tablet 25 mcg PO DAILY gabapentin 600 mg tablet 600 mg PO TID 30 Days Qty: 0 0RF Novolog FlexPen U-100 Insulin 100 unit/mL (3 mL) insulin pen See Rx Instructions .ROUTE .COMPLEX Qty: 15 0RF Rx Instructions: Inject, 3 times daily, after meals, based on sliding scale provided lorazepam 0.5 mg tablet 0.25 - 0.5 mg PO QPM nicotine 21 mg/24 hr Patch 24 Hour 1 patch transdermal DAILY Qty: 90 3RF Referrals: Harsha Ritchie MD [Physician] - Sign Out Sign Out Data: Patient Sign Out occurred on 06/18/24 at 06:00. Patient's care was discussed, and care was transferred from Willie Avendaño DO to Jay Chavez DO. Coding Level of Care Code ED Guest Room Inspector for [place]
--- NOTE | 2024-06-18 05:21 | ECG_ITS ---
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 Measurements Intervals [place] Rate: 117 P: 68 MA: 164 QRS: -43 QRSD: 89 T: 68 QT: 293 QTc: 410 Interpretive Statements SINUS TACHYCARDIA LEFT AXIS DEVIATION [QRS AXIS < -30] Compared to ECG 04/01/2024 09:16:18 Left-axis deviation now present Electronically Signed On 06-18-2024 15:55:07 [employer]ILITY OPERATOR by Magdalena White M.D. [email or web address]
[2024-06-18 05:35] LABS: Basophils % 0.2 %; Eosinophils # 0.1 10^3/uL (0.0-0.8); Eosinophils % 0.3 %; Hematocrit 33.7 % (37-53); Lymphocytes # 0.7 10^3/uL (0.8-4.8); Lymphocytes % 3.9 %; Mean Corpuscular HGB Conc 32.3 g/dL (30-55); Mean Platelet Volume 9.3 fL (7.4-10.4); Monocytes # 1.9 10^3/uL (0.2-0.9); Monocytes % 10.5 %; Neutrophils # 15.15 10^3/uL (1.8-7.7); Neutrophils % 84.5 %; Nucleated Red Blood Cells % 0 %; Platelet Count 224 10^3/cmm (157-399); Red Blood Count 3.21 10^6/uL (3.85-5.65); Red Cell Distribution Width 12.6 % (12.1-15.1); White Blood Count 17.93 10^3/uL (3.29-11.43)
[2024-06-18 05:37] LABS: ABG PCO2 55.3 mmHg (35-45); ABG PH Result 7.38 (7.35-7.45); Alveolar-Arterial Oxygen Gradi 12.1 mmHg (5-10); Arterial Blood Gas Hematocrit 34.1 % (42-52); Base Excess ABG 5.9 mmol/L (-2.0-2.0); Blood Gas Allen Test Pos; Blood Gas Operator Identificat ED; Blood Gas Sample Site Radial, left; Blood Gas Sample Type Arterial; Carboxyhemoglobin 2.2 %THgb (0.4-20.1); HCO3 ABG 32.4 mmol/L (22-26); HGB O2 Sat 91.3 % (95-100); Ionized Calcium Level - ABG 1.2 mmol/L (1.1-1.4); Methemoglobin 1.5 % (0.4-1.5); Oxygen Device NC; Oxygen Saturation ABG 94.8; PO2 ABG 68.6 mmHg (80.0-100.0); PO2 FiO2 Ratio Arterial Blood 214; Total Hemoglobin 11.1 g/dL (14-18)
[2024-06-18] MEDS: acetaminophen 500 mg Tablet 1000 MG PO (05:39)
[2024-06-18] MEDS: ipratropium-albuterol 3 mL Neb INHALATION ×5 (05:44→20:18)
[2024-06-18 05:53] LABS: Lactic Sepsis W/Reflex 1.4 mmol/L (0.5-2.2)
[2024-06-18] MEDS: levofloxacin-dextrose 5 % 750 MG/150 ML PREMIX 100 MG IV (06:10)
[2024-06-18 06:13] LABS: Covid PCR NEGATIVE (Negative); Influenza A NEGATIVE (Negative); Influenza B NEGATIVE (Negative); Respiratory Syncytial Virus Ce NEGATIVE (Negative)
[2024-06-18 06:16] LABS: Troponin(5th) Baseline 13 ng/L (0-15)
[2024-06-18 06:26] LABS: NT Pro B Type Natriuretic Pept 90 pg/mL (0-125)
[2024-06-18] MEDS: sodium chloride 0.9% 1,000 ML 999 ML IV (06:30)
[2024-06-18] MEDS: dexamethasone 10 mg/mL INJ IM (06:30)
[2024-06-18 06:37] LABS: Alanine Aminotransferase 11 U/L (0-41); Albumin Level 3.4 g/dL (3.5-5.2); Alkaline Phosphatase 88 U/L (40-130); Anion Gap 15.2 (5-19); Aspartate Amino Transferase 12 U/L (0-40); Blood Urea Nitrogen 14 mg/dL (8-23); Carbon Dioxide 28 mmol/L (22-29); Chloride 93 mmol/L (98-107); Creatinine Clr Calc Pharmacy 77.4352; Globulin 2.2 g/dL (1.3-4.6); Glomerular Filtration Rate 73.9 mL/min (90-130); Glucose 215 mg/dL (65-115); Osmolality Calculated 281 mOsm/kg (285-295); Potassium 4.2 mmol/L (3.5-5.1); Sodium 132 mmol/L (136-145); Total Bilirubin 0.5 mg/dL (0.15-1.2); Total Protein 5.6 g/dL (6.6-8.7)
[2024-06-18 08:10] LABS: Troponin 5 2HR 12.54 ng/L (0-15)
[2024-06-18 08:16] LABS: Troponin 5 2HR Delta -0.46 ABS# (0-10)
[2024-06-18] MEDS: morphine 4 mg/mL SDV 1 mL 2 MG IVP (09:17)
[2024-06-18] MEDS: ibuprofen 200 mg Tablet 400 MG PO (09:17)
--- NOTE | 2024-06-18 09:55 | P.HP_ITS ---
Providers/Chief Complaint 2 Admitting Physician: Qasim Watt MD Primary Care Provider: Francesca Buchanan NP Chief Complaint: SOB History of Present Illness Jb Borges is a 69 year old male with a past medical history of COPD, obesity hypoventilation syndrome, type 2 diabetes mellitus, who presents to [facility] for shortness of breath, cough, fevers, chills. Currently patient is alert to person, to place, not to time he follows commands, currently having a fever, on 3 L, does have diffuse wheezing in all lung [place] mild nasal flaring no intercostal retraction no suprasternal retractions, patient reports that for the last 3 days he has been feeling increasingly short of breath, with productive cough, fevers, chills, he was diagnosed with pneumonia 2 days ago in clinic, denies any chest pain, no palpitations, no abdominal pain, no calf pain, calf swelling, no hemoptysis Review of Systems 2 Const: Reports: fever(s), chills, fatigue and malaise Card: Denies: chest pain Resp: Reports: dyspnea GI: Denies: abdominal pain Medications/Allergies Home Medications Medication Instructions Recorded Confirmed Last Taken Type acetaminophen 500 mg tablet 1,000 mg PO DAILY PRN Pain 08/17/20 06/18/24 Unknown History (Tylenol Extra Strength) atorvastatin 40 mg tablet 40 mg PO DAILY@07 08/17/20 06/18/24 06/17/24 History lorazepam 0.5 mg tablet 0.25 - 0.5 mg PO QPM 07/30/23 06/18/24 06/17/24 History albuterol sulfate 90 mcg/actuation 2 puff inhalation Q4H PRN 03/25/24 06/18/24 06/18/24 History aerosol inhaler Shortness Of Breath cholecalciferol (vitamin D3) 25 25 mcg PO DAILY 03/25/24 06/18/24 06/17/24 History mcg (1,000 unit) tablet (Vitamin D3) paroxetine HCl 40 mg tablet 40 mg PO DAILY 03/25/24 06/18/24 06/17/24 History gabapentin 600 mg tablet 600 mg PO TID NERVE PAIN 30 days 04/01/24 06/18/24 06/17/24 Rx #0 tabs insulin aspart U-100 100 unit/mL See Rx Instructions .Route 04/01/24 06/18/24 Unknown Rx (3 mL) subcutaneous pen (Novolog .COMPLEX #15 mL FlexPen U-100 Insulin aspart) albuterol sulfate 2.5 mg/3 mL 2.5 mg inhalation BID PRN 06/18/24 06/18/24 06/17/24 History (0.083 %) solution for nebulization Shortness Of Breath Or Wheezing budesonide 160 mcg-glycopyr 9 2 inh inhalation BID 06/18/24 06/18/24 06/17/24 History mcg-formot 4.8 mcg/actuation HFA inhaler (Breztri Aerosphere) furosemide 40 mg tablet 40 mg PO DAILY 06/18/24 06/18/24 06/17/24 History gabapentin 800 mg tablet 800 mg PO TID 06/18/24 06/18/24 Unknown History lisinopril 5 mg tablet 5 mg PO DAILY 06/18/24 06/18/24 06/17/24 History metformin 500 mg tablet,extended 1,000 mg PO BID 06/18/24 06/18/24 06/17/24 History release 24 hr potassium chloride 20 mEq 20 meq PO DAILY 06/18/24 06/18/24 06/17/24 History tablet,extended release(part/cryst) (Klor-Con M) tamsulosin 0.4 mg capsule 0.4 mg PO BEDTIME 06/18/24 06/18/24 06/17/24 History Allergies Allergy/AdvReac Type Severity Reaction Status Date / Time No Known Allergies Allergy Verified 01/01/22 15:22 PFSH Acute 2 PFSH: Medical History Acute hypercapnic respiratory failure Macrocytosis Acute diastolic heart failure Fracture of second metacarpal bone of right hand Fracture of medial condyle of left elbow Supracondylar fracture of left humerus Dislocation of proximal interphalangeal joint of right index finger Diabetic neuropathy Depression with anxiety Hyperlipidemia Altered mental status Obesity hypoventilation syndrome COPD (chronic obstructive pulmonary disease) Hypertension Diabetes Respiratory failure with hypoxia and hypercapnia Respiratory failure Surgical History History of back surgery History of surgery on arm Family History Other Cancer Social History Smoking and tobacco/nicotine status: current every day tobacco/nicotine user Alcohol intake: never Vitals/I&O/Wt Last Vital Signs Temp 98.4 F 06/18/24 09:18 Pulse 96 06/18/24 09:18 Resp 25 H 06/18/24 08:08 BP 127/82 06/18/24 09:18 Pulse Ox 94 06/18/24 09:18 O2 Del Method Nasal Cannula 06/18/24 09:18 O2 Flow Rate 3 06/18/24 09:18 Weight last 48 hrs Weight 103.419 kg Physical Exam 2 Const: COMMON NORMALS: no acute distress and patient oriented x3 HENMT: COMMON NORMALS: normocephalic HEAD & SCALP: normocephalic Eye: COMMON NORMALS: Equal, round and reactive pupils present and EOMs intact bilaterally Neck/C-Spine: COMMON NORMALS: no JVD Resp: COMMON NORMALS: normal respiratory effort and No use of accessory muscles AUSCULTATION: crackles and wheezes OTHER: Nasal flaring, no intercostal retraction no suprasternal retractions Cardio: COMMON NORMALS: regular rate, regular rhythm, S1 normal heart sound present and S2 normal heart sound present RATE: regular rate RHYTHM: r egular rhythm HEART SOUNDS: S1 normal heart sound present and S2 normal heart sound present GI: COMMON NORMALS: Normal to inspection, nondistended, normoactive bowel sounds present, Soft to palpation and non-tender Extremity: COMMON NORMALS: no calf tenderness and no pedal edema Neuro: COMMON NORMALS: patient oriented x3, CN's II-XII intact bilaterally and moves all extremities Data 06/18/24 05:28 06/18/24 05:50 Micro: Microbiology 06/18/24 05:53 Blood Culture - Preliminary Blood SPECIMEN COLLECTED 06/18/24 05:50 Blood Culture - Preliminary Blood SPECIMEN COLLECTED A&P Assessment and plan (1) Acute hypoxic respiratory failure: (2) Pneumonia: (3) COPD exacerbation: (4) Obesity hypoventilation syndrome: Plan Acute hypoxic respiratory failure -Secondary to pneumonia, left lower lobe -Acute exacerbation -With underlying morbid obesity -With underlying obesity hypoventilation syndrome Plan -DuoNeb -Budesonide -Monitor respiratory status closely -Rocephin -Azithromycin -Sputum cultures -Solu-Medrol 40 mg IV push every 8 hours -Monitor blood cultures -Moderate dose insulin sliding scale -Monitor for fluid overload, monitor BMP hold off on Lasix for today -Lovenox for DVT prophylaxis -For tonics for GI prophylaxis -CODE STATUS, patient does not want to be intubated, I have gone over this with him multiple times, He does want CPR, defibrillation, drug per acls Attestations 2 Medical Necessity Statement*: Patient requires hospitalization, inpatient, greater than 2 midnights, for acute hypoxic respiratory failure secondary pneumonia, COPD Diagnoses Acute hypoxic respiratory failure J96.01 Pneumonia J18.9 COPD exacerbation J44.1 Obesity hypoventilation syndrome E66.2
[2024-06-18] MEDS: pantoprazole 40 mg SDV IVP (10:55)
[2024-06-18 11:27] LABS: Glucose Point of Care 333 mg/dL (70-110)
[2024-06-18] MEDS: insulin lispro 100 unit/1 mL SUBCUT ×3 (11:35→20:45)
--- NOTE | 2024-06-18 11:46 | ECG_ITS ---
[id number] Test Date: 2024-06-18 Pat Name: Jb Borges Department: Room: 255 Gender: Male Bilingual Branch Manager: : 1955 Requested By: Willie Avendaño Order Number: [id number] Flower MD: Magdalena White M.D. Measurements Intervals [place] Rate: 96 P: 48 NV: 168 QRS: -27 QRSD: 98 T: 61 QT: 327 QTc: 413 Interpretive Statements SINUS RHYTHM LOW QRS VOLTAGE IN PRECORDIAL LEADS POSSIBLE ANTERIOR MYOCARDIAL INFARCTION , OF INDETERMINATE AGE Compared to ECG 06/18/2024 05:27:56 Low QRS voltage now present No significant change Electronically Signed On 06-18-2024 16:01:45 SOLID STATE TESTER by Magdalena White M.D. [id number]
[2024-06-18 11:51] LABS: Bilirubin Urine Negative (Negative); Blood Urine Negative (Negative); Glucose Urine UA Negative (Normal); Ketones Urine Negative (Negative); Leukocyte Esterase Urine Trace (Negative); Nitrate Urine Negative (Negative); Protein Urine 1+ (Negative); Specific Gravity, Urine 1.024 (1.005-1.030); Urine Appearance Clear (CLEAR); Urine Color Dark Yellow (Yellow)
[2024-06-18 11:56] LABS: Add Urine Microscopic? YES; Bacteria Urine None Seen /hpf; Hyaline Casts Urine 8.67 /lpf; RBC Urine 0-2 /hpf (0-2); Squamous Epithelial Cell Urine 0-5 /hpf (0-5); WBC Urine 0-5 /hpf (0-5)
[2024-06-18 12:14] LABS: Troponin 5 6HR 10.17 ng/L (0-15); Troponin 5 6HR Delta -2.83 ng/L (0-12)
[2024-06-18 12:25] LABS: Procalcitonin 0.96 ng/mL (0-0.5)
[2024-06-18 12:28] LABS: Estmated Average Glucose 148; Hemoglobin A1C 6.8 % (4.0-6.0)
[2024-06-18 12:36] LABS: C Reactive Protein 292.1 mg/L (0.0-4.9); Chol HDL Ratio 1.81 mg/dL (1.0-5.00); Cholesterol 94 mg/dL (0-200); HDL Cholesterol 52 mg/dL (60-100); LDL Cholesterol Calculated 35 mg/dL (50-129); LDL HDL Ratio 0.67 RATIO (0.00-3.22); Triglycerides 33 mg/dL (0-150)
[2024-06-18] MEDS: gabapentin 400 mg Capsule 800 MG PO ×2 (15:28→20:45)
[2024-06-18 16:36] LABS: Glucose Point of Care 460 mg/dL (70-110)
[2024-06-18] MEDS: budesonide 0.5 mg/2 mL Neb INHALATION (20:18)
[2024-06-18 20:28] LABS: Glucose Point of Care 381 mg/dL (70-110)
[2024-06-18] MEDS: AZITHROMYCIN ADD-Vantage 500 MG in 0.9% NaCl ADD-Vantage 250 ML 250 MG IV (20:44)
[2024-06-18] MEDS: cefTRIAXone 1,000 mg SDV 1000 MG IVP (20:44)
[2024-06-18] MEDS: tamsulosin 0.4 mg Capsule PO (20:45)
[2024-06-19] VITALS (14 sets, daily range): BP systolic 117–147; BP diastolic 66–76; PULSE 88–100; RESP 16–26; TEMP 36.6–36.9; O2SAT 90–98
[2024-06-19] MEDS: ipratropium-albuterol 3 mL Neb INHALATION ×5 (01:05→20:08)
[2024-06-19 03:52] LABS: Basophils % 0.1 %; Lymphocytes # 0.9 10^3/uL (0.8-4.8); Lymphocytes % 3.6 %; Mean Corpuscular HGB Conc 31.4 g/dL (30-55); Mean Corpuscular Hemoglobin 33.6 pg (27-33); Mean Corpuscular Volume 107.2 fl (82-101); Monocytes # 1.9 10^3/uL (0.2-0.9); Monocytes % 7.6 %; Neutrophils # 21.78 10^3/uL (1.8-7.7); Nucleated Red Blood Cells % 0 %; Platelet Count 259 10^3/cmm (157-399); Red Blood Count 3.45 10^6/uL (3.85-5.65); Red Cell Distribution Width 12.3 % (12.1-15.1); White Blood Count 24.76 10^3/uL (3.29-11.43)
[2024-06-19 04:20] LABS: Anion Gap 15.9 (5-19); Blood Urea Nitrogen 17 mg/dL (8-23); Calcium 8.4 mg/dL (8.5-10.5); Carbon Dioxide 31 mmol/L (22-29); Chloride 95 mmol/L (98-107); Creatinine Clr Calc Pharmacy 77.4352; Glomerular Filtration Rate 73.9 mL/min (90-130); Glucose 251 mg/dL (65-115); Osmolality Calculated 294 mOsm/kg (285-295); Potassium 4.9 mmol/L (3.5-5.1); Sodium 137 mmol/L (136-145)
[2024-06-19 04:26] LABS: NT Pro B Type Natriuretic Pept 651 pg/mL (0-125); Procalcitonin 0.75 ng/mL (0-0.5)
[2024-06-19 04:40] LABS: C Reactive Protein 377.6 mg/L (0.0-4.9)
[2024-06-19] MEDS: methylPREDNISolone sod succ 40 mg/mL INJ IVP (05:04)
[2024-06-19] MEDS: atorvastatin 40 mg Tablet PO (06:01)
[2024-06-19 06:28] LABS: Glucose Point of Care 247 mg/dL (70-110)
--- NOTE | 2024-06-19 07:00 | XRR_ITS ---
PROCEDURE INFORMATION: Exam: XR Chest Exam date and time: 06/19/2024 8:46 AM Age: 69 years old Clinical indication: Shortness of breath; Additional info: SOB TECHNIQUE: Imaging protocol: Radiologic exam of the chest. Views: 1 view. COMPARISON: CR (CHEST, ) 06/18/2024 5:29 AM FINDINGS: Lungs: There is persistent opacity at the left lung base slightly improved when compared to prior exam. Lungs are otherwise clear. Pleural spaces: Component of pleural fluid at the left lung base is suspected. Heart/Mediastinum: The heart is enlarged. Bones/joints: Unremarkable. XR/XR chest 1V portable [id number] IMPRESSION: 1. Cardiomegaly. 2. Left basilar opacity improved.
[2024-06-19] MEDS: budesonide 0.5 mg/2 mL Neb INHALATION ×2 (07:50→20:08)
[2024-06-19] MEDS: gabapentin 400 mg Capsule 800 MG PO ×3 (08:43→21:20)
[2024-06-19] MEDS: PARoxetine 20 mg Tablet 40 MG PO (08:43)
[2024-06-19] MEDS: insulin lispro 100 unit/1 mL SUBCUT ×3 (08:44→22:58)
--- NOTE | 2024-06-19 10:36 | PHA.VACGOAL ---
Vancomycin Goal - Goal Vancomycin Goal:: 15-20 mg/L Vancomycin Indication:: Pneumonia - Therapy Current therapy:: Pip/Tazo Day of therpy:: Day 1 of [] Actual body weight (kg): 228 lb 8 oz - Data Labs: WBC 24.76 10^3/uL (3.29-11.43) H 06/19/24 03:33 RBC 3.45 10^6/uL (3.85-5.65) L 06/19/24 03:33 Hgb 11.60 g/dL (11.27-16.99) 06/19/24 03:33 Hct 37.0 % (37-53) 06/19/24 03:33 MCV 107.2 fl (82-101) H 06/19/24 03:33 MCH 33.6 pg (27-33) H 06/19/24 03:33 MCHC 31.4 g/dL (30-55) 06/19/24 03:33 RDW 12.3 % (12.1-15.1) 06/19/24 03:33 Sodium 137 mmol/L (136-145) 06/19/24 03:33 Potassium 4.9 mmol/L (3.5-5.1) 06/19/24 03:33 Chloride 95 mmol/L (98-107) L 06/19/24 03:33 Carbon Dioxide 31 mmol/L (22-29) H 06/19/24 03:33 Anion Gap 15.9 (5-19) 06/19/24 03:33 BUN 17 mg/dL (8-23) 06/19/24 03:33 Creatinine 1.0 mg/dL (0.7-1.2) 06/19/24 03:33 GFR Calculation 73.9 mL/min (90-130) L 06/19/24 03:33 Last dialysis session:: N/A Treatment plan:: new consult Regimen:: Loading dose of 3000 mg per dosing protocol for indication. Maintenance dose will be 1500 mg Q12H. Follow up:: Will follow up and monitor daily
[2024-06-19] MEDS: vancomycin 3,000 MG/600 ML PIGGYBACK 200 MG IV (11:46)
[2024-06-19] MEDS: pantoprazole 40 mg SDV IVP (11:47)
[2024-06-19] MEDS: enoxaparin 40 mg/0.4 mL Syringe SUBCUT (11:47)
[2024-06-19 11:52] LABS: Glucose Point of Care 406 mg/dL (70-110)
[2024-06-19] MEDS: insulin glargine 100 units/1 mL 10 UNIT SUBCUT (14:53)
--- NOTE | 2024-06-19 15:35 | PC.NURSE ---
1455- This nurse attempted to give pt one time dose of 40 mg IVP Lasix. When educating pt of medication, the pt refused. He stated he urinates a lot and was not adding that medicine to it. Physician notified.
[2024-06-19 16:22] LABS: Glucose Point of Care 517 mg/dL (70-110)
[2024-06-19] MEDS: insulin lispro 100 unit/1 mL 18 UNIT SUBCUT (16:35)
[2024-06-19] MEDS: piperacillin-tazobactam 3.375 GM in sodium chloride 0.9% (plus) 50 ML IV (16:35)
[2024-06-19 17:46] LABS: Glucose Point of Care 503 mg/dL (70-110)
[2024-06-19 17:46] LABS: Glucose Point of Care 557 mg/dL (70-110)
[2024-06-19] MEDS: insulin lispro 100 unit/1 mL 10 UNIT SUBCUT ×2 (18:13→19:41)
[2024-06-19 18:17] LABS: ABG PH Result 7.27 (7.35-7.45); Alveolar-Arterial Oxygen Gradi 9.4 mmHg (5-10); Arterial Blood Gas Hematocrit 33.3 % (42-52); Base Excess ABG 1.4 mmol/L (-2.0-2.0); Blood Gas Allen Test Pos; Blood Gas Operator Identificat MONRO; Blood Gas Sample Site Radial, left; Blood Gas Sample Type Arterial; Carboxyhemoglobin 0.8 %THgb (0.4-20.1); HCO3 ABG 29.5 mmol/L (22-26); HGB O2 Sat 94.3 % (95-100); Ionized Calcium Level - ABG 1.2 mmol/L (1.1-1.4); Methemoglobin 0.5 % (0.4-1.5); Oxygen Device NC; Oxygen Saturation ABG 95.5; PO2 ABG 78.3 mmHg (80.0-100.0); PO2 FiO2 Ratio Arterial Blood 244; Total Hemoglobin 10.9 g/dL (14-18)
[2024-06-19 18:18] LABS: ABG PCO2 63.9 mmHg (35-45)
[2024-06-19 18:34] LABS: Anion Gap 14.4 (5-19); Blood Urea Nitrogen 20 mg/dL (8-23); Calcium 8.3 mg/dL (8.5-10.5); Carbon Dioxide 28 mmol/L (22-29); Chloride 90 mmol/L (98-107); Creatinine Clr Calc Pharmacy 77.5234; Glomerular Filtration Rate 73.9 mL/min (90-130); Osmolality Calculated 290 mOsm/kg (285-295); Potassium 5.4 mmol/L (3.5-5.1); Sodium 127 mmol/L (136-145)
[2024-06-19 18:36] LABS: Glucose 525 mg/dL (65-115); Ketone (Acetest) Serum Negative (Negative)
[2024-06-19 19:10] LABS: Glucose Point of Care 506 mg/dL (70-110)
[2024-06-19 19:10] LABS: Glucose Point of Care 510 mg/dL (70-110)
[2024-06-19] MEDS: acetaminophen 325 mg Tablet 650 MG PO (19:45)
[2024-06-19 21:05] LABS: Glucose Point of Care 428 mg/dL (70-110)
[2024-06-19] MEDS: tamsulosin 0.4 mg Capsule PO (21:21)
[2024-06-19] MEDS: insulin regular-human 10 UNIT in SYRINGE 1 EACH IVP (21:53)
[2024-06-19 22:57] LABS: Glucose Point of Care 379 mg/dL (70-110)
[2024-06-19] MEDS: vancomycin 1,500 MG/300 ML PIGGYBACK 200 MG IV (22:59)
--- NOTE | 2024-06-19 23:42 | PC.NURSE ---
Patient handoff report given to Ciro Fisher RN at this time.
[2024-06-20] VITALS (17 sets, daily range): BP systolic 121–158; BP diastolic 54–72; PULSE 87–123; RESP 15–20; TEMP 36.3–36.8; O2SAT 90–96
[2024-06-20 00:05] LABS: Glucose Point of Care 376 mg/dL (70-110)
[2024-06-20] MEDS: piperacillin-tazobactam 3.375 GM in sodium chloride 0.9% (plus) 50 ML IV ×3 (00:23→15:50)
[2024-06-20] MEDS: ipratropium-albuterol 3 mL Neb INHALATION ×5 (02:59→19:59)
[2024-06-20] MEDS: acetaminophen 325 mg Tablet 650 MG PO (04:42)
[2024-06-20 05:53] LABS: Basophils % 0.2 %; Hematocrit 37.9 % (37-53); Lymphocytes # 1.4 10^3/uL (0.8-4.8); Lymphocytes % 6.7 %; Mean Corpuscular HGB Conc 31.4 g/dL (30-55); Mean Corpuscular Hemoglobin 34.4 pg (27-33); Mean Corpuscular Volume 109.5 fl (82-101); Mean Platelet Volume 9.3 fL (7.4-10.4); Monocytes # 1.4 10^3/uL (0.2-0.9); Monocytes % 6.9 %; Neutrophils # 17.17 10^3/uL (1.8-7.7); Neutrophils % 84.5 %; Nucleated Red Blood Cells % 0 %; Platelet Count 266 10^3/cmm (157-399); Red Blood Count 3.46 10^6/uL (3.85-5.65); Red Cell Distribution Width 12.7 % (12.1-15.1); White Blood Count 20.29 10^3/uL (3.29-11.43)
[2024-06-20 06:02] LABS: Anion Gap 14.1 (5-19); Blood Urea Nitrogen 17 mg/dL (8-23); Calcium 8.9 mg/dL (8.5-10.5); Carbon Dioxide 31 mmol/L (22-29); Chloride 97 mmol/L (98-107); Creatinine Clr Calc Pharmacy 77.5234; Glomerular Filtration Rate 73.9 mL/min (90-130); Glucose 262 mg/dL (65-115); Osmolality Calculated 295 mOsm/kg (285-295); Potassium 5.1 mmol/L (3.5-5.1); Sodium 137 mmol/L (136-145)
[2024-06-20 06:11] LABS: NT Pro B Type Natriuretic Pept 1284 pg/mL (0-125); Procalcitonin 0.57 ng/mL (0-0.5)
[2024-06-20 06:22] LABS: C Reactive Protein 174.4 mg/L (0.0-4.9)
[2024-06-20] MEDS: atorvastatin 40 mg Tablet PO (06:31)
[2024-06-20 06:49] LABS: Glucose Point of Care 253 mg/dL (70-110)
[2024-06-20] MEDS: budesonide 0.5 mg/2 mL Neb INHALATION ×2 (07:42→19:59)
[2024-06-20] MEDS: predniSONE 20 mg Tablet 40 MG PO (08:06)
[2024-06-20] MEDS: PARoxetine 20 mg Tablet 40 MG PO (08:06)
[2024-06-20] MEDS: insulin lispro 100 unit/1 mL SUBCUT ×4 (08:06→21:00)
[2024-06-20] MEDS: gabapentin 400 mg Capsule 800 MG PO ×3 (08:06→20:20)
[2024-06-20] MEDS: insulin glargine 100 units/1 mL 20 UNIT SUBCUT (09:12)
--- NOTE | 2024-06-20 09:24 | PC.CHAP ---
Pastoral Care Encounter/Spiritual Assessment Type of Contact [] Declined roofer vinyl coating visit [] Patient/Family/Request visit [] Outpatient visit [] Follow-up visit [] Physician referral [] Code/Alert [x] Routine visit [] Staff referral [] Actively dying [] Patient sleeping [] Family support [] [] Out of room [] Palliative care [] [] Receiving care in room [] Pre-surgical visit [] Trauma [] Long length of stay [] ICU visit [] Other: Relational/Emotional Strength [] Patient feels connected with others/family/visitors/staff [] Distress [] Loneliness/isolation [] Abandonment Spirituality of Patient [x] Person of [place] [] Attends Orthodox of their [place] [x] Believes in Prayer [] Reads Bible or Mosque materials [] There are Spiritual issues to be addressed Scissors Sharpener Interventions [x] Prayer [x] Active listening [] Non-anxious presence [] Spiritual/emotional support [] Crisis/trauma care [] Spiritual counseling [] Bereavement support [] Provided bereavement packet [x] Provided Bible/devotional materials [] Provided toy/stuffed animal, coloring book to patient or family member [] Provided Communion [] Anointing/[place] [] Salvation [x] Completed spiritual assessment [] Other: Impact on Illness or Injury [] Angry [] Fearful [] Anxious [] Often cries [] Exhaustion [] Unable to work [] Unable to attend episcopalian [] Unable to walk/stand [] Unable to read [] Unable to drive [] Unable to eat/drink [] Unable to sleep [] Unable to be with family [] Patient intubated [] Other: Summary Time spent with patient 5 min
[2024-06-20] MEDS: pantoprazole 40 mg SDV IVP (09:44)
[2024-06-20] MEDS: FUROsemide 10 mg/mL SDV 4mL 40 MG IVP (09:44)
[2024-06-20] MEDS: enoxaparin 40 mg/0.4 mL Syringe SUBCUT (09:44)
[2024-06-20 11:32] LABS: Glucose Point of Care 284 mg/dL (70-110)
[2024-06-20] MEDS: benzonatate 100 mg Capsule 200 MG PO (11:35)
[2024-06-20] MEDS: morphine 4 mg/mL SDV 1 mL 2 MG IVP (11:48)
[2024-06-20] MEDS: vancomycin 1,500 MG/300 ML PIGGYBACK 200 MG IV ×2 (11:50→23:00)
--- NOTE | 2024-06-20 13:57 | P.PN_ITS ---
Subjective 2 Subjective: This is progress note from 06/19/2024 Patient was seen this morning, patient wants to go home, however I convinced him to stay in the hospital, given his elevated white blood cell count, we will broaden his antibiotic coverage to Vanco and Zosyn, he is agreeable Vitals/I&O/Wt Last Vital Signs Temp 98.0 F 06/20/24 12:00 Pulse 113 H 06/20/24 12:00 Resp 20 H 06/20/24 12:00 BP 158/65 06/20/24 12:00 Pulse Ox 90 06/20/24 12:00 O2 Del Method Nasal Cannula 06/20/24 12:00 O2 Flow Rate 3 06/20/24 11:24 06/19/24 06/20/24 06/20/24 22:59 06:59 14:59 Intake Total 1490.1 / 1490.1 350 / 1840.1 1310 / 1310 Output Total 850 / 850 1350 / 2200 1675 / 1675 Balance 640.1 / 640.1 -1000 / -359.9 -365 / -365 Weight last 48 hrs Weight 103.646 kg Physical Exam 2 Const: COMMON NORMALS: no acute distress and patient oriented x3 Resp: COMMON NORMALS: normal respiratory effort, No retractions and No use of accessory muscles AUSCULTATION: crackles Cardio: COMMON NORMALS: regular rate, regular rhythm, S1 normal heart sound present and S2 normal heart sound present RATE: regular rate RHYTHM: r egular rhythm HEART SOUNDS: S1 normal heart sound present and S2 normal heart sound present GI: COMMON NORMALS: Normal to inspection, nondistended, normoactive bowel sounds present and non-tender Extremity: NARRATIVE EXTREMITY EXAM: 1+ pitting edema Neuro: COMMON NORMALS: patient oriented x3 Psych: COMMON NORMALS: mental status grossly normal Data 06/20/24 04:42 06/20/24 04:42 Micro: Microbiology 06/19/24 21:22 Gram Stain - Final Sputum - Expectorated Sputum A&P Assessment and plan (1) Acute hypoxic respiratory failure: (2) Pneumonia: (3) COPD exacerbation: (4) Obesity hypoventilation syndrome: Plan Acute hypoxic respiratory failure -Secondary to pneumonia, left lower lobe -Acute exacerbation -With underlying morbid obesity -With underlying obesity hypoventilation syndrome Plan -DuoNeb -Budesonide -Monitor respiratory status closely -Rocephin -Azithromycin -Sputum cultures -Solu-Medrol 40 mg IV push every 8 hours -Monitor blood cultures -Moderate dose insulin sliding scale -Monitor for fluid overload, monitor BMP hold off on Lasix for today -Lovenox for DVT prophylaxis -For tonics for GI prophylaxis -CODE STATUS, patient does not want to be intubated, I have gone over this with him multiple times, He does want CPR, defibrillation, drug per acls Attestations 2 Medical Necessity Statement*: Patient requires hospitalization for pneumonia, COPD Diagnoses Acute hypoxic respiratory failure J96.01 Pneumonia J18.9 COPD exacerbation J44.1 Obesity hypoventilation syndrome E66.2
--- NOTE | 2024-06-20 14:00 | P.PN_ITS ---
Subjective 2 Subjective: This is progress note from 06/20/2024 Patient was seen this morning, he had episodes of hypoglycemia during the night, currently his blood sugars are more under control, we discussed continued inpatient monitoring his white blood cell count is 20,000, does have wheezing on examination, has pitting edema, he is agreeable to Lasix today, he refused Lasix yesterday afternoon, agreeable for further inpatient monitoring Vitals/I&O/Wt Last Vital Signs Temp 98.0 F 06/20/24 12:00 Pulse 113 H 06/20/24 12:00 Resp 20 H 06/20/24 12:00 BP 158/65 06/20/24 12:00 Pulse Ox 90 06/20/24 12:00 O2 Del Method Nasal Cannula 06/20/24 12:00 O2 Flow Rate 3 06/20/24 11:24 06/19/24 06/20/24 06/20/24 22:59 06:59 14:59 Intake Total 1490.1 / 1490.1 350 / 1840.1 1310 / 1310 Output Total 850 / 850 1350 / 2200 1675 / 1675 Balance 640.1 / 640.1 -1000 / -359.9 -365 / -365 Weight last 48 hrs Weight 103.646 kg Physical Exam 2 Const: COMMON NORMALS: no acute distress and patient oriented x3 Resp: COMMON NORMALS: normal respiratory effort, No retractions and No use of accessory muscles AUSCULTATION: crackles and wheezes Cardio: COMMON NORMALS: regular rate, regular rhythm, S1 normal heart sound present and S2 normal heart sound present RATE: regular rate RHYTHM: r egular rhythm HEART SOUNDS: S1 normal heart sound present and S2 normal heart sound present GI: COMMON NORMALS: Normal to inspection, nondistended, normoactive bowel sounds present and non-tender Extremity: COMMON NORMALS: no pedal edema Neuro: COMMON NORMALS: patient oriented x3 Psych: COMMON NORMALS: mental status grossly normal Data 06/20/24 04:42 06/20/24 04:42 Micro: Microbiology 06/19/24 21:22 Gram Stain - Final Sputum - Expectorated Sputum A&P Assessment and plan (1) Acute hypoxic respiratory failure: (2) Pneumonia: (3) COPD exacerbation: (4) Obesity hypoventilation syndrome: Plan Acute hypoxic respiratory failure -Secondary to pneumonia, left lower lobe -Acute exacerbation of COPD, now with fluid overload -With underlying morbid obesity -With underlying obesity hypoventilation syndrome Plan -DuoNeb -Budesonide -Monitor respiratory status closely -Antibiotic coverage broadened to vancomycin, Zosyn -Sputum cultures -Prednisone 40 mg daily -Monitor blood cultures -Moderate dose insulin sliding scale -Crackles on exam, 1+ edema, 1 dose IV push Lasix -Lovenox for DVT prophylaxis -For tonics for GI prophylaxis -CODE STATUS, patient does not want to be intubated, I have gone over this with him multiple times, He does want CPR, defibrillation, drug per acls Attestations 2 Medical Necessity Statement*: Patient requires hospitalization for acute hypoxic respiratory failure secondary to left lower lobe pneumonia,, now with fluid overload requiring IV Lasix Diagnoses Acute hypoxic respiratory failure J96.01 Pneumonia J18.9 COPD exacerbation J44.1 Obesity hypoventilation syndrome E66.2
[2024-06-20 14:43] LABS: Glucose Point of Care 346 mg/dL (70-110)
[2024-06-20 15:53] LABS: Glucose Point of Care 377 mg/dL (70-110)
--- NOTE | 2024-06-20 19:55 | PC.NURSE ---
Shift Assessment: During shift assessment pt refused for this nurse to assess skin or legs for edema. Still a bit drowsy from Morphine administration earlier by day shift nurse but awakes to entering the room and answers questions appropriately. Refusing harshil ansari - says they make his mouth too dry. Sitting in a chair, call light is within reach.
[2024-06-20] MEDS: tamsulosin 0.4 mg Capsule PO (20:20)
--- NOTE | 2024-06-20 20:28 | PC.NURSE ---
Pt is showing jerky, uncoordinated movements. Is A&OX3 with equal digital press operator. Pt states he is nervous. Physician notified and ABG ordered but pt says he will not wear the bipap because I hate those things .
[2024-06-20 20:34] LABS: ABG PCO2 54.2 mmHg (35-45); ABG PH Result 7.36 (7.35-7.45); Arterial Blood Gas Hematocrit 35.1 % (42-52); Base Excess ABG 4.1 mmol/L (-2.0-2.0); Blood Gas Allen Test Pos; Blood Gas Sample Type Arterial; HCO3 ABG 30.6 mmol/L (22-26); PO2 ABG 74.6 mmHg (80.0-100.0)
[2024-06-20 20:36] LABS: Blood Gas Operator Identificat ED; Blood Gas Sample Site Radial, left; Oxygen Device NC; PO2 FiO2 Ratio Arterial Blood 233
[2024-06-20 20:48] LABS: Glucose Point of Care 351 mg/dL (70-110)
[2024-06-21] VITALS: BP 145/55; PULSE 110; RESP 17; TEMP 36.3; O2SAT 93
[2024-06-21] MEDS: piperacillin-tazobactam 3.375 GM in sodium chloride 0.9% (plus) 50 ML IV ×2 (00:37→06:34)
[2024-06-21 03:37] VITALS: PULSE 101; RESP 17; O2SAT 98
[2024-06-21] MEDS: ipratropium-albuterol 3 mL Neb INHALATION ×2 (03:37→08:32)
[2024-06-21 03:43] VITALS: PULSE 94
[2024-06-21 04:00] VITALS: BP 141/61; PULSE 106; RESP 17; TEMP 36.2; O2SAT 95
[2024-06-21 05:02] LABS: Basophils % 0.2 %; Eosinophils % 0.1 %; Hematocrit 33.9 % (37-53); Lymphocytes # 1.4 10^3/uL (0.8-4.8); Lymphocytes % 11.1 %; Mean Corpuscular HGB Conc 31.6 g/dL (30-55); Mean Corpuscular Hemoglobin 33.8 pg (27-33); Mean Corpuscular Volume 106.9 fl (82-101); Monocytes # 1.1 10^3/uL (0.2-0.9); Monocytes % 9.1 %; Neutrophils # 9.56 10^3/uL (1.8-7.7); Nucleated Red Blood Cells % 0 %; Platelet Count 253 10^3/cmm (157-399); Red Blood Count 3.17 10^6/uL (3.85-5.65); Red Cell Distribution Width 12.8 % (12.1-15.1); White Blood Count 12.42 10^3/uL (3.29-11.43)
[2024-06-21 05:26] LABS: Anion Gap 14.3 (5-19); Blood Urea Nitrogen 13 mg/dL (8-23); Calcium 8.8 mg/dL (8.5-10.5); Carbon Dioxide 29 mmol/L (22-29); Chloride 93 mmol/L (98-107); Creatinine Clr Calc Pharmacy 77.5234; Glomerular Filtration Rate 73.9 mL/min (90-130); Glucose 288 mg/dL (65-115); Osmolality Calculated 285 mOsm/kg (285-295); Potassium 4.3 mmol/L (3.5-5.1); Sodium 132 mmol/L (136-145)
[2024-06-21 05:30] LABS: NT Pro B Type Natriuretic Pept 1316 pg/mL (0-125)
[2024-06-21 05:44] LABS: C Reactive Protein 72.7 mg/L (0.0-4.9)
[2024-06-21 05:51] LABS: Procalcitonin 0.38 ng/mL (0-0.5)
[2024-06-21 06:28] LABS: Glucose Point of Care 324 mg/dL (70-110)
[2024-06-21] MEDS: insulin glargine 100 units/1 mL 20 UNIT SUBCUT (06:34)
[2024-06-21] MEDS: atorvastatin 40 mg Tablet PO (06:34)
[2024-06-21 08:00] VITALS: PULSE 90; RESP 16; O2SAT 94
[2024-06-21] MEDS: insulin lispro 100 unit/1 mL SUBCUT (08:02)
[2024-06-21] MEDS: gabapentin 400 mg Capsule 800 MG PO (08:04)
[2024-06-21] MEDS: PARoxetine 20 mg Tablet 40 MG PO (08:05)
[2024-06-21] MEDS: predniSONE 20 mg Tablet 40 MG PO (08:06)
[2024-06-21 08:10] VITALS: BP 145/72; PULSE 126; RESP 18; TEMP 36.4; O2SAT 93
[2024-06-21] MEDS: budesonide 0.5 mg/2 mL Neb INHALATION (08:32)
[2024-06-21] MEDS: acetaminophen 325 mg Tablet 650 MG PO (08:43)
--- NOTE | 2024-06-21 10:33 | PM.DCS ---
Discharge Providers Date of Admission: 06/18/24 08:27 Date of Discharge: June 21, 2024 Attending Provider at Admission: Qasim Watt MD Attending Provider at Discharge: Qasim Watt MD Primary Care Provider: Francesca Buchanan NP Diagnoses at Discharge Discharge Diagnosis (1) Acute hypoxic respiratory failure: Status: Acute (2) Pneumonia: Status: Resolved (3) COPD exacerbation: Status: Acute (4) Obesity hypoventilation syndrome: Status: Acute Reason for Visit Reason for Visit: SOB Hospital Course Hospital Course Jb Borges is a 69 year old male with a past medical history of COPD, obesity hypoventilation syndrome, type 2 diabetes mellitus, who presents to [facility] for shortness of breath, cough, fevers, chills. Currently patient is alert to person, to place, not to time he follows commands, currently having a fever, on 3 L, does have diffuse wheezing in all lung [place] mild nasal flaring no intercostal retraction no suprasternal retractions, patient reports that for the last 3 days he has been feeling increasingly short of breath, with productive cough, fevers, chills, he was diagnosed with pneumonia 2 days ago in clinic, denies any chest pain, no palpitations, no abdominal pain, no calf pain, calf swelling, no hemoptysis This is a 69-year-old male who presents [facility] for acute hypoxic respiratory failure secondary to pneumonia, left lower lobe, COPD, fluid overload, requiring inpatient admission, IV antibiotics, steroid therapy, diuretic therapy overall clinically monitored. Patient at times was noncompliant with his BiPAP therapy although I strongly recommended it for his hypercarbic respiratory failure. Overall his clinical status has improved, I have recommended for patient to spend another night in the hospital for further diuresis, further IV antibiotics, and blood sugar management however patient declines. He understands the morbidity and mortality, voiced understanding, all questions answered, is adamant about going home. Will discharge him on a insulin sliding scale, Lantus 10 units subcut daily, monitor blood sugars closely, follow-up with primary care provider as outpatient. Discharge on Levaquin for antibiotic coverage. Prednisone burst. Continue home Lasix with potassium replacement therapy. Fluid restrictions at 1000 cc daily. Physical Exam Const: COMMON NORMALS: no acute distress and patient oriented x3 Resp: COMMON NORMALS: normal respiratory effort, No retractions, No use of accessory muscles and clear to auscultation bilaterally AUSCULTATION: clear to auscultation bilaterally Cardio: COMMON NORMALS: regular rate, regular rhythm, S1 normal heart sound present and S2 normal heart sound present RATE: regular rate RHYTHM: regular rhythm HEART SOUNDS: S1 normal heart sound present and S2 normal heart sound present GI: COMMON NORMALS: Normal to inspection, nondistended, normoactive bowel sounds present and non-tender Extremity: COMMON NORMALS: no pedal edema Neuro: COMMON NORMALS: patient oriented x3 Psych: COMMON NORMALS: mental status grossly normal Discharge Data Studies Completed and Pending Completed Studies During Hospitalization Category Date Time Status XR chest 1V portable [id number] Routine Exams 06/19/24 07:00 Completed XR chest 1V portable [id number] Stat Exams 06/18/24 05:19 Completed Pending at discharge Category Date Time Status Blood Culture Stat Lab 06/18/24 05:53 Results Sputum Culture and Gram Stain Stat Lab 06/19/24 21:22 Results Vancomycin Trough Timed Lab 06/21/24 11:00 Ordered Radiology Impressions Chest X-Ray 06/19/24 07:00 IMPRESSION: 1. Cardiomegaly. 2. Left basilar opacity improved. Laboratory Results WBC 12.42 10^3/uL (3.29-11.43) H 06/21/24 04:52 RBC 3.17 10^6/uL (3.85-5.65) L 06/21/24 04:52 Hgb 10.70 g/dL (11.27-16.99) L 06/21/24 04:52 Hct 33.9 % (37-53) L 06/21/24 04:52 MCV 106.9 fl (82-101) H 06/21/24 04:52 MCH 33.8 pg (27-33) H 06/21/24 04:52 MCHC 31.6 g/dL (30-55) 06/21/24 04:52 RDW 12.8 % (12.1-15.1) 06/21/24 04:52 Plt Count 253 10^3/cmm (157-399) 06/21/24 04:52 MPV 9.0 fL (7.4-10.4) 06/21/24 04:52 Neut % (Auto) 77.0 % 06/21/24 04:52 Lymph % (Auto) 11.1 % 06/21/24 04:52 [place] % (Auto) 9.1 % 06/21/24 04:52 Eos % (Auto) 0.1 % 06/21/24 04:52 Baso % (Auto) 0.2 % 06/21/24 04:52 Neut # (Auto) 9.56 10^3/uL (1.8-7.7) H 06/21/24 04:52 Lymph # (Auto) 1.4 10^3/uL (0.8-4.8) 06/21/24 04:52 [place] # (Auto) 1.1 10^3/uL (0.2-0.9) H 06/21/24 04:52 Eos # (Auto) 0.0 10^3/uL (0.0-0.8) 06/21/24 04:52 Baso # (Auto) 0.0 10^3/uL (0.0-0.1) 06/21/24 04:52 Nucleated RBC % (auto) 0 % 06/21/24 04:52 Nucleated RBCs # 0.0 /100WBC 06/21/24 04:52 Specimen Type Arterial 06/20/24 20:25 Sample Site Radial, left 06/20/24 20:25 ABG pH 7.36 (7.35-7.45) 06/20/24 20:25 ABG pCO2 54.2 mmHg (35-45) H 06/20/24 20:25 ABG pO2 74.6 mmHg (80.0-100.0) L 06/20/24 20:25 ABG PO2/FiO2 Ratio 233 06/20/24 20:25 ABG HCO3 30.6 mmol/L (22-26) H 06/20/24 20:25 ABG O2 Saturation 95.5 06/19/24 18:03 ABG Base Excess 4.1 mmol/L (-2.0-2.0) H 06/20/24 20:25 Dileep Test Pos 06/20/24 20:25 A-a O2 Gradient 9.4 mmHg (5-10) 06/19/24 18:03 Hematocrit 35.1 % (42-52) L 06/20/24 20:25 Hgb O2 Saturation 94.3 % (95-100) L 06/19/24 18:03 Carboxyhemoglobin 0.8 %THgb (0.4-20.1) 06/19/24 18:03 Methemoglobin 0.5 % (0.4-1.5) 06/19/24 18:03 Total Hemoglobin 10.9 g/dL (14-18) L 06/19/24 18:03 Sodium 131.0 mmol/L (131-143) 06/19/24 18:03 Potassium 5.0 mmol/L (3.5-5.0) 06/19/24 18:03 Glucose 492.0 mg/dL (70-115) H 06/19/24 18:03 Ionized Calcium 1.2 mmol/L (1.1-1.4) 06/19/24 18:03 O2 Delivery Device Nc 06/20/24 20:25 O2 Liters/Min 3.0 % 06/20/24 20:25 FiO2 32.0 % 06/20/24 20:25 Refrigerator Car Icer ID Ed 06/20/24 20:25 Sodium 132 mmol/L (136-145) L 06/21/24 04:52 Potassium 4.3 mmol/L (3.5-5.1) 06/21/24 04:52 Chloride 93 mmol/L (98-107) L 06/21/24 04:52 Carbon Dioxide 29 mmol/L (22-29) 06/21/24 04:52 Anion Gap 14.3 (5-19) 06/21/24 04:52 BUN 13 mg/dL (8-23) 06/21/24 04:52 Creatinine 1.0 mg/dL (0.7-1.2) 06/21/24 04:52 GFR Calculation 73.9 mL/min (90-130) L 06/21/24 04:52 Glucose 288 mg/dL (65-115) H 06/21/24 04:52 POC Glucose 324 mg/dL (70-110) H 06/21/24 06:20 Estimat Average Glucose 148 06/18/24 11:41 Hemoglobin A1c 6.8 % (4.0-6.0) H 06/18/24 11:41 Calculated Osmolality 285 mOsm/kg (285-295) 06/21/24 04:52 Lactic Acid 1.4 mmol/L (0.5-2.2) 06/18/24 05:28 Calcium 8.8 mg/dL (8.5-10.5) 06/21/24 04:52 Total Bilirubin 0.5 mg/dL (0.15-1.2) 06/18/24 05:50 AST 12 U/L (0-40) 06/18/24 05:50 ALT 11 U/L (0-41) 06/18/24 05:50 Alkaline Phosphatase 88 U/L (40-130) 06/18/24 05:50 Troponin T Baseline 13 ng/L (0-15) 06/18/24 05:50 Troponin T 120 Minute 12.54 ng/L (0-15) 06/18/24 07:43 Delta Troponin T -0.46 ABS# (0-10) L 06/18/24 07:43 Troponin T Hi Sens 6Hr 10.17 ng/L (0-15) 06/18/24 11:41 Troponin T Hi Sens 6Hr Delta -2.83 ng/L (0-12) L 06/18/24 11:41 C-Reactive Protein 72.7 mg/L (0.0-4.9) H 06/21/24 04:52 NT-Pro-B Natriuret Pep 1316 pg/mL (0-125) H 06/21/24 04:52 Total Protein 5.6 g/dL (6.6-8.7) L 06/18/24 05:50 Albumin 3.4 g/dL (3.5-5.2) L 06/18/24 05:50 Globulin 2.2 g/dL (1.3-4.6) 06/18/24 05:50 Triglycerides 33 mg/dL (0-150) 06/18/24 11:41 Cholesterol 94 mg/dL (0-200) 06/18/24 11:41 LDL Cholesterol, Calc 35 mg/dL (50-129) L 06/18/24 11:41 HDL Cholesterol 52 mg/dL (60-100) L 06/18/24 11:41 LDL/HDL Ratio 0.67 RATIO (0.00-3.22) 06/18/24 11:41 Cholesterol/HDL Ratio 1.81 mg/dL (1.0-5.00) 06/18/24 11:41 Procalcitonin 0.38 ng/mL (0-0.5) 06/21/24 04:52 TSH 0.40 uIU/mL (0.27-4.20) 06/18/24 11:41 Urine Color Dark yellow (Yellow) A 06/18/24 11:15 Urine Appearance Clear (CLEAR) 06/18/24 11:15 Urine pH 5.0 (5-7) 06/18/24 11:15 Ur Specific [place] 1.024 (1.005-1.030) 06/18/24 11:15 Urine Protein 1+ (Negative) A 06/18/24 11:15 Urine Glucose (UA) Negative (Normal) 06/18/24 11:15 Urine Ketones Negative (Negative) 06/18/24 11:15 Urine Blood Negative (Negative) 06/18/24 11:15 Urine Nitrate Negative (Negative) 06/18/24 11:15 Urine Bilirubin Negative (Negative) 06/18/24 11:15 Urine Urobilinogen 1.0 mg/dL (Negative) 06/18/24 11:15 Ur Leukocyte Esterase Trace (Negative) A 06/18/24 11:15 Urine RBC 0-2 /hpf (0-2) 06/18/24 11:15 Urine WBC 0-5 /hpf (0-5) 06/18/24 11:15 Ur Squamous Epith Cells 0-5 /hpf (0-5) 06/18/24 11:15 Amorphous Sediment Not Reportable 06/18/24 11:15 Urine Bacteria None seen /hpf (NONE) 06/18/24 11:15 Hyaline Casts 8.67 /lpf 06/18/24 11:15 Serum Ketones Negative (Negative) 06/19/24 18:11 Coronavirus (PCR) Negative (Negative) 06/18/24 05:32 Influenza A (PCR) Negative (Negative) 06/18/24 05:32 Influenza Type B (PCR) Negative (Negative) 06/18/24 05:32 RSV (PCR) Negative (Negative) 06/18/24 05:32 Vitals Last Vital Signs Temp 97.5 F L 06/21/24 08:10 Pulse 126 H 06/21/24 08:10 Resp 18 06/21/24 08:10 BP 145/72 06/21/24 08:10 Pulse Ox 93 06/21/24 08:10 O2 Del Method Nasal Cannula 06/21/24 08:10 O2 Flow Rate 3 06/21/24 08:00 Discharge Plan Discharge Patient Disposition: Home Condition: Stable Prescriptions: New prednisone 20 mg Tablet 40 mg PO DAILY 5 Days Qty: 10 0RF insulin glargine [Basaglar KwikPen U-100 Insulin] 100 unit/mL (3 mL) insulin pen 10 unit SUBCUT DAILY 30 Days Qty: 15 0RF levofloxacin 750 mg tablet 750 mg PO DAILY 5 Days Qty: 5 0RF Continued atorvastatin 40 mg tablet 40 mg PO DAILY@07 acetaminophen [Tylenol Extra Strength] 500 mg Tablet 1,000 mg PO DAILY PRN (Reason: Pain) albuterol sulfate 90 mcg/actuation HFA aerosol inhaler 2 puff INHALATION Q4H PRN (Reason: Shortness Of Breath) paroxetine HCl 40 mg tablet 40 mg PO DAILY cholecalciferol (vitamin D3) [Vitamin D3] 25 mcg (1,000 unit) Tablet 25 mcg PO DAILY insulin aspart U-100 [Novolog FlexPen U-100 Insulin] 100 unit/mL (3 mL) insulin pen See Rx Instructions .ROUTE .COMPLEX Qty: 15 0RF Rx Instructions: Inject, 3 times daily, after meals, based on sliding scale provided furosemide 40 mg tablet 40 mg PO DAILY albuterol sulfate 2.5 mg /3 mL (0.083 %) solution for nebulization 2.5 mg inhalation BID PRN (Reason: Shortness Of Breath Or Wheezing) potassium chloride [Klor-Con M20] 20 mEq tablet,ER particles/crystals 20 meq PO DAILY tamsulosin 0.4 mg capsule 0.4 mg PO BEDTIME lisinopril 5 mg tablet 5 mg PO DAILY metformin 500 mg tablet extended release 24 hr 1,000 mg PO BID Breztri Aerosphere 160-9-4.8 mcg/actuation Hfa Aerosol Inhaler 2 inh INHALATION BID gabapentin 800 mg tablet 800 mg PO TID lorazepam 0.5 mg tablet 0.25 - 0.5 mg PO QPM Discontinued gabapentin 600 mg tablet 600 mg PO TID 30 Days Qty: 0 0RF Discharge Orders: Discharge Order (Routine); Ordered 06/21/24 Ordered By: Qasim Watt Referrals: Harsha Ritchie MD [Physician] - Discharge Diet: Cardiac Discharge Activity: Resume usual activity Patient Instructions: Opioid Safety Activity Restrictions/Additional Instructions: -Inject Lantus 10 units subcu daily -Please monitor your blood sugars closely -Monitor your blood sugars 3 times daily as after meals -Please record your blood sugars, and a blood sugar log -For your NovoLog -Please inject blood sugar after meals based on sliding scale provided -Do not inject insulin if you do not eat as hypoglycemia kills -This is a NovoLog sliding scale -Insulin sliding ?fingerstick? Insulin ?141-180?0 units/sq 181-220?2 units/sq ?221-260?4 units/sq ?261-300 6 units/sq ?301-350?8 units/sq ?351-400 10 units/sq ?401-450?12 units/sq >450? 14units/sq -If your blood sugar is greater than 500 go to the emergency room -If your blood sugar is less than 60 or at anytime you feel lightheaded or dizzy or diaphoretic or have chest palpitations check your blood sugar, and eat a hard candy or drink orange juice and go immediately to the emergency room -Remember hypoglycemia kills, so if his blood sugar is less than 60 we have to increase it by taking in a sugary meal such as a hard candy or orange juice and go to the emergency room -If you have any questions please call us where here to help -Please take antibiotics as prescribed Discharge Attestations Time Spent in Discharge Care*: greater than 30 min Status at Discharge: Cognitive status at discharge: cognitively intact, Behavioral status at discharge: cooperative, Quality Metrics Clinical Quality Measures [ No reported AMI, CVA or VTE this stay] Coding Level of Care Code 08889 Total time (in minutes) for Discharge: 45 Diagnoses Acute hypoxic respiratory failure J96.01 Pneumonia J18.9 COPD exacerbation J44.1 Obesity hypoventilation syndrome E66.2
--- NOTE | 2024-06-21 11:03 | PC.NURSE ---
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 pt educ on risks of refusing meds including morbidity and mortality, pt educ on benefits and positive outcome of taking meds. pt still refused. notified of refusal.
== END 2024-06-21 11:15 | disposition home or self-care (01) | DRG 193 ==
LOC: ER 08:53 → MEDSURG 09:20
PROVIDERS: Emergency Medicine; Internal Medicine; Admitting Provider Family Medicine; Emergency Provider Family Medicine; PCP Nurse Practitioner Family; Visit Provider Family Medicine
DX: J18.9 Pneumonia, unspecified organism (principal); J96.01 Acute respiratory failure with hypoxia; E66.2 Morbid (severe) obesity with alveolar hypoventilation; J44.0 Chronic obstructive pulmonary disease with (acute) lower respiratory infection; J44.1 Chronic obstructive pulmonary disease with (acute) exacerbation; I50.32 Chronic diastolic (congestive) heart failure; Z68.36 Body mass index [BMI] 36.0-36.9, adult; E11.40 Type 2 diabetes mellitus with diabetic neuropathy, unspecified; E11.649 Type 2 diabetes mellitus with hypoglycemia without coma; F41.8 Other specified anxiety disorders; E78.5 Hyperlipidemia, unspecified; I11.0 Hypertensive heart disease with heart failure; F17.200 Nicotine dependence, unspecified, uncomplicated; Z79.51 Long term (current) use of inhaled steroids; Z79.4 Long term (current) use of insulin; Z79.84 Long term (current) use of oral hypoglycemic drugs
CPT/HCPCS: 0241U; 36415; 36416; 36600; 71045; 80048; 80051; 80053; 80061; 81001; 82009; 82330; 82803; 82805; 82962; 83036; 83605; 83880; 84145; 84443; 84484; 85025; 86140; 87040; 87070; 87205; 93005; 94640; 94664; 96365; 96372; 96375; 99285; J0456; J0696; J1100; J1650; J1815; J1940; J1956; J2270; J2470; J2543; J2919; J3370; J7030; J7050; J7512; J7626

== ENCOUNTER 2024-07-30 19:07 | Emergency (ER) | payer MEDICARE, SELFPAY ==
[2024-07-30 19:07] VITALS: BP 139/47; PULSE 113; RESP 28; TEMP 36.5; O2SAT 97; BMI 45.0
--- NOTE | 2024-07-30 19:16 | XRR_ITS ---
PROCEDURE INFORMATION: Exam: XR Chest Exam date and time: 07/30/2024 7:27 PM Age: 69 years old Clinical indication: Shortness of breath; Patient HX: SOB; Wheezing TECHNIQUE: Imaging protocol: Radiologic exam of the chest. Views: 1 view. COMPARISON: CR (CHEST, ) 06/19/2024 8:46 AM FINDINGS: Lungs: Bibasilar atelectasis. No lobar consolidation. Pleural spaces: Unremarkable. No pleural effusion. No pneumothorax. Heart/Mediastinum: Cardiomegaly. Bones/joints: Unremarkable. XR/XR chest 1V portable [id number] IMPRESSION: As above.
[2024-07-30 19:32] VITALS: O2SAT 97
--- NOTE | 2024-07-30 19:34 | ED_ITS ---
HPI - SOB/Dyspnea 2 General: Chief Complaint: Shortness of Breath/Dyspnea Stated Complaint: SOB Time Seen by Provider: 07/30/24 19:15 History of Present Illness: HPI Narrative: Patient presents to the ER by EMS with complaints of shortness of breath and coughing up green phlegm. Patient states he started going downhill couple days ago. Patient is normally on oxygen at all x 4 L. Also does multiple breathing treatment throughout the day. That he has been doing. They are not been helping as much as before. When EMS arrived he was 88% on 3 L. He did a home breathing treatment without relief EMS gave him a DuoNeb albuterol and 125 mg Solu-Medrol en route. He said he has helped a little bit. It was able to turn his oxygen down to about 2 L. When they arrived in ER he was on 3 L satting 97%. Related Data Home Medications Medication Instructions Recorded Confirmed acetaminophen 500 mg tablet 1,000 mg PO DAILY PRN Pain 08/17/20 06/18/24 (Tylenol Extra Strength) atorvastatin 40 mg tablet 40 mg PO DAILY@07 08/17/20 06/18/24 lorazepam 0.5 mg tablet 0.25 - 0.5 mg PO QPM 07/30/23 06/18/24 albuterol sulfate 90 mcg/actuation 2 puff inhalation Q4H PRN 03/25/24 06/18/24 aerosol inhaler Shortness Of Breath cholecalciferol (vitamin D3) 25 25 mcg PO DAILY 03/25/24 06/18/24 mcg (1,000 unit) tablet (Vitamin D3) paroxetine HCl 40 mg tablet 40 mg PO DAILY 03/25/24 06/18/24 albuterol sulfate 2.5 mg/3 mL 2.5 mg inhalation BID PRN 06/18/24 06/18/24 (0.083 %) solution for nebulization Shortness Of Breath Or Wheezing budesonide 160 mcg-glycopyr 9 2 inh inhalation BID 06/18/24 06/18/24 mcg-formot 4.8 mcg/actuation HFA inhaler (Breztri Aerosphere) furosemide 40 mg tablet 40 mg PO DAILY 06/18/24 06/18/24 gabapentin 800 mg tablet 800 mg PO TID 06/18/24 06/18/24 lisinopril 5 mg tablet 5 mg PO DAILY 06/18/24 06/18/24 metformin 500 mg tablet,extended 1,000 mg PO BID 06/18/24 06/18/24 release 24 hr potassium chloride 20 mEq 20 meq PO DAILY 06/18/24 06/18/24 tablet,extended release(part/cryst) (Klor-Con M) tamsulosin 0.4 mg capsule 0.4 mg PO BEDTIME 06/18/24 06/18/24 Previous Rx's Medication Instructions Recorded insulin aspart U-100 100 unit/mL See Rx Instructions .Route 04/01/24 (3 mL) subcutaneous pen (Novolog .COMPLEX #15 mL FlexPen U-100 Insulin aspart) cefdinir 300 mg capsule 300 mg PO BID 10 days #20 caps 07/30/24 Allergies Allergy/AdvReac Type Severity Reaction Status Date / Time No Known Allergies Allergy Verified 01/01/22 15:22 Review of Systems 2 General: Reports: 10 or more systems reviewed and unremarkable except in HPI and below PFSH ED 2 PFSH: Medical History Acute hypercapnic respiratory failure Macrocytosis Acute diastolic heart failure Fracture of second metacarpal bone of right hand Fracture of medial condyle of left elbow Supracondylar fracture of left humerus Dislocation of proximal interphalangeal joint of right index finger Diabetic neuropathy Depression with anxiety Hyperlipidemia Altered mental status Obesity hypoventilation syndrome COPD (chronic obstructive pulmonary disease) Hypertension Diabetes Respiratory failure with hypoxia and hypercapnia Respiratory failure Surgical History History of back surgery History of surgery on arm Family History Other Cancer Social History Smoking and tobacco/nicotine status: current every day tobacco/nicotine user Alcohol intake: never Physical Exam 2 Const: COMMON NORMALS: no acute distress, average body habitus, patient oriented x3, no limitations, healthy appearing, alert and well nourished HENMT: COMMON NORMALS: normocephalic, atraumatic, hearing grossly normal bilaterally, external ears normal, Normal external nose present and moist oral mucous membranes HEAD & SCALP: normocephalic and atraumatic NOSE: Normal external nose present EXTERNAL EAR: Yes external ears normal Neck/C-Spine: COMMON NORMALS: no JVD Chest: COMMONS NORMALS: normal inspection of the chest and normal palpation of entire chest wall Resp: COMMON NORMALS: normal respiratory effort (Mild tachypnea), No retractions and No use of accessory muscles; negative for clear to auscultation bilaterally (Occasional wheeze rhonchi and decreased breath sounds bilaterally) AUSCULTATION: not clear to auscultation bilaterally (Occasional wheeze rhonchi and decreased breath sounds bilaterally) Cardio: COMMON NORMALS: no JVD, regular rhythm, S1 normal heart sound present, S2 normal heart sound present, No gallops present (Cardio), No clicks present (Cardio) and No murmurs present (Cardio); negative for regular rate (Mildly tachycardic) RATE: abnormal rate (Mildly tachycardic) RHYTHM: regular rhythm HEART SOUNDS: S1 normal heart sound present and S2 normal heart sound present GI: COMMON NORMALS: Normal to inspection, nondistended, normoactive bowel sounds present, Soft to palpation, non-tender, No hepatosplenomegaly present and no masses PALPATION: Yes Soft to palpation and Yes No hepatosplenomegaly present Neuro: COMMON NORMALS: patient oriented x3 SENSORIUM/ORIENTATION: Yes alert Course 2 Vital Signs: Vital signs: Vital Signs Temperature 97.7 F 07/30/24 19:07 Pulse Rate 113 H 07/30/24 19:07 Respiratory Rate 28 H 07/30/24 19:07 Blood Pressure 139/47 07/30/24 19:07 Pulse Oximetry 97 07/30/24 19:32 Oxygen Delivery Me thod Nasal Cannula 07/30/24 19:32 Oxygen Flow Rate 3 07/30/24 19:32 MDM - SOB/Dyspnea Medical Decision Making ABG was obtained which showed a high carbon dioxide level, patient reiterated that he does not want to wear the BiPAP because he cannot stand on his face and he does not want to be intubated at any cost. Chest x-ray was negative for active infiltrate, lab work was reviewed, patient will be started on Rocephin tonight and then transitioned over to Omnicef at the pharmacy. Medical Records I reviewed the patient's medical records. Lab Data I reviewed the patient's lab results. 07/30/24 19:27 07/30/24 19:27 Labs/Radiology: Radiology Impressions Chest X-Ray 07/30/24 19:16 IMPRESSION: As above. Laboratory Results WBC 10.45 10^3/uL (3.29-11.43) 07/30/24 19: RBC 2.96 10^6/uL (3.85-5.65) L 07/30/24 19: Hgb 10.10 g/dL (11.27-16.99) L 07/30/24 19: Hct 32.0 % (37-53) L 07/30/24 19: MCV 108.1 fl (82-101) H 07/30/24 19: MCH 34.1 pg (27-33) H 07/30/24 19: MCHC 31.6 g/dL (30-55) 07/30/24 19: RDW 12.8 % (12.1-15.1) 07/30/24: Plt Count 233 10^3/cmm (157-399) 07/30/24: MPV 8.9 fL (7.4-10.4) 07/30/24 19: Neut % (Auto) 82.2 % 07/30/24: Lymph % (Auto) 7.1 % 07/30/24: [place] % (Auto) 9.4 % 07/30/24: Eos % (Auto) 0.7 % 07/30/24: Baso % (Auto) 0.3 % 07/30/24: Neut # (Auto) 8.60 10^3/uL (1.8-7.7) H 07/30/24: Lymph # (Auto) 0.7 10^3/uL (0.8-4.8) L 07/30/24: [place] # (Auto) 1.0 10^3/uL (0.2-0.9) H 07/30/24: Eos # (Auto) 0.1 10^3/uL (0.0-0.8) 07/30/24: Baso # (Auto) 0.0 10^3/uL (0.0-0.1) 07/30/24: Nucleated RBC % (auto) 0 % 07/30/24 19:27 Nucleated RBCs # 0.0 /100WBC 07/30/24 19:27 Specimen Type Arterial 07/30/24 19:45 Sample Site Radial, right 07/30/24 19:45 ABG pH 7.32 (7.35-7.45) L 07/30/24 19:45 ABG pCO2 61.9 mmHg (35-45) H* 07/30/24 19:45 ABG pO2 59.6 mmHg (80.0-100.0) L 07/30/24 19:45 ABG HCO3 31.5 mmol/L (22-26) H 07/30/24 19:45 ABG O2 Saturation 90.5 07/30/24 19:45 ABG Base Excess 4.1 mmol/L (-2.0-2.0) H 07/30/24 19:45 Dileep Test Pos 07/30/24 19:45 A-a O2 Gradient 2.2 mmHg (5-10) L 07/30/24 19:45 Hematocrit 31.9 % (42-52) L 07/30/24 19:45 Hgb O2 Saturation 87.0 % (95-100) L 07/30/24 19:45 Carboxyhemoglobin 2.5 %THgb (0.4-20.1) 07/30/24 19:45 Methemoglobin 1.3 % (0.4-1.5) 07/30/24 19:45 Total Hemoglobin 10.4 g/dL (14-18) L 07/30/24 19:45 Sodium 140.0 mmol/L (131-143) 07/30/24 19:45 Potassium 4.3 mmol/L (3.5-5.0) 07/30/24 19:45 Glucose 195.0 mg/dL (70-115) H 07/30/24 19:45 Ionized Calcium 1.2 mmol/L (1.1-1.4) 07/30/24 19:45 O2 Delivery Device Nc 07/30/24 19:45 O2 Liters/Min 3.0 % 07/30/24 19:45 Hand Endband Cutter ID [email or web address] 07/30/24 19:45 Sodium 139 mmol/L (136-145) 07/30/24 19:27 Potassium 4.5 mmol/L (3.5-5.1) 07/30/24 19: Chloride 101 mmol/L (98-107) 07/30/24: Carbon Dioxide 30 mmol/L (22-29) H 07/30/24: Anion Gap 12.5 (5-19) 07/30/24 19: BUN 10 mg/dL (8-23) 07/30/24: Creatinine 0.7 mg/dL (0.7-1.2) 07/30/24: GFR Calculation 111.5 mL/min (90-130) 07/30/24: Glucose 195 mg/dL (65-115) H 07/30/24: Calculated Osmolality 292 mOsm/kg (285-295) 07/30/24: Calcium 8.9 mg/dL (8.5-10.5) 07/30/24: Total Bilirubin 0.2 mg/dL (0.15-1.2) 07/30/24: AST 13 U/L (0-40) 07/30/24: ALT 14 U/L (0-41) 07/30/24 19: Alkaline Phosphatase 86 U/L (40-130) 07/30/24: NT-Pro-B Natriuret Pep 99 pg/mL (0-125) 07/30/24: Total Protein 6.4 g/dL (6.6-8.7) L 07/30/24: Albumin 3.5 g/dL (3.5-5.2) 07/30/24: Globulin 2.9 g/dL (1.3-4.6) 07/30/24 19: Coronavirus (PCR) Negative (Negative) 07/30/24: Influenza A (PCR) Negative (Negative) 07/30/24: Influenza Type B (PCR) Negative (Negative) 07/30/24: RSV (PCR) Negative (Negative) 07/30/24 19: All radiology interpretation(s) finalized by discharge Discharge Plan Discharge Patient Disposition: Home Clinical Impression: Acute exacerbation of chronic obstructive airways disease, Bronchitis Condition: Stable Prescriptions: New cefdinir 300 mg capsule 300 mg PO BID 10 Days Qty: 20 0RF No Action atorvastatin 40 mg tablet 40 mg PO DAILY@07 acetaminophen [Tylenol Extra Strength] 500 mg Tablet 1,000 mg PO DAILY PRN (Reason: Pain) albuterol sulfate 90 mcg/actuation HFA aerosol inhaler 2 puff INHALATION Q4H PRN (Reason: Shortness Of Breath) paroxetine HCl 40 mg tablet 40 mg PO DAILY cholecalciferol (vitamin D3) [Vitamin D3] 25 mcg (1,000 unit) Tablet 25 mcg PO DAILY insulin aspart U-100 [Novolog FlexPen U-100 Insulin] 100 unit/mL (3 mL) insulin pen See Rx Instructions .ROUTE .COMPLEX Qty: 15 0RF Rx Instructions: Inject, 3 times daily, after meals, based on sliding scale provided furosemide 40 mg tablet 40 mg PO DAILY albuterol sulfate 2.5 mg /3 mL (0.083 %) solution for nebulization 2.5 mg inhalation BID PRN (Reason: Shortness Of Breath Or Wheezing) potassium chloride [Klor-Con M20] 20 mEq tablet,ER particles/crystals 20 meq PO DAILY tamsulosin 0.4 mg capsule 0.4 mg PO BEDTIME lisinopril 5 mg tablet 5 mg PO DAILY metformin 500 mg tablet extended release 24 hr 1,000 mg PO BID Breztri Aerosphere 160-9-4.8 mcg/actuation Hfa Aerosol Inhaler 2 inh INHALATION BID gabapentin 800 mg tablet 800 mg PO TID lorazepam 0.5 mg tablet 0.25 - 0.5 mg PO QPM Discharge Orders: Discharge ED (Routine); Ordered 07/30/24 Ordered By: Willie Avendaño Referrals: Francesca Buchanan BUSINESS OWNER/ENGINEER [Primary Care Provider] - 1 week Patient Instructions: Acute Bronchitis (ED), COPD (Chronic Obstructive Pulmonary Disease) (ED) Activity Restrictions/Additional Instructions: Please take all your antibiotics as directed. Please follow-up with your family practitioner in the next 7 days for further evaluation treatment. Thank you for choosing [facility] for your healthcare needs today. Please realize that you were seen in the emergency department and that we are providing you with an emergency medical screening exam and this may not be a complete and all exclusive of all testing and/or medical workup we may need to determine your element or severity of your illness. It is very important that you follow-up as instructed with your primary care provider or specialist for the additional evaluation and to discuss your medical treatment plan. You may return to the emergency department should you have concerns or if your condition changes or worsens in any way. Coding Level of Care Code ED Germination Testing Manager for [facility]
[2024-07-30 19:37] LABS: Basophils % 0.3 %; Eosinophils # 0.1 10^3/uL (0.0-0.8); Eosinophils % 0.7 %; Lymphocytes # 0.7 10^3/uL (0.8-4.8); Lymphocytes % 7.1 %; Mean Corpuscular HGB Conc 31.6 g/dL (30-55); Mean Corpuscular Hemoglobin 34.1 pg (27-33); Mean Corpuscular Volume 108.1 fl (82-101); Mean Platelet Volume 8.9 fL (7.4-10.4); Monocytes % 9.4 %; Neutrophils % 82.2 %; Nucleated Red Blood Cells % 0 %; Platelet Count 233 10^3/cmm (157-399); Red Blood Count 2.96 10^6/uL (3.85-5.65); Red Cell Distribution Width 12.8 % (12.1-15.1); White Blood Count 10.45 10^3/uL (3.29-11.43)
[2024-07-30 19:56] LABS: ABG PCO2 61.9 mmHg (35-45); ABG PH Result 7.32 (7.35-7.45); Alveolar-Arterial Oxygen Gradi 2.2 mmHg (5-10); Arterial Blood Gas Hematocrit 31.9 % (42-52); Base Excess ABG 4.1 mmol/L (-2.0-2.0); Blood Gas Allen Test Pos; Blood Gas Sample Site Radial, right; Blood Gas Sample Type Arterial; Carboxyhemoglobin 2.5 %THgb (0.4-20.1); HCO3 ABG 31.5 mmol/L (22-26); Ionized Calcium Level - ABG 1.2 mmol/L (1.1-1.4); Methemoglobin 1.3 % (0.4-1.5); Oxygen Device NC; Oxygen Saturation ABG 90.5; PO2 ABG 59.6 mmHg (80.0-100.0); Potassium Level - ABG 4.3 mmol/L (3.5-5.0); Total Hemoglobin 10.4 g/dL (14-18)
[2024-07-30 20:02] LABS: Alanine Aminotransferase 14 U/L (0-41); Albumin Level 3.5 g/dL (3.5-5.2); Alkaline Phosphatase 86 U/L (40-130); Anion Gap 12.5 (5-19); Aspartate Amino Transferase 13 U/L (0-40); Blood Urea Nitrogen 10 mg/dL (8-23); Calcium 8.9 mg/dL (8.5-10.5); Carbon Dioxide 30 mmol/L (22-29); Chloride 101 mmol/L (98-107); Creatinine Clr Calc Pharmacy 108.0392; Globulin 2.9 g/dL (1.3-4.6); Glomerular Filtration Rate 111.5 mL/min (90-130); Glucose 195 mg/dL (65-115); NT Pro B Type Natriuretic Pept 99 pg/mL (0-125); Osmolality Calculated 292 mOsm/kg (285-295); Potassium 4.5 mmol/L (3.5-5.1); Sodium 139 mmol/L (136-145); Total Bilirubin 0.2 mg/dL (0.15-1.2); Total Protein 6.4 g/dL (6.6-8.7)
[2024-07-30 20:22] LABS: Covid PCR NEGATIVE (Negative); Influenza A NEGATIVE (Negative); Influenza B NEGATIVE (Negative); Respiratory Syncytial Virus Ce NEGATIVE (Negative)
[2024-07-30] MEDS: cefTRIAXone 1,000 mg SDV 1000 MG IVP (21:36)
[2024-07-30 22:37] VITALS: BP 178/98; PULSE 98; O2SAT 97
== END 2024-07-30 22:39 | disposition home or self-care (01) ==
PROVIDERS: Emergency Provider Emergency Medicine; PCP Nurse Practitioner Family
DX: J44.1 Chronic obstructive pulmonary disease with (acute) exacerbation (principal); J40 Bronchitis, not specified as acute or chronic; Z11.52 Encounter for screening for COVID-19; Z79.84 Long term (current) use of oral hypoglycemic drugs; Z72.0 Tobacco use; E11.40 Type 2 diabetes mellitus with diabetic neuropathy, unspecified; I11.0 Hypertensive heart disease with heart failure; I50.31 Acute diastolic (congestive) heart failure; E78.5 Hyperlipidemia, unspecified
CPT/HCPCS: 0241U; 36600; 71045; 80051; 80053; 82330; 82805; 83880; 85025; 96374; 99284; J0696

== ENCOUNTER 2025-03-30 19:59 | Emergency (ER) | payer MEDICARE, SELFPAY ==
--- OUTSIDE RECORDS SUMMARY | 2025-03-30 20:04 | XMS_ITS | Encounter Summary ---
Author Organization [facility] Address [address] [place] [address] Care Team Providers Care Lung Puller Name Role Phone Amber Mirza Primary Care Provider Encounter Details Date Type Department Care Team (Latest Contact Info) Description 12/19/2002 Outpatient Historical [address] [phone] Naren Morales MD [address] [facility] [address] [place] [phone] CHEST PAIN NEC (Primary Dx); HYPERTENSION NOS Social History Tobacco Use Types Packs/Day Years Used Date Smoking Tobacco: Never Assessed Sex and Gender Information Value Date Recorded Sex Assigned at Not on file 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
--- OUTSIDE RECORDS SUMMARY | 2025-03-30 20:04 | XMS_ITS | Encounter Summary ---
Author Organization [facility] Address [address] [place] [address] Care Team Providers Care Surfboard Maker Name Role Phone Amber Mirza Primary Care Provider [phone] Encounter Details Date Type Department Care Team (Late st Contact Info) Description 12/14/2002 Emergency [facility] Emergency Department [address] 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
--- OUTSIDE RECORDS SUMMARY | 2025-03-30 20:04 | XMS_ITS | Encounter Summary ---
Author Organization [facility] Address [address] [place] [address] Care Team Providers Care Immersion Metal Cleaner Name Role Phone Amber Mirza Primary Care Provider [phone] Encounter Details Date Type Department Care Team (Latest Contact Info) Description 10/12/2001 Outpatient Historical [address] [phone] Naren Morales MD [address] [phone] DIZZINESS AND GIDDINESS (Primary Dx); SYNCOPE AND COLLAPSE Social History Tobacco Use Types Packs/Day Years Used Date Smoking Tobacco: Never Assessed Sex and Gender Information Value Date Recorded Sex Assigned at Not on file 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
--- OUTSIDE RECORDS SUMMARY | 2025-03-30 20:04 | XMS_ITS | Encounter Summary ---
Author Organization [facility] Address [address] [place] [address] Care Team Providers Care Cytology Laboratory Manager Name Role Phone Amber Mirza Primary Care Provider [phone] Encounter Details Date Type Department Care Team (Latest Contact Info) Description 12/14/2002 Outpatient Historical [facility] [address] 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
--- OUTSIDE RECORDS SUMMARY | 2025-03-30 20:04 | XMS_ITS | Encounter Summary ---
Author Organization [facility] Address [address] [place] [address] Care Team Providers Care Feeder/Folder Name Role Phone Amber Mirza Primary Care Provider [phone] Encounter Details Date Type Department Care Team (Latest Contact Info) Description 12/14/2002 Outpatient Historical [facility] [address] 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
--- OUTSIDE RECORDS SUMMARY | 2025-03-30 20:04 | XMS_ITS | Encounter Summary ---
Author Organization [facility] Address [address] [place] [address] Care Team Providers Care Practice Administrator Name Role Phone Amber Mirza Primary Care Provider [phone] Encounter Details Date Type Department Care Team (Latest Contact Info) Description 10/13/2001 Outpatient Historical [address] [phone] Yoan Null DO NO ADDRESS ON FILE TRUNK INJURY NOS (Primary Dx); CONTUSION OF CHEST WALL Social History Tobacco Use Types Packs/Day Years Used Date Smoking Tobacco: Never Assessed Sex and Gender Information Value Date Recorded Sex Assigned at Not on file 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
--- OUTSIDE RECORDS SUMMARY | 2025-03-30 20:04 | XMS_ITS | Encounter Summary ---
Author Organization [facility] Address [address] [place] [address] Care Team Providers Care Intermodal Truck Driver Name Role Phone Amber Mirza RED HAT ENGINEER Primary Care Provider [phone] Encounter Details Date Type Department Care Team (Late st Contact Info) Description 08/29/2015 Ancillary Orders [facility] [address] [place] [address] Amber Mirza RED HAT ENGINEER [address] [place], [place] [id number] Cough (Primary Dx); Chronic obstructive pulmonary disease, unspecified COPD type (CMS/HCC) Social History Tobacco Use Types Packs/Day Years Used Date Smoking Tobacco: Never Assessed Sex and Gender Information Value Date Recorded Sex Assigned at Not on file Legal 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 No acute cardiopulmonary disease. [facility] cjjorge - uploaded from [employer] - [email or web address] 08/29/2015 2:52 PM [employer] Exam: XR CHEST PA AND LATERAL Date/Time of Exam: Aug 29, 2015 11:31:57 AM History: Cough,Chronic obstructive pulmonary disease, unspecified COPD type. Findings: PA and lateral projections of the chest demonstrates the heart size to be normal. Peripheral septal lines or pleural effusion is not evident and there is no vascular redistribution. Airspace pneumonia or parenchymal nodularity is not present. There is no underlying pneumothorax. Lung volumes are normal. Amber [facility] ORDER[facility] Final Result documented in this encounter Visit Diagnoses Diagnosis Cough- Primary Chronic obstructive pulmonary disease, unspecified COPD type (CMS/HCC) Cough Chronic obstructive pulmonary disease, unspecified COPD type (CMS/HCC) documented in this encounter Care Teams Intermodal Truck Driver Relationship Specialty Start Date End Date Amber Mirza FNP [facility] [place] [address] PCP - General NURSE PRACTITIONER 08/29/15 documented as of this encounter
--- OUTSIDE RECORDS SUMMARY | 2025-03-30 20:04 | XMS_ITS | Encounter Summary ---
Author Organization [facility] Address [address] [place] [address] Care Team Providers Care Rn Integrated Name Role Phone Amber Mirza Primary Care Provider [phone] Encounter Details Date Type Department Care Team (Latest Contact Info) Description 10/27/2001 Outpatient Historical [address] [phone] Naren Morales MD [address] [phone] TRUNK INJURY NOS (Primary Dx); CONTUSION OF CHEST WALL Social History Tobacco Use Types Packs/Day Years Used Date Smoking Tobacco: Never Assessed Sex and Gender Information Value Date Recorded Sex Assigned at Not on file Legal 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
--- OUTSIDE RECORDS SUMMARY | 2025-03-30 20:04 | XMS_ITS | Clinical Summary ---
Author Organization [facility] Address [address] Attn: Epic Prelude ADT [place]OL[place] RAI [address] Care Team Providers Care Transportation Museum Helper Name Role Phone Amber Mirza Dominique METAL WORK DUCT INSTALLER Primary Care Provider [phone] Encounters Date Type Department Care Team Description 12/29/2024 External Device Data STL ABSTRACTION Provider, Abstract 12/28/2024 External Device Data ST[facility] ABSTRACTION Provider, Abstract from Last 3 Months Immunizations Immunization Administration Dates Next Due Hepatitis A Vaccine 04/08/1999,09/17/1998 Social History Tobacco Use Types Packs/Day Years Used Date Smoking Tobacco: Never Assessed Sex and Gender Information Value Date Recorded Sex Assigned at Not on file Legal 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 3:53 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 Gender Identity Not on file Sexual Orientation Not on file Plan of Treatment Health Maintenance Due Date Last Done Comments DTAP/TDAP/TD VACCINES (1 - Tdap) 1973 COLORECTAL SCREENING 1999 Colorectal Cancer Screening 1999 FIT-DNA Q 3 years 1999 FIT/FOBT Q 1 year 1999 Flex Sig/CT Colonography Q 5 years 1999 PNEUMOCOCCAL VACCINE 50+ YEARS (1 of 1 - PCV) 01/24/20 04 ZOSTER VACCINE (1 of 2) 01/24/2004 INFLUENZA VACCINE (#1) 2025 RSV VACCINE (60+ or ) (1 - 1-dose 75+ series) 2029 Insurance [facility] HMO Care Teams Transportation Museum Helper Relationship Specialty Start Date End Date Amber Mirza FNP [address] [place] [address] PCP - General NURSE PRACTITIONER 08/29/15
--- OUTSIDE RECORDS SUMMARY | 2025-03-30 20:04 | XMS_ITS | Encounter Summary ---
Author Organization [facility] Address [address] [place] [address] Care Team Providers Care Diesel Service Journeyman Name Role Phone Amber Mirza Primary Care Provider [phone] Encounter Details Date Type Department Care Team (Latest Contact Info) Description 10/20/2001 Outpatient Historical [address] [phone] Naren Morales MD [address] [phone] TRUNK INJURY NOS (Primary Dx); CONTUSION OF CHEST WALL Social History Tobacco Use Types Packs/Day Years Used Date Smoking Tobacco: Never Assessed Sex and Gender Information Value Date Recorded Sex Assigned at Not on file Legal 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
--- OUTSIDE RECORDS SUMMARY | 2025-03-30 20:04 | XMS_ITS | Encounter Summary ---
Author Organization [facility] Address [address] [place] [address] Care Team Providers Care Prescription Benefit Specialist Name Role Phone Amber Mirza Primary Care Provider [phone] Encounter Details Date Type Department Care Team (Latest Contact Info) Description 10/01/2001 Outpatient Historical [facility] [address] [facility] [address] [place] [phone] Naren Morales MD [address] [facility] [address] [place] [phone] Contusion abdominal wall (Primary Dx); SYNCOPE AND COLLAPSE Social History Tobacco Use Types Packs/Day Years Used Date Smoking Tobacco: Never Assessed Sex and Gender Information Value Date Recorded Sex Assigned at Not on file 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
--- OUTSIDE RECORDS SUMMARY | 2025-03-30 20:04 | XMS_ITS | Encounter Summary ---
Author Organization [facility] Address [address] [place] [address] Care Team Providers Care Wood Finisher Apprentice Name Role Phone Amber Mirza Primary Care Provider [phone] Encounter Details Date Type Department Care Team (Latest Contact Info) Description 10/20/2001 Outpatient Historical [address] [phone] Naren Morales MD [address] [facility] [address] [place] [phone] IMPACTED CERUMEN (Primary Dx) Social History Tobacco Use Types Packs/Day Years Used Date Smoking Tobacco: Never Assessed Sex and Gender Information Value Date Recorded Sex Assigned at Not on file 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
--- OUTSIDE RECORDS SUMMARY | 2025-03-30 20:04 | XMS_ITS | Clinical Summary ---
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
--- OUTSIDE RECORDS SUMMARY | 2025-03-30 20:04 | XMS_ITS | Encounter Summary ---
Author Organization [facility] Address [address] [place] [address] Care Team Providers Care Macaroni Maker Name Role Phone Amber Mirza Primary Care Provider [phone] Encounter Details Date Type Department Care Team (Latest Contact Info) Description 12/16/2002 Outpatient Historical [address] [phone] Sharona London MD NO ADDRESS ON FILE CHEST PAIN NOS (Primary Dx); ACUTE BRONCHITIS Social History Tobacco Use Types Packs/Day Years Used Date Smoking Tobacco: Never Assessed Sex and Gender Information Value Date Recorded Sex Assigned at Not on file Legal Sex Male 4:58 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
[2025-03-30 20:13] VITALS: BP 170/96; PULSE 84; RESP 20; TEMP 36.7; O2SAT 95
[2025-03-31 00:48] LABS: Hematocrit 39.3 % (37-53); Hemoglobin 12.80 g/dL (11.27-16.99); Mean Corpuscular HGB Conc 32.6 g/dL (30-55); Mean Corpuscular Hemoglobin 33.8 pg (27-33); Mean Corpuscular Volume 103.7 fl (82-101); Nucleated Red Blood Cells % 0 %; Platelet Count 205 10^3/cmm (157-399); Red Blood Count 3.79 10^6/uL (3.85-5.65); White Blood Count 10.26 10^3/uL (3.29-11.43)
[2025-03-31 01:10] LABS: Alanine Aminotransferase 12 U/L (0-41); Albumin Level 4.4 g/dL (3.5-5.2); Alkaline Phosphatase 84 U/L (40-130); Anion Gap 14.5 (5-19); Aspartate Amino Transferase 15 U/L (0-40); Blood Urea Nitrogen 9 mg/dL (8-23); Calcium 9.5 mg/dL (8.5-10.5); Carbon Dioxide 31 mmol/L (22-29); Chloride 102 mmol/L (98-107); Globulin 3.3 g/dL (1.3-4.6); Glucose 142 mg/dL (65-115); Osmolality Calculated 297 mOsm/kg (285-295); Potassium 4.5 mmol/L (3.5-5.1); Sodium 143 mmol/L (136-145); Total Protein 7.7 g/dL (6.6-8.7)
== END 2025-03-31 02:12 | disposition left against medical advice (07) ==
PROVIDERS: Student in an Organized Health Care Education/Training Program; Emergency Provider Family Medicine; PCP Nurse Practitioner Family
DX: Z01.89 Encounter for other specified special examinations (principal); Z53.21 Procedure and treatment not carried out due to patient leaving prior to being seen by health care provider
CPT/HCPCS: 36415; 80053; 85025